=== PATIENT | female | born 1945 | race Caucasian/White ===

== ENCOUNTER 2017-11-13 16:55 | Emergency (ER) | payer SELFPAY ==
[2017-11-13 19:53] VITALS: BP 168/81; PULSE 92; RESP 18; TEMP 37.2; O2SAT 95; BMI 27.4
--- NOTE | 2017-11-13 20:07 | CT_ITS ---
CT abdomen pelvis wo con CLINICAL INDICATION: ITS.REASON: ABDOMINAL PAIN ORDERING PHYSICIAN: Hadley Brar MD PATIENT AGE: 72 years COMPARISON: None TECHNIQUE: Axial images obtained with sagittal and coronal reformats. PROCEDURE: Oral Contrast: None IV Contrast: None . FINDINGS: Lower thorax: Multiple small groupings of micronodules are present in the lung bases with tree-in-bud configuration within the lower lobes. Atelectasis scarring or infiltrate noted in the right middle lobe in the medial aspect of the lingula. No effusions. Bronchial thickening is noted. Abdomen pelvis: No focal liver lesion. The spleen, adrenal glands, gallbladder, pancreas, and kidneys have an unremarkable unenhanced CT appearance. The appendix is somewhat prominent measuring up to 8 mm in diameter however there is gas present in the appendix as expected and there is no periappendiceal fluid apparent. Probably a variation of normal. No evidence of diverticulitis. Senescent appearing uterus with calcification No intestinal obstruction or free air is evident. There is a moderate amount retained colonic feces. Fluid-filled bowel loop is present in the right lower quadrant and may represent redundant cecum. Repeat exam with IV and oral contrast may confirm. There is mild thickening of the urinary bladder wall. No acute bony anomalies. IMPRESSION: 1. Bilateral lung micronodules with tree-in-bud configuration which may represent infectious bronchiolitis versus other interstitial lung processes. 2. Mild wall thickening urinary bladder nonspecific but may be seen with cystitis. 3. Moderate amount retained colonic feces. Fluid-filled bowel is noted in the right lower quadrant and may be due to redundant cecum. Follow-up exam with IV and oral contrast may confirm this finding. 4. Other nonacute findings as described above. The appendix is slightly prominent but does not appear inflamed
[2017-11-13 20:29] LABS: Basophils % 0.3 % (0.1-2.0); Eosinophils # 0.1 K/mm3 (0.0-0.4); Hematocrit 36.9 % (37.0-47.0); Hemoglobin 12.3 g/dL (12.2-16.2); Lymphocytes # 1.7 K/mm3 (0.7-4.5); Lymphocytes % 32.4 K/mm3 (10-50); Mean Corpuscular HGB Conc 33.4 g/dL (31.8-35.4); Mean Corpuscular Hemoglobin 29.2 pg (27.0-31.2); Mean Corpuscular Volume 87.6 fl (81-99); Mean Platelet Volume 8.2 fl (7.4-10.4); Monocytes # 0.3 K/mm3 (0.1-1.0); Monocytes % 5.3 % (1.7-9.3); Neutrophils # 3.2 K/mm3 (1.8-7.8); Neutrophils % 60.9 % (37.0-80.0); Platelet Count 175 K/mm3 (142-424); Red Blood Count 4.22 M/mm3 (4.20-5.40); Red Cell Distribution Width 12.6 % (11.5-17.5); White Blood Count 5.2 K/mm3 (4.8-10.8)
[2017-11-13 20:36] LABS: Microscopic, Urine URINE MICROSCOPIC (MICROSCOPIC)
[2017-11-13 20:36] LABS: Alanine Aminotransferase 34 U/L (12-78); Albumin Level 3.6 gm/dL (3.4-5.0); Albumin/Globulin Ratio 0.9 (1.1-1.8); Alkaline Phosphatase 38 U/L (46-116); Amylase 52 U/L (25-125); Anion Gap 14.9 mEq/L (5-15); Aspartate Amino Transferase 34 U/L (15-37); Bilirubin,Total 0.4 mg/dL (0.2-1.0); Blood Urea Nitrogen 12 mg/dL (7-18); Calcium 8.5 mg/dL (8.5-10.1); Carbon Dioxide 27 mmol/L (21.0-32.0); Chloride 89 mmol/L (98-107); Creatinine Clearance Estimated 58 mL/min (0-300); Creatinine,Serum 0.88 mg/dL (0.55-1.02); Estimated Glomerular Filt Rate 63 ml/min (>60); GFR (African American) 76 ML/MIN (>60); Glucose 136 mg/dL (74-106); Lipase 243 u/L (73-393); Potassium 3.9 mmoL/L (3.5-5.1); Sodium 127 mmol/L (136-145); Total Protein,Serum 7.6 gm/dL (6.4-8.2)
[2017-11-13 20:37] LABS: Appearance,Urine SL CLOUDY (Clear); Bilirubin,Urine Negative (Negative); Blood, Urine TRACE-I (Negative); Color,Urine YELLOW (Yellow); Glucose,Urine (UA) Negative (Negative); Ketones,Urine TRACE (Negative); Leukocyte Esterase,Urine 3+ (Negative); Nitrate,Urine Negative (Negative); Protein,Urine Negative (Negative); Urobilinogen,Urine 0.2 EU/dl (0.2)
[2017-11-13 21:05] LABS: WBC,Urine 20-50 #/hpf (0-3)
[2017-11-13 21:06] LABS: Bacteria,Urine 1+ /lpf
--- NOTE | 2017-11-13 22:57 | [facility]H.EDNVD ---
ED Disposition Clinical Impression: UTI (urinary tract infection) Qualifiers: Urinary tract infection type: acute cystitis Hematuria presence: without hematuria Qualified Code(s): N30.00 - Acute cystitis without hematuria Disposition: Home, Self-Care Condition on Discharge: Good Instructions: DI for Urinary Tract Infection (UTI) Additional Instructions: fluids and call pcp for culture results and will write keflex 500 mg bid x 7 days - Critical Care Critical Care Time: No Attestation: On 11/13/17, the high probability of a clinically significant, sudden or life threatening deterioration of the following system(s) required my full and direct attention, intervention and personal management. The time I documented below is in addition to time spent performing reported procedures but includes the following listed in this critical care notation. Medical Decision Making - Medical Records Medical records reviewed: Yes: I reviewed the patient's medical records. Vital Signs: 11/13/17 19:53 Temperature 98.9 F Temperature Source Oral Pulse Rate [Right Radial] 92 H Respiratory Rate 18 Blood Pressure [Right Arm] 168/81 Blood Pressure Mean [Right Arm] 110 Blood Pressure Source [Right Arm] Automatic Cuff Blood Pressure Position [Right Arm] Sitting 02 Sat by Pulse Oximetry 95 Oxygen Delivery Method Room Air - Lab Data Lab results reviewed: Yes: I reviewed the patient's lab results. Lab Results 11/13/17 20:20: WBC 5.2, RBC 4.22, Hgb 12.3, Hct 36.9 L, MCV 87.6, MCH 29.2, MCHC 33.4, RDW 12.6, Plt Count 175, MPV 8.2, Neut % (Auto) 60.9, Lymph % (Auto) 32.4, [place] % (Auto) 5.3, Eos % (Auto) 1.0, Baso % (Auto) 0.3, Neut # (Auto) 3.2, Lymph # (Auto) 1.7, [place] # (Auto) 0.3, Eos # (Auto) 0.1, Baso # (Auto) 0.0 11/13/17 20:20: Sodium 127 L, Potassium 3.9, Chloride 89 L, Carbon Dioxide 27, Anion Gap 14.9, BUN 12, Creatinine 0.88, Estimated Creat Clear 58, Estimated GFR 63, Est GFR ( Amer) 76, Glucose 136 H, Calcium 8.5, Total Bilirubin 0.4, AST 34, ALT 34, Alkaline Phosphatase 38 L, Total Protein 7.6, Albumin 3.6, Globulin 4.0 H, Albumin/Globulin Ratio 0.9 L, Amylase 52, Lipase 243 11/13/17 20:30: Urine Color Yellow, Urine Appearance Sl cloudy, Urine pH 6.0, Ur Specific [place] 1.010, Urine Protein Negative, Urine Glucose (UA) Negative, Urine Ketones Trace, Urine Blood Trace-i, Urine Nitrate Negative, Urine Bilirubin Negative, Urine Urobilinogen 0.2, Ur Leukocyte Esterase 3+ A, Urine RBC None, Urine WBC 20-50, Ur Squamous Epith Cells 10-20, Ur Transition Epith Cell 5-10, Urine Bacteria 1+ Result diagrams: 11/13/17 20:20 11/13/17 20:20 Orders (Tests/Meds): ED MEDICATIONS Discontinued Medications Generic Name Dose Route Start Last Admin Trade Name Freq PRN Reason Stop Dose Admin Sodium Chloride 1,000 mls @ 999 mls/hr 11/13/17 20:45 11/13/17 20:43 Sod Chloride 0.9% 1000ml Bag IV 11/13/17 21:45 999 mls/hr .Q1H1M LENNIE Administration ORDERS Category Date Time Status CT abdomen pelvis wo con Stat Cat Scan 11/13/17 20:07 Taken Urine Culture Stat Micro 11/13/17 20:30 Received - CT Data CT Scan: Abdomen, Pelvis Time Received: 23:[address] Reviewed: Yes: I have viewed the radiologist's interpretation Preliminary Findings: Abnormal (see report) - Per Inquiry Pt receiving controlled substance: No Nausea/Vomiting/Diarrhea HPI - General Chief complaint: Abdominal Pain Stated complaint: abd pain,lower back Time Seen by Provider: 11/13/17 22:57 Mode of Arrival: Ambulatory Source of Information: Patient, Spouse, Medical Record Limitations: No Limitations Description of Symptoms (Recalled from ER Triage Doc. by RN): PT REPORTS GENERALIZED ABD PAIN THAT RADIATES TO HER BACK X 1WK. PT REPORTS INTERMITTENT NAUSEA AND VOMITING. - History of Present Illness HPI Narrative: 2 day hx of lower back pain and lower abd pain with no fever or vomiting MD complaint: abdominal pain Onset (ago): day(
--- NOTE | 2017-11-13 23:01 | ED_ITS ---
ED Disposition Clinical Impression: UTI (urinary tract infection) Qualifiers: Urinary tract infection type: acute cystitis Hematuria presence: without hematuria Qualified Code(s): N30.00 - Acute cystitis without hematuria Disposition: Home, Self-Care Condition on Discharge: Good Instructions: DI for Urinary Tract Infection (UTI) Additional Instructions: fluids and call pcp for culture results and will write keflex 500 mg bid x 7 days - Critical Care Critical Care Time: No Attestation: On 11/13/17, the high probability of a clinically significant, sudden or life threatening deterioration of the following system(s) required my full and direct attention, intervention and personal management. The time I documented below is in addition to time spent performing reported procedures but includes the following listed in this critical care notation. Medical Decision Making - Medical Records Medical records reviewed: Yes: I reviewed the patient's medical records. Vital Signs: 11/13/17 19:53 Temperature 98.9 F Temperature Source Oral Pulse Rate [Right Radial] 92 H Respiratory Rate 18 Blood Pressure [Right Arm] 168/81 Blood Pressure Mean [Right Arm] 110 Blood Pressure Source [Right Arm] Automatic Cuff Blood Pressure Position [Right Arm] Sitting 02 Sat by Pulse Oximetry 95 Oxygen Delivery Method Room Air - Lab Data Lab results reviewed: Yes: I reviewed the patient's lab results. Lab Results 11/13/17 20:20: WBC 5.2, RBC 4.22, Hgb 12.3, Hct 36.9 L, MCV 87.6, MCH 29.2, MCHC 33.4, RDW 12.6, Plt Count 175, MPV 8.2, Neut % (Auto) 60.9, Lymph % (Auto) 32.4, [place] % (Auto) 5.3, Eos % (Auto) 1.0, Baso % (Auto) 0.3, Neut # (Auto) 3.2 , Lymph # (Auto) 1.7, [place] # (Auto) 0.3, Eos # (Auto) 0.1, Baso # (Auto) 0.0 11/13/17 20:20: Sodium 127 L, Potassium 3.9, Chloride 89 L, Carbon Dioxide 27, Anion Gap 14.9, BUN 12, Creatinine 0.88, Estimated Creat Clear 58, Estimated GFR 63, Est GFR ( Amer) 76, Glucose 136 H, Calcium 8.5, Total Bilirubin 0.4, AST 34, ALT 34, Alkaline Phosphatase 38 L, Total Protein 7.6, Albumin 3.6, Globulin 4.0 H, Albumin/Globulin Ratio 0.9 L, Amylase 52, Lipase 243 11/13/17 20:30: Urine Color Yellow, Urine Appearance Sl cloudy, Urine pH 6.0, Ur Specific [place] 1.010, Urine Protein Negative, Urine Glucose (UA) Negative, Urine Ketones Trace, Urine Blood Trace-i, Urine Nitrate Negative, Urine Bilirubin Negative, Urine Urobilinogen 0.2, Ur Leukocyte Esterase 3+ A, Urine RBC None, Urine WBC 20-50, Ur Squamous Epith Cells 10-20, Ur Transition Epith Cell 5-10, Urine Bacteria 1+ Result diagrams: 11/13/17 20:20 11/13/17 20:20 Orders (Tests/Meds): ED MEDICATIONS Discontinued Medications Generic Name Dose Route Start Last Admin Trade Name Freq PRN Reason Stop Dose Admin Sodium Chloride 1,000 mls @ 999 mls/hr 11/13/17 20:45 11/13/17 20:43 Sod Chloride 0.9% 1000ml Bag IV 11/13/17 21:45 999 mls/hr .Q1H1M LENNIE Administration ORDERS Category Date Time Status CT abdomen pelvis wo con Stat Cat Scan 11/13/17 20:07 Taken Urine Culture Stat Micro 11/13/17 20:30 Received - CT Data CT Scan: Abdomen, Pelvis Time Received: 23:[address] Reviewed: Yes: I have viewed the radiologist's interpretation Preliminary Findings: Abnormal (see report) - Per Inquiry Pt receiving controlled substance: No Nausea/Vomiti
== END 2017-11-13 23:26 | disposition home or self-care (01) ==
PROVIDERS: Emergency Medicine; Emergency Provider Emergency Medicine
DX: N30.00 Acute cystitis without hematuria (principal); E11.9 Type 2 diabetes mellitus without complications; Z79.4 Long term (current) use of insulin
CPT/HCPCS: 74176; 80053; 81001; 82150; 83690; 85025; 87086; 87088; 87186; 96365; 96367; 96375; 99283

== ENCOUNTER 2018-03-13 11:12 | Observation (INO) ==
--- NOTE | 2018-03-13 11:32 | Emergency Department Note ---
ED Disposition Clinical Impression: New onset atrial flutter, Chest pain, Right ventricular dysfunction, Diabetes, Hypertension Disposition: Still a Patient Condition on Discharge: Fair - Critical Care Critical Care Time: No Attestation: On , the high probability of a clinically significant, sudden or life threatening deterioration of the following system(s) required my full and direct attention, intervention and personal management. The time I documented below is in addition to time spent performing reported procedures but includes the following listed in this critical care notation. Medical Decision Making - Per Inquiry Pt receiving controlled substance: No Per was queried for this patient: No Vital Signs: 03/13/18 11:12 03/13/18 12:12 03/13/18 13:30 Temperature 97.5 F L 98.2 F 97.6 F Temperature Source Oral Oral Oral Pulse Rate [Left Radial] 127 H 85 84 Respiratory Rate 20 18 16 Blood Pressure [Right Arm] 137/98 131/69 143/77 Blood Pressure Mean [Right Arm] 111 89 99 Blood Pressure Source [Right Arm] Automatic Cuff Automatic Cuff Blood Pressure Position [Right Arm] Supine Sitting Supine 02 Sat by Pulse Oximetry 97 99 100 Oxygen Delivery Method Room Air Room Air 03/13/18 14:59 Temperature 98.2 F Temperature Source Oral Pulse Rate [Left Radial] 86 Respiratory Rate 18 Blood Pressure [Right Arm] 139/99 Blood Pressure Mean [Right Arm] 112 Blood Pressure Source [Right Arm] Automatic Cuff Blood Pressure Position [Right Arm] Supine 02 Sat by Pulse Oximetry 99 Oxygen Delivery Method Room Air - Lab Data Lab Results 03/13/18 11:15: WBC 7.0, RBC 3.74 L, Hgb 13.2, Hct 33.9 L, MCV 90.7, MCH 35.4 H , MCHC 39.0 H, RDW 13.4, Plt Count 149, MPV 7.9, Neut % (Auto) 65.6, Lymph % ( Auto) 28.9, [place] % (Auto) 3.9, Eos % (Auto) 1.2, Baso % (Auto) 0.3, Neut # (Auto ) 4.6, Lymph # (Auto) 2.0, [place] # (Auto) 0.3, Eos # (Auto) 0.1, Baso # (Auto) 0.0 03/13/18 11:15: D-Dimer 846 H* 03/13/18 11:15: Sodium 134 L, Potassium 4.3, Chloride 99, Carbon Dioxide 31, Anion Gap 8.3, BUN 16, Creatinine 0.95, Estimated Creat Clear 59, Estimated GFR 58 L, Est GFR ( Amer) 70, Glucose 278 H, Total Creatine Kinase 430 H, CK- MB (CK-2) 13.0 H*, CK-MB (CK-2) Rel Index 3.0, Troponin I < 0.02, TSH 1.85, Free T4 0.65 L 03/13/18 11:15: B-Natriuretic Peptide 336 H 03/13/18 11:15: Total Bilirubin 0.3, Direct Bilirubin 0.1, Indirect Bilirubin 0.2, AST 28, ALT 39, Alkaline Phosphatase 43 L, Total Protein 7.1, Albumin 3.5 03/13/18 14:14: Troponin I 0.04 Result diagrams: 03/13/18 11:15 03/13/18 11:15 Orders (Tests/Meds): ED MEDICATIONS Discontinued Medications Generic Name Dose Route Start Last Admin Trade Name Tim[place]o PRN Reason Stop Dose Admin Enoxaparin Sodium 60 mg 03/13/18 14:13 03/13/18 14:22 Lovenox 60mg/0.6ml Syringe SQ 03/13/18 14:14 60 mg ONCE ONE Administration Famotidine 20 mg 03/13/18 14:13 03/13/18 14:22 Pepcid 20mg/2ml Vial IV 03/13/18 14:14 20 mg ONCE ONE Administration Iopamidol 70 ml 03/13/18 15:09 03/13/18 15:10 [id number]; 100ml Vial IV 03/13/18 15:10 70 ml ONCE ONE Administration Metoprolol Tartrate 2.5 mg 03/13/18 11:28 03/13/18 12:20 Metoprolol Tartrate 5mg/5ml Vial IV 03/13/18 11:29 2.5 mg ONCE ONE Administration Sodium Chloride 50 ml 03/13/18 15:09 03/13/18 15:09 Rad-Ns 50ml Vial IV 03/13/18 15:10 50 ml ONCE ONE Administration Sodium Chloride 10 ml 03/13/18 15:09 03/13/18 15:09 Rad-Saline Flush 10ml Syringe IV 03/13/18 15:10 10 ml ONCE ONE Administration ORDERS Category Date Time Status ECG Request by /Nse Stat Y 03/13/18 11:15 Stop Req - ECG Data Tracing #1 Sinus tachycardia 127 old Q-wave in anterior leads I millimeter ST depression in the lateral leads. ECG initial impression date: 03/13/18 ECG initial impression time: 11:34 Tracing #2 Second EKG after Lopressor IV normal sinus rhythm 85/min bigeminy with ST segment changes on the lateral leads suggestive of ischemia. ECG initial impression date: 03/13/18 ECG initial impression time: 14:08 Medical Decision Narrative: IMPRESSION: 1. No evidence of pulmonary embolus. 2. Mild prominence of the main pulmonary arteries which may be seen with pulmonary arterial hypertension. 3. Reflux of contrast into the inferior vena cava and hepatic veins which may be seen with right ventricular dysfunction. 4. Centrilobular nodular densities in the right upper lobe with bronchial thickening consistent with an area of bronchopneumonia. Left hepatic changes are present bilaterally I discussed the above report with Dr. Kramer the interventional cardiology for possible right and left sided cardiac catheterization. I spoke with Dr. Meyers the patient for rule out NM and further medical management regarding her cardiac dysrhythmia. The patient was admitted in a stable hemodynamically and neurologically stable condition. Chest Pain HPI - General Chief Complaint: PAIN Stated Complaint: Palpatations Time Seen by Provider: 03/13/18 11:15 Mode of Arrival: Ambulatory Limitations: No Limitations Description of Symptoms (Recalled from ER Triage Doc. by RN): Pt stated that she started have heart racing last night with some back pain and right hip pain - History of Present Illness HPI narrative: 72 years old white female with history of ASD repair hypertension and diabetes. At 2 AM this morning she developed palpitations that continued until she arrived to the ED, experiencing mild chest pressure rated 2/10 with shortness of breath. She denies having nausea vomiting diarrhea hematemesis coffee- ground emesis bleeding per rectum or melanotic stool she denies having hemoptysis. She denies having fever or chills. Has chronic low back pain on bilateral hip pain. MD complaint: chest pain Onset (ago): hour(s) (9 hours.) Duration: constant Activity at onset: during rest Pain location: substernal Severity: mild Severity scale (1-10): 2 Quality: tightness Pain radiation: none Relieving factors: nothing Exacerbating factors: nothing Associated symptoms: dyspnea, palpitations Risk Factors for CAD: Hypertension, Diabetes - Related Data On Oral Contraceptives: No Home Medications Medication Instructions Recorded Confirmed Insulin Aspart [Novolog Flexpen] 22 unit SQ BID 11/13/17 03/13/18 Carvedilol [Coreg 12.5mg 0 mg PO BID 03/13/18 03/13/18 Tablet] Lisinopril [Lisinopril 10mg Tab] 0 mg PO DAILY 03/13/18 03/13/18 Allergies Allergy/AdvReac Type Severity Reaction Status Date / Time No Known Allergies Allergy Verified 11/13/17 20:03 [facility] History I have reviewed the patient's past medical history: Yes Medical History: Reports:: Diabetes Mellitus Type 2 Denies:: Diabetes Mellitus Type 1 - Social History Smoking Status: Never smoker Alcohol Intake: never - Psychiatric History Expresses thoughts of harming self/others: None Suicide Plan Description: No Plan ROS Obtained: Yes All systems reviewed & no additional complaints Physical Exam - General General appearance: alert, in no apparent distress - Head Head exam: atraumatic, normocephalic, normal inspection - Eye Eye exam: Present: normal appearance, PERRL, EOMI - ENT ENT exam: Present: normal exam, normal oropharynx, mucous membranes moist, TM's normal bilaterally, normal external ear exam - Neck Neck exam: Present: normal inspection, full ROM, trachea midline. Absent: meningismus, lymphadenopathy - Chest Chest inspection: Present: normal inspection, symmetric chest wall rise, other ( well healed scar of prior Thoracotomy). Absent: tenderness - Respiratory Respiratory exam: Present: normal lung sounds bilaterally. Absent: respiratory distress - Cardiovascular Cardiovascular exam: Present: regular rate, normal rhythm, tachycardia. Absent : JVD - Abdominal Exam Abdominal exam: Present: soft, normal bowel sounds. Absent: distention, tenderness, guarding, rebound, rigidity - External exam: Present: normal external exam - Extremities Exam Extremities exam: Present: normal inspection, full ROM, normal capillary refill. Absent: calf tenderness - Back Exam Back exam: Present: normal inspection. Absent: tenderness - Neurological Exam Neurological exam: Present: alert, oriented X3, CN II-XII intact, motor sensory deficit, reflexes normal - Psychiatric Psychiatric exam: Present: normal affect, normal mood - Skin Skin exam: Present: warm, dry, intact, normal color - Lymphatic Lymphatic Findings: no adenopathy
[2018-03-13 11:44] LABS: Basophils % 0.3 % (0.1-2.0); Eosinophils # 0.1 K/mm3 (0.0-0.4); Eosinophils % 1.2 % (0.1-12.0); Hematocrit 33.9 % (37.0-47.0); Hemoglobin 13.2 g/dL (12.2-16.2); Lymphocytes % 28.9 K/mm3 (10-50); Mean Corpuscular Hemoglobin 35.4 pg (27.0-31.2); Mean Corpuscular Volume 90.7 fl (81-99); Mean Platelet Volume 7.9 fl (7.4-10.4); Monocytes # 0.3 K/mm3 (0.1-1.0); Monocytes % 3.9 % (1.7-9.3); Neutrophils # 4.6 K/mm3 (1.8-7.8); Neutrophils % 65.6 % (37.0-80.0); Platelet Count 149 K/mm3 (142-424); Red Blood Count 3.74 M/mm3 (4.20-5.40); Red Cell Distribution Width 13.4 % (11.5-17.5)
[2018-03-13 11:52] LABS: Albumin Level 3.5 gm/dL (3.4-5.0); Bilirubin,Direct 0.1 mg/dL (0.0-0.2); Bilirubin,Indirect 0.2 mg/dL (0.0-0.9); Bilirubin,Total 0.3 mg/dL (0.2-1.0); Total Protein,Serum 7.1 gm/dL (6.4-8.2)
[2018-03-13 11:56] LABS: Anion Gap 8.3 mEq/L (5-15); Blood Urea Nitrogen 16 mg/dL (7-18); Carbon Dioxide 31 mmol/L (21.0-32.0); Chloride 99 mmol/L (98-107); Creatine Kinase 430 U/L (26-192); Free T4 (Free Thyroxine) 0.65 ng/dl (0.76-1.46); Glucose 278 mg/dL (74-106); Potassium 4.3 mmoL/L (3.5-5.1); Sodium 134 mmol/L (136-145); Thyroid Stimulating Hormone 1.85 uIU/ml (0.358-3.740)
--- NOTE | 2018-03-13 16:01 | Consult Report ---
History of Present Illness Consult date: 03/13/18 Consult reason: chest pain Chief complaint: palpitations, chest pain Additional Medical History:: 1. Diabetes mellitus, treated for greater than 20 years 2. History of ?Atrial or ventricular septal defect repair in the remote past ( 1989) 3. Hypertension History of present illness: 72-year-old white female with history of diabetes and ventricular septal defect repair came to the emergency department today for evaluation of palpitations and chest pain. Patient has had palpitations intermittently over the last several days but was awakened early this a.m. due to recurrence with associated chest pain. Symptoms continued until she got to the emergency department at which time the patient was given IV beta-cyril with improvement in symptoms. EKG revealed what appeared to be an atrial tachycardia and a rate of 120s that slowed to show atrial fibrillation/flutter in the 80s bpm after IV beta-cyirl therapy. Initial troponin was noted to be normal and EKG showed a. flutter with variable block, Poor R wave progression anteriorly with IVCD without evidence of ST elevation. Cardiology consulted for evaluation recommendations. Patient did have CT of the chest performed due to elevated d-dimer which did not show any evidence of pulmonary embolism. Was evidence of right ventricular dysfunction. [facility] History Medical History: Reports:: Atrial Fibrillation, Diabetes Mellitus Type 2 Denies:: Diabetes Mellitus Type 1 - *Social History Smoking Status: Never smoker Alcohol Intake: never - Psychiatric History Expresses thoughts of harming self/others: None Suicide Plan Description: No Plan Meds Home Medications Medication Instructions Recorded Confirmed Type Insulin Aspart [Novolog Flexpen] 22 unit SQ BID 11/13/17 03/13/18 History Carvedilol [Coreg 12.5mg 0 mg PO BID 03/13/18 03/13/18 History Tablet] Lisinopril [Lisinopril 10mg Tab] 0 mg PO DAILY 03/13/18 03/13/18 History Allergies Allergy/AdvReac Type Severity Reaction Status Date / Time No Known Allergies Allergy Verified 11/13/17 20:03 Review of Systems - *Cardiovascular Reports chest pain, Reports shortness of breath with activity, Reports rapid, pounding, or irregular heartbeat - *Respiratory Reports shortness of breath with activity - *Gastrointestinal Denies abdominal pain - *Musculoskeletal Reports joint pain Exam Vital signs and Labs for Last 24 Hours: Temp Pulse Resp BP Pulse Ox 98.2 F 86 18 139/99 99 03/13/18 14:59 03/13/18 14:59 03/13/18 14:59 03/13/18 14:59 03/13/18 14:59 Laboratory Results - last 24 hr 03/13/18 11:15: WBC 7.0, RBC 3.74 L, Hgb 13.2, Hct 33.9 L, MCV 90.7, MCH 35.4 H , MCHC 39.0 H, RDW 13.4, Plt Count 149, MPV 7.9, Neut % (Auto) 65.6, Lymph % ( Auto) 28.9, [place] % (Auto) 3.9, Eos % (Auto) 1.2, Baso % (Auto) 0.3, Neut # (Auto ) 4.6, Lymph # (Auto) 2.0, [place] # (Auto) 0.3, Eos # (Auto) 0.1, Baso # (Auto) 0.0 03/13/18 11:15: D-Dimer 846 H* 03/13/18 11:15: Sodium 134 L, Potassium 4.3, Chloride 99, Carbon Dioxide 31, Anion Gap 8.3, BUN 16, Creatinine 0.95, Estimated Creat Clear 59, Estimated GFR 58 L, Est GFR ( Amer) 70, Glucose 278 H, Total Creatine Kinase 430 H, CK- MB (CK-2) 13.0 H*, CK-MB (CK-2) Rel Index 3.0, Troponin I < 0.02, TSH 1.85, Free T4 0.65 L 03/13/18 11:15: B-Natriuretic Peptide 336 H 03/13/18 11:15: Total Bilirubin 0.3, Direct Bilirubin 0.1, Indirect Bilirubin 0.2, AST 28, ALT 39, Alkaline Phosphatase 43 L, Total Protein 7.1, Albumin 3.5 03/13/18 14:14: Troponin I 0.04 I & O for Last 24 hours: Intake & Output 03/11/18 03/12/18 03/13/18 03/14/18 11:59 11:59 11:59 11:59 Weight 167 lb - *Routine Neck Exam Absent: JVD, carotid bruit - *Routine Respiratory Exam Present: CTA bilaterally - *Routine Cardiovascular Exam Present: irregularly irregular - *Routine Abdominal Exam Present: soft. Absent: tenderness - *Routine Extremities Exam Absent: edema - *Routine Neurological Exam Present: alert, oriented X3, moving all extremities Assessment and Plan (1) Chest pain Current visit: Yes Status: Acute Category: Medical Code(s): R07.9 - Chest pain, unspecified (2) Diabetes Current visit: Yes Status: Acute Category: Medical Code(s): E11.9 - Type 2 diabetes mellitus without complications (3) Hypertension Current visit: Yes Status: Acute Category: Medical Code(s): I10 - Essential (primary) hypertension (4) New onset atrial flutter Current visit: Yes Status: Acute Category: Medical Code(s): I48.92 - Unspecified atrial flutter (5) Right ventricular dysfunction Current visit: Yes Status: Acute Category: Medical Code(s): I51.9 - Heart disease, unspecified - Assessment and plan all Dx Assessment and Plan for all problems:: 1. In this long-term diabetic patient with chest pain that resolved with IV beta-cyril therapy and new onset a. flutter, recommend proceeding with left heart catheterization to evaluate coronary artery disease. 2. With new onset atrial flutter/fibrillation, consideration will need to be given for long-term anticoagulation after cardiac catheterization. CHADS-VASc score is at least 3.
--- NOTE | 2018-03-13 16:34 | History & Physical Report ---
*Admission Date: 03/13/18 <Bety Salinas 03/13/18 16:38> *Chief complaint: chest pressure, rapid HR <Bety Salinas 03/13/18 16:38> *History of present illness: Ms. Saleh is a 72-year-old white female with a history of diabetes and ventricular septal defect repair in 1989. She came to the emergency department today for evaluation of palpitations and chest pressure. The patient has had palpitations intermittently over the last several days but was awakened early this a.m. due to recurrence with associated chest pressure. Symptoms continued until she got to the emergency department at which time the patient was given an IV beta-cyril with improvement in symptoms. EKG revealed what appeared to be an atrial tachycardia and a rate of 120s that slowed to show atrial fibrillation/flutter in the 80s bpm after IV beta-cyril therapy. Initial troponin was noted to be normal and EKG showed a. flutter with variable block, Poor R wave progression anteriorly with IVCD without evidence of ST elevation. Cardiology was consulted for evaluation recommendations. The patient did have a CT of the chest performed due to elevated d-dimer which did not show any evidence of pulmonary embolism. <Bety Salinas 03/13/18 16:38> [facility] History Medical History: Reports:: Atrial Fibrillation, Diabetes Mellitus Type 2 Denies:: Diabetes Mellitus Type 1 <Bety Salinas 03/13/18 16:38> Comment: ASD <Bety Salinas 03/13/18 16:38> Comment: ASD repair <Bety Salinas 03/13/18 16:38> - *Social History Smoking Status: Never smoker <Bety Salinas 03/13/18 16:38> Alcohol Intake: never <Bety Salinas 03/13/18 16:38> - Psychiatric History Expresses thoughts of harming self/others: None <Bety Salinas 03/13/18 16: 38> Suicide Plan Description: No Plan <Bety Salinas 03/13/18 16:38> *Family Hx:: Diabetes, Heart Attack, Hypertension, Stroke <Bety Salinas 16:38> Review of Systems - Constitutional Denies fatigue, Denies fever(s) <Bety Salinas 03/13/18 16:38> - Eyes Denies blurry vision, Denies double vision <Bety Salinas 03/13/18 16:38> - ENT Denies nasal congestion, Denies sore throat [facility] 03/13/[facility] 16:38> - *Cardiovascular Reports chest pain (resolved), Reports rapid, pounding, or irregular heartbeat <Bety Salinas 03/13/18 16:38> - *Respiratory Reports shortness of breath, Denies cough <Bety Salinas 03/13/18 16:38> - *Gastrointestinal Denies abdominal pain, Denies loose stools, Denies nausea, Denies vomiting < Bety Salinas 03/13/18 16:38> - *Genitourinary Denies difficulty urinating, Denies painful urination [facility] 16:38> - *Musculoskeletal Reports joint pain (low back and right hip) <Bety Salinas 03/13/18 16:38> - *Neurologic Reports headache(s), Denies dizziness <[facility] 03/13/18 16:38> Meds Home Medications Medication Instructions Recorded Confirmed Type Insulin Aspart [Novolog Flexpen] 22 unit SQ BID 11/13/17 03/13/18 History Carvedilol [Coreg 12.5mg 12.5 mg PO BID 03/13/18 03/13/18 History Tablet] Lisinopril [Lisinopril 10mg Tab] 10 mg PO DAILY 03/13/18 03/13/18 History <Tl Meyers - 03/13/18 17:00> Allergies Allergy/AdvReac Type Severity Reaction Status Date / Time No Known Allergies Allergy Verified 03/13/18 16:49 <Tl Meyers - 03/13/18 17:00> Exam Vital signs and Labs for Last 24 Hours: Temp Pulse Resp BP Pulse Ox 98.2 F 86 18 139/99 99 03/13/18 16:06 03/13/18 16:06 03/13/18 16:06 03/13/18 16:06 03/13/18 14:59 Laboratory Results - last 24 hr 03/13/18 11:15: WBC 7.0, RBC 3.74 L, Hgb 13.2, Hct 33.9 L, MCV 90.7, MCH 35.4 H , MCHC 39.0 H, RDW 13.4, Plt Count 149, MPV 7.9, Neut % (Auto) 65.6, Lymph % ( Auto) 28.9, [place] % (Auto) 3.9, Eos % (Auto) 1.2, Baso % (Auto) 0.3, Neut # (Auto ) 4.6, Lymph # (Auto) 2.0, [place] # (Auto) 0.3, Eos # (Auto) 0.1, Baso # (Auto) 0.0 03/13/18 11:15: D-Dimer 846 H* 03/13/18 11:15: Sodium 134 L, Potassium 4.3, Chloride 99, Carbon Dioxide 31, Anion Gap 8.3, BUN 16, Creatinine 0.95, Estimated Creat Clear 59, Estimated GFR 58 L, Est GFR ( Amer) 70, Glucose 278 H, Total Creatine Kinase 430 H, CK- MB (CK-2) 13.0 H*, CK-MB (CK-2) Rel Index 3.0, Troponin I < 0.02, TSH 1.85, Free T4 0.65 L 03/13/18 11:15: B-Natriuretic Peptide 336 H 03/13/18 11:15: Total Bilirubin 0.3, Direct Bilirubin 0.1, Indirect Bilirubin 0.2, AST 28, ALT 39, Alkaline Phosphatase 43 L, Total Protein 7.1, Albumin 3.5 03/13/18 14:14: Troponin I 0.04 03/13/18 16:10: Troponin I 0.04 <Tl Meyers - 03/13/18 17:00> Temp Pulse Resp BP Pulse Ox 98.2 F 86 18 139/99 99 03/13/18 16:06 03/13/18 16:06 03/13/18 16:06 03/13/18 16:06 03/13/18 14:59 Laboratory Results - last 24 hr 03/13/18 11:15: WBC 7.0, RBC 3.74 L, Hgb 13.2, Hct 33.9 L, MCV 90.7, MCH 35.4 H , MCHC 39.0 H, RDW 13.4, Plt Count 149, MPV 7.9, Neut % (Auto) 65.6, Lymph % ( Auto) 28.9, [place] % (Auto) 3.9, Eos % (Auto) 1.2, Baso % (Auto) 0.3, Neut # (Auto ) 4.6, Lymph # (Auto) 2.0, [place] # (Auto) 0.3, Eos # (Auto) 0.1, Baso # (Auto) 0.0 03/13/18 11:15: D-Dimer 846 H* 03/13/18 11:15: Sodium 134 L, Potassium 4.3, Chloride 99, Carbon Dioxide 31, Anion Gap 8.3, BUN 16, Creatinine 0.95, Estimated Creat Clear 59, Estimated GFR 58 L, Est GFR ( Amer) 70, Glucose 278 H, Total Creatine Kinase 430 H, CK- MB (CK-2) 13.0 H*, CK-MB (CK-2) Rel Index 3.0, Troponin I < 0.02, TSH 1.85, Free T4 0.65 L 03/13/18 11:15: B-Natriuretic Peptide 336 H 03/13/18 11:15: Total Bilirubin 0.3, Direct Bilirubin 0.1, Indirect Bilirubin 0.2, AST 28, ALT 39, Alkaline Phosphatase 43 L, Total Protein 7.1, Albumin 3.5 03/13/18 14:14: Troponin I 0.04 <Bety Salinas - 03/13/18 16:38> I & O for Last 24 hours: Intake & Output 03/11/18 03/12/18 03/13/18 03/14/18 11:59 11:59 11:59 11:59 Weight 167 lb <Tl Meyers - 03/13/18 17:00> Intake & Output 03/11/18 03/12/18 03/13/18 03/14/18 11:59 11:59 11:59 11:59 Weight 167 lb <Bety Salinas 03/13/18 16:38> - Constitutional no acute distress <Bety Salinas - 03/13/18 16:38> - *Routine HEENT Exam Head: Present: normocephalic, atraumatic <Bety Salinas 03/13/18 16:38> Eye: Present: EOMI, PERRL <[facility] 03/13/18 16:38> ENT: Present: mucous membranes moist <[facility] 03/13/18 16:38> - *Routine Neck Exam Present: supple, full ROM. Absent: carotid bruit <[facility] 03/13/18 16 :38> - *Routine Respiratory Exam Present: CTA bilaterally <[facility] 03/13/18 16:38> - *Routine Cardiovascular Exam Present: irregularly irregular <[facility] 03/13/18 16:38> - *Routine Abdominal Exam Present: soft, normoactive bowel sounds. Absent: tenderness <[facility] 03/13/18 16:38> - *Routine Extremities Exam Absent: edema <[facility] 03/13/18 16:38> Comments: varicose veins <[facility] 03/13/18 16:38> - *Routine Skin Exam Present: intact <[facility] 03/13/18 16:38> - *Routine Neurological Exam Present: alert, oriented X3 <[facility] 03/13/18 16:38> H&P: Result - Labs Labs: Short CBC 03/13/18 Range/Units 11:15 WBC 7.0 (4.8-10.8) K/mm3 Hgb 13.2 (12.2-16.2) g/dL Hct 33.9 L (37.0-47.0) % Plt Count 149 (142-424) K/mm3 BMP 03/13/18 11:15 Sodium 134 L Potassium 4.3 Chloride 99 Carbon Dioxide 31 BUN 16 Creatinine 0.95 Glucose 278 H Cardiac Enzymes 03/13/18 03/13/18 03/13/18 Range/Units 11:15 14:14 16:10 Total Creatine Kinase 430 H (26-192) U/L CK-MB (CK-2) 13.0 H* (0.0-3.6) ng/ml Troponin I < 0.02 0.04 0.04 (0.00-0.06) ng/ml Liver Function 03/13/18 Range/Units 11:15 Total Bilirubin 0.3 (0.2-1.0) mg/dL Direct Bilirubin 0.1 (0.0-0.2) mg/dL AST 28 (15-37) U/L ALT 39 (12-78) U/L Alkaline Phosphatase 43 L (46-116) U/L Albumin 3.5 (3.4-5.0) gm/dL <Tl Meyers - 03/13/18 17:00> <RitaBety 03/13/18 16:38> - Impressions CXR - chronic bronchitis CTA - no PE <Jose RamonyonathanBety 03/13/18 16:38> Assessment and Plan (1) Chest pain Current visit: Yes Status: Acute Category: Medical Code(s): R07.9 - Chest pain, unspecified (2) Diabetes Current visit: Yes Status: Acute Category: Medical Code(s): E11.9 - Type 2 diabetes mellitus without complications (3) Hypertension Current visit: Yes Status: Acute Category: Medical Code(s): I10 - Essential (primary) hypertension (4) New onset atrial flutter Current visit: Yes Status: Acute Category: Medical Code(s): I48.92 - Unspecified atrial flutter (5) Right ventricular dysfunction Current visit: Yes Status: Acute Category: Medical Code(s): I51.9 - Heart disease, unspecified <Tl Meyers 03/13/18 17:00> (1) Chest pain Current visit: Yes Status: Acute Category: Medical Code(s): R07.9 - Chest pain, unspecified (2) Diabetes Current visit: Yes Status: Acute Category: Medical Code(s): E11.9 - Type 2 diabetes mellitus without complications (3) Hypertension Current visit: Yes Status: Acute Category: Medical Code(s): I10 - Essential (primary) hypertension (4) New onset atrial flutter Current visit: Yes Status: Acute Category: Medical Code(s): I48.92 - Unspecified atrial flutter (5) Right ventricular dysfunction Current visit: Yes Status: Acute Category: Medical Code(s): I51.9 - Heart disease, unspecified <Bety Salinas 03/13/18 16:31> - Assessment and plan all Dx Assessment and Plan for all problems:: Saw patient, agree with above note. <[place],Tl 03/13/18 17:00> Cardiology will monitor overnight and will do a heart cath in the am. <Bety Salinas - 03/13/18 16:38>
--- NOTE | 2018-03-13 22:34 | Pharmacy Consult Notes ---
[facility] Pharmacy VTE Monitoring - Patient Demographics Admission date: 03/13/18 Report Date: 03/13/18 Time: 22:34 Allergies/Adverse Reactions: Patient Allergies No Known Allergies Allergy (Verified 03/13/18 16:49) Height: 1.73 m Weight: 75.75 kg Patient Problems: Current Active Problems New onset atrial flutter (Acute) Chest pain (Acute) Right ventricular dysfunction (Acute) Diabetes (Acute) Hypertension (Acute) - VTE Risk Labs: VTE Related Lab Results Hgb 13.2 g/dL (12.2-16.2) 03/13/18 11:15 Hct 33.9 % (37.0-47.0) L 03/13/18 11:15 Plt Count 149 K/mm3 (142-424) 03/13/18 11:15 BUN 16 mg/dL (7-18) 03/13/18 11:15 Creatinine 0.95 mg/dL (0.55-1.02) 03/13/18 11:15 Estimated Creat Clear 59 mL/min (0-300) 03/13/18 11:15 Was VTE Risk Assessment Performed: Yes VTE Score: 1 VTE Risk Level: Very Low Risk Clinical Trial Participant: No - Prophylaxis VTE Prophylaxis Ordered?: Yes Types of VTE Prophylaxis: TEDS Knee High Location of Applied Device: Not Applicable
[2018-03-14 04:29] LABS: Basophils % 0.5 % (0.1-2.0); Eosinophils # 0.1 K/mm3 (0.0-0.4); Eosinophils % 1.9 % (0.1-12.0); Hematocrit 38.4 % (37.0-47.0); Hemoglobin 12.3 g/dL (12.2-16.2); Lymphocytes # 2.5 K/mm3 (0.7-4.5); Lymphocytes % 52.2 K/mm3 (10-50); Mean Corpuscular HGB Conc 32.2 g/dL (31.8-35.4); Mean Corpuscular Hemoglobin 29.2 pg (27.0-31.2); Mean Corpuscular Volume 90.9 fl (81-99); Mean Platelet Volume 8.1 fl (7.4-10.4); Monocytes # 0.2 K/mm3 (0.1-1.0); Monocytes % 5.2 % (1.7-9.3); Neutrophils # 1.9 K/mm3 (1.8-7.8); Neutrophils % 40.2 % (37.0-80.0); Platelet Count 151 K/mm3 (142-424); Red Blood Count 4.22 M/mm3 (4.20-5.40); Red Cell Distribution Width 13.4 % (11.5-17.5); White Blood Count 4.7 K/mm3 (4.8-10.8)
[2018-03-14 04:48] LABS: Anisocytosis 1+; Lymphocytes % 54 % (10-50); Monocytes % 2 % (2-9); Neutrophils % 44 % (42-76); Total Cells Counted 100
[2018-03-14 04:49] LABS: Hypochromasia 1+; Polychromasia 1+
[2018-03-14 04:59] LABS: Anion Gap 8.1 mEq/L (5-15); Chol/HDL Ratio 3.5 (1-3.5); Potassium 4.1 mmoL/L (3.5-5.1)
--- NOTE | 2018-03-14 08:14 | Progress Note ---
<Bety Salinas - Last Filed: 03/14/18 08:13> Internal Medicine - PN: Subj *Date: 03/14/18 *Time: 08:13 Interval history: Patient states she did well overnight but did have a few episodes where her heart rate increased to the 120s. Her chest heaviness is better but still present. She did rest off and on. Exam Vital signs and Labs for Last 24 Hours: Temp Pulse Resp BP Pulse Ox 97.4 F L 64 16 111/68 98 03/14/18 04:00 03/14/18 04:00 03/14/18 04:00 03/14/18 04:00 03/14/18 04:00 Laboratory Results - last 24 hr 03/13/18 11:15: WBC 7.0, RBC 3.74 L, Hgb 13.2, Hct 33.9 L, MCV 90.7, MCH 35.4 H , MCHC 39.0 H, RDW 13.4, Plt Count 149, MPV 7.9, Neut % (Auto) 65.6, Lymph % ( Auto) 28.9, [place] % (Auto) 3.9, Eos % (Auto) 1.2, Baso % (Auto) 0.3, Neut # (Auto ) 4.6, Lymph # (Auto) 2.0, [place] # (Auto) 0.3, Eos # (Auto) 0.1, Baso # (Auto) 0.0 03/13/18 11:15: D-Dimer 846 H* 03/13/18 11:15: Sodium 134 L, Potassium 4.3, Chloride 99, Carbon Dioxide 31, Anion Gap 8.3, BUN 16, Creatinine 0.95, Estimated Creat Clear 59, Estimated GFR 58 L, Est GFR ( Amer) 70, Glucose 278 H, Total Creatine Kinase 430 H, CK- MB (CK-2) 13.0 H*, CK-MB (CK-2) Rel Index 3.0, Troponin I < 0.02, TSH 1.85, Free T4 0.65 L 03/13/18 11:15: B-Natriuretic Peptide 336 H 03/13/18 11:15: Total Bilirubin 0.3, Direct Bilirubin 0.1, Indirect Bilirubin 0.2, AST 28, ALT 39, Alkaline Phosphatase 43 L, Total Protein 7.1, Albumin 3.5 03/13/18 14:14: Troponin I 0.04 03/13/18 16:10: Troponin I 0.04 03/13/18 20:39: POC Glucose 158 H 03/13/18 21:40: Troponin I 0.04 03/14/18 04:05: WBC 4.7 L D, RBC 4.22, Hgb 12.3, Hct 38.4, MCV 90.9, MCH 29.2, MCHC 32.2, RDW 13.4, Plt Count 151, MPV 8.1, Neut % (Auto) 40.2, Lymph % (Auto) 52.2 H, [place] % (Auto) 5.2, Eos % (Auto) 1.9, Baso % (Auto) 0.5, Neut # (Auto) 1.9, Lymph # (Auto) 2.5, [place] # (Auto) 0.2, Eos # (Auto) 0.1, Baso # (Auto) 0.0 , Total Counted 100, Neutrophils % (Manual) 44, Lymphocytes % (Manual) 54 H, Monocytes % (Manual) 2, Platelet Estimate Normal, Polychromasia 1+, Hypochromasia 1+, Poikilocytosis 1+, Anisocytosis 1+ 03/14/18 04:05: Sodium 136, Potassium 4.1, Chloride 101, Carbon Dioxide 31, Anion Gap 8.1, BUN 12, Creatinine 0.88, Estimated Creat Clear 59, Estimated GFR 63, Est GFR ( Amer) 76, Glucose 110 H D, Magnesium 1.8, Troponin I 0.04, Triglycerides 97, Cholesterol 218 H, LDL Cholesterol 137 H, VLDL Cholesterol 19 , HDL Cholesterol 62, Cholesterol/HDL Ratio 3.5 03/14/18 06:20: POC Glucose 122 H I & O for Last 24 hours: Intake & Output 03/11/18 03/12/18 03/13/18 03/14/18 11:59 11:59 11:59 11:59 Intake Total 400 / 400 Balance 400 / 400 Weight 167 lb 167 lb - Constitutional no acute distress - *Routine Respiratory Exam Present: CTA bilaterally - *Routine Cardiovascular Exam Present: irregularly irregular - *Routine Abdominal Exam Present: soft, normoactive bowel sounds. Absent: tenderness - *Routine Extremities Exam Absent: edema Assessment and Plan (1) Chest pain Current visit: Yes Status: Acute Category: Medical Code(s): R07.9 - Chest pain, unspecified (2) Diabetes Current visit: Yes Status: Acute Category: Medical Code(s): E11.9 - Type 2 diabetes mellitus without complications (3) Hypertension Current visit: Yes Status: Acute Category: Medical Code(s): I10 - Essential (primary) hypertension (4) New onset atrial flutter Current visit: Yes Status: Acute Category: Medical Code(s): I48.92 - Unspecified atrial flutter (5) Right ventricular dysfunction Current visit: Yes Status: Acute Category: Medical Code(s): I51.9 - Heart disease, unspecified - Assessment and plan all Dx Assessment and Plan for all problems:: Cardiology to see patient today. She is supposed to have a heart cath. <Tl Meyers - Last Filed: 03/14/18 08:55> Internal Medicine - PN: Subj *Date: 03/14/18 *Time: 08:55 Exam Vital signs and Labs for Last 24 Hours: Temp Pulse Resp BP Pulse Ox 97.4 F L 64 16 111/68 98 03/14/18 04:00 03/14/18 04:00 03/14/18 04:00 03/14/18 04:00 03/14/18 04:00 Laboratory Results - last 24 hr 03/13/18 11:15: WBC 7.0, RBC 3.74 L, Hgb 13.2, Hct 33.9 L, MCV 90.7, MCH 35.4 H , MCHC 39.0 H, RDW 13.4, Plt Count 149, MPV 7.9, Neut % (Auto) 65.6, Lymph % ( Auto) 28.9, [place] % (Auto) 3.9, Eos % (Auto) 1.2, Baso % (Auto) 0.3, Neut # (Auto ) 4.6, Lymph # (Auto) 2.0, [place] # (Auto) 0.3, Eos # (Auto) 0.1, Baso # (Auto) 0.0 03/13/18 11:15: D-Dimer 846 H* 03/13/18 11:15: Sodium 134 L, Potassium 4.3, Chloride 99, Carbon Dioxide 31, Anion Gap 8.3, BUN 16, Creatinine 0.95, Estimated Creat Clear 59, Estimated GFR 58 L, Est GFR ( Amer) 70, Glucose 278 H, Total Creatine Kinase 430 H, CK- MB (CK-2) 13.0 H*, CK-MB (CK-2) Rel Index 3.0, Troponin I < 0.02, TSH 1.85, Free T4 0.65 L 03/13/18 11:15: B-Natriuretic Peptide 336 H 03/13/18 11:15: Total Bilirubin 0.3, Direct Bilirubin 0.1, Indirect Bilirubin 0.2, AST 28, ALT 39, Alkaline Phosphatase 43 L, Total Protein 7.1, Albumin 3.5 03/13/18 14:14: Troponin I 0.04 03/13/18 16:10: Troponin I 0.04 03/13/18 20:39: POC Glucose 158 H 03/13/18 21:40: Troponin I 0.04 03/14/18 04:05: WBC 4.7 L D, RBC 4.22, Hgb 12.3, Hct 38.4, MCV 90.9, MCH 29.2, MCHC 32.2, RDW 13.4, Plt Count 151, MPV 8.1, Neut % (Auto) 40.2, Lymph % (Auto) 52.2 H, [place] % (Auto) 5.2, Eos % (Auto) 1.9, Baso % (Auto) 0.5, Neut # (Auto) 1.9, Lymph # (Auto) 2.5, [place] # (Auto) 0.2, Eos # (Auto) 0.1, Baso # (Auto) 0.0 , Total Counted 100, Neutrophils % (Manual) 44, Lymphocytes % (Manual) 54 H, Monocytes % (Manual) 2, Platelet Estimate Normal, Polychromasia 1+, Hypochromasia 1+, Poikilocytosis 1+, Anisocytosis 1+ 03/14/18 04:05: Sodium 136, Potassium 4.1, Chloride 101, Carbon Dioxide 31, Anion Gap 8.1, BUN 12, Creatinine 0.88, Estimated Creat Clear 59, Estimated GFR 63, Est GFR ( Amer) 76, Glucose 110 H D, Magnesium 1.8, Troponin I 0.04, Triglycerides 97, Cholesterol 218 H, LDL Cholesterol 137 H, VLDL Cholesterol 19 , HDL Cholesterol 62, Cholesterol/HDL Ratio 3.5 03/14/18 06:20: POC Glucose 122 H I & O for Last 24 hours: Intake & Output 03/11/18 03/12/18 03/13/18 03/14/18 11:59 11:59 11:59 11:59 Intake Total 400 / 400 Balance 400 / 400 Weight 167 lb 167 lb Assessment and Plan (1) Chest pain Current visit: Yes Status: Acute Category: Medical Code(s): R07.9 - Chest pain, unspecified (2) Diabetes Current visit: Yes Status: Acute Category: Medical Code(s): E11.9 - Type 2 diabetes mellitus without complications (3) Hypertension Current visit: Yes Status: Acute Category: Medical Code(s): I10 - Essential (primary) hypertension (4) New onset atrial flutter Current visit: Yes Status: Acute Category: Medical Code(s): I48.92 - Unspecified atrial flutter (5) Right ventricular dysfunction Current visit: Yes Status: Acute Category: Medical Code(s): I51.9 - Heart disease, unspecified - Assessment and plan all Dx Assessment and Plan for all problems:: Saw patient, agree with above note.
--- NOTE | 2018-03-14 13:15 | Progress Note ---
Subjective Date: 03/14/18 Time: 13:07 Principal diagnosis: Chest pain and new onset atrial fibrillation Interval history: 72 year old white female admitted to facility with chest pain and new onset atrial fibrillation. Pt denies chest pain at this time. Pt remained in atrial fibrillation with heart rates between 80-140's bpm, prior to heart catheterization. Denied shortness of breath or palpitations. Pt underwent left heart catheterization. LHC revealed: ANGIOGRAPHIC RESULTS: 1. The left main artery normal 2. The left anterior descending artery has proximal and mid vessel 20% stenoses 3. The circumflex artery is a nondominant yet still large vessel which is tortuous without atherosclerotic plaque 4. The right coronary artery is a large dominant vessel and is normal in the proximal segment and has one concentric 40% stenosis in the distal segment 5. The [place] ventriculogram reveals slightly hyperdynamic at 75% 6. The left ventricular end-diastolic pressure 20 mmHg IMPRESSION: 1. Mild to moderate coronary disease as described above 2. Hyperdynamic ejection fraction 3. Mildly elevated LVEDP 4. Successful cardioversion atrial flutter into normal sinus rhythm PLAN: 1. Medical management 2. Recommend beta blockers calcium channel cyril for A. fib rate control 3. Patient has a high ChadsVasc score and should be on chronic anticoagulation. 4. Recommend Xarelto 20 mg daily. Pt remained in atrial fibrillation with heart rate in 110-120's bpm. A cardioversion was performed. Pt converted into Sinus rhythm with heart rate of 70-80's with no ectopy. Pt will be started on Xarelto for anticoagulation. Exam Vital signs and Labs for Last 24 Hours: Temp Pulse Resp BP Pulse Ox 97.4 F L 126 H 16 164/92 96 03/14/18 12:39 03/14/18 12:39 03/14/18 12:39 03/14/18 12:39 03/14/18 12:39 Laboratory Results - last 24 hr 03/13/18 14:14: Troponin I 0.04 03/13/18 16:10: Troponin I 0.04 03/13/18 20:39: POC Glucose 158 H 03/13/18 21:40: Troponin I 0.04 03/14/18 04:05: WBC 4.7 L D, RBC 4.22, Hgb 12.3, Hct 38.4, MCV 90.9, MCH 29.2, MCHC 32.2, RDW 13.4, Plt Count 151, MPV 8.1, Neut % (Auto) 40.2, Lymph % (Auto) 52.2 H, [place] % (Auto) 5.2, Eos % (Auto) 1.9, Baso % (Auto) 0.5, Neut # (Auto) 1.9, Lymph # (Auto) 2.5, [place] # (Auto) 0.2, Eos # (Auto) 0.1, Baso # (Auto) 0.0 , Total Counted 100, Neutrophils % (Manual) 44, Lymphocytes % (Manual) 54 H, Monocytes % (Manual) 2, Platelet Estimate Normal, Polychromasia 1+, Hypochromasia 1+, Poikilocytosis 1+, Anisocytosis 1+ 03/14/18 04:05: Sodium 136, Potassium 4.1, Chloride 101, Carbon Dioxide 31, Anion Gap 8.1, BUN 12, Creatinine 0.88, Estimated Creat Clear 59, Estimated GFR 63, Est GFR ( Amer) 76, Glucose 110 H D, Magnesium 1.8, Troponin I 0.04, Triglycerides 97, Cholesterol 218 H, LDL Cholesterol 137 H, VLDL Cholesterol 19 , HDL Cholesterol 62, Cholesterol/HDL Ratio 3.5 03/14/18 06:20: POC Glucose 122 H I & O for Last 24 hours: Intake & Output 03/11/18 03/12/18 03/13/18 03/14/18 23:59 23:59 23:59 23:59 Intake Total 400 / 400 Balance 400 / 400 Weight 167 lb - Constitutional no acute distress, average body habitus, cooperative - *Routine HEENT Exam Head: Present: normocephalic - *Routine Neck Exam Present: supple, full ROM, normal carotid upstroke. Absent: JVD, carotid bruit , lymphadenopathy - Routine Chest/Breast/Axilla Exam Chest wall: Absent: tenderness, mass Breast: Absent: swelling - *Routine Respiratory Exam Present: CTA bilaterally. Absent: respiratory distress - *Routine Cardiovascular Exam Present: RRR, Normal S1, Normal S2. Absent: murmur, gallop, rubs, JVD - *Routine Abdominal Exam Present: soft. Absent: guarding, firm - *Routine Extremities Exam Present: full ROM, pulses intact, normal capillary refill. Absent: cyanosis, clubbing, edema, calf tenderness - *Routine Skin Exam Present: intact, dry, normal turgor. Absent: erythema - *Routine Neurological Exam Present: alert, oriented X3, CN II-XII intact, normal reflexes, normal tone - Routine Psychiatric Exam Present: normal affect, normal thought process Progress Note: A&P (1) Chest pain Start date: 03/13/18 Status: Acute Current Visit: Yes (2) Diabetes Status: Acute Current Visit: Yes (3) Hypertension Status: Acute Current Visit: Yes (4) New onset atrial flutter Status: Acute Current Visit: Yes (5) Right ventricular dysfunction Status: Acute Current Visit: Yes Assessment and Plan for All Diagnoses:: Plan: 1. Start Xarelto 20mg one daily for anti-coagulation. 2. Add Atorvastatin 20mg for hyperlipidemia. 3. Increase Coreg to 25mg BID. 4. Cardiac clinic follow up in 1 week.
--- NOTE | 2018-03-14 18:19 | Progress Note ---
Internal Medicine - PN: Subj *Date: 03/14/18 *Time: 18:16 Interval history: Patient had left heart cath today and is ready to go home now. Cardiology recommends Xarelto, which she states she can not afford, a higher dose of Coreg and atorvastatin, which she states she can not take due to previous statin in tolerance. Exam Vital signs and Labs for Last 24 Hours: Temp Pulse Resp BP Pulse Ox 98.6 F 82 18 152/77 97 03/14/18 13:15 03/14/18 13:15 03/14/18 13:15 03/14/18 13:15 03/14/18 13:15 Laboratory Results - last 24 hr 03/13/18 20:39: POC Glucose 158 H 03/13/18 21:40: Troponin I 0.04 03/14/18 04:05: WBC 4.7 L D, RBC 4.22, Hgb 12.3, Hct 38.4, MCV 90.9, MCH 29.2, MCHC 32.2, RDW 13.4, Plt Count 151, MPV 8.1, Neut % (Auto) 40.2, Lymph % (Auto) 52.2 H, [place] % (Auto) 5.2, Eos % (Auto) 1.9, Baso % (Auto) 0.5, Neut # (Auto) 1.9, Lymph # (Auto) 2.5, [place] # (Auto) 0.2, Eos # (Auto) 0.1, Baso # (Auto) 0.0 , Total Counted 100, Neutrophils % (Manual) 44, Lymphocytes % (Manual) 54 H, Monocytes % (Manual) 2, Platelet Estimate Normal, Polychromasia 1+, Hypochromasia 1+, Poikilocytosis 1+, Anisocytosis 1+ 03/14/18 04:05: Sodium 136, Potassium 4.1, Chloride 101, Carbon Dioxide 31, Anion Gap 8.1, BUN 12, Creatinine 0.88, Estimated Creat Clear 59, Estimated GFR 63, Est GFR ( Amer) 76, Glucose 110 H D, Magnesium 1.8, Troponin I 0.04, Triglycerides 97, Cholesterol 218 H, LDL Cholesterol 137 H, VLDL Cholesterol 19 , HDL Cholesterol 62, Cholesterol/HDL Ratio 3.5 03/14/18 06:20: POC Glucose 122 H 03/14/18 13:27: POC Glucose 181 H 03/14/18 16:59: POC Glucose 186 H I & O for Last 24 hours: Intake & Output 03/12/18 03/13/18 03/14/18 03/15/18 11:59 11:59 11:59 11:59 Intake Total 400 / 400 Balance 400 / 400 Weight 167 lb 167 lb 167 lb 0.002 oz Assessment and Plan (1) Chest pain Start date: 03/13/18 Current visit: Yes Status: Acute Category: Medical Code(s): R07.9 - Chest pain, unspecified (2) Diabetes Current visit: Yes Status: Acute Category: Medical Code(s): E11.9 - Type 2 diabetes mellitus without complications (3) Hypertension Current visit: Yes Status: Acute Category: Medical Code(s): I10 - Essential (primary) hypertension (4) New onset atrial flutter Current visit: Yes Status: Acute Category: Medical Code(s): I48.92 - Unspecified atrial flutter (5) Right ventricular dysfunction Current visit: Yes Status: Acute Category: Medical Code(s): I51.9 - Heart disease, unspecified - Assessment and plan all Dx Assessment and Plan for all problems:: OK for discharge, will provide a discount coupon for a free month of Xarelto. Patient to f/u with cardiology next week to discuss snf anticoagulation plan and lipid lowering plan.
--- NOTE | 2018-03-16 22:28 | Discharge Summary ---
General - General Admission date:: 03/13/18 Discharge date: 03/14/18 HPI HPI: Ms. Saleh is a 72-year-old white female with a history of diabetes and ventricular septal defect repair in 1989. She came to the emergency department today for evaluation of palpitations and chest pressure. The patient has had palpitations intermittently over the last several days but was awakened early this a.m. due to recurrence with associated chest pressure. Symptoms continued until she got to the emergency department at which time the patient was given an IV beta-cyril with improvement in symptoms. EKG revealed what appeared to be an atrial tachycardia and a rate of 120s that slowed to show atrial fibrillation/flutter in the 80s bpm after IV beta-cyril therapy. Initial troponin was noted to be normal and EKG showed a. flutter with variable block, Poor R wave progression anteriorly with IVCD without evidence of ST elevation. Cardiology was consulted for evaluation recommendations. The patient did have a CT of the chest performed due to elevated d-dimer which did not show any evidence of pulmonary embolism. Hospital Course Hospital Course: The patient was seen by cardiology and they recommended a heart cath. She was kept overnight for observation. She had a heart cath and had mild to moderate coronary disease, a hyperdynamic ejection fraction, and a mildly elevated LVEDP. She had successful cardioversion of atrial flutter into normal sinus rhythm. They recommended medical management, beta blockers and calcium channel cyril for A. fib rate control, and chronic anticoagulation. They recommended Xarelto 20 mg daily, atorvastatin 20mg for hyperlipidemia, and to increase Coreg to 25mg BID. They patient stated she could not take a statin d/t statin intolerance. She was given a coupon for xarelto as she could not afford it. 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 Objective Vital signs: Temp Pulse Resp BP Pulse Ox 98.4 F 80 18 160/78 98 03/14/18 19:15 03/14/18 19:15 03/14/18 19:15 03/14/18 19:15 03/14/18 19:15 Narrative: - Constitutional no acute distress - *Routine HEENT Exam Head: Present: normocephalic, atraumatic Eye: Present: EOMI, PERRL ENT: Present: mucous membranes moist - *Routine Neck Exam Present: supple, full ROM. Absent: carotid bruit - *Routine Respiratory Exam Present: CTA bilaterally - *Routine Cardiovascular Exam Present: irregularly irregular - *Routine Abdominal Exam Present: soft, normoactive bowel sounds. Absent: tenderness - *Routine Extremities Exam Absent: edema Comments: varicose veins - *Routine Skin Exam Present: intact - *Routine Neurological Exam Present: alert, oriented X3 DS: Diagnosis - Discharge Diagnosis (1) Chest pain Status: Acute (2) Diabetes Status: Acute (3) Hypertension Status: Acute (4) New onset atrial flutter Status: Acute (5) Right ventricular dysfunction Status: Acute Discharge Plan - Patient Discharge Instructions ACTIVITY: Continue current activity DIET: continue same diet Patient Instructions: DI for Atrial Flutter, DI for Cardiac Catheterization, DI for Coronary Artery Disease - Follow up Plan Follow up with: Saúl Kramer MD [Staff Physician] - 1 week Enrike Cerna MD [Primary Care Provider] - 2 weeks Disposition: Home, Self-Alf Medications: Home Medications Medication Instructions Recorded Confirmed Type Insulin Aspart [Novolog Flexpen] 22 unit SQ BID 11/13/17 03/13/18 History Lisinopril [Lisinopril 10mg Tab] 10 mg PO DAILY 03/13/18 03/13/18 History Prescriptions/Medication Reconciliation: New Rivaroxaban [Xarelto] 20 mg PO DAILY #30 tab Carvedilol [Coreg 25mg Tablet] 25 mg PO BID #60 tab Continue Insulin Aspart [Novolog Flexpen] 22 unit SQ BID Lisinopril [Lisinopril 10mg Tab] 10 mg PO DAILY Discontinued Carvedilol [Coreg 12.5mg Tablet] 12.5 mg PO BID
== END 2018-03-14 18:55 | disposition home or self-care (01) ==
LOC: ER 11:12 → 2ND 11:12
PROVIDERS: ADMIT Family Medicine; ATTEND Family Medicine

== ENCOUNTER → 2018-04-09 08:05 | Outpatient (CLI) | payer SELFPAY | PROVIDERS: PCP Emergency Medicine; Visit Provider Emergency Medicine | DX: E11.40 Type 2 diabetes mellitus with diabetic neuropathy, unspecified (principal); I10 Essential (primary) hypertension; E03.9 Hypothyroidism, unspecified ==

== ENCOUNTER → 2018-06-30 13:31 | Outpatient (CLI) | payer SELFPAY ==
--- NOTE | 2018-06-30 | US_ITS ---
US Arterial Ankle Brachial Ind History: Left-sided rest pain, left-sided claudication ORDERING PHYSICIAN: Daryn Muñiz MD PATIENT AGE: 73 years TECHNIQUE: Segmental pressures obtained of both right and left leg. These are compared to brachial blood pressure to yield index at each level sampled including summary MAIN. The data sheets from the procedure are available in PACS FINDINGS Rest study only performed today No prior studies available for comparison. Blood pressures reported are in millimeters mercury. RIGHT LEG MAIN = 1.2. RIGHT LEG TBI=0.8 Brachial BP: 185 Thigh BP: 159 Calf BP: 202 Ankle PT: 214 Ankle DP : 210 Digit =140 LEFT LEG MAIN = 1.1 LEFT LEG TBI= 0.7 Brachial BPD: 173 Thigh BP: 178 Calf BP: 190 Ankle PT:202 Ankle DP: 192 Digit = 132 Pulses and waveforms: Normal Left brachial pressure is 12 mmHg less than the right side which could indicate a left-sided stenosis IMPRESSION: The ABIs as reported above are within normal limits. Waveforms and pulses are also unremarkable. Asymmetric upper extremity pressures which could indicate a left-sided upper extremity/subclavian stenosis
== END ==
PROVIDERS: PCP Family Medicine; Visit Provider Family Medicine
DX: I73.9 Peripheral vascular disease, unspecified (principal)
CPT/HCPCS: 93922

== ENCOUNTER → 2018-07-02 08:52 | Outpatient (CLI) | payer SELFPAY ==
--- NOTE | 2018-07-02 08:53 | CA_ITS ---
PROCEDURE: 2-D M-mode and color Doppler study study INDICATIONS FOR THE TEST: Chest pain+ COPD Heart Murmur Tobacco Smoking Palpitations Fatigue Syncope Edema Hypertension+Diabetes Mellitus+ Rheumatic Fever SOB+SHIELDS Obesity Hyperlipidemia Family History HD Additional History a-fib, ? vsd repair in the PATIENT INFORMATION HEIGHT: 67 WEIGHT:173 GENDER: Female B/P:139/72 2-D/M-MODE INTERPRETATION: 2-D MEASUREMENTS OBSERVED VALUES IN CMS Right Ventricular Dimension (RVDd) 2.4 Interventricular Septum (Thickness)(IVsd) 1.0 Left Ventricular Internal Dimensions(LVIDd) 4.1 Left Ventricular Posterior Wall (Thickness)(LVPWd) 1.3 Aortic Root 1.8 Aortic Cusp Separation 1.1 Left Atrial Dimensions (LAD) 3.9 2D 1. Left atrium is qualitatively moderately enlarged, left ventricle is normal size, mild concentric left ventricular hypertrophy, there is abnormal septal motion, visually estimated ejection fraction of 55% with no regional wall motion abnormality. 2. The right atrium and right ventricle are moderately enlarged with normal contractility. 3. The aortic valve is minimally thickened and calcified leaflet continue to display mobility. 4. The mitral valve has mitral annular calcification, leaflets are minimally thickened. 5. The tricuspid valve leaflets are minimally thickened. 6. The pulmonic valve is poorly visualized. 7. No significant pericardial effusion noted. DOPPLER INTERROGATION: Doppler interrogation of the aortic, mitral and tricuspid valvular presence of mild mitral and moderate tricuspid regurgitation, calculated right ventricular systolic pressure 41 mmHg represents moderate pulmonary hypertension, grade 1 diastolic dysfunction seen with tissue Doppler evidence of raised left atrial pressure. Inferior vena cava is mildly dilated without inspiratory collapse. CONCLUSION: 1. Moderate biatrial enlargement, normal left ventricular size, mild concentric left ventricular hypertrophy, there is abnormal septal motion, visually estimated ejection fraction of 55% with no obvious regional wall motion abnormality, grade 1 diastolic dysfunction seen with tissue Doppler evidence of raised left atrial pressure. 2. Mild mitral and moderate tricuspid regurgitation, calculated right ventricular systolic pressure 41 mmHg consistent with moderate pulmonary hypertension, inferior vena cava is dilated without significant inspiratory collapse. 3. No significant pericardial effusion noted.
== END ==
PROVIDERS: PCP Family Medicine; Visit Provider Internal Medicine
DX: I25.10 Atherosclerotic heart disease of native coronary artery without angina pectoris (principal); I48.0 Paroxysmal atrial fibrillation; R06.00 Dyspnea, unspecified; R60.9 Edema, unspecified; E11.9 Type 2 diabetes mellitus without complications; E78.2 Mixed hyperlipidemia; E78.5 Hyperlipidemia, unspecified; I11.9 Hypertensive heart disease without heart failure; L81.9 Disorder of pigmentation, unspecified; M79.604 Pain in right leg
CPT/HCPCS: 93306

== ENCOUNTER → 2018-07-08 14:25 | Outpatient (CLI) | payer SELFPAY ==
[2018-07-11 15:28] LABS: Albumin, U 72.6 % (.); Alpha-1-Globulin, U 2.3 % (.); Alpha-2-Globulin, U 4.4 % (.); Beta Globulin, U 11.4 % (.); Gamma Globulin, U 9.3 % (.); M-Spike, % Not Observed % (Not Observed); Prot,24hr calculated 565 mg/24 hr (30-150); Protein,Total,Urine 22.6 mg/dL (Not Estab.)
== END ==
PROVIDERS: PCP Family Medicine; Visit Provider Physician Assistant
DX: E11.9 Type 2 diabetes mellitus without complications (principal); E78.2 Mixed hyperlipidemia; I10 Essential (primary) hypertension; I11.9 Hypertensive heart disease without heart failure; I25.10 Atherosclerotic heart disease of native coronary artery without angina pectoris; I48.0 Paroxysmal atrial fibrillation; I48.92 Unspecified atrial flutter; I51.9 Heart disease, unspecified; I73.9 Peripheral vascular disease, unspecified; L81.9 Disorder of pigmentation, unspecified; M79.604 Pain in right leg; R06.09 Other forms of dyspnea; R60.9 Edema, unspecified
CPT/HCPCS: 84156; 84166

== ENCOUNTER → 2019-03-04 14:35 | Outpatient (CLI) | payer SELFPAY ==
--- NOTE | 2019-03-04 14:48 | XR_ITS ---
XR acute abdomen series HISTORY: ITS.REASON: abdominal pain/gaining wt ORDERING PHYSICIAN: Dee Cunningham APRN PATIENT AGE: 73 years COMPARISON: 03/13/2018 TECHNIQUE: Upright view of the chest is performed along with upright and supine views of the abdomen and pelvis. FINDINGS: There has been a prior median sternotomy. There is mild cardiomegaly without failure. There is increased density in the right lung base consistent with atelectasis or infiltrate with effusion. There is also consolidation within the lingula.. Bowel gas pattern is nonspecific. No obstruction or free air. No acute bony findings. IMPRESSION: Right lower lobe atelectasis or infiltrate with effusion along with consolidation/pneumonia of the lingula. Recommend follow-up until clear
[2019-03-04 15:08] LABS: Basophils % 0.3 % (0.1-2.0); Eosinophils # 0.1 K/mm3 (0.0-0.4); Eosinophils % 2.3 % (0.1-12.0); Hematocrit 35.2 % (37.0-47.0); Hemoglobin 11.4 g/dL (12.2-16.2); Lymphocytes # 1.6 K/mm3 (0.7-4.5); Lymphocytes % 29.9 % (10-50); Mean Corpuscular HGB Conc 32.5 g/dL (31.8-35.4); Mean Corpuscular Hemoglobin 30.2 pg (27.0-31.2); Mean Platelet Volume 8.1 fl (7.4-10.4); Monocytes # 0.2 K/mm3 (0.1-1.0); Monocytes % 4.2 % (1.7-9.3); Neutrophils # 3.3 K/mm3 (1.8-7.8); Neutrophils % 63.4 % (37.0-80.0); Platelet Count 164 K/mm3 (142-424); Red Blood Count 3.79 M/mm3 (4.20-5.40); White Blood Count 5.2 K/mm3 (4.8-10.8)
[2019-03-04 17:21] LABS: Anion Gap 13.1 mEq/L (5-15); Blood Urea Nitrogen 23 mg/dL (7-18); Calcium 8.7 mg/dL (8.5-10.1); Carbon Dioxide 28 mmol/L (21.0-32.0); Chloride 100 mmol/L (98-107); Creatinine,Serum 1.31 mg/dL (0.55-1.02); Estimated Glomerular Filt Rate 40 ml/min (>60); Free T4 (Free Thyroxine) 0.73 ng/dl (0.76-1.46); GFR (African American) 48 ML/MIN (>60); Glucose 260 mg/dL (74-106); Potassium 5.1 mmoL/L (3.5-5.1); Sodium 136 mmol/L (136-145); Thyroid Stimulating Hormone 3.04 uIU/ml (0.358-3.740)
== END ==
PROVIDERS: Visit Provider Urology
DX: I11.9 Hypertensive heart disease without heart failure (principal); I25.10 Atherosclerotic heart disease of native coronary artery without angina pectoris; I27.20 Pulmonary hypertension, unspecified; R06.00 Dyspnea, unspecified; R00.0 Tachycardia, unspecified; R10.9 Unspecified abdominal pain; R63.5 Abnormal weight gain
CPT/HCPCS: 36415; 74021; 80048; 84439; 84443; 85025

== ENCOUNTER → 2019-07-06 12:06 | Outpatient (CLI) | payer SELFPAY ==
--- NOTE | 2019-07-06 12:20 | MR_ITS ---
PROCEDURE: MR LUMBAR SPINE WO CON CLINICAL INDICATION: LOW BACK PAIN Low back pain with right hip leg and foot pain, severe pain COMPARISON: No exams were available for comparison TECHNIQUE: Standard multiplanar multiecho sequences are performed without contrast. 3-D MIP and myelographic images are also rendered and reviewed FINDINGS: There is normal alignment. The spinal cord ends at the L1-L2 level. T11-T12 and T12-L1 show mild degenerative disc disease. L1-L2: There is a T1 and T2 hyperintensity in the inferior aspect of the L1 vertebral body consistent with lipoma/lipid rich hemangioma measuring 12 mm. L2-L3: There is mild facet and ligamentum hypertrophy with mild bilateral lateral recess narrowing. L3-L4: Mild concentric bulging disc along with facet and ligamentum hypertrophy with moderate bilateral lateral recess and foraminal narrowing. L4-5: Mild concentric bulging disc along with facet ligamentum hypertrophy with moderate bilateral foraminal narrowing slightly greater on the left. Rounded area of slight increased T1 and T2 signal in the L4 vertebral body at 17 mm consistent with lipoma or lipid rich hemangioma L5-S1: Degenerate disc disease with bulging disc. There is a minimal broad-based central disc protrusion without impingement. Moderate facet and ligamentum hypertrophy is noted with moderate to severe right-sided foraminal narrowing and moderate left foraminal narrowing. No extruded herniated disc or canal stenosis. IMPRESSION: Multilevel lumbar spondylosis with degenerative disc disease, facet ligamentum hypertrophy with varying degrees of lateral recess and foraminal narrowing without canal stenosis or extruded herniated disc. PLEASE SEE ABOVE FOR DETAILED DESCRIPTION AT EACH LEVEL Dictated by: Rudy Gamez MD 07/08/2019 04:57 Electronically signed by Rudy Gamez MD in [place] 07/08/2019 04:57
== END ==
PROVIDERS: PCP Nurse Practitioner; Visit Provider Nurse Practitioner
DX: M54.5 Low back pain (principal)
CPT/HCPCS: 72148; 76376

== ENCOUNTER → 2019-12-29 10:47 | Day surgery (SDC) | payer SELFPAY ==
[2019-12-29 10:40] LABS: Anion Gap 17.7 mEq/L (5-15); Blood Urea Nitrogen 29 mg/dl (7-17); Calcium 9.1 mg/dl (8.4-10.2); Carbon Dioxide 28 mmol/L (22.0-30.0); Chloride 89 mmol/L (98-107); Estimated Glomerular Filt Rate 44 ml/min (>60); GFR (African American) 53 ML/MIN (>60); Glucose 220 mg/dl (74-100); Potassium 4.7 mmoL/L (3.5-5.1); Sodium 130 mmol/L (136-145)
[2019-12-29 10:53] LABS: NT Pro Brain Natriuretic Pep. 2020 pg/mL (0-450)
[2019-12-29 10:54] LABS: Troponin I < 0.01 ng/ml (0.00-0.034)
--- NOTE | 2019-12-29 12:00 | ECG_ITS ---
APPROVED REPORT Exam: Resting ECG HR:67 bpm ECG Measurements Heart Rate 67 AXES ME 186 P 66 QRSd 118 QRS 70 QT 486 T 102 QTc 513 <Conclusion> Sinus rhythm with premature atrial complexes late r wave progression Prolonged QT Abnormal ECG Electronically signed by : Alexys King, 12/31/2019 07:40:08
--- NOTE | 2019-12-29 12:28 | P.PCN_ITS ---
[facility] Cardioversion Date: 12/29/19 Provider:: MAYELIN Frankel Procedure Performed:: Synchronized cardioversion Diagnosis:: Symptomatic atrial flutter with 4-1 block Procedure Summary:: Patient was brought to the cardiac Traffic Supervisor. After informed consent obtained, patient received IV sedation and monitoring by anesthesia personnel. Once the patient was sedated, a single synchronized 150 J shock was delivered with subsequent cardioversion from atrial flutter to normal sinus rhythm. Patient tolerated procedure without complications. Complications:: None Conculsion:: Successful electrical cardioversion from atrial flutter to normal sinus rhythm. Patient will continue both metoprolol and Xarelto.
== END ==
LOC: LAB 10:30 → RT 10:39 → CATHLAB 10:47
PROVIDERS: PCP Nurse Practitioner Family; Visit Provider Physician Assistant
DX: I48.92 Unspecified atrial flutter (principal); I48.91 Unspecified atrial fibrillation; R06.00 Dyspnea, unspecified; R07.9 Chest pain, unspecified; I11.9 Hypertensive heart disease without heart failure; E11.9 Type 2 diabetes mellitus without complications; Z79.899 Other long term (current) drug therapy
CPT/HCPCS: 80048; 83880; 84484; 92960; 93005

== ENCOUNTER 2020-02-13 10:23 | Emergency (ER) | payer SELFPAY ==
[2020-02-13] VITALS (7 sets, daily range): BP systolic 109–151; BP diastolic 52–74; PULSE 71–136; RESP 16–20; TEMP 36.6–37.3; O2SAT 97–99; BMI 28.1
--- NOTE | 2020-02-13 10:21 | ECG_ITS ---
APPROVED REPORT Exam: Resting ECG HR:79 bpm ECG Measurements Heart Rate 79 AXES QRSd 118 QRS 70 QT 442 T 119 QTc 506 <Conclusion> Atrial fibrillation with premature ventricular or aberrantly conducted complexes LBBB Abnormal ECG Electronically signed by : Dawson Ramirez, 02/16/2020 14:43:08
--- NOTE | 2020-02-13 10:32 | XR_ITS ---
PROCEDURE: XR CHEST PORTABLE CLINICAL HISTORY: sob Shortness of breath COMPARISON: CXR2V XR chest 2V from 03/13/[address] angio chest from 03/13/2018 XR CHEST 2V from 12/24/2019 FINDINGS: Mild cardiomegaly. Prior CABG. No lobar consolidation or collapse. There are some chronic changes in the right lung base medially. No acute bony abnormalities. IMPRESSION: No change with no acute finding Dictated by: Rudy Gamez MD 02/13/2020 11:28 Electronically signed by Rudy Gamez MD in [place] 02/13/2020 11:28
--- NOTE | 2020-02-13 10:33 | HMH.EDGENADL ---
ED Disposition Clinical Impression: Rapid atrial fibrillation Disposition: Home, Self-Care Condition on Discharge: Good Instructions: DI for Atrial Fibrillation Additional Instructions: Start taking Cardizem daily. Continue your other medications as well. See your craps dealer at Dr. Kramer's office on 02/15/2020. Prescriptions: dilTIAZem HCL [Cardizem Cd 180mg] 180 mg PO DAILY #30 cap Transmission Status: Received by [facility] Referrals: Provider,Referral, MD [Primary Care Provider] - - Critical Care Critical Care Time: Yes Attestation: On 02/13/20, the high probability of a clinically significant, sudden or life threatening deterioration of the following system(s) required my full and direct attention, intervention and personal management. The time I documented below is in addition to time spent performing reported procedures but includes the following listed in this critical care notation. Total Critical Care Time: 30 Vital system(s) involved:: Circulatory Failure My critical care processes included: Assessment & monitoring of V/S, Initial and Re-exams, Data Review/Interpretation, Coordinating Care, Medication Orders and management, Documentation Medical Decision Making - Medical Records Medical records reviewed: Yes: I reviewed the patient's medical records. - Per Inquiry Pt receiving controlled substance: No Vital Signs: 02/13/20 10:24 02/13/20 10:35 02/13/20 10:56 Temperature 99.2 F Temperature Source Oral Pulse Rate [Left Radial] 120 H 127 H 136 H Respiratory Rate 20 Blood Pressure [Right Arm] 151/52 H 144/60 H 128/74 Blood Pressure Mean [Right Arm] 85 88 92 Blood Pressure Source [Right Arm] Automatic Cuff Automatic Cuff Blood Pressure Position [Right Arm] Sitting Sitting Sitting 02 Sat by Pulse Oximetry 97 99 98 Oxygen Delivery Method Room Air Room Air Room Air 02/13/20 11:15 02/13/20 11:20 02/13/20 11:30 Temperature Temperature Source Pulse Rate [Left Radial] 122 H 71 71 Respiratory Rate Blood Pressure [Right Arm] 148/69 H 109/52 L 118/63 Blood Pressure Mean [Right Arm] 95 71 81 Blood Pressure Source [Right Arm] Automatic Cuff Blood Pressure Position [Right Arm] Sitting Sitting Sitting 02 Sat by Pulse Oximetry 98 Oxygen Delivery Method Room Air - Lab Data Lab results reviewed: Yes: I reviewed the patient's lab results. Lab Results 02/13/20 10:26: WBC 7.5, RBC 4.33, Hgb 11.9 L, Hct 37.2, MCV 85.8, MCH 27.4, MCHC 31.9, RDW 13.7, Plt Count 217, MPV 8.8, Neut % (Auto) 58.6, Lymph % (Auto) 33.5, [place] % (Auto) 4.9, Eos % (Auto) 2.8, Baso % (Auto) 0.2, Neut # (Auto) 4.4, Lymph # (Auto) 2.5, [place] # (Auto) 0.4, Eos # (Auto) 0.2, Baso # (Auto) 0.0 02/13/20 10:26: Sodium 130 L, Potassium 4.6, Chloride 91 L, Carbon Dioxide 29, Anion Gap 14.6, BUN 28 H, Creatinine 1.10 H, Estimated Creat Clear 56, Estimated GFR 48 L, Est GFR ( Amer) 58 L, Glucose 236 H, Calcium 9.5, Total Bilirubin 0.4, Direct Bilirubin 0.0, Conjugated Bilirubin 0.0, Indirect Bilirubin 0.4, Unconjugated Bilirubin 0.4, AST 38 H, ALT 25, Alkaline Phosphatase 40, Troponin I 0.04 H, Total Protein 7.0, Albumin 4.0 Result diagrams: 02/13/20 10:26 02/13/20 10:26 Orders (Tests/Meds): ED MEDICATIONS Generic Name Dose Route Start Last Admin Trade Name Freq PRN Reason Stop Dose Admin Diltiazem HCl 100 mg/ Sodium 100 mls @ 5 mls/hr 02/13/20 11:21 02/13/20 11:19 Chloride IV 03/14/20 11:20 5 mls/hr .Q20H LENINE Administration Discontinued Medications Generic Name Dose Route Start Last Admin Trade Name Freq PRN Reason Stop Dose Admin Diltiazem HCl 10 mg 02/13/20 11:06 02/13/20 11:15 Cardizem 25mg/5ml Vial IV 02/13/20 11:07 10 mg ONCE ONE Administration Diltiazem HCl 180 mg 02/13/20 11:50 02/13/20 11:57 Cardizem 180mg Er Capsule PO 02/13/20 11:51 180 mg ONCE ONE Administration ORDERS Category Date Time Status Troponin I Q3H Lab 02/13/20 13
--- NOTE | 2020-02-13 10:40 | PC.NURSE ---
Rad at bedside
[2020-02-13 10:42] LABS: Basophils % 0.2 % (0.1-2.0); Eosinophils # 0.2 K/mm3 (0.0-0.4); Eosinophils % 2.8 % (0.1-12.0); Hematocrit 37.2 % (37.0-47.0); Hemoglobin 11.9 g/dL (12.2-16.2); Lymphocytes # 2.5 K/mm3 (0.7-4.5); Lymphocytes % 33.5 % (10-50); Mean Corpuscular HGB Conc 31.9 g/dL (31.8-35.4); Mean Corpuscular Hemoglobin 27.4 pg (27.0-31.2); Mean Corpuscular Volume 85.8 fl (81-99); Mean Platelet Volume 8.8 fl (7.4-10.4); Monocytes # 0.4 K/mm3 (0.1-1.0); Monocytes % 4.9 % (1.7-9.3); Neutrophils # 4.4 K/mm3 (1.8-7.8); Neutrophils % 58.6 % (37.0-80.0); Platelet Count 217 K/mm3 (142-424); Red Blood Count 4.33 M/mm3 (4.20-5.40); Red Cell Distribution Width 13.7 % (11.5-17.5); White Blood Count 7.5 K/mm3 (4.8-10.8)
[2020-02-13 10:43] LABS: Chloride 91 mmol/L (98-107); Potassium 4.6 mmoL/L (3.5-5.1); Sodium 130 mmol/L (136-145)
[2020-02-13 10:45] LABS: Bilirubin,Unconjugated 0.4 mg/dL (0.0-1.1); Blood Urea Nitrogen 28 mg/dl (7-17); Creatinine Clearance Estimated 56 mL/min (50-200); Estimated Glomerular Filt Rate 48 ml/min (>60); GFR (African American) 58 ML/MIN (>60)
[2020-02-13 10:46] LABS: Alanine Aminotransferase 25 U/L (12-78); Alkaline Phosphatase 40 U/L (38-126); Anion Gap 14.6 mEq/L (5-15); Aspartate Amino Transferase 38 U/L (14-36); Bilirubin,Indirect 0.4 mg/dL (0.0-0.9); Bilirubin,Total 0.4 mg/dl (0.2-1.3); Calcium 9.5 mg/dl (8.4-10.2); Carbon Dioxide 29 mmol/L (22.0-30.0); Glucose 236 mg/dl (74-100)
[2020-02-13 10:58] LABS: Troponin I 0.04 ng/ml (0.00-0.034)
--- NOTE | 2020-02-13 11:02 | PC.NURSE ---
Dr Kramer paged.
--- NOTE | 2020-02-13 11:03 | PC.NURSE ---
Dr Kramer returned call.
--- NOTE | 2020-02-13 11:07 | PC.NURSE ---
dr kole rand
--- NOTE | 2020-02-13 11:21 | PC.NURSE ---
Dr. Christine rand
--- NOTE | 2020-02-13 11:22 | PC.NURSE ---
speaking with Dr. Breaux
--- NOTE | 2020-02-13 11:23 | ECG_ITS ---
APPROVED REPORT Exam: Resting ECG HR:71 bpm ECG Measurements Heart Rate 71 AXES UT 196 P QRSd 116 QRS 22 QT 448 T 112 QTc 486 <Conclusion> Normal sinus rhythm LBBB Abnormal ECG Electronically signed by : Dawson Ramirez, 02/14/2020 17:17:54
--- NOTE | 2020-02-13 11:26 | PC.NURSE ---
pt converted to NSR, cardizem drip stopped
--- NOTE | 2020-02-13 11:49 | PC.NURSE ---
Dr Brar speaking with Dr. Kramer at this time.
== END 2020-02-13 12:15 | disposition home or self-care (01) ==
PROVIDERS: Emergency Provider Emergency Medicine
DX: I48.0 Paroxysmal atrial fibrillation (principal); E10.9 Type 1 diabetes mellitus without complications; I10 Essential (primary) hypertension; E78.5 Hyperlipidemia, unspecified; Z79.899 Other long term (current) drug therapy
CPT/HCPCS: 71045; 80048; 80076; 84484; 85025; 93005; 96365; 96366; 96375; 99284

== ENCOUNTER 2020-04-25 10:08 | Emergency (ER) | payer SELFPAY ==
[2020-04-25] VITALS (7 sets, daily range): BP systolic 87–162; BP diastolic 37–95; PULSE 53–110; RESP 16–18; TEMP 36.8; O2SAT 97–100; BMI 27.0; BMI 27.3
--- NOTE | 2020-04-25 10:07 | ECG_ITS ---
APPROVED REPORT Exam: Resting ECG HR:55 bpm ECG Measurements Heart Rate 55 AXES UT P 260 QRSd 114 QRS 98 QT 514 T 112 QTc 491 <Conclusion> Atrial flutter with 4:1 AV conduction Rightward axis LBBB Abnormal ECG Electronically signed by : Dawson Ramirez, 04/25/2020 17:53:06
[2020-04-25 10:37] LABS: ABG Base Excess -6.8 mmol/L (-2.4-2.3); ABG HCO3 17.7 mmhg (22.0-26.0); ABG Oxygen Saturation 96 % (90-100); ABG PCO2 28.2 mmhg (35.0-45.0); ABG PH 7.42 mmol/L (7.35-7.45); ABG PO2 91.2 mmhg (80-100); ABG TCO2 18.6 mmhg (23-27)
--- NOTE | 2020-04-25 10:47 | CT_ITS ---
PROCEDURE: CT CHEST WO CON CLINICAL INDICATION: chf Pain COMPARISON: AGCHEST CT angio chest from 03/13/2018 CT ABDOMEN PELVIS WO CON from 04/25/2020 TECHNIQUE: Axial images obtained with sagittal and coronal reformats. All CT scans at the facility use one or more dose reduction, viz: automated exposure control, ma/kV adjustment per patient size (including targeted exams where dose is matched to indication, i.e. head), or iterative reconstruction technique. FINDINGS: HEART AND MEDIASTINAL STRUCTURES: Scattered small lymph nodes of the mediastinum. Coronary artery calcifications. Mild thickening of the distal esophagus nonspecific. Mitral valve annular calcifications LUNGS AND PLEURAL SPACES: Atelectatic or fibrotic changes in the right middle lobe and lingula. There are 2 noncalcified right upper lobe nodules measuring 4 mm. Atelectatic or fibrotic changes in the right lower lobe. Trace right-sided effusion. There are faint small nodular opacities an Oswaldo subsegmental distribution in the right upper lobe posteriorly, right lung base posteriorly, and left lower lobe posterior medially probably unchanged from the previous exam. BONY STRUCTURES: Degenerative changes UPPER ABDOMEN: See abdomen report ADDITIONAL FINDINGS: No other significant abnormalities. IMPRESSION: Chronic changes, mild atelectasis right middle lobe and lingula with trace right effusion Dictated by: Rudy Gamez MD 04/25/2020 11:37 Electronically signed by Rudy Gamez MD in [place] 04/25/2020 11:37
--- NOTE | 2020-04-25 10:47 | CT_ITS ---
PROCEDURE: CT ABDOMEN PELVIS WO CON CLINICAL INDICATION: chf Nausea and abdominal pain [facility] wo con from 11/13/2017 TECHNIQUE: Axial images obtained with sagittal and coronal reformats. All CT scans at the facility use one or more dose reduction, viz: automated exposure control, ma/kV adjustment per patient size (including targeted exams where dose is matched to indication, i.e. head), or iterative reconstruction technique. FINDINGS: The liver has an unremarkable appearance. There is a small amount fluid in the perisplenic region. There is normal spleen size. Small amount fluid is also present in the anterior pararenal fascia superiorly. Pancreas has an unremarkable appearance. Gallbladder wall appears thickened the with possible stone in the gallbladder. No renal calculi. There is thickening of the stomach and the duodenum which could be due to nondistention versus gastritis/duodenitis. No evidence of appendicitis or diverticulitis. There is mild diffuse thickening of the colon versus nondistention. Multiple unopacified bowel loops in the abdomen or pelvis which could obscure or mimic pathology. If symptoms persist, consider repeat exam with IV and oral contrast.. There is diastasis of the anterior abdominal wall. Senescent calcifications involve the uterus and could be due to fibroid involvement. Small amount fluid is present in the pelvis. There is fusion of the right SI joint posteriorly. IMPRESSION: 1. Multiple unopacified bowel loops in the abdomen or pelvis which could obscure or mimic pathology. If symptoms persist, consider repeat exam with IV and oral contrast. 2. Thickening of the stomach and duodenum as well as the colon. While these findings could be due to nondistention and lack of IV and oral contrast, gastritis/duodenitis and colitis is also included in the differential diagnosis. 3. Mild amount of ascites 4. Thickened gallbladder wall with questionable gallstone which may be better evaluated with ultrasound Dictated by: Rudy Gamez MD 04/25/2020 11:53 Electronically signed by Rudy Gamez MD in [place] 04/25/2020 11:53
[2020-04-25 11:11] LABS: Basophils % 0.2 % (0.1-2.0); Eosinophils # 0.1 K/mm3 (0.0-0.4); Eosinophils % 1.4 % (0.1-12.0); Hematocrit 30.4 % (37.0-47.0); Hemoglobin 10.2 g/dL (12.2-16.2); Lymphocytes % 24.2 % (10-50); Mean Corpuscular HGB Conc 33.5 g/dL (31.8-35.4); Mean Corpuscular Hemoglobin 29.1 pg (27.0-31.2); Mean Corpuscular Volume 86.8 fl (81-99); Mean Platelet Volume 8.8 fl (7.4-10.4); Monocytes # 0.4 K/mm3 (0.1-1.0); Monocytes % 4.5 % (1.7-9.3); Neutrophils # 5.7 K/mm3 (1.8-7.8); Neutrophils % 69.7 % (37.0-80.0); Platelet Count 245 K/mm3 (142-424); Red Blood Count 3.51 M/mm3 (4.20-5.40); Red Cell Distribution Width 16.7 % (11.5-17.5); White Blood Count 8.1 K/mm3 (4.8-10.8)
[2020-04-25 11:16] LABS: Alanine Aminotransferase 30 U/L (12-78); Albumin Level 4.1 g/dl (3.5-5.0); Albumin/Globulin Ratio 1.4 (1.1-1.8); Alkaline Phosphatase 60 U/L (38-126); Anion Gap 15.8 mEq/L (5-15); Aspartate Amino Transferase 61 U/L (14-36); Bilirubin,Total 0.5 mg/dl (0.2-1.3); Blood Urea Nitrogen 35 mg/dl (7-17); Calcium 9.2 mg/dl (8.4-10.2); Carbon Dioxide 26 mmol/L (22.0-30.0); Chloride 90 mmol/L (98-107); Creatinine Clearance Estimated 29 mL/min (50-200); Estimated Glomerular Filt Rate 23 ml/min (>60); GFR (African American) 28 ML/MIN (>60); Globulin 2.9 g/dL (1.3-3.2); Glucose 186 mg/dl (74-100); Potassium 5.8 mmoL/L (3.5-5.1); Sodium 126 mmol/L (136-145)
[2020-04-25 11:25] LABS: NT Pro Brain Natriuretic Pep. 4050 pg/mL (0-450)
[2020-04-25 11:33] LABS: Troponin I 0.02 ng/ml (0.00-0.034)
[2020-04-25 12:15] LABS: Lactic Acid 1.5 mmol/L (0.7-2.1)
--- NOTE | 2020-04-25 12:27 | PC.NURSE ---
speaking to Marvin Watts
--- NOTE | 2020-04-25 12:48 | PC.NURSE ---
pt finished her oral contrast at 1240 , radiology notified
--- NOTE | 2020-04-25 13:54 | HMH.EDGENADL ---
ED Disposition Clinical Impression: Gastroenteritis Disposition: Home, Self-Care Condition on Discharge: Good Instructions: Viral Gastroenteritis Prescriptions: Meclizine HCl [Meclizine 25mg Tab] 25 mg PO TID 8 Days #20 tab Transmission Status: Pending to [facility] Tizanidine HCl [Zanaflex 4mg tablet] 4 mg PO TID 10 Days #30 tab Transmission Status: Pending to [facility] Referrals: Provider,Nohelia Test [Primary Care Provider] - - Critical Care Critical Care Time: No Attestation: On 04/25/20, the high probability of a clinically significant, sudden or life threatening deterioration of the following system(s) required my full and direct attention, intervention and personal management. The time I documented below is in addition to time spent performing reported procedures but includes the following listed in this critical care notation. Medical Decision Making - Medical Records Medical records reviewed: Yes: I reviewed the patient's medical records. - Per Inquiry Pt receiving controlled substance: No Vital Signs: 04/25/20 10:08 04/25/20 11:44 04/25/20 12:00 Temperature 98.2 F Temperature Source Oral Pulse Rate [Right] 53 L 56 L 56 L Respiratory Rate 17 16 18 Blood Pressure [Right Arm] 97/48 L 87/37 L 117/52 L Blood Pressure Mean [Right Arm] 64 53 73 Blood Pressure Source [Right Arm] Automatic Cuff Blood Pressure Position [Right Arm] Sitting Sitting 02 Sat by Pulse Oximetry 100 97 98 Oxygen Delivery Method Room Air 04/25/20 13:34 04/25/20 14:30 Temperature Temperature Source Pulse Rate [Right] 54 L 56 L Respiratory Rate 18 18 Blood Pressure [Right Arm] 162/63 H 124/56 L Blood Pressure Mean [Right Arm] 96 78 Blood Pressure Source [Right Arm] Automatic Cuff Blood Pressure Position [Right Arm] Sitting 02 Sat by Pulse Oximetry 99 100 Oxygen Delivery Method Room Air - Lab Data Lab results reviewed: Yes: I reviewed the patient's lab results. Lab Results 04/25/20 10:18: Troponin I 0.02 04/25/20 10:18: WBC 8.1, RBC 3.51 L, Hgb 10.2 L, Hct 30.4 L, MCV 86.8, MCH 29.1, MCHC 33.5, RDW 16.7, Plt Count 245, MPV 8.8, Neut % (Auto) 69.7, Lymph % (Auto) 24.2, [place] % (Auto) 4.5, Eos % (Auto) 1.4, Baso % (Auto) 0.2, Neut # (Auto) 5.7, Lymph # (Auto) 2.0, [place] # (Auto) 0.4, Eos # (Auto) 0.1, Baso # (Auto) 0.0 04/25/20 10:18: Sodium 126 L, Potassium 5.8 H, Chloride 90 L, Carbon Dioxide 26, Anion Gap 15.8 H, BUN 35 H, Creatinine 2.10 H, Estimated Creat Clear 29, Estimated GFR 23 L, Est GFR ( Amer) 28 L, Glucose 186 H, Calcium 9.2, Total Bilirubin 0.5, AST 61 H, ALT 30, Alkaline Phosphatase 60, NT-Pro-B Natriuret Pep 4050 H, Total Protein 7.0, Albumin 4.1, Globulin 2.9, Albumin/Globulin Ratio 1.4 04/25/20 10:30: ABG pH 7.42, ABG pCO2 28.2 L, ABG pO2 91.2, ABG HCO3 17.7 L, ABG Total CO2 18.6 L, ABG O2 Saturation 96, ABG Base Excess -6.8 L 04/25/20 11:55: Lactate 1.5 Result diagrams: 04/25/20 10:18 04/25/20 10:18 Orders (Tests/Meds): ED MEDICATIONS Discontinued Medications Generic Name Dose Route Start Last Admin Trade Name Freq PRN Reason Stop Dose Admin Diatrizoate Meglum/Diatrizoate Sod 30 ml 04/25/20 12:29 04/25/20 12:39 Gastrografin 66%-10% 30ml PO 04/25/20 12:30 30 ml ONCE ONE Administration Ondansetron HCl 4 mg 04/25/20 10:57 04/25/20 11:01 Zofran 4mg/2ml Vial IV 04/25/20 10:58 4 mg ONCE ONE Administration ORDERS Category Date Time Status Troponin I Q3H Lab 04/25/20 14:00 Ordered Troponin I Q3H Lab 04/25/20 17:00 Ordered Blood Culture Stat Micro 04/25/20 11:55 Received - CT Data CT Scan: Abdomen, Pelvis, Chest Time Received: 14:[address] Reviewed: Yes: I have viewed the radiologist's interpretation Preliminary Findings: Abnormal (CT of chest is within normal limits. CT the abdomen pelvis did not show anything acute but did show thickening of the stomach antrum and also with a few opacities throughout
--- NOTE | 2020-04-25 14:40 | PC.NURSE ---
ER MD gave verbal order for 500 mL fluid bolus per IV
== END 2020-04-25 16:42 | disposition home or self-care (01) ==
PROVIDERS: Emergency Provider Family Medicine
DX: K52.9 Noninfective gastroenteritis and colitis, unspecified (principal); R06.02 Shortness of breath; I48.91 Unspecified atrial fibrillation; E10.9 Type 1 diabetes mellitus without complications; I10 Essential (primary) hypertension; E78.5 Hyperlipidemia, unspecified; I25.10 Atherosclerotic heart disease of native coronary artery without angina pectoris; Z87.891 Personal history of nicotine dependence; Z79.899 Other long term (current) drug therapy
CPT/HCPCS: 36415; 71250; 74176; 80053; 82803; 83605; 83880; 84484; 85025; 87040; 93005; 96365; 96375; 99284; J2405

== ENCOUNTER 2020-04-26 20:41 | Inpatient (IN) | payer SELFPAY ==
[2020-04-26] VITALS (10 sets, daily range): BP systolic 95–131; BP diastolic 35–75; PULSE 51–109; RESP 16–22; TEMP 36.8–37.2; O2SAT 97–100; BMI 34.2
--- NOTE | 2020-04-26 20:51 | CT_ITS ---
PROCEDURE: CT CHEST WO CON CLINICAL INDICATION: abd pain Shortness of breath, elevated blood pressure, elevated rate, chest pain COMPARISON: CT CHEST WO CON from 04/25/2020 CT ABDOMEN PELVIS WO CON from 04/26/2020 TECHNIQUE: Axial images obtained with sagittal and coronal reformats. All CT scans at the facility use one or more dose reduction, viz: automated exposure control, ma/kV adjustment per patient size (including targeted exams where dose is matched to indication, i.e. head), or iterative reconstruction technique. FINDINGS: Prior CABG. Mitral valve annular and coronary artery calcifications are noted. Changes of COPD with scattered areas of scarring. No change in the chronic tree in bud pattern in the right upper lobe with bronchial thickening. There has been slight increase in size of the right pleural effusion with slight increase in atelectatic or infiltrate in the right lung base. Atelectasis noted in the right middle lobe unchanged. There is trace left-sided effusion which has developed since the previous exam with atelectatic changes in the lingula. Degenerative changes thoracic spine IMPRESSION: There has been slight increase in size of right pleural effusion and interval development of trace left effusion with increasing atelectasis or infiltrate in the right lung base. Chronic changes right upper lobe once again noted. Dictated by: Rudy Gamez MD 04/27/2020 08:15 Electronically signed by Rudy Gamez MD in [place] 04/27/2020 08:15
--- NOTE | 2020-04-26 20:51 | CT_ITS ---
PROCEDURE: CT ABDOMEN PELVIS WO CON CLINICAL INDICATION: abd pain Abdominal pain and tenderness COMPARISON: CT ABDOMEN PELVIS WO CON from 04/25/2020 TECHNIQUE: Axial images obtained with sagittal and coronal reformats. All CT scans at the facility use one or more dose reduction, viz: automated exposure control, ma/kV adjustment per patient size (including targeted exams where dose is matched to indication, i.e. head), or iterative reconstruction technique. FINDINGS: There is a small amount of perihepatic and perisplenic fluid. Gallbladder appears thickened as before with possible cholelithiasis and questionable pericholecystic fluid. Recommend right upper quadrant ultrasound for further evaluation. The spleen has an unremarkable appearance. No renal or ureteral calculi. No adrenal mass. There is mild stranding of the perinephric fat. No intestinal obstruction or free air. No evidence of appendicitis or diverticulitis. There is mild thickening of the transverse portion of the duodenum. Bobby catheter is present. There are senescent calcifications of the uterus with a mild amount of fluid in the pelvis which is increased compared to the previous exam. No obvious abscess. There are some mildly thickened loops of colon which could be due to nondistention or colitis. There are degenerative changes of the lumbar spine and hips. IMPRESSION: 1. Free intraperitoneal fluid which is slightly increased. No free air. 2. Contracted and possibly thickened gallbladder with questionable pericholecystic fluid and possible cholelithiasis. Consider ultrasound for further evaluation. 3. Thickened descending and transverse portion of the duodenum which could be due to nondistention or duodenitis. 4. Scattered areas of thickened appearance of the colon which could be due to nondistention or colitis. Dictated by: Rudy Gamez MD 04/27/2020 08:08 Electronically signed by Rudy Gamez MD in [place] 04/27/2020 08:08
--- NOTE | 2020-04-26 20:51 | ECG_ITS ---
APPROVED REPORT Exam: Resting ECG HR:50 bpm ECG Measurements Heart Rate 50 AXES NM 146 P 106 QRSd 106 QRS 113 QT 510 T 123 QTc 464 <Conclusion> Afib/flutter Septal infarct, age undetermined Lateral infarct, age undetermined Abnormal ECG Electronically signed by : Alexys King, 04/28/2020 15:35:32
--- NOTE | 2020-04-26 20:53 | XR_ITS ---
PROCEDURE: XR CHEST PORTABLE CLINICAL HISTORY: SOA COMPARISON: CXR2V XR chest 2V from 03/13/2018 XR CHEST 2V from 12/24/2019 XR CHEST PORTABLE from 02/13/2020 CT CHEST WO CON from 04/26/2020 FINDINGS: Prior median sternotomy. Normal heart size. Mild right basilar atelectasis. Parenchymal opacity noted in the lingular region which could be due to an area of atelectasis or infiltrate. Upper lobes are clear. No acute bony abnormalities. IMPRESSION: Right basilar atelectasis with lingular atelectasis or infiltrate Dictated by: Rudy Gamez MD 04/27/2020 07:37 Electronically signed by Rudy Gamez MD in [place] 04/27/2020 07:37
[2020-04-26 20:55] LABS: ABG Base Excess -9.1 mmol/L (-2.4-2.3); ABG HCO3 15.6 mmhg (22.0-26.0); ABG Oxygen Saturation 99 % (90-100); ABG PCO2 25.3 mmhg (35.0-45.0); ABG PH 7.41 mmol/L (7.35-7.45); ABG PO2 149.8 mmhg (80-100); ABG TCO2 16.4 mmhg (23-27); Allen's Test Y; Oxygen 3 %; Source R/R
[2020-04-26 21:02] LABS: Basophils % 0.3 % (0.1-2.0); Eosinophils # 0.1 K/mm3 (0.0-0.4); Eosinophils % 1.2 % (0.1-12.0); Hematocrit 30.2 % (37.0-47.0); Hemoglobin 9.8 g/dL (12.2-16.2); Lymphocytes # 1.9 K/mm3 (0.7-4.5); Lymphocytes % 23.3 % (10-50); Mean Corpuscular HGB Conc 32.6 g/dL (31.8-35.4); Mean Corpuscular Hemoglobin 29.1 pg (27.0-31.2); Mean Corpuscular Volume 89.4 fl (81-99); Mean Platelet Volume 8.6 fl (7.4-10.4); Monocytes # 0.4 K/mm3 (0.1-1.0); Monocytes % 5.2 % (1.7-9.3); Neutrophils # 5.8 K/mm3 (1.8-7.8); Neutrophils % 70.1 % (37.0-80.0); Platelet Count 275 K/mm3 (142-424); Red Blood Count 3.38 M/mm3 (4.20-5.40); Red Cell Distribution Width 16.8 % (11.5-17.5); White Blood Count 8.3 K/mm3 (4.8-10.8)
[2020-04-26 21:04] LABS: Chloride 92 mmol/L (98-107); Sodium 125 mmol/L (136-145)
[2020-04-26 21:05] LABS: Potassium 5.5 mmoL/L (3.5-5.1)
[2020-04-26 21:07] LABS: Alanine Aminotransferase 72 U/L (12-78); Albumin Level 3.5 g/dl (3.5-5.0); Albumin/Globulin Ratio 1.4 (1.1-1.8); Alkaline Phosphatase 56 U/L (38-126); Anion Gap 16.5 mEq/L (5-15); Aspartate Amino Transferase 53 U/L (14-36); Bilirubin,Total 0.4 mg/dl (0.2-1.3); Blood Urea Nitrogen 44 mg/dl (7-17); Calcium 8.5 mg/dl (8.4-10.2); Carbon Dioxide 22 mmol/L (22.0-30.0); Creatine Kinase 207 U/L (30-135); Creatinine Clearance Estimated 31 mL/min (50-200); Estimated Glomerular Filt Rate 19 ml/min (>60); GFR (African American) 23 ML/MIN (>60); Globulin 2.5 g/dL (1.3-3.2); Glucose 335 mg/dl (74-100)
--- NOTE | 2020-04-26 21:11 | HMH.EDABDPAI ---
ED Disposition Clinical Impression: Pneumonia Qualifiers: Pneumonia type: due to unspecified organism Laterality: right Lung location: lower lobe of lung Qualified Code(s): J18.9 - Pneumonia, unspecified organism Renal failure (ARF), acute on chronic Qualifiers: Acute renal failure type: unspecified Chronic kidney disease stage: stage 3 (moderate) Qualified Code(s): N17.9 - Acute kidney failure, unspecified; N18.3 - Chronic kidney disease, stage 3 (moderate) Disposition: Admitted As Inpatient Condition on Discharge: Fair Time of Disposition: 23:55 - Critical Care Critical Care Time: Yes Attestation: On 04/26/20, the high probability of a clinically significant, sudden or life threatening deterioration of the following system(s) required my full and direct attention, intervention and personal management. The time I documented below is in addition to time spent performing reported procedures but includes the following listed in this critical care notation. Total Critical Care Time: 15 Vital system(s) involved:: Metabolic Failure, Renal Failure My critical care processes included: Assessment & monitoring of V/S, Initial and Re-exams, Data Review/Interpretation, Coordinating Care, Medication Orders and management, Documentation Medical Decision Making - Medical Records Medical records reviewed: Yes: I reviewed the patient's medical records. MR Comment: Patient had come in with tearing abdominal pain and soa, weakness, decreased bp and hr. Reviewed and CBC is essentially normal, showed the following sodium 125 potassium 5.4 chloride 9222 4 creatinine 2.5 increased compared to previous values increased lactate at 3.2, essentially normal vital signs. The chest CT shows interstitial prominence and mild groundglass opacity in the posterior right lower lobe which could be pneumonia or increasing atelectasis. Spoke to Dr. Shrestha and advised admission for pneumonia as well as renal failure - Per Inquiry Pt receiving controlled substance: No Vital Signs: 04/26/20 20:47 04/26/20 20:51 04/26/20 21:19 Temperature 98.9 F Temperature Source Oral Pulse Rate [Right Brachial] 51 L 98 H 89 Respiratory Rate 22 19 16 Blood Pressure [Right Arm] 95/54 L 110/35 L 100/59 L Blood Pressure Mean [Right Arm] 67 60 72 Blood Pressure Source [Right Arm] Automatic Cuff Automatic Cuff Blood Pressure Position [Right Arm] Sitting Supine Supine 02 Sat by Pulse Oximetry 100 99 98 Oxygen Delivery Method Room Air Nasal Cannula Nasal Cannula Oxygen Flow Rate (LPM) 2 2 04/26/20 21:48 04/26/20 22:14 04/26/20 22:18 Temperature 98.2 F Temperature Source Oral Pulse Rate [Right Brachial] 81 109 H 89 Respiratory Rate 16 16 18 Blood Pressure [Right Arm] 109/65 L 118/57 L 109/64 L Blood Pressure Mean [Right Arm] 79 77 79 Blood Pressure Source [Right Arm] Automatic Cuff Automatic Cuff Automatic Cuff Blood Pressure Position [Right Arm] Sitting Sitting Sitting 02 Sat by Pulse Oximetry 98 99 98 Oxygen Delivery Method Nasal Cannula Room Air Room Air Oxygen Flow Rate (LPM) 2 - Lab Data Lab Results 04/26/20 20:45: WBC 8.3, RBC 3.38 L, Hgb 9.8 L, Hct 30.2 L, MCV 89.4, MCH 29.1, MCHC 32.6, RDW 16.8, Plt Count 275, MPV 8.6, Neut % (Auto) 70.1, Lymph % (Auto) 23.3, Andrew % (Auto) 5.2, Eos % (Auto) 1.2, Baso % (Auto) 0.3, Neut # (Auto) 5.8, Lymph # (Auto) 1.9, Andrew # (Auto) 0.4, Eos # (Auto) 0.1, Baso # (Auto) 0.0 04/26/20 20:45: D-Dimer 2370 H* 04/26/20 20:45: Sodium 125 L, Potassium 5.5 H, Chloride 92 L, Carbon Dioxide 22, Anion Gap 16.5 H, BUN 44 H D, Creatinine 2.50 H, Estimated Creat Clear 31, Estimated GFR 19 L*, Est GFR ( Amer) 23 L, Glucose 335 H, Calcium 8.5, Total Bilirubin 0.4, AST 53 H, ALT 72 D, Alkaline Phosphatase 56, Total Creatine Kinase 207 H, CK-MB (CK-2) 3.9 H, Troponin I 0.02, Total Protein 6.0 L, Albumin 3.5 D, Globulin 2.5, Albumin/Globulin Ratio 1.4 04/26/20 20:45: Lactate 3.2 H 04/26/20 20:53: Specimen Source R/r, O2 % 3, ABG
[2020-04-26 21:17] LABS: Creatine Kinase MB 3.9 ng/ml (0.0-2.03)
[2020-04-26 21:20] LABS: Troponin I 0.02 ng/ml (0.00-0.034)
[2020-04-26 21:28] LABS: Lactic Acid 3.2 mmol/L (0.7-2.1)
[2020-04-26 21:53] LABS: D-Dimer 2370 ng/mL (0-400)
--- NOTE | 2020-04-26 22:41 | PC.NURSE ---
STATES HE WILL BE ADMITTING PATIENT AND THAT SHE CAN GO AHEAD AND BE SWABBED FOR COVID TESTING. LAB NOTIFIED.
[2020-04-26 22:55] LABS: Adenovirus,PCR Not Detected (NotDetected); Bordetella Pertussis Not Detected (NotDetected); Chlamydophila Pneumoniae, PCR Not Detected (NotDetected); Coronavirus 19, PCR Not Detected (NotDetected); Coronavirus 229E Not Detected (NotDetected); Coronavirus NL63 Not Detected (NotDetected); Coronavirus OC43 Not Detected (NotDetected); Coronovirus HKU1,PCR Not Detected (NotDetected); Human Metapneumovirus Not Detected (NotDetected); Influenza A, PCR Not Detected (NotDetected); Influenza AH1, 2009 Not Detected (NotDetected); Influenza AH1, PCR Not Detected (NotDetected); Influenza AH3,PCR Not Detected (NotDetected); Influenza B, PCR Not Detected (NotDetected); Mycoplasma Pneumoniae, PCR Not Detected (NotDected); Parainfluenza 1, PCR Not Detected (NotDetected); Parainfluenza 2, PCR Not Detected (NotDetected); Parainfluenza 3, PCR Not Detected (NotDetected); Parainfluenza 4, PCR Not Detected (NotDetected); Respiratory Syncytial Virus Not Detected (NotDetected); Rhinovirus/Enterovirus Not Detected (NotDetected)
--- NOTE | 2020-04-26 23:01 | PC.NURSE ---
PAGED DR MACHADO -ON-CALL FOR SERVICE
[2020-04-27] VITALS (63 sets, daily range): BP systolic 76–157; BP diastolic 31–72; PULSE 36–109; RESP 12–18; TEMP 35.7–36.9; O2SAT 88–100; BMI 29.1; BMI 29.9
[2020-04-27 00:10] LABS: Reflex Lactic Add Lactic Reflex
[2020-04-27 00:36] LABS: Lactic Acid Follow Up (RFLX 1) 1.5 mmol/L (0.7-2.1)
--- NOTE | 2020-04-27 00:42 | PC.NURSE ---
patient up to floor via stretcher.
[2020-04-27 01:04] LABS: Troponin I 0.04 ng/ml (0.00-0.034)
[2020-04-27 01:11] LABS: Microscopic, Urine URINE MICROSCOPIC (MICROSCOPIC)
[2020-04-27 01:12] LABS: Appearance,Urine CLEAR (Clear); Bilirubin,Urine Negative (Negative); Blood, Urine Negative (Negative); Color,Urine YELLOW (Yellow); Glucose,Urine (UA) TRACE (Negative); Ketones,Urine Negative (Negative); Leukocyte Esterase,Urine TRACE (Negative); Nitrate,Urine Negative (Negative); PH,Urine 5.5 (5.0-8.5); Protein,Urine 2+ (Negative); Specific Gravity, Urine >= 1.030 (1.005-1.030); Urobilinogen,Urine 0.2 EU/dl (0.2)
[2020-04-27 01:22] LABS: Amorphous Sediment,Urine 1+ /lpf; Bacteria,Urine 1+ /lpf; Mucus,Urine 1+ /lpf
--- NOTE | 2020-04-27 01:57 | ECG_ITS ---
APPROVED REPORT Exam: Resting ECG HR:53 bpm ECG Measurements Heart Rate 53 AXES OK P -84 QRSd 124 QRS 98 QT 538 T 110 QTc 504 <Conclusion> Atrial flutter with 4:1 AV conduction Rightward axis Nonspecific intraventricular conduction delay Nonspecific ST abnormality Abnormal ECG Electronically signed by : Alexys King, 04/28/2020 15:34:38
--- NOTE | 2020-04-27 02:15 | PC.NURSE ---
PAGED HARDBOARD SUPERVISOR MD, AWAITING CALL BACK.
--- NOTE | 2020-04-27 02:30 | PC.NURSE ---
MD PERISHABLE FRUIT INSPECTOR PAGED, AWAITING PERISHABLE FRUIT INSPECTOR BACK.
[2020-04-27 03:22] LABS: Troponin I 0.05 ng/ml (0.00-0.034)
--- NOTE | 2020-04-27 03:31 | PC.NURSE ---
PROFESSIONAL FIGHTER PAGED, AWAITING CALL BACK.
--- NOTE | 2020-04-27 03:47 | PC.NURSE ---
PAGED, AWAITING CALL BACK.
--- NOTE | 2020-04-27 05:02 | PC.NURSE ---
Rodrick NÚÑEZ, PHARMACIST CONTACTED IN REGARDS TO VANC DOSING. INSTRUCTED TO GIVE 1500MG OF VANC IV Q24H BASED ON PT'S WEIGHT, AGE, AND KIDNEY FUNCTION.
[2020-04-27 05:56] LABS: Basophils % 0.2 % (0.1-2.0); Eosinophils % 0.4 % (0.1-12.0); Hematocrit 32.6 % (37.0-47.0); Hemoglobin 10.5 g/dL (12.2-16.2); Lymphocytes # 2.2 K/mm3 (0.7-4.5); Lymphocytes % 22.2 % (10-50); Mean Corpuscular HGB Conc 32.4 g/dL (31.8-35.4); Mean Corpuscular Hemoglobin 28.9 pg (27.0-31.2); Mean Corpuscular Volume 89.3 fl (81-99); Mean Platelet Volume 8.9 fl (7.4-10.4); Monocytes # 0.4 K/mm3 (0.1-1.0); Monocytes % 3.8 % (1.7-9.3); Neutrophils # 7.2 K/mm3 (1.8-7.8); Neutrophils % 73.6 % (37.0-80.0); Platelet Count 270 K/mm3 (142-424); Red Blood Count 3.65 M/mm3 (4.20-5.40); Red Cell Distribution Width 16.5 % (11.5-17.5); White Blood Count 9.8 K/mm3 (4.8-10.8)
[2020-04-27 06:10] LABS: Chloride 98 mmol/L (98-107); Sodium 126 mmol/L (136-145)
[2020-04-27 06:13] LABS: Alanine Aminotransferase 90 U/L (12-78); Albumin Level 3.6 g/dl (3.5-5.0); Albumin/Globulin Ratio 1.4 (1.1-1.8); Alkaline Phosphatase 57 U/L (38-126); Anion Gap 18.1 mEq/L (5-15); Aspartate Amino Transferase 75 U/L (14-36); Bilirubin,Total 0.5 mg/dl (0.2-1.3); Blood Urea Nitrogen 46 mg/dl (7-17); Carbon Dioxide 16 mmol/L (22.0-30.0); Creatinine Clearance Estimated 26 mL/min (50-200); Estimated Glomerular Filt Rate 18 ml/min (>60); GFR (African American) 22 ML/MIN (>60); Globulin 2.6 g/dL (1.3-3.2); Total Protein,Serum 6.2 g/dl (6.3-8.2)
[2020-04-27 06:14] LABS: Calcium 8.4 mg/dl (8.4-10.2); Glucose 320 mg/dl (74-100)
[2020-04-27 06:33] LABS: Potassium 6.1 mmoL/L (3.5-5.1)
[2020-04-27 06:44] LABS: POC Glucose,Bedside 272 (70-110)
--- NOTE | 2020-04-27 07:23 | P.CONPHA_ITS ---
[facility] VTE Monitoring - Patient Demographics Admission date: 04/27/20 Report Date: 04/27/20 Time: 07:23 Allergies/Adverse Reactions: Patient Allergies No Known Allergies Allergy (Verified 01/05/20 09:56) Height: 1.73 m Weight: 89.6 kg Patient Problems: Current Active Problems (Last Updated 07/06/19 @ 11:53 by Nayeli Alves RN) Pneumonia (Acute) Renal failure (ARF), acute on chronic (Acute) - VTE Risk Labs: VTE Related Lab Results Hgb 10.5 g/dL (12.2-16.2) L 04/27/20 05:40 Hct 32.6 % (37.0-47.0) L 04/27/20 05:40 Plt Count 270 K/mm3 (142-424) 04/27/20 05:40 BUN 46 mg/dl (7-17) H 04/27/20 05:40 Creatinine 2.60 mg/dl (0.52-1.04) H 04/27/20 05:40 Estimated Creat Clear 26 mL/min (50-200) 04/27/20 05:40 VTE Score: 7 Clinical Trial Participant: No - Prophylaxis VTE Prophylaxis Ordered?: Yes Types of VTE Prophylaxis: TEDS Knee High
--- NOTE | 2020-04-27 08:19 | HMH.PHACONS ---
- Pharmacy Consult Date: 04/27/20 Time: 08:19 Referring provider: DR. MACHADO Reason for Consult:: VANCOMYCIN DOSING Allergies and ADEs:: Allergies Allergy/AdvReac Type Severity Reaction Status Date / Time No Known Allergies Allergy Verified 01/05/20 09:56 Home Medications:: Home Medications Medication Instructions Recorded Confirmed Type aspirin 81 mg tablet,delayed 81 mg PO DAILY tab 07/01/18 04/27/20 History release furosemide 20 mg tablet 10 mg PO DAILY tab 12/29/19 04/27/20 History insulin glargine 100 unit/mL (3 40 unit SQ HS ml 12/29/19 04/27/20 History mL) subcutaneous pen lisinopril 10 mg tablet 10 mg PO DAILY tab 12/29/19 04/27/20 History Rivaroxaban [Xarelto] 20 mg PO DAILY 02/13/20 04/27/20 History Spironolactone [Spironolactone 25 mg PO BID 02/13/20 04/27/20 History 25mg Tablet] Meclizine HCl [Meclizine 25mg Tab] 25 mg PO TID 04/26/20 04/27/20 History Tizanidine HCl [Zanaflex 4mg 4 mg PO TID 04/26/20 04/27/20 History tablet] dilTIAZem HCL [Cardizem Cd 180mg] 180 mg PO DAILY 04/26/20 04/27/20 History Metoprolol Succinate [Metoprolol 50 mg PO DAILY 04/27/20 04/27/20 History Succinate 50mg Tablet*] Height: 1.73 m Weight: 89.6 kg Laboratory Results:: Laboratory Results - last 24 hr 04/26/20 20:45: WBC 8.3, RBC 3.38 L, Hgb 9.8 L, Hct 30.2 L, MCV 89.4, MCH 29.1, MCHC 32.6, RDW 16.8, Plt Count 275, MPV 8.6, Neut % (Auto) 70.1, Lymph % (Auto) 23.3, [place] % (Auto) 5.2, Eos % (Auto) 1.2, Baso % (Auto) 0.3, Neut # (Auto) 5.8, Lymph # (Auto) 1.9, [place] # (Auto) 0.4, Eos # (Auto) 0.1, Baso # (Auto) 0.0 04/26/20 20:45: D-Dimer 2370 H* 04/26/20 20:45: Sodium 125 L, Potassium 5.5 H, Chloride 92 L, Carbon Dioxide 22, Anion Gap 16.5 H, BUN 44 H D, Creatinine 2.50 H, Estimated Creat Clear 31, Estimated GFR 19 L*, Est GFR ( Amer) 23 L, Glucose 335 H, Calcium 8.5, Total Bilirubin 0.4, AST 53 H, ALT 72 D, Alkaline Phosphatase 56, Total Creatine Kinase 207 H, CK-MB (CK-2) 3.9 H, Troponin I 0.02, Total Protein 6.0 L, Albumin 3.5 D, Globulin 2.5, Albumin/Globulin Ratio 1.4 04/26/20 20:45: Lactate 3.2 H 04/26/20 20:53: Specimen Source R/r, O2 % 3, ABG pH 7.41, ABG pCO2 25.3 L, ABG pO2 149.8 H, ABG HCO3 15.6 L, ABG Total CO2 16.4 L, ABG O2 Saturation 99, ABG Base Excess -9.1 L, Rudy Test Y 04/26/20 22:45: Chlamy pneumoniae PCR Not detected, Adenovirus (PCR) Not detected, B. pertussis DNA (PCR) Not detected, Coronavirus OC43 (PCR) Not detected, Coronavirus HKU1 (PCR) Not detected, Coronavirus 229E (PCR) Not detected, COVID-19 PCR Not detected, Coronavirus NL63 (PCR) Not detected, Human Metapneumovir PCR Not detected, Influenza A (H1) PCR Not detected, Influ A (H1N1/09) PCR Not detected, Influenza A (H3) PCR Not detected, Influenza Type A (PCR) Not detected, Influenza Type B (PCR) Not detected, M. pneumoniae (PCR) Not detected, Parainfluenza 1 (PCR) Not detected, Parainfluenza 2 (PCR) Not detected, Parainfluenza 3 (PCR) Not detected, Parainfluenza 4 (PCR) Not detected, RSV (PCR) Not detected, Entero/Rhino (PCR) Not detected 04/27/20 00:20: Troponin I 0.04 H 04/27/20 00:20: Lactate 1.5 04/27/20 01:03: Urine Color Yellow, Urine Appearance Clear, Urine pH 5.5, Ur Specific Cylinder >= 1.030, Urine Protein 2+, Urine Glucose (UA) Trace, Urine Ketones Negative, Urine Blood Negative, Urine Nitrate Negative, Urine Bilirubin Negative, Urine Urobilinogen 0.2, Ur Leukocyte Esterase Trace, Urine RBC 3-5, Urine WBC 3-5, Ur Squamous Epith Cells 10-20, Amorphous Sediment 1+, Urine Bacteria 1+, Hyaline Casts 3-5, Urine Mucus 1+ 04/27/20 02:55: Troponin I 0.05 H 04/27/20 05:40: WBC 9.8, RBC 3.65 L, Hgb 10.5 L, Hct 32.6 L, MCV 89.3, MCH 28.9, MCHC 32.4, RDW 16.5, Plt Count 270, MPV 8.9, Neut % (Auto) 73.6, Lymph % (Auto) 22.2, [place] % (Auto) 3.8, Eos % (Auto) 0.4, Baso % (Auto) 0.2, Neut # (Auto) 7.2, Lymph # (Auto) 2.2, [place] # (Auto) 0.4, Eos # (Auto) 0.0, Baso # (Auto) 0.0 04/27/20 05:40: Sodium 126 L, Potassium 6.1 H*, Chloride 98, Carbon D
--- NOTE | 2020-04-27 08:23 | CA_ITS ---
APPROVED REPORT EXAM: Comprehensive 2D, Doppler, and color-flow Echocardiogram Assembler Tractor: Jacqueline Goel RT(R) Ht: 5 ft 9 in Wt: 197lbs BSA: 2.05 BP: 100/59 mmHg Indications: ex smoker, HTN, DM, SOB, hyperlipidemia, pneumonia, renal failure, hx ASD repair in the , hx of Aflutter 2D Dimensions LVOT 1.72 cm (M/F) 1.5-2.5 M-Mode Dimensions RVDd 2.44 cm (0.9-2.6) LVDd 3.98 cm (3.5-5.7) LVDs 2.87 cm (3.5-5.7) IVSd 1.18 cm (0.6-1.1) PWd 0.79 cm (0.6-1.1) EF (Teich) 54.60% FS 27.90% EDV (Teich) 69.20 mL ESV (Teich) 31.40 mL LV Diastology E/A Ratio 1.95 Mitral Valve MV A Velocity 88.00 (40-130 cm/s) Left Ventricle Left atrium is mildly enlarged, left ventricle is normal size, mild concentric left ventricular hypertrophy, visually estimated ejection fraction 55%, there is abnormal septal motion, diastolic parameters are inconclusive. Right Ventricle Right atrium and right ventricle moderately enlarged, contractility of the right ventricle appears to be normal. Atria Intra-atrial septum is not well visualized, there is no flow across the interatrial septum, agitated saline contrast study was not performed. Aortic Valve Aortic valve is thickened and calcified leaflet chordae display good mobility, there is no aortic stenosis aortic insufficiency. Mitral Valve Mitral valve has mitral annular calcification, which extends in both anterior and posterior mitral leaflet, mitral inflow velocities not suggestive of significant mitral stenosis, there is mild mitral regurgitation. Tricuspid Valve There is moderate tricuspid regurgitation, tricuspid regurgitation jet velocity is inadequate for calculation of the right ventricular systolic pressure. Pulmonic Valve Pulmonic valve is poorly visualized. Great Vessels Aortic root is normal size. Pericardium No significant pericardial effusion noted Conclusion 1. Biatrial enlargement, normal left ventricular size, mild concentric left ventricular hypertrophy, visually estimated ejection fraction 55% there is abnormal septal motion. Diastolic parameters are inconclusive 2. Moderately enlarged right ventricle with normal contractility. 3. Intra-atrial septum is not well visualized, there is no obvious flow across the interatrial septum, agitated saline contrast study was not performed. 4. Mild mitral and moderate tricuspid regurgitation. 5. No significant pericardial effusion noted. Electronically signed by : Kaiden Smith, 04/28/2020 09:34:17
--- NOTE | 2020-04-27 08:23 | US_ITS ---
PROCEDURE: US KIDNEY CLINICAL INDICATION: LOI COMPARISON: No exams were available for comparison FINDINGS: The right kidney is [id number]. No hydronephrosis, cortical thinning, or renal mass or perinephric fluid collection is evident. The left kidney is [id number]. No hydronephrosis, cortical thinning, or renal mass or perinephric fluid collection is evident. Incidental note made thickening of the gallbladder wall and mild ascites. IMPRESSION: Unremarkable bilateral renal ultrasound Mild diffuse ascites. Mild thickening of the gallbladder wall Dictated by: Rudy Gamez MD 04/27/2020 15:03 Electronically signed by Rudy Gamez MD in [place] 04/27/2020 15:03
--- NOTE | 2020-04-27 08:25 | NM_ITS ---
PROCEDURE: NM PUL VENT AND PERFUSE CLINICAL INDICATION: elevated d-dimer/hypoxia COMPARISON: XR CHEST PORTABLE from 04/27/2020 TECHNIQUE: Dose: 35.4 mCi technetium DTPA 8.87 mCi technetium MAA FINDINGS: There are scattered subsegmental defects which appear to match. No segmental mismatching defects are evident. There is some clumping of the radiopharmaceutical centrally on the ventilation images. IMPRESSION: Low probability for pulmonary embolus Dictated by: Rudy Gamez MD 04/28/2020 06:26 Electronically signed by Rudy Gamez MD in [place] 04/28/2020 06:26
--- NOTE | 2020-04-27 08:26 | HMH.SEPSISRE ---
[facility] Tissue Perfusion Eval Sepsis Re-Evaluation Performed: Yes Date Performed: 04/27/20 Time Performed: 07:00
--- NOTE | 2020-04-27 08:36 | HMH.HP ---
*Admission Date: 04/27/20 *Chief complaint: Fatigue/somnolence/abdominal pain *History of present illness: 74-year-old white female with long history of multiple medical problems including diabetes, type II but insulin requiring with poor control with most recent A1c of 14%. She also has chronic kidney disease which is recently worsened, baseline creatinine was 1.6 until April 25, 2 days ago when she was evaluated for preoperative labs for a planned lumbar spinal fusion procedure that was to take place in [place], [place]. Her notes that because of her kidney dysfunction which is apparently new, her procedure was canceled. She also has a history of recurrent A. fib/flutter, has undergone electrical cardioversion x2 per cardiology services here at [facility], in addition to heart catheterization in 2018 that revealed hyperdynamic left ventricle but no lesions amenable to stenting. He is also had a mitral valve annuloplasty in the past. She also suffers from chronic pain in intermittent waves, and her -who is easily confused about her history and unable to describe symptoms in detail, reports that she will get back and belly pains every so often and go see her nurse practitioner provider and get checked out. He is unable to tell me what the source of the pains are. She was scheduled for follow-up with cardiology here at [facility] but a friend of theirs who happens to be a snuff packing machine operator came to their house yesterday and noticed that she did not look good and advised them to bring her to the emergency department. In the emergency department she was bradycardic, hypotensive, and a flutter with a rate in the 40s, kidney function had worsened, and she had elevated d-dimer and troponin levels. She was admitted to hospital for sepsis work-up after CT scan showed evidence of worsening lobar infiltrate and groundglass opacities in her lung garcia. CT scan of chest with contrast was unable to be done because of her kidney dysfunction. She is on chronic Xarelto therapy for a flutter and so anticoagulation otherwise was not started. Throughout the night the patient is reported worsening abdominal pain, has had diminished urine output and lower blood pressures. She has elevated lactic acid, and as a result severe sepsis was diagnosed and high-dose fluid boluses and broad-spectrum antibiotic therapy have been started. CT scan of chest has been reviewed, CT scan of abdomen shows nonspecific findings, possible gallstones, possible colitis but no evidence of obstruction or free air issues. [facility] History Medical History: Reports:: Arrhythmia, Atherosclerotic Heart Disease, Atrial Fibrillation, Congestive Heart Failure, Congenital Heart Disease (ASD repair), Deep Vein Thrombosis, Diabetes Mellitus Type 2, Hyperlipidemia, Hypertension Denies:: Cancer, Diabetes Mellitus Type 1, Internal Pacemaker, MRSA, Seizures *Have you ever received a pneumonia vaccine?: No *Have you received a flu vaccine this season?: No Other Medical History: Reports: Anemia Other Surgeries: Yes: CABG, Cardiac Catheterization, Open Heart Surgery. No: Pacemaker Amputation: No Fractures: Yes ((R) ankle, (R) wrist) - *Social History Last grade of school completed: 9th or 10th Smoking Status: Current some day smoker Alcohol Intake: never Substance Use Type: denies use *Occupational Status:: employed Housing: house Household Members: spouse *Travel in the last 8 weeks: None Family Hx:: Diabetes, Heart Attack, Stroke Review of Systems - Review of Systems Review of systems:: unable to obtain Most review of systems per which is very scattered. Apparently she has on and off chronic chest pain, on and off chronic abdominal pain and is increasingly afflicted with a loss of vigor and functional status. Meds Home Medications Medication Instructions Recorded Confirmed Type aspirin 81 mg tablet,delayed 81 mg PO DAILY tab 07/01/18 04/27/20 History release
[2020-04-27 08:41] LABS: POC Glucose,Bedside 287 (70-110)
--- NOTE | 2020-04-27 09:34 | PC.NURSE ---
Addendum entered by Rocio John RN 04/27/20 09:54: *LATE ENTRY ADDRESSING EVENTS OF ADDICTIONS COUNSELOR. Original Note: ON ARRIVAL TO FLOOR PT WAS NOTED PALE IN COLOR BUT HAD TOLERABLE PAIN REPORTED IN ABDOMEN. PULSES +2. LUNGS NOTED CLEAR T/O AUSCULTATION. ABDOMEN NOTED DISTENDED, FIRM AND WITH ACTIVE BOWEL SOUNDS. DURING ADMISSION AT 0155 PT BECAME RESTLESS, MOANING AND C/O CP, ABDOMINAL PAIN AND NAUSEA. PT WOULD RETCH WITH NO EMESIS NOTED. CP PROTOCOL IMPLEMENTED. WIRE STRAIGHTENER ALREADY ON PT, EKG AND VITALS OBTAINED. EKG WAS TAKEN TO ER PHYSICIAN AND REVIEWED AT 0200. EKG NOTED WITH CHANGES FROM INITIAL. PT NOTED WITH AFLUTTER ON SECOND EKG, PT DOES HAVE A HISTORY OF AFIB/AFLUTTER. AFLUTTER/BRADYCARDIA NOTED PER TELEMETRY. TROPONIN LEVELS ELEVATED. MD DRYCLEANER NOTIFIED. MORPHINE AND ZOFRAN ORDERED PER DR. MACHADO, ADMINISTERED MORPHINE AND ZOFRAN PER DEC, ON REASSESSMENT PT'S PAIN AND NAUSEA UNRELIEVED. MD DRYCLEANER NOTIFIED OF UNRELIEVED PAIN AND NAUSEA. ADDITIONAL ORDERS GIVEN FOR MORPHINE AND ATIVAN, ADMINISTERED PER DEC. FOLLOWING ADMINISTRATION OF ATIVAN PT NOTED RESTING IN BED WITH EYES CLOSED. IVF BOLUS ADMINISTERED PER SEPSIS CALCULATION. HYPOTENSION NOTED BUT FOLLOWING IVF BOLUS, BP INCREASED WNL. VITALS OBTAINED Q15MIN ACCORDING TO SEPSIS BOLUS GUIDELINES. RECTAL TEMP NOTED 96.4, APPLIED WARM BLANKETS AT THIS TIME, REASSESSMENT OF RECTAL TEMP OBTAINED AND NOTED 96.3, ADDITIONAL WARM BLANKETS APPLIED ALONG WITH ROOM TEMPERATURE INCREASED FROM 68 DEGREES TO 72 DEGREES. REPORT GIVEN TO DAY SHIFT, VSS, PT FREE OF COMPLAINTS AND RESTING CALMLY IN BED AT SHIFT CHANGE.
--- NOTE | 2020-04-27 10:59 | PC.NURSE ---
sepsis bolus is complete
--- NOTE | 2020-04-27 11:15 | HMH.PHAINT ---
MEDICATION RECONCILIATION COMPLETED BY USING EXTERNAL FILL HISTORY, PHARMACY, AND PATIENT RX BOTTLES.
[2020-04-27 12:02] LABS: POC Glucose,Bedside 270 (70-110)
--- NOTE | 2020-04-27 13:21 | PC.NURSE ---
pt to radiology via stretcher with Daryn Carreno
--- NOTE | 2020-04-27 14:06 | XR_ITS ---
PROCEDURE: XR CHEST 2V CLINICAL HISTORY: SOB COMPARISON: XR CHEST 2V from 12/24/2019 XR CHEST PORTABLE from 02/13/2020 XR CHEST PORTABLE from 04/26/2020 CT CHEST WO CON from 04/26/2020 CT ABDOMEN PELVIS WO CON from 04/26/2020 NM PUL VENT AND PERFUSE from 04/27/2020 FINDINGS: Prior CABG. Borderline cardiomegaly without failure. There are small bilateral pleural effusions. Patchy density is present in both lung bases and may be related to atelectasis and/or infiltrate. No acute bony abnormalities. IMPRESSION: Small bilateral effusions with atelectasis or infiltrate in the lung bases. Dictated by: Rudy Gamez MD 04/27/2020 15:24 Electronically signed by Rudy Gamez MD in [place] 04/27/2020 15:24
--- NOTE | 2020-04-27 16:02 | HMH.CNCARD ---
History of Present Illness Consult date: 04/27/20 Requesting physician: Alexys King Consult reason: chest pain Chief complaint: chest pain History of present illness: This is a 74-year-old white female who was admitted to the hospital for chest pain and abdominal pain. The patient states that she has not felt well for the last several weeks. She states that she has been having lower extremity edema and progressively worsening shortness of breath. She states that she has been having intermittent chest pain as well. She states last night she was having a lot of patient in her chest. It radiated to her neck and her bilateral arms. She states that this was associated with shortness of breath and abdominal pain. She states that her belly is still hurting today. She has nausea. No vomiting. The patient states that she just does not feel well. She is very pale. She is also been having excessively worsening fatigue. The patient is diabetic which is poorly controlled with a hemoglobin A1c of 14%. Upon admission to the hospital her creatinine was found to be 2.6. The patient does have a history of atrial fibrillation/flutter. She is undergone cardioversion x2. She does have mild to moderate nonocclusive coronary artery disease in 2018. Her initial troponin was negative. Her second troponin was 0.05. She has not had a third troponin as of yet. Also upon arrival to the emergency department she was found to be bradycardic and hypotensive. She still remains bradycardic this at her noon. The patient is currently getting IV fluids for her renal function. The patient reports that with her abdominal pain she also had diminished urine output. She does have an elevated lactic acid and she is being treated for sepsis. She denies any fever, chills, vomiting, diarrhea, PND or orthopnea. [facility] History I have reviewed the patient's past medical history: Yes Medical History: Reports:: Arrhythmia, Atherosclerotic Heart Disease, Atrial Fibrillation, Congestive Heart Failure, Congenital Heart Disease (ASD repair), Deep Vein Thrombosis, Diabetes Mellitus Type 2, Hyperlipidemia, Hypertension Denies:: Cancer, Diabetes Mellitus Type 1, Internal Pacemaker, MRSA, Seizures *Have you ever received a pneumonia vaccine?: No *Have you received a flu vaccine this season?: No Other Medical History: Reports: Anemia Other Surgeries: Yes: CABG, Cardiac Catheterization, Open Heart Surgery. No: Pacemaker Amputation: No Fractures: Yes ((R) ankle, (R) wrist) - *Social History Last grade of school completed: 9th or 10th Smoking Status: Current some day smoker Alcohol Intake: never Substance Use Type: denies use *Occupational Status:: employed Housing: house Household Members: spouse *Travel in the last 8 weeks: None Family Hx:: Diabetes, Heart Attack, Stroke Meds Home Medications Medication Instructions Recorded Confirmed Type aspirin 81 mg tablet,delayed 81 mg PO DAILY tab 07/01/18 04/27/20 History release furosemide 20 mg tablet 20 mg PO DAILY tab 12/29/19 04/27/20 History insulin glargine 100 unit/mL (3 40 unit SQ HS ml 12/29/19 04/27/20 History mL) subcutaneous pen lisinopril 10 mg tablet 10 mg PO DAILY tab 12/29/19 04/27/20 History Rivaroxaban [Xarelto] 20 mg PO DAILY 02/13/20 04/27/20 History Spironolactone [Spironolactone 25 mg PO BID 02/13/20 04/27/20 History 25mg Tablet] Meclizine HCl [Meclizine 25mg Tab] 25 mg PO TID 04/26/20 04/27/20 History Tizanidine HCl [Zanaflex 4mg 4 mg PO TID 04/26/20 04/27/20 History tablet] dilTIAZem HCL [Cardizem Cd 180mg] 180 mg PO DAILY 04/26/20 04/27/20 History Insulin Regular, Human [Novolin R] 0 unit SQ DIRECTED 04/27/20 04/27/20 History Metoprolol Succinate [Metoprolol 50 mg PO DAILY 04/27/20 04/27/20 History Succinate 50mg Tablet*] ondansetron HCL [Zofran 4mg Tab*] 4 mg PO TID PRN 04/27/20 04/27/20 History Allergies Allergy/AdvReac Type Severity Reaction Status Date / Time No Known Allergies
[2020-04-27 16:28] LABS: POC Glucose,Bedside 194 (70-110)
[2020-04-27 16:37] LABS: Magnesium 1.7 mg/dl (1.6-2.3)
[2020-04-27 16:50] LABS: Troponin I 0.07 ng/ml (0.00-0.034)
[2020-04-27 17:09] LABS: Thyroid Stimulating Hormone 5.13 uIU/mL (0.465-4.68)
[2020-04-27 17:11] LABS: Free T4 (Free Thyroxine) 1.09 ng/dl (0.78-2.19)
--- NOTE | 2020-04-27 17:54 | ECG_ITS ---
APPROVED REPORT Exam: Resting ECG HR:40 bpm ECG Measurements Heart Rate 40 AXES UT 150 P QRSd 42 QRS -44 QT 504 T -83 QTc 410 <Conclusion> Marked sinus bradycardia with premature atrial complexes in a pattern of bigeminy Left axis deviation Low voltage QRS Anterior infarct, possibly acute Lateral injury pattern ACUTE LA Abnormal ECG Electronically signed by : Alexys King, 04/28/2020 15:34:29
--- NOTE | 2020-04-27 18:14 | ECG_ITS ---
APPROVED REPORT Exam: Resting ECG HR:50 bpm ECG Measurements Heart Rate 50 AXES IL 208 P QRSd 118 QRS 98 QT 530 T 103 QTc 483 <Conclusion> Sinus bradycardia Septal infarct, age undetermined Possible Lateral infarct, age undetermined Abnormal ECG Electronically signed by : Alexys King, 04/28/2020 15:34:17
--- NOTE | 2020-04-27 18:14 | XR_ITS ---
PROCEDURE: XR CHEST PORTABLE CLINICAL HISTORY: rapid red Shortness of air,, severe shortness of breath COMPARISON: XR CHEST PORTABLE from 02/13/2020 XR CHEST PORTABLE from 04/26/2020 CT CHEST WO CON from 04/26/2020 XR CHEST 2V from 04/27/2020 FINDINGS: Prior CABG. Normal heart size. Increasing consolidation in the right lower lobe with small bilateral effusions and possible infiltrate in the left lung base. No acute bony abnormalities. IMPRESSION: Increasing right lower lobe consolidation/pneumonia or atelectasis with bilateral effusions and possible left basilar infiltrate Dictated by: Rudy Gamez MD 04/27/2020 19:41 Electronically signed by Rudy Gamez MD in [place] 04/27/2020 19:41
[2020-04-27 18:27] LABS: Basophils % 0.2 % (0.1-2.0); Eosinophils % 0.3 % (0.1-12.0); Hematocrit 29.6 % (37.0-47.0); Hemoglobin 9.7 g/dL (12.2-16.2); Lymphocytes # 3.2 K/mm3 (0.7-4.5); Lymphocytes % 29.4 % (10-50); Mean Corpuscular HGB Conc 32.7 g/dL (31.8-35.4); Mean Corpuscular Hemoglobin 28.8 pg (27.0-31.2); Mean Corpuscular Volume 87.9 fl (81-99); Mean Platelet Volume 8.3 fl (7.4-10.4); Monocytes # 0.5 K/mm3 (0.1-1.0); Monocytes % 4.7 % (1.7-9.3); Neutrophils % 65.4 % (37.0-80.0); Platelet Count 289 K/mm3 (142-424); Red Blood Count 3.37 M/mm3 (4.20-5.40); Red Cell Distribution Width 16.8 % (11.5-17.5); White Blood Count 10.7 K/mm3 (4.8-10.8)
[2020-04-27 18:32] LABS: Chloride 102 mmol/L (98-107); Potassium 5.9 mmoL/L (3.5-5.1); Sodium 128 mmol/L (136-145)
[2020-04-27 18:35] LABS: Anion Gap 14.9 mEq/L (5-15); Blood Urea Nitrogen 47 mg/dl (7-17); Calcium 7.9 mg/dl (8.4-10.2); Carbon Dioxide 17 mmol/L (22.0-30.0); Creatinine Clearance Estimated 25 mL/min (50-200); Estimated Glomerular Filt Rate 17 ml/min (>60); GFR (African American) 21 ML/MIN (>60); Glucose 195 mg/dl (74-100); Lipase 374 U/L (23-300)
[2020-04-27 18:47] LABS: Troponin I 0.07 ng/ml (0.00-0.034)
--- NOTE | 2020-04-27 19:00 | PC.NURSE ---
DR. MEDEROS CALLED TO INQUIRE ABOUT PATIENT. STATUS UPDATE AND VITALS GIVEN. MD STATED TO DECREASE IVF BOLUS AND TO TITRATE DOPAMINE GTT PER ORDER TO MAINTAIN SYSTOLIC >110. MD STATED HE REVIEWED CHEST XRAY AND STATED INFILTRATE TO RIGHT LOWER LOBE LOOKS LIKE IT COULD A LITTLE WORSE. INQUIRED ABOUT ANTIBIOTIC COVERAGE - INFORMED HIM SHE WAS ON CEFRTIAXONE, AZITHROMYCIN AND VANCOMYCIN. MD STATED HE WOULD GET IN TOUCH WITH A SURGEON CLOTH DOUBLING MACHINE OPERATOR TO CONSULT ON PATIENT. INFORMED Yelena GALINDO RN OF 'S CALL, ORDERS AND PLAN.
--- NOTE | 2020-04-27 19:46 | PC.NURSE ---
Addendum entered by Aleyda Pratt RN 04/27/20 20:06: at 1820 patient was also given 2mg of morphine per md order Original Note: 1720 patient started complaining of nausea. zofran was given. she did request to attempt and eat a Popsicle. at this time stated the pain was only starting but it was more nausea. about 1750 noted patient heart rate to be dropping in low 30s. upon assessment of patient was complaining of being short of breath, chest pain, neck and shoulder pain and was diaphoretic. ekg obtained, bp 84/[address] cuadra at bedside at 1800. dr alexander was also notified at 180. 1800-rapid called md at bedside, 2mg of morphine being given. report given to md along with results and ekg. md stated to start running a bolus of what was hanging. bp 76/40 heart rate of 36 1806 catherine notified 1809 atropin 1mg given 87/39 blood pressure 37 heart rate 1811- lipase, cbc, troponin and bmp ordered and obtained 1815 glucagon 1mg iv push started and dopamine started at 4mcg/kg/min and portable chest obtained 1819 glucagon push finished, increased dopamine to 8mcg/kg/min patient stable md left bedside, will follow up after results of test 1824 bp 89/50 increased dopamine to 10mcg/kg/min 1830- bp 114/61 heart rate 69. and patient transferred to stepdown room once settled in new room patient heart rate started to increase. started turning down dopamine drip with each set of vitals. report give to minh cervantes at 1915 and dopamine drip was at 2mcg/kg/min. bp 112/50 with a heart rate of 59
[2020-04-27 20:39] LABS: POC Glucose,Bedside 204 (70-110)
--- NOTE | 2020-04-27 21:36 | PC.NURSE ---
2030 patient complaining of right upper abdominal pain rated at a 5 on numeric pain scale, morphine 2 mg given ivp. 2100 patient rates pain at 3 on pain scale, resting on and off.
--- NOTE | 2020-04-27 21:39 | PC.NURSE ---
2114 patient restless and anxious in bed, o2 sats dropped to 87% on 2 l nc, blood pressure dropped to 87/40. dopamine drip increased to 4 mcq/kg/min and o2 increased to 7 l nc during breathing treatment. 2119 1mg ativan given ivp. will continue to monitor.
--- NOTE | 2020-04-27 21:43 | PC.NURSE ---
patient currently resting with eyes closed, o2 sats 100% on 3 l nc, blood pressure up to 97/49. will continue to monitor.
--- NOTE | 2020-04-27 21:44 | PC.NURSE ---
1999 dopamine increased to 3 mcq/kg/min to achieve sbp greater than 90 and map greater than 65. will continue to monitor.
--- NOTE | 2020-04-27 21:51 | PC.NURSE ---
Rt gave pt neb tx with sodium chloride to induce SPT. No SPT collected at this time. BS are clear.
--- NOTE | 2020-04-27 22:46 | HMH.RR ---
Acute Rapid Response Note - Subjective Date Responded: 04/27/20 Time Responded: 18:00 Provider Note: called to floor with pt with sev upper abd pain with acute vagal response with dec hr and abn ekg- and low bp - Objective Findings: Vital Signs - Last 4 Hours Temperature 98.5 F 04/27/20 20:00 Temperature Source Oral 04/27/20 20:00 Pulse Rate 51 L 04/27/20 22:30 Respiratory Rate 14 04/27/20 22:30 Blood Pressure 123/60 04/27/20 22:30 Blood Pressure Mean 81 04/27/20 22:30 Blood Pressure Source Automatic Cuff 04/27/20 22:30 Blood Pressure Position Supine 04/27/20 22:30 02 Sat by Pulse Oximetry 98 04/27/20 22:30 Oxygen Delivery Method 04/27/20 22:30 Oxygen Flow Rate (LPM) 3 04/27/20 22:30 Lab Results for Past 12 Hours 04/27/20 20:30: POC Glucose 204 H 04/27/20 18:10: Sodium 128 L, Potassium 5.9 H, Chloride 102, Carbon Dioxide 17 L, Anion Gap 14.9, BUN 47 H, Creatinine 2.70 H, Estimated Creat Clear 25, Estimated GFR 17 L*, Est GFR ( Amer) 21 L, Glucose 195 H D, Calcium 7.9 L, Lipase 374 H 04/27/20 18:10: WBC 10.7, RBC 3.37 L, Hgb 9.7 L, Hct 29.6 L, MCV 87.9, MCH 28.8, MCHC 32.7, RDW 16.8, Plt Count 289, MPV 8.3, Neut % (Auto) 65.4, Lymph % (Auto) 29.4, [place] % (Auto) 4.7, Eos % (Auto) 0.3, Baso % (Auto) 0.2, Neut # (Auto) 7.0, Lymph # (Auto) 3.2, [place] # (Auto) 0.5, Eos # (Auto) 0.0, Baso # (Auto) 0.0 04/27/20 18:10: Troponin I 0.07 H 04/27/20 16:13: Troponin I 0.07 H 04/27/20 16:13: Free T4 1.09 04/27/20 16:13: Magnesium 1.7, TSH 5.13 H 04/27/20 16:11: POC Glucose 194 H 04/27/20 11:52: POC Glucose 270 H My Orders Category Date Time Status Chest XR -- portable [XR chest portable] Stat Exams 04/27/20 18:14 Completed Basic Metabolic Panel Stat Lab 04/27/20 18:10 Completed Complete Blood Count Auto Diff Stat Lab 04/27/20 18:10 Completed Lipase Stat Lab 04/27/20 18:10 Completed Trop I [Troponin I] Stat Lab 04/27/20 18:10 Completed 0.9 % Sodium Chloride [Sod Chlor 0.9% 1000mL Bag] 1,000 Med 04/27/20 18:45 Discontinued ml IV 999 mls/hr Atropine Sulfate [Atropine 1mg/10mL Syringe] Med 04/27/20 18:45 Discontinued 1 mg IV ONCE ONE Dopamine HCl/D5w [Dopamine 400mg/250ml D5W] 250 ml Med 04/27/20 18:45 Active IV 2.5 mcg/kg/min Glucagon,Human Recombinant [Glucagen 1mg/mL vial] Med 04/27/20 18:45 Discontinued 1 mg IV ONCE ONE Morphine Sulfate [Morphine 2mg/mL syringe] Med 04/27/20 18:45 Discontinued 2 mg IV ONCE ONE Rapid Response Exam - General General appearance: alert, in distress (improved subsequently) - Head Head exam: normocephalic - Eye Eye exam: Present: PERRL, EOMI - ENT ENT exam: Present: mucous membranes dry - Neck Neck exam: Present: trachea midline - Respiratory Respiratory exam: Present: normal lung sounds bilaterally. Absent: respiratory distress - Cardiovascular Cardiovascular exam: Present: bradycardia, systolic murmur - Abdominal Exam Abdominal exam: Present: tenderness Abdominal tenderness: Present: epigastrium, severe - Extremities Exam Extremities exam: Absent: calf tenderness - Neurological Exam Neurological exam: Present: alert, oriented X3, CN II-XII intact - Skin Skin exam: Absent: rash RR Procedures/Assess/Plan - Physician Consults Physician Consulted: catherine - Assessment and plan all Dx Assessment and Plan for all problems:: acute prob gb pain with extreme vagal response -
[2020-04-28] VITALS (51 sets, daily range): BP systolic 93–159; BP diastolic 44–91; PULSE 48–81; RESP 12–16; TEMP 36.2–36.8; O2SAT 91–100; BMI 31.6
--- NOTE | 2020-04-28 03:38 | PC.NURSE ---
0100 dopamine drip decreased to 3 mcq/kg/min and o2 decreased to 2 l nc. patient resting with eyes closed. will continue to monitor.
--- NOTE | 2020-04-28 03:59 | PC.NURSE ---
dopamine drip decreaed to 2 mcq/kg/min. will continue to monitor.
--- NOTE | 2020-04-28 04:12 | PC.NURSE ---
monitoring and evaluation advisor patient converted to st at 120. patient resting with eyes closed. will continue to monitor.
--- NOTE | 2020-04-28 04:41 | PC.NURSE ---
dopamine drip increased back to 3 mcq/kg/min. will continue to monitor.
--- NOTE | 2020-04-28 05:02 | PC.NURSE ---
PT ARRIVED TO THE FLOOR VIA W/V FROM ED AT 0502.
--- NOTE | 2020-04-28 05:02 | PC.NURSE ---
dopamine drip decreased to 2.5 mcq/kg/min. will continue to monitor.
[2020-04-28 05:51] LABS: POC Glucose,Bedside 181 (70-110)
[2020-04-28 06:28] LABS: Chloride 105 mmol/L (98-107); Potassium 5.9 mmoL/L (3.5-5.1); Sodium 131 mmol/L (136-145)
[2020-04-28 06:31] LABS: Alanine Aminotransferase 206 U/L (12-78); Albumin Level 3.2 g/dl (3.5-5.0); Albumin/Globulin Ratio 1.2 (1.1-1.8); Alkaline Phosphatase 50 U/L (38-126); Anion Gap 15.9 mEq/L (5-15); Aspartate Amino Transferase 161 U/L (14-36); Bilirubin,Total 0.5 mg/dl (0.2-1.3); Blood Urea Nitrogen 50 mg/dl (7-17); Carbon Dioxide 16 mmol/L (22.0-30.0); Creatinine Clearance Estimated 27 mL/min (50-200); Estimated Glomerular Filt Rate 19 ml/min (>60); GFR (African American) 23 ML/MIN (>60); Globulin 2.7 g/dL (1.3-3.2); Total Protein,Serum 5.9 g/dl (6.3-8.2)
[2020-04-28 06:32] LABS: Calcium 8.1 mg/dl (8.4-10.2); Glucose 188 mg/dl (74-100)
[2020-04-28 06:52] LABS: Basophils % 0.2 % (0.1-2.0); Eosinophils % 0.2 % (0.1-12.0); Hematocrit 30.9 % (37.0-47.0); Hemoglobin 10.2 g/dL (12.2-16.2); Lymphocytes # 1.8 K/mm3 (0.7-4.5); Lymphocytes % 17.3 % (10-50); Mean Corpuscular HGB Conc 32.9 g/dL (31.8-35.4); Mean Corpuscular Hemoglobin 28.9 pg (27.0-31.2); Mean Corpuscular Volume 87.9 fl (81-99); Mean Platelet Volume 8.7 fl (7.4-10.4); Monocytes # 0.5 K/mm3 (0.1-1.0); Monocytes % 5.1 % (1.7-9.3); Neutrophils # 8.2 K/mm3 (1.8-7.8); Neutrophils % 77.2 % (37.0-80.0); Platelet Count 278 K/mm3 (142-424); Red Blood Count 3.52 M/mm3 (4.20-5.40); Red Cell Distribution Width 16.6 % (11.5-17.5); White Blood Count 10.6 K/mm3 (4.8-10.8)
--- NOTE | 2020-04-28 07:55 | HMH.ACPN2 ---
Internal Medicine - PN: Subj *Date: 04/28/20 *Time: 07:55 Exam Vital signs and Labs for Last 24 Hours: Temp Pulse Resp BP Pulse Ox 98.0 F 51 L 12 118/53 L 98 04/28/20 04:00 04/28/20 06:30 04/28/20 06:30 04/28/20 06:30 04/28/20 06:30 Laboratory Results - last 24 hr 04/27/20 08:33: POC Glucose 287 H 04/27/20 11:52: POC Glucose 270 H 04/27/20 16:11: POC Glucose 194 H 04/27/20 16:13: Magnesium 1.7, TSH 5.13 H 04/27/20 16:13: Free T4 1.09 04/27/20 16:13: Troponin I 0.07 H 04/27/20 18:10: Troponin I 0.07 H 04/27/20 18:10: WBC 10.7, RBC 3.37 L, Hgb 9.7 L, Hct 29.6 L, MCV 87.9, MCH 28.8, MCHC 32.7, RDW 16.8, Plt Count 289, MPV 8.3, Neut % (Auto) 65.4, Lymph % (Auto) 29.4, [place] % (Auto) 4.7, Eos % (Auto) 0.3, Baso % (Auto) 0.2, Neut # (Auto) 7.0, Lymph # (Auto) 3.2, [place] # (Auto) 0.5, Eos # (Auto) 0.0, Baso # (Auto) 0.0 04/27/20 18:10: Sodium 128 L, Potassium 5.9 H, Chloride 102, Carbon Dioxide 17 L, Anion Gap 14.9, BUN 47 H, Creatinine 2.70 H, Estimated Creat Clear 25, Estimated GFR 17 L*, Est GFR ( Amer) 21 L, Glucose 195 H D, Calcium 7.9 L, Lipase 374 H 04/27/20 20:30: POC Glucose 204 H 04/28/20 05:30: WBC 10.6, RBC 3.52 L, Hgb 10.2 L, Hct 30.9 L, MCV 87.9, MCH 28.9, MCHC 32.9, RDW 16.6, Plt Count 278, MPV 8.7, Neut % (Auto) 77.2, Lymph % (Auto) 17.3, [place] % (Auto) 5.1, Eos % (Auto) 0.2, Baso % (Auto) 0.2, Neut # (Auto) 8.2 H, Lymph # (Auto) 1.8, [place] # (Auto) 0.5, Eos # (Auto) 0.0, Baso # (Auto) 0.0 04/28/20 05:30: Sodium 131 L, Potassium 5.9 H, Chloride 105, Carbon Dioxide 16 L, Anion Gap 15.9 H, BUN 50 H, Creatinine 2.50 H, Estimated Creat Clear 27, Estimated GFR 19 L*, Est GFR ( Amer) 23 L, Glucose 188 H, Calcium 8.1 L, Total Bilirubin 0.5, AST 161 H D, ALT 206 H D, Alkaline Phosphatase 50, Total Protein 5.9 L, Albumin 3.2 L D, Globulin 2.7, Albumin/Globulin Ratio 1.2 04/28/20 05:32: POC Glucose 181 H I & O for Last 24 hours: Intake & Output 04/25/20 04/26/20 04/27/20 04/28/20 23:59 23:59 23:59 23:59 Intake Total 1999 2470 / 2470 1953 / 1953 Output Total 300 / 300 300 / 300 Balance 1999 2170 / 2170 1654 / 1654 Weight 102.058 kg 90 kg 94.8 kg Assessment and Plan (1) Acute on chronic kidney failure Current visit: Yes Status: Acute Category: Medical Code(s): N17.9 - Acute kidney failure, unspecified; N18.9 - Chronic kidney disease, unspecified (2) Transaminitis Current visit: Yes Status: Acute Category: Medical Code(s): R74.0 - Nonspecific elevation of levels of transaminase and lactic acid dehydrogenase [LDH] (3) Hyponatremia Current visit: Yes Status: Acute Category: Medical Code(s): E87.1 - Hypo-osmolality and hyponatremia (4) Hyperkalemia Current visit: Yes Status: Acute Category: Medical Code(s): E87.5 - Hyperkalemia (5) Atrial flutter Current visit: No Status: Acute Qualifiers: Atrial flutter type: atypical Qualified Code(s): I48.4 - Atypical atrial flutter Category: Medical Code(s): I48.92 - Unspecified atrial flutter (6) Hyperglycemia due to type 2 diabetes mellitus Current visit: No Status: Acute Qualifiers: Diabetes mellitus mcc insulin use: unspecified mcc insulin use status Qualified Code(s): E11.65 - Type 2 diabetes mellitus with hyperglycemia Category: Medical Code(s): E11.65 - Type 2 diabetes mellitus with hyperglycemia (7) Lumbar radiculopathy, right Current visit: No Status: Acute Category: Medical Code(s): M54.16 - Radiculopathy, lumbar region (8) HHD (hypertensive heart disease) Current visit: No Status: Chronic Qualifiers: Heart failure presence: unspecified whether heart failure present Qualified Code(s): I11.9 - Hypertensive heart disease without heart failure Category: Medical Code(s): I11.9 - Hypertensive heart disease without heart failure (9) HLD (hyperlipidemia) Current visit: No Status: Chronic Qualifiers: Hyperlipidemia typ
--- NOTE | 2020-04-28 08:00 | US_ITS ---
PROCEDURE: US GALLBLADDER CLINICAL INDICATION: abd pain-abn ct Abdominal pain COMPARISON: CT ABDOMEN PELVIS WO CON from 04/26/2020 FINDINGS: Pancreas: Pancreas is poorly demonstrated by ultrasound. Liver: Unremarkable. There is appropriate direction of blood flow within a non dilated portal vein. Right kidney: Unremarkable appearing. No hydronephrosis. Gallbladder: There is mild gallbladder wall thickening measuring up to 5 mm. No pericholecystic fluid or biliary dilatation. Common bile duct is 3 mm. No evidence of cholelithiasis. IMPRESSION: Mild gallbladder wall thickening. No gallstones apparent. Dictated by: Rudy Gamez MD 04/28/2020 10:33 Electronically signed by Rudy Gamez MD in [place] 04/28/2020 10:33
--- NOTE | 2020-04-28 09:11 | HMH.ACPN2 ---
Internal Medicine - PN: Subj *Date: 04/28/20 *Time: 08:45 Interval history: Episode overnight with acute abdominal pain. Rapid response was called. ER responded and was concern for gallbladder disease. Labs this morning show a bump in her transaminase. Family at bedside able to get better history. For weeks she has been having worsening pain in her right upper quadrant after eating. Is present intermittently at baseline but flares after eating. Patient's blood pressure stable on dopamine. Afebrile. Bradycardic overnight. Denies any nausea, diarrhea, loss of consciousness. Shortness of breath stable. Exam Vital signs and Labs for Last 24 Hours: Temp Pulse Resp BP Pulse Ox 98.3 F 51 L 12 118/53 L 98 04/28/20 08:00 04/28/20 06:30 04/28/20 06:30 04/28/20 06:30 04/28/20 06:30 Laboratory Results - last 24 hr 04/27/20 11:52: POC Glucose 270 H 04/27/20 16:11: POC Glucose 194 H 04/27/20 16:13: Magnesium 1.7, TSH 5.13 H 04/27/20 16:13: Free T4 1.09 04/27/20 16:13: Troponin I 0.07 H 04/27/20 18:10: Troponin I 0.07 H 04/27/20 18:10: WBC 10.7, RBC 3.37 L, Hgb 9.7 L, Hct 29.6 L, MCV 87.9, MCH 28.8, MCHC 32.7, RDW 16.8, Plt Count 289, MPV 8.3, Neut % (Auto) 65.4, Lymph % (Auto) 29.4, [place] % (Auto) 4.7, Eos % (Auto) 0.3, Baso % (Auto) 0.2, Neut # (Auto) 7.0, Lymph # (Auto) 3.2, [place] # (Auto) 0.5, Eos # (Auto) 0.0, Baso # (Auto) 0.0 04/27/20 18:10: Sodium 128 L, Potassium 5.9 H, Chloride 102, Carbon Dioxide 17 L, Anion Gap 14.9, BUN 47 H, Creatinine 2.70 H, Estimated Creat Clear 25, Estimated GFR 17 L*, Est GFR ( Amer) 21 L, Glucose 195 H D, Calcium 7.9 L, Lipase 374 H 04/27/20 20:30: POC Glucose 204 H 04/28/20 05:30: WBC 10.6, RBC 3.52 L, Hgb 10.2 L, Hct 30.9 L, MCV 87.9, MCH 28.9, MCHC 32.9, RDW 16.6, Plt Count 278, MPV 8.7, Neut % (Auto) 77.2, Lymph % (Auto) 17.3, [place] % (Auto) 5.1, Eos % (Auto) 0.2, Baso % (Auto) 0.2, Neut # (Auto) 8.2 H, Lymph # (Auto) 1.8, [place] # (Auto) 0.5, Eos # (Auto) 0.0, Baso # (Auto) 0.0 04/28/20 05:30: Sodium 131 L, Potassium 5.9 H, Chloride 105, Carbon Dioxide 16 L, Anion Gap 15.9 H, BUN 50 H, Creatinine 2.50 H, Estimated Creat Clear 27, Estimated GFR 19 L*, Est GFR ( Amer) 23 L, Glucose 188 H, Calcium 8.1 L, Total Bilirubin 0.5, AST 161 H D, ALT 206 H D, Alkaline Phosphatase 50, Total Protein 5.9 L, Albumin 3.2 L D, Globulin 2.7, Albumin/Globulin Ratio 1.2 04/28/20 05:32: POC Glucose 181 H I & O for Last 24 hours: Intake & Output 04/25/20 04/26/20 04/27/20 04/28/20 23:59 23:59 23:59 23:59 Intake Total 1999 2470 / 2470 1953 / 1953 Output Total 300 / 300 300 / 300 Balance 1999 2170 / 2170 1654 / 1654 Weight 102.058 kg 90 kg 94.8 kg - Constitutional mild distress, obese - *Routine HEENT Exam Head: Present: normocephalic Eye: Present: EOMI, PERRL ENT: Present: mucous membranes moist - *Routine Neck Exam Present: supple. Absent: lymphadenopathy - *Routine Respiratory Exam Present: CTA bilaterally. Absent: wheezes, crackles - *Routine Cardiovascular Exam Present: bradycardia. Absent: murmur - *Routine Abdominal Exam Present: soft, tenderness Comments: Hypoactive bowel sounds, diffuse tenderness, most prominent left upper quadrant and right upper quadrant - *Routine Extremities Exam Present: edema (1+ to knees). Absent: cyanosis, clubbing - *Routine Skin Exam Present: warm. Absent: rash - *Routine Neurological Exam Present: alert, oriented X3 Assessment and Plan (1) Acute on chronic kidney failure Current visit: Yes Status: Acute Category: Medical Code(s): N17.9 - Acute kidney failure, unspecified; N18.9 - Chronic kidney disease, unspecified (2) Transaminitis Current visit: Yes Status: Acute Category: Medical Code(s): R74.0 - Nonspecific elevation of levels of transaminase and lactic acid dehydrogenase [LDH] (3) Hyponatremia Current visit: Yes Status: Acute Category: Medical Code(s): E87.1 - Hypo-osmolali
--- NOTE | 2020-04-28 10:29 | HMH.PNCARD ---
Subjective Date: 04/28/20 Time: 10:29 Principal diagnosis: Abdominal pain, A. flutter Interval history: 74-year-old white female in bed in no acute distress but appears pale and weak. She continues to have some abdominal pain and bloating sensation. Patient's family reports a gallbladder ultrasound was recently performed. Patient remains on dopamine for pressure support. Telemetry shows heart rate in the 50s with slow atrial flutter. Exam Vital signs and Labs for Last 24 Hours: Temp Pulse Resp BP Pulse Ox 98.3 F 51 L 14 126/64 99 04/28/20 08:00 04/28/20 09:30 04/28/20 09:30 04/28/20 09:30 04/28/20 09:30 Laboratory Results - last 24 hr 04/27/20 11:52: POC Glucose 270 H 04/27/20 16:11: POC Glucose 194 H 04/27/20 16:13: Magnesium 1.7, TSH 5.13 H 04/27/20 16:13: Free T4 1.09 04/27/20 16:13: Troponin I 0.07 H 04/27/20 18:10: Troponin I 0.07 H 04/27/20 18:10: WBC 10.7, RBC 3.37 L, Hgb 9.7 L, Hct 29.6 L, MCV 87.9, MCH 28.8, MCHC 32.7, RDW 16.8, Plt Count 289, MPV 8.3, Neut % (Auto) 65.4, Lymph % (Auto) 29.4, [place] % (Auto) 4.7, Eos % (Auto) 0.3, Baso % (Auto) 0.2, Neut # (Auto) 7.0, Lymph # (Auto) 3.2, [place] # (Auto) 0.5, Eos # (Auto) 0.0, Baso # (Auto) 0.0 04/27/20 18:10: Sodium 128 L, Potassium 5.9 H, Chloride 102, Carbon Dioxide 17 L, Anion Gap 14.9, BUN 47 H, Creatinine 2.70 H, Estimated Creat Clear 25, Estimated GFR 17 L*, Est GFR ( Amer) 21 L, Glucose 195 H D, Calcium 7.9 L, Lipase 374 H 04/27/20 20:30: POC Glucose 204 H 04/28/20 05:30: WBC 10.6, RBC 3.52 L, Hgb 10.2 L, Hct 30.9 L, MCV 87.9, MCH 28.9, MCHC 32.9, RDW 16.6, Plt Count 278, MPV 8.7, Neut % (Auto) 77.2, Lymph % (Auto) 17.3, [place] % (Auto) 5.1, Eos % (Auto) 0.2, Baso % (Auto) 0.2, Neut # (Auto) 8.2 H, Lymph # (Auto) 1.8, [place] # (Auto) 0.5, Eos # (Auto) 0.0, Baso # (Auto) 0.0 04/28/20 05:30: Sodium 131 L, Potassium 5.9 H, Chloride 105, Carbon Dioxide 16 L, Anion Gap 15.9 H, BUN 50 H, Creatinine 2.50 H, Estimated Creat Clear 27, Estimated GFR 19 L*, Est GFR ( Amer) 23 L, Glucose 188 H, Calcium 8.1 L, Total Bilirubin 0.5, AST 161 H D, ALT 206 H D, Alkaline Phosphatase 50, Total Protein 5.9 L, Albumin 3.2 L D, Globulin 2.7, Albumin/Globulin Ratio 1.2 04/28/20 05:32: POC Glucose 181 H I & O for Last 24 hours: Intake & Output 04/25/20 04/26/20 04/27/20 04/28/20 11:59 11:59 11:59 11:59 Intake Total 2578 / 2578 3846 / 3846 Output Total 600 / 600 Balance 2578 / 2578 3246 / 3246 Weight 198 lb 6.656 oz 208 lb 15.971 oz - *Routine HEENT Exam Head: Present: normocephalic Eye: Present: EOMI, PERRL ENT: Present: mucous membranes moist - *Routine Respiratory Exam Present: CTA bilaterally. Absent: accessory muscle use, rales, rhonchi, wheezes - *Routine Cardiovascular Exam Present: RRR. Absent: murmur, gallop, rubs - *Routine Abdominal Exam Present: tenderness, distended. Absent: normoactive bowel sounds, guarding - *Routine Extremities Exam Absent: edema, calf tenderness - *Routine Neurological Exam Present: alert, oriented X3, moving all extremities Progress Note: A&P (1) Acute on chronic kidney failure Status: Acute Current Visit: Yes (2) Transaminitis Status: Acute Current Visit: Yes (3) Hyponatremia Status: Acute Current Visit: Yes (4) Hyperkalemia Status: Acute Current Visit: Yes (5) Atrial flutter Status: Acute Current Visit: No (6) Hyperglycemia due to type 2 diabetes mellitus Status: Acute Current Visit: No (7) Lumbar radiculopathy, right Status: Acute Current Visit: No (8) HHD (hypertensive heart disease) Status: Chronic Current Visit: No (9) HLD (hyperlipidemia) Status: Chronic Current Visit: No (10) [facility] current use of anticoagulant Status: Chronic Current Visit: No Assessment and Plan for All Diagnoses:: 1. Atrial flutter with slow ventricular response. Metoprolol and diltiazem currently being held due to need for dopamine for pressure
--- NOTE | 2020-04-28 11:00 | HMH.GSCON ---
*Admission Date: 04/27/20 *Reason for consult:: Possible gallbladder disease *History of present illness: This is a 74-year-old female seen in consultation from Dr. Barroso for evaluation regarding possible gallbladder disease. Over the past few days she is been complaining of intermittent abdominal pain and increased bloating. A CT scan done earlier during this admission did reveal possible gallbladder wall thickening. Secondary to acute attacks of abdominal pain and possible gallbladder disease the surgical service was consulted. Earlier today she underwent an ultrasound for further evaluation. She is currently on multiple antibiotics for pneumonia. She is on dopamine for pressure support. She is also being treated for acute kidney injury. Her most recent creatinine was 2.5. A truncated portion of the impression/plan from her most recent cardiology consultation note is forwarded below: 1. Atrial flutter with slow ventricular response. Metoprolol and diltiazem currently being held due to need for dopamine for pressure support. We will hold Xarelto therapy in case patient needs cholecystectomy. 2. History of mild to moderate coronary artery disease by cardiac catheterization 2017, clinically stable. Mild elevated troponin this admission felt secondary to renal insufficiency. okay from a cardiology standpoint for surgery if needed. 3. Pneumonia and sepsis, currently on 3 antibiotics 4. Abdominal pain with concern for gallbladder disease, gallbladder ultrasound pending. 5. Insulin-dependent diabetes mellitus 6. Acute on chronic renal insufficiency, mildly improved with IV fluids overnight. 7. Elevated d-dimer but with low probability for PE by VQ scan. Review of Systems - Review of Systems Review of systems:: unable to obtain - *Neurologic Reports weakness [facility] History Medical History: Reports:: Arrhythmia, Atherosclerotic Heart Disease, Atrial Fibrillation, Congestive Heart Failure, Congenital Heart Disease (ASD repair), Deep Vein Thrombosis, Diabetes Mellitus Type 2, Hyperlipidemia, Hypertension Denies:: Cancer, Diabetes Mellitus Type 1, Internal Pacemaker, MRSA, Seizures *Have you ever received a pneumonia vaccine?: No *Have you received a flu vaccine this season?: No Other Medical History: Reports: Anemia Other Surgeries: Yes: CABG, Cardiac Catheterization, Open Heart Surgery. No: Pacemaker Amputation: No Fractures: Yes ((R) ankle, (R) wrist) - *Social History Last grade of school completed: 9th or 10th Smoking Status: Current some day smoker Alcohol Intake: never Substance Use Type: denies use *Occupational Status:: employed Housing: house Household Members: spouse *Travel in the last 8 weeks: None Family Hx:: Diabetes, Heart Attack, Stroke Meds Home Medications Medication Instructions Recorded Confirmed Type aspirin 81 mg tablet,delayed 81 mg PO DAILY tab 07/01/18 04/27/20 History release furosemide 20 mg tablet 20 mg PO DAILY tab 12/29/19 04/27/20 History insulin glargine 100 unit/mL (3 40 unit SQ HS ml 12/29/19 04/27/20 History mL) subcutaneous pen lisinopril 10 mg tablet 10 mg PO DAILY tab 12/29/19 04/27/20 History Rivaroxaban [Xarelto] 20 mg PO DAILY 02/13/20 04/27/20 History Spironolactone [Spironolactone 25 mg PO BID 02/13/20 04/27/20 History 25mg Tablet] Meclizine HCl [Meclizine 25mg Tab] 25 mg PO TID 04/26/20 04/27/20 History Tizanidine HCl [Zanaflex 4mg 4 mg PO TID 04/26/20 04/27/20 History tablet] dilTIAZem HCL [Cardizem Cd 180mg] 180 mg PO DAILY 04/26/20 04/27/20 History Insulin Regular, Human [Novolin R] 0 unit SQ DIRECTED 04/27/20 04/27/20 History Metoprolol Succinate [Metoprolol 50 mg PO DAILY 04/27/20 04/27/20 History Succinate 50mg Tablet*] ondansetron HCL [Zofran 4mg Tab*] 4 mg PO TID PRN 04/27/20 04/27/20 History Allergies Allergy/AdvReac Type Severity Reaction Status Date / Time No Known Allergies Allergy Verified 01/05/20 09:56 Exam Vital
[2020-04-28 11:21] LABS: POC Glucose,Bedside 201 (70-110)
--- NOTE | 2020-04-28 14:27 | PC.NURSE ---
BP 149/74, dopamine gtt titrated down to 2mcg at this time
--- NOTE | 2020-04-28 15:05 | PC.NURSE ---
BP 136/85 HR 59, decreased dopamine to 1.5mcg at this time
--- NOTE | 2020-04-28 15:47 | PC.NURSE ---
1545- BP 146/58, HR 62, dopamine titrated down to 1mcg at this time
--- NOTE | 2020-04-28 16:20 | PC.NURSE ---
1615- BP 129/66, HR 64, dopamine titrated down to 0.5mcg at this time
--- NOTE | 2020-04-28 16:23 | PC.NURSE ---
Pt has rested intermittently this shift, family has remained at bedside, have weaned dopamine this shift, currently infusing at 0.5mcg, remains alert and oriented x4, on 2LNC, lungs diminished bl bases, abd firm and tender in RUQ, some abdominal swelling noted, 1+ edema note peripherally, active bowel sounds in all quads, has tolerated clear liquids this afternoon, no BM this shift, perrla, vss at this time, will continue to monitor for changes.
[2020-04-28 16:53] LABS: Hemoglobin A1C 9.9 % (4.0-6.0)
[2020-04-28 17:40] LABS: Chloride 105 mmol/L (98-107)
[2020-04-28 17:41] LABS: Potassium 5.9 mmoL/L (3.5-5.1); Sodium 131 mmol/L (136-145)
[2020-04-28 17:43] LABS: Alanine Aminotransferase 385 U/L (12-78); Alkaline Phosphatase 49 U/L (38-126); Anion Gap 15.9 mEq/L (5-15); Aspartate Amino Transferase 369 U/L (14-36); Bilirubin,Total 0.6 mg/dl (0.2-1.3); Blood Urea Nitrogen 52 mg/dl (7-17); Carbon Dioxide 16 mmol/L (22.0-30.0); Creatinine Clearance Estimated 30 mL/min (50-200); Estimated Glomerular Filt Rate 20 ml/min (>60); GFR (African American) 24 ML/MIN (>60); Lipase 108 U/L (23-300)
[2020-04-28 17:44] LABS: Albumin Level 3.2 g/dl (3.5-5.0); Albumin/Globulin Ratio 1.3 (1.1-1.8); Chol/HDL Ratio 6.4 (1-3.5); Cholesterol 166 mg/dl (140-200); Globulin 2.4 g/dL (1.3-3.2); HDL Cholesterol 26 mg/dl (40-60); Total Protein,Serum 5.6 g/dl (6.3-8.2); Triglycerides 104 mg/dl (30-150); VLDL Cholesterol 21 mg/dL (0-40)
[2020-04-28 17:55] LABS: Direct LDL Cholesterol 101.98 mg/dL (100-129)
[2020-04-28 18:06] LABS: Glucose 147 mg/dl (74-100)
--- NOTE | 2020-04-28 18:35 | PC.NURSE ---
1800- bp 127/54 dopamine titrated to off at this time
[2020-04-28 18:51] LABS: NT Pro Brain Natriuretic Pep. 2430 pg/mL (0-450)
[2020-04-28 22:46] LABS: POC Glucose,Bedside 193 (70-110)
--- NOTE | 2020-04-28 23:00 | PC.NURSE ---
Late entry: @ 2154- pt was c/o tight stomach , ABD cramping, and SOA with increased work of breathing. Audible and auscultated wheezes noted, sat 98-100% on 2LMP O2, and RR 14-16. Pt assessed and ABD had increased distention and umbilicus area is convex which is an increase change from initial assessment. Hypoactive BS noted to Upper and Lower lefts side and active BS noted to Upper & Lower Right side. Pt had recently got up to BSC with x2 staff assist and tolerated fair. Pt passed ~ 20ml of liquid stool and copious amount of gas. Of note, pt had only drank about 0.5 bottle of her Mag Citrate. Pt denies any Nausea. @ 2205 this RN s/w Marvin Lamar, on-call for Dr. King, and new order to D/C NS @ 150ml/hr, add Duo-Neb q4-prn for wheezes, and d/c the remaining mag citrate.
[2020-04-29] VITALS (15 sets, daily range): BP systolic 121–186; BP diastolic 36–92; PULSE 60–103; RESP 14–16; TEMP 36.6–36.8; O2SAT 93–100; BMI 32.9
--- NOTE | 2020-04-29 00:16 | XR_ITS ---
PROCEDURE: XR CHEST PORTABLE CLINICAL HISTORY: ams Hypotension COMPARISON: XR CHEST PORTABLE from 04/26/2020 CT CHEST WO CON from 04/26/2020 XR CHEST 2V from 04/27/2020 XR CHEST PORTABLE from 04/27/2020 FINDINGS: Normal heart size. Prior median sternotomy. There is bilateral lower lobe consolidation with bilateral effusions. These findings are slightly worse. There is a nasogastric tube present. Linear lucency involves the left 10th rib laterally and could be due to nondisplaced fracture. IMPRESSION: Worsening bilateral lower lobe airspace disease with small bilateral effusions. Dictated by: Rudy Gamez MD 04/29/2020 07:43 Electronically signed by Rudy Gamez MD in [place] 04/29/2020 07:43
--- NOTE | 2020-04-29 01:04 | XR_ITS ---
PROCEDURE: XR CHEST AP CLINICAL HISTORY: NG placement COMPARISON: No exams were available for comparison FINDINGS: NG tube tip is in the region of the body of the stomach. There is bibasilar consolidation with bilateral effusions. IMPRESSION: NG tube tip in the region of the body of the stomach Dictated by: Rudy Gamez MD 04/29/2020 07:40 Electronically signed by Rudy Gamez MD in [place] 04/29/2020 07:40
[2020-04-29 01:19] LABS: Ammonia 20 umol/L (9-30)
[2020-04-29 01:23] LABS: Lactic Acid 3.3 mmol/L (0.7-2.1)
[2020-04-29 01:24] LABS: Albumin Level 3.3 g/dl (3.5-5.0); Albumin/Globulin Ratio 1.2 (1.1-1.8); Alkaline Phosphatase 58 U/L (38-126); Anion Gap 20.3 mEq/L (5-15); Aspartate Amino Transferase 404 U/L (14-36); Bilirubin,Total 0.4 mg/dl (0.2-1.3); Blood Urea Nitrogen 52 mg/dl (7-17); Calcium 8.1 mg/dl (8.4-10.2); Carbon Dioxide 13 mmol/L (22.0-30.0); Chloride 101 mmol/L (98-107); Creatinine Clearance Estimated 30 mL/min (50-200); Estimated Glomerular Filt Rate 20 ml/min (>60); GFR (African American) 24 ML/MIN (>60); Globulin 2.8 g/dL (1.3-3.2); Glucose 161 mg/dl (74-100); Potassium 5.3 mmoL/L (3.5-5.1); Sodium 129 mmol/L (136-145); Total Protein,Serum 6.1 g/dl (6.3-8.2)
[2020-04-29 01:25] LABS: Lipase 75 U/L (23-300)
[2020-04-29 01:40] LABS: Troponin I 0.04 ng/ml (0.00-0.034)
[2020-04-29 01:49] LABS: Alanine Aminotransferase 403 U/L (12-78)
[2020-04-29 02:04] LABS: POC Glucose,Bedside 148 (70-110)
--- NOTE | 2020-04-29 03:04 | PC.NURSE ---
Late Entry: @ 2345 this RN entered the pt's room and found the pt to be very pale and pt's to be shaking her shoulders calling out mom! . Pt was quickly assessed and carotid pulse was intact and pt was breathing although shallow and no audible wheezing noted. Pt would not follow command or respond to sternal rub, and was diaphoretic. Rapid response was called. Stat EKG was obtained, current VS- BP 115/46, HR 51, O2 91% on 2LMP, RR 16. Pt currently has hubbard cath in place, on tele and Agnes noted on monitor car operator. Pododermatologist Gisel Mcguire RN, SECURITY COORDINATOR Dex Hawkins, and Dr. Breaux presented to pt's bedside quickly. Dr. Breaux updated on pt recent condition, Labs, and changes from assessment. Pt's spouse mentioned pt was trying to get out of bed shortly before this RN walked into pt's room. Stat order for ABG, RT notified and presented to bedside, Dr. Breaux collected ABG. Pt's VS remained WNL. Pt coloring increasing and diaphoretic episode abating. Negative Dolls eye noted, pupils 3mm and reactive. Peripheral pulses +2. Pt slowly made a few facial movements with brow and moving mouth. When shaking pt's shoulders, pt said huh . New orders received to restart IVF- NS @ 100ml/hr, 0.5 AMP of Bicarb, NG placement to Intermittent LWS, labs: CMP, Lactic, 2nd ABG, Amonia, Troponin, Lipase, CXR. Dr. Barroso electronically added in order for GI consult, per protocol with NG & GI consult, diet changed to NPO at this time.
[2020-04-29 04:52] LABS: Reflex Lactic Add Lactic Reflex
[2020-04-29 05:45] LABS: POC Glucose,Bedside 85 (70-110)
[2020-04-29 05:48] LABS: Chloride 104 mmol/L (98-107); Sodium 130 mmol/L (136-145)
[2020-04-29 05:49] LABS: Basophils % 0.1 % (0.1-2.0); Eosinophils % 0.3 % (0.1-12.0); Hematocrit 29.9 % (37.0-47.0); Hemoglobin 9.6 g/dL (12.2-16.2); Lymphocytes # 1.3 K/mm3 (0.7-4.5); Lymphocytes % 15.2 % (10-50); Mean Corpuscular HGB Conc 32.2 g/dL (31.8-35.4); Mean Corpuscular Hemoglobin 28.7 pg (27.0-31.2); Mean Corpuscular Volume 89.3 fl (81-99); Mean Platelet Volume 8.6 fl (7.4-10.4); Monocytes # 0.5 K/mm3 (0.1-1.0); Monocytes % 5.1 % (1.7-9.3); Neutrophils # 7.1 K/mm3 (1.8-7.8); Neutrophils % 79.4 % (37.0-80.0); Platelet Count 233 K/mm3 (142-424); Potassium 5.8 mmoL/L (3.5-5.1); Red Blood Count 3.35 M/mm3 (4.20-5.40); Red Cell Distribution Width 16.8 % (11.5-17.5); White Blood Count 8.9 K/mm3 (4.8-10.8)
--- NOTE | 2020-04-29 05:50 | ECG_ITS ---
APPROVED REPORT Exam: Resting ECG HR:91 bpm ECG Measurements Heart Rate 91 AXES QRSd 118 QRS 97 QT 400 T -86 QTc 492 <Conclusion> Atrial fibrillation Anterolateral infarct, age undetermined T wave abnormality, consider inferior ischemia Abnormal ECG Electronically signed by : Alexys King, 05/01/2020 04:52:25
[2020-04-29 05:51] LABS: Alanine Aminotransferase 409 U/L (12-78); Alkaline Phosphatase 47 U/L (38-126); Anion Gap 14.8 mEq/L (5-15); Aspartate Amino Transferase 335 U/L (14-36); Bilirubin,Total 0.4 mg/dl (0.2-1.3); Blood Urea Nitrogen 52 mg/dl (7-17); Carbon Dioxide 17 mmol/L (22.0-30.0); Creatinine Clearance Estimated 29 mL/min (50-200); Estimated Glomerular Filt Rate 19 ml/min (>60); GFR (African American) 23 ML/MIN (>60)
[2020-04-29 05:52] LABS: Albumin/Globulin Ratio 1.3 (1.1-1.8); Globulin 2.4 g/dL (1.3-3.2); Glucose 146 mg/dl (74-100); Lactic Acid Follow Up (RFLX 1) 2.1 mmol/L (0.7-2.1); Total Protein,Serum 5.4 g/dl (6.3-8.2)
--- NOTE | 2020-04-29 06:00 | PC.NURSE ---
Pt is currently A&Ox4 and has been more alert than at the beginning of the shift. Pt has not c/o any further abd pain, but has continued to have concerns about the ABD distention. The firmness has dissipated slightly since previous assessment. Pt has had to verfy soft/slightly loose, green BM's via bedpan, after rapid response was initiated. NG in place to right nare at secured at 65cm. Pt's has been at bedside t/o shift and active in pt's care. VSS and BP has been steadily increasing to hypertension. Stable a flutter and SR noted on tele. Lactic redraw this am decreased to 2.1, lab will redraw per protocol.
[2020-04-29 06:17] LABS: ABG PH 7.17 mmol/L (7.35-7.45)
[2020-04-29 06:18] LABS: ABG Base Excess -18.5 mmol/L (-2.4-2.3); ABG Oxygen Saturation 93 % (90-100); ABG PO2 84.4 mmhg (80-100); ABG TCO2 10.8 mmhg (23-27)
[2020-04-29 06:19] LABS: Source R RADIAL
[2020-04-29 06:20] LABS: ABG PCO2 36.8 mmhg (35.0-45.0); ABG PH 6.99 mmol/L (7.35-7.45); ABG PO2 80.8 mmhg (80-100)
[2020-04-29 06:21] LABS: ABG Base Excess -22.4 mmol/L (-2.4-2.3); ABG HCO3 8.9 mmhg (22.0-26.0); ABG Oxygen Saturation 88 % (90-100); Allen's Test ACCEPTABLE; Oxygen 3.5LPM %; Source L RADIAL
--- NOTE | 2020-04-29 07:14 | HMH.RR ---
Acute Rapid Response Note - Subjective Date Responded: 04/28/20 Time Responded: 23:40 Provider Note: called to room because dec loc with intact vital signs and distended abd and slow heart rate - pt with increased resp rate and ekg w/o acute mi - pt arousable to tactile touch and improved with time - Objective Findings: Vital Signs - Last 4 Hours Temperature 97.9 F 04/29/20 04:00 Temperature Source Oral 04/29/20 04:00 Pulse Rate 61 04/29/20 04:00 Respiratory Rate 14 04/29/20 04:00 Blood Pressure 186/83 H 04/29/20 04:00 Blood Pressure Mean 117 04/29/20 04:00 Blood Pressure Source Automatic Cuff 04/29/20 04:00 Blood Pressure Position Supine 04/29/20 04:00 02 Sat by Pulse Oximetry 100 04/29/20 04:00 Oxygen Delivery Method 04/29/20 04:00 Oxygen Flow Rate (LPM) 2 04/29/20 04:00 Lab Results for Past 12 Hours 04/29/20 05:34: POC Glucose 85 04/29/20 05:30: Lactate 2.1 04/29/20 05:30: Sodium 130 L, Potassium 5.8 H, Chloride 104, Carbon Dioxide 17 L D, Anion Gap 14.8, BUN 52 H, Creatinine 2.50 H, Estimated Creat Clear 29, Estimated GFR 19 L*, Est GFR ( Amer) 23 L, Glucose 146 H, Calcium 8.0 L, Magnesium 2.0 D, Total Bilirubin 0.4, AST 335 H*, ALT 409 H*, Alkaline Phosphatase 47, Total Protein 5.4 L, Albumin 3.0 L, Globulin 2.4, Albumin/Globulin Ratio 1.3 04/29/20 05:30: WBC 8.9, RBC 3.35 L, Hgb 9.6 L, Hct 29.9 L, MCV 89.3, MCH 28.7, MCHC 32.2, RDW 16.8, Plt Count 233, MPV 8.6, Neut % (Auto) 79.4, Lymph % (Auto) 15.2, [place] % (Auto) 5.1, Eos % (Auto) 0.3, Baso % (Auto) 0.1, Neut # (Auto) 7.1, Lymph # (Auto) 1.3, [place] # (Auto) 0.5, Eos # (Auto) 0.0, Baso # (Auto) 0.0 04/29/20 00:46: Lipase 75 04/29/20 00:46: Lactate 3.3 H 04/29/20 00:46: Ammonia 20 04/29/20 00:46: Sodium 129 L, Potassium 5.3 H, Chloride 101, Carbon Dioxide 13 L, Anion Gap 20.3 H, BUN 52 H, Creatinine 2.40 H, Estimated Creat Clear 30, Estimated GFR 20 L, Est GFR ( Amer) 24 L, Glucose 161 H, Calcium 8.1 L, Total Bilirubin 0.4, AST 404 H*, ALT 403 H*, Alkaline Phosphatase 58, Troponin I 0.04 H, Total Protein 6.1 L, Albumin 3.3 L, Globulin 2.8, Albumin/Globulin Ratio 1.2 04/29/20 00:17: Specimen Source R radial, O2 % 3.5 lpm, ABG pH 7.17 L*, ABG pCO2 28.0 L, ABG pO2 84.4, ABG HCO3 10.0 L, ABG Total CO2 10.8 L, ABG O2 Saturation 93, ABG Base Excess -18.5 L, Rudy Test Acceptbale 04/28/20 23:54: Specimen Source L radial, O2 % 3.5lpm, ABG pH 6.99 L*, ABG pCO2 36.8, ABG pO2 80.8, ABG HCO3 8.9 L, ABG Total CO2 10.0 L, ABG O2 Saturation 88 L, ABG Base Excess -22.4 L, Rudy Test Acceptable 04/28/20 23:50: POC Glucose 148 H 04/28/20 20:25: POC Glucose 193 H My Orders Category Date Time Status NG/OG tube insert/manage ONCE Care 04/29/20 00:26 Active NG/orogastric tube to intermit CONT Care 04/29/20 01:44 Active Chest XR -- portable [XR chest portable] Stat Exams 04/29/20 00:16 Taken XR chest AP Stat Exams 04/29/20 01:04 Taken Ammonia Stat Lab 04/29/20 00:46 Completed Comprehensive Metabolic Panel Stat Lab 04/29/20 00:46 Completed Lactic Acid Follow Up (RFLX 1) Stat Lab 04/29/20 05:30 Completed Lactic Acid Stat Lab 04/29/20 00:46 Completed Lipase Stat Lab 04/29/20 00:46 Completed Troponin I Stat Lab 04/29/20 00:46 Completed 0.9 % Sodium Chloride [Sod Chlor 0.9% 1000mL Bag] 1,000 Med 04/29/20 05:15 Active ml IV 100 mls/hr Sodium Bicarbonate [Sodium Bicarbonate 8.4% 50mL Med 04/29/20 05:15 Discontinued Syringe] 25 meq IV ONCE ONE - ECG Data Tracing #1 Ischemic changes: non-specific ST-T wave changes Conduction abnormalities present: other (atrial abn) Rapid Response Exam - General General appearance: lethargic - Head Head exam: normocephalic - Eye Eye exam: Present: PERRL, EOMI - ENT ENT exam: Present: mucous membranes dry - Neck Neck exam: Present: trachea midline - Respiratory Respiratory exam: Present: other (dec bs bilat ) - Cardiovascular Cardiovascular exam: Present: br
[2020-04-29 07:40] LABS: Reflex Lactic (2 hrs) Add Lactic Reflex
--- NOTE | 2020-04-29 07:44 | SW/DCPLANNER ---
PATIENT ADMITTED TO [facility] WITH A PRIMARY DIAGNOSIS OF COMMUNITY ACQUIRED PNEUMONIA ALONG WITH OTHER COMORIBITIES.... IT WAS MENTIONED THAT SHE COULD BENEFIT TO TRANSFER TO A HIGHER LEVEL OF CARE BUT FAMILY DECLINED... FAMILY AT BEDSIDE.... WILL BE AVAILABLE IF ANY NEEDS ARISE.
--- NOTE | 2020-04-29 08:00 | PC.NURSE ---
Dr. Barroso rounding at this time and order given to d/c IVF. Pt was saline locked at this time.
[2020-04-29 08:19] LABS: Lactic Acid Follow up (RFLX 2) 1.7 mmol/L (0.7-2.1)
--- NOTE | 2020-04-29 08:58 | HMH.ACPN2 ---
Internal Medicine - PN: Subj *Date: 04/29/20 *Time: 08:45 Interval history: 74-year-old [facility] female with multiple organ dysfunction. Overnight had another rapid response due to belly pain. Found to have metabolic acidosis. Received half an amp of bicarb. Acidosis improved mildly. Had extensive discussion with family at bedside this morning about her competing multiorgan dysfunction. GI consult was placed, awaiting their assessment recommendations today. Patient appears comfortable on exam but still complaining of belly pain. Denies significant shortness of breath. No chest pain or nausea. Appears more fatigued with some decrease in mentation but responds appropriately to questions and on exam. Exam Vital signs and Labs for Last 24 Hours: Temp Pulse Resp BP Pulse Ox 98.1 F 103 H 16 124/36 L 95 04/29/20 07:42 04/29/20 07:42 04/29/20 07:42 04/29/20 07:42 04/29/20 07:42 Laboratory Results - last 24 hr 04/28/20 11:09: POC Glucose 201 H 04/28/20 16:15: Sodium 131 L, Potassium 5.9 H, Chloride 105, Carbon Dioxide 16 L, Anion Gap 15.9 H, BUN 52 H, Creatinine 2.40 H, Estimated Creat Clear 30, Estimated GFR 20 L, Est GFR ( Amer) 24 L, Glucose 147 H D, Calcium 8.0 L, Total Bilirubin 0.6, AST 369 H* D, ALT 385 H*, Alkaline Phosphatase 49, Total Protein 5.6 L, Albumin 3.2 L, Globulin 2.4, Albumin/Globulin Ratio 1.3, Triglycerides 104, Cholesterol 166, LDL Cholesterol Direct 101.98, VLDL Cholesterol 21, HDL Cholesterol 26 L, Cholesterol/HDL Ratio 6.4 H, Lipase 108 04/28/20 16:15: Hemoglobin A1c 9.9 H 04/28/20 16:25: NT-Pro-B Natriuret Pep 2430 H 04/28/20 20:25: POC Glucose 193 H 04/28/20 23:50: POC Glucose 148 H 04/28/20 23:54: Specimen Source L radial, O2 % 3.5lpm, ABG pH 6.99 L*, ABG pCO2 36.8, ABG pO2 80.8, ABG HCO3 8.9 L, ABG Total CO2 10.0 L, ABG O2 Saturation 88 L, ABG Base Excess -22.4 L, Rudy Test Acceptable 04/29/20 00:17: Specimen Source R radial, O2 % 3.5 lpm, ABG pH 7.17 L*, ABG pCO2 28.0 L, ABG pO2 84.4, ABG HCO3 10.0 L, ABG Total CO2 10.8 L, ABG O2 Saturation 93, ABG Base Excess -18.5 L, Rudy Test Acceptbale 04/29/20 00:46: Sodium 129 L, Potassium 5.3 H, Chloride 101, Carbon Dioxide 13 L, Anion Gap 20.3 H, BUN 52 H, Creatinine 2.40 H, Estimated Creat Clear 30, Estimated GFR 20 L, Est GFR ( Amer) 24 L, Glucose 161 H, Calcium 8.1 L, Total Bilirubin 0.4, AST 404 H*, ALT 403 H*, Alkaline Phosphatase 58, Troponin I 0.04 H, Total Protein 6.1 L, Albumin 3.3 L, Globulin 2.8, Albumin/Globulin Ratio 1.2 04/29/20 00:46: Ammonia 20 04/29/20 00:46: Lactate 3.3 H 04/29/20 00:46: Lipase 75 04/29/20 05:30: WBC 8.9, RBC 3.35 L, Hgb 9.6 L, Hct 29.9 L, MCV 89.3, MCH 28.7, MCHC 32.2, RDW 16.8, Plt Count 233, MPV 8.6, Neut % (Auto) 79.4, Lymph % (Auto) 15.2, [place] % (Auto) 5.1, Eos % (Auto) 0.3, Baso % (Auto) 0.1, Neut # (Auto) 7.1, Lymph # (Auto) 1.3, [place] # (Auto) 0.5, Eos # (Auto) 0.0, Baso # (Auto) 0.0 04/29/20 05:30: Sodium 130 L, Potassium 5.8 H, Chloride 104, Carbon Dioxide 17 L D, Anion Gap 14.8, BUN 52 H, Creatinine 2.50 H, Estimated Creat Clear 29, Estimated GFR 19 L*, Est GFR ( Amer) 23 L, Glucose 146 H, Calcium 8.0 L, Magnesium 2.0 D, Total Bilirubin 0.4, AST 335 H*, ALT 409 H*, Alkaline Phosphatase 47, Total Protein 5.4 L, Albumin 3.0 L, Globulin 2.4, Albumin/Globulin Ratio 1.3 04/29/20 05:30: Lactate 2.1 04/29/20 05:34: POC Glucose 85 04/29/20 07:50: Lactate 1.7 I & O for Last 24 hours: Intake & Output 04/26/20 04/27/20 04/28/20 04/29/20 23:59 23:59 23:59 23:59 Intake Total 1999 2470 / 2470 4545 / 4545 637 / 637 Output Total 300 / 300 1120 / 1120 475 / 475 Balance 1999 2170 / 2170 3425 / 3425 162 / 162 Weight 102.058 kg 90 kg 94.8 kg 98.486 kg Microbiology Reports for the Last 24 Hours: Microbiology 04/26/20 20:45 Blood Blood Culture - Preliminary NO GROWTH AFTER 48 HOURS 04/26/20 20:45 Blood Blood Culture - Preliminary
--- NOTE | 2020-04-29 10:32 | HMH.PNCARD ---
Subjective Date: 04/29/20 Time: 10:32 Principal diagnosis: Abdominal pain, A. flutter Interval history: 74 yo WF in bed in no acute distress. Patient still appears pale and is less active/alert today but still answers questions appropriately. Since the NG tube has been placed the patient relates her abdominal swelling and discomfort have improved slightly. She denies any chest pain, pressure or tightness. The events of last night were reviewed with Dr. Barroso and Dr. Wong. Telemetry continues to show atrial flutter/fibrillation with controlled ventricular response. Blood pressure is improving, patient is off dopamine drip. Exam Vital signs and Labs for Last 24 Hours: Temp Pulse Resp BP Pulse Ox 98.1 F 89 16 161/92 H 100 04/29/20 07:42 04/29/20 10:00 04/29/20 10:00 04/29/20 10:00 04/29/20 10:00 Laboratory Results - last 24 hr 04/28/20 11:09: POC Glucose 201 H 04/28/20 16:15: Sodium 131 L, Potassium 5.9 H, Chloride 105, Carbon Dioxide 16 L, Anion Gap 15.9 H, BUN 52 H, Creatinine 2.40 H, Estimated Creat Clear 30, Estimated GFR 20 L, Est GFR ( Amer) 24 L, Glucose 147 H D, Calcium 8.0 L, Total Bilirubin 0.6, AST 369 H* D, ALT 385 H*, Alkaline Phosphatase 49, Total Protein 5.6 L, Albumin 3.2 L, Globulin 2.4, Albumin/Globulin Ratio 1.3, Triglycerides 104, Cholesterol 166, LDL Cholesterol Direct 101.98, VLDL Cholesterol 21, HDL Cholesterol 26 L, Cholesterol/HDL Ratio 6.4 H, Lipase 108 04/28/20 16:15: Hemoglobin A1c 9.9 H 04/28/20 16:25: NT-Pro-B Natriuret Pep 2430 H 04/28/20 20:25: POC Glucose 193 H 04/28/20 23:50: POC Glucose 148 H 04/28/20 23:54: Specimen Source L radial, O2 % 3.5lpm, ABG pH 6.99 L*, ABG pCO2 36.8, ABG pO2 80.8, ABG HCO3 8.9 L, ABG Total CO2 10.0 L, ABG O2 Saturation 88 L, ABG Base Excess -22.4 L, Rudy Test Acceptable 04/29/20 00:17: Specimen Source R radial, O2 % 3.5 lpm, ABG pH 7.17 L*, ABG pCO2 28.0 L, ABG pO2 84.4, ABG HCO3 10.0 L, ABG Total CO2 10.8 L, ABG O2 Saturation 93, ABG Base Excess -18.5 L, Rudy Test Acceptbale 04/29/20 00:46: Sodium 129 L, Potassium 5.3 H, Chloride 101, Carbon Dioxide 13 L, Anion Gap 20.3 H, BUN 52 H, Creatinine 2.40 H, Estimated Creat Clear 30, Estimated GFR 20 L, Est GFR ( Amer) 24 L, Glucose 161 H, Calcium 8.1 L, Total Bilirubin 0.4, AST 404 H*, ALT 403 H*, Alkaline Phosphatase 58, Troponin I 0.04 H, Total Protein 6.1 L, Albumin 3.3 L, Globulin 2.8, Albumin/Globulin Ratio 1.2 04/29/20 00:46: Ammonia 20 04/29/20 00:46: Lactate 3.3 H 04/29/20 00:46: Lipase 75 04/29/20 05:30: WBC 8.9, RBC 3.35 L, Hgb 9.6 L, Hct 29.9 L, MCV 89.3, MCH 28.7, MCHC 32.2, RDW 16.8, Plt Count 233, MPV 8.6, Neut % (Auto) 79.4, Lymph % (Auto) 15.2, [place] % (Auto) 5.1, Eos % (Auto) 0.3, Baso % (Auto) 0.1, Neut # (Auto) 7.1, Lymph # (Auto) 1.3, [place] # (Auto) 0.5, Eos # (Auto) 0.0, Baso # (Auto) 0.0 04/29/20 05:30: Sodium 130 L, Potassium 5.8 H, Chloride 104, Carbon Dioxide 17 L D, Anion Gap 14.8, BUN 52 H, Creatinine 2.50 H, Estimated Creat Clear 29, Estimated GFR 19 L*, Est GFR ( Amer) 23 L, Glucose 146 H, Calcium 8.0 L, Magnesium 2.0 D, Total Bilirubin 0.4, AST 335 H*, ALT 409 H*, Alkaline Phosphatase 47, Total Protein 5.4 L, Albumin 3.0 L, Globulin 2.4, Albumin/Globulin Ratio 1.3 04/29/20 05:30: Lactate 2.1 04/29/20 05:34: POC Glucose 85 04/29/20 07:50: Lactate 1.7 I & O for Last 24 hours: Intake & Output 04/26/20 04/27/20 04/28/20 04/29/20 11:59 11:59 11:59 11:59 Intake Total 2578 / 2578 3846 / 3846 3228 / 3228 Output Total 600 / 600 1295 / 1295 Balance 2578 / 2578 3246 / 3246 1933 / 1933 Weight 198 lb 6.656 oz 208 lb 15.971 oz 217 lb 2 oz Microbiology Reports for the Last 24 Hours: Microbiology 04/26/20 20:45 Blood Blood Culture - Preliminary NO GROWTH AFTER 48 HOURS 04/26/20 20:45 Blood Blood Culture - Preliminary NO GROWTH AFTER 48 HOURS - *Routine Respiratory Exam Present: CTA bilaterally. Absent:
[2020-04-29 12:33] LABS: POC Glucose,Bedside 135 (70-110)
--- NOTE | 2020-04-29 15:17 | HMH.PROC ---
[facility] Procedure Note Procedure Note:: Gastroenterology Consultation Date of Service-April 29, 2020 History of Present Illness: Mrs. Saleh is a 74-year-old female with significant comorbidities who presented with pneumonia, sepsis and worsening renal failure. She also presented with abdominal pain. She was having problems with constipation. The patient did have a CAT scan of the abdomen and pelvis that did show a thickened and contracted gallbladder with possible gallstones and possible cholecystitis. The patient had a subsequent ultrasound that showed some mild gallbladder wall thickening. There was no clear pericholecystic fluid or distended gallbladder. The patient has had no abdominal pain presently. There was also no evidence of biliary ductal dilation or choledocholithiasis. The patient did have an initial ALT 72 and alkaline phosphatase 53. Today, the patient's transaminases increased with AST 335 and ALT 409. The patient's alkaline phosphatase 47 and total bilirubin 0.4 were normal. Her pain is resolved. She did have a bowel movement yesterday and this morning. She has been seen by general surgery (Dr. Huan Cruz) who does not feel that cholecystectomy is warranted presently. The patient does have a cardiomyopathy with some congestive heart failure and some acute on chronic renal failure. Her CAT scan also showed some duodenal thickening. Past Medical History: 1. Cardiomyopathy/congestive heart failure 2. Chronic renal insufficiency 3. Type 2 diabetes mellitus (insulin requiring) 4. Hypertension Past Surgical History: 1. Valvular annuloplasty Medications: 1. Xarelto 2. Lasix 3. Insulin 4. Aspirin 5. Lisinopril 6. Spironolactone 7. Cardizem 8. Metoprolol 9. Zanaflex ALLERGIES: No known drug allergies Social History: The patient reports no alcohol. She does occasionally smoke tobacco. She does live with her in [facility]. Family History: Noncontributory Review of Systems: See chart Physical Examination: Gen.: The patient is a well-developed well-nourished individual who is on oxygen but communicates well and is alert and oriented HEENT: Normocephalic/atraumatic extraocular movements are intact anicteric Neck: Supple no lymphadenopathy Chest: Rales present Cardiovascular: Regular rate with murmur no tachycardia Abdomen: Normoactive bowel sounds, soft, mild distention, mild tenderness Extremities: 1+ edema edema Labs: Hemoglobin 9.8 hematocrit 30.2, AST 335, ALT 409, alkaline phosphatase 47, total bilirubin 0.4 Radiology: See above Impression/Plan: 1. Possible cholecystitis. Certainly the patient is markedly improved. She does not require any transfer and I would continue antibiotic therapy (Rocephin). I do feel that her spike in transaminases is hepatocellular injury and is a reactive injury possibly from medication (antibiotics) or even her sepsis. I do not feel that we should pursue aggressive measures but I would follow transaminases through the course of her hospital stay. It appears to be unlikely that this represents biliary disease resulting in spike in transaminases especially with her normal alkaline phosphatase/bilirubin and resolution of her abdominal pain. I would follow the course of her hepatic function daily. Presently, I would continue medical management. If she does have clinical improvement, consideration of gallbladder definitive therapy/cholecystectomy can be considered as outpatient if she does not pose high risk based upon comorbidities. She would be very high risk presently. I did speak with Dr. Huan Cruz.
--- NOTE | 2020-04-29 17:41 | PC.NURSE ---
Pt insulin gtt currently at 4u, last glucose was upper 400's. There are multiple pressure ulcers to his body documented in biophysical. Pics will be on the chart. Bobby has drained clear yellow urine, 1400 ml's out thus far. He has laid in bed since arriving to the floor, no complaints or requests verbalized.
--- NOTE | 2020-04-29 17:46 | PC.NURSE ---
Addendum entered by Negrita Dolan RN 04/29/20 20:44: Pt weaned off O2, RA sat is 99%; Pt tolerated well; Audible wheezes have resolved, lungs clear at this time. Original Note: Pt has rested in bed this shift; 3600mls of urine out thus far. NG removed, no output from NG before removal. She has been on the bed boyce twice this shift with no success, has passed some gas. Family has been at bedside and is supportive.
[2020-04-29 18:34] LABS: POC Glucose,Bedside 133 (70-110)
[2020-04-29 21:50] LABS: POC Glucose,Bedside 253 (70-110)
[2020-04-30] VITALS (11 sets, daily range): BP systolic 134–160; BP diastolic 56–86; PULSE 62–71; RESP 16–20; TEMP 36.4–36.8; O2SAT 97–100; BMI 32.5
--- NOTE | 2020-04-30 02:35 | PC.NURSE ---
She is A&Ox4. Family is at the bedside. She is resting at this time. She denied pain. At approx. midnight she began to report SOA. VSS. Placed on oxygen for comfort and given PRN medication for anxiety per her request. She has since rested and vital signs have remained stable. Aflutter on telemetry.
[2020-04-30 06:11] LABS: POC Glucose,Bedside 177 (70-110)
[2020-04-30 06:14] LABS: Chloride 103 mmol/L (98-107)
[2020-04-30 06:15] LABS: Basophils % 0.2 % (0.1-2.0); Eosinophils # 0.2 K/mm3 (0.0-0.4); Eosinophils % 2.8 % (0.1-12.0); Hematocrit 29.8 % (37.0-47.0); Hemoglobin 9.4 g/dL (12.2-16.2); Lymphocytes # 1.3 K/mm3 (0.7-4.5); Lymphocytes % 20.1 % (10-50); Mean Corpuscular HGB Conc 31.6 g/dL (31.8-35.4); Mean Corpuscular Hemoglobin 28.5 pg (27.0-31.2); Mean Corpuscular Volume 90.1 fl (81-99); Mean Platelet Volume 8.3 fl (7.4-10.4); Monocytes # 0.4 K/mm3 (0.1-1.0); Monocytes % 6.3 % (1.7-9.3); Neutrophils # 4.4 K/mm3 (1.8-7.8); Neutrophils % 70.5 % (37.0-80.0); Platelet Count 249 K/mm3 (142-424); Potassium 4.4 mmoL/L (3.5-5.1); Red Blood Count 3.31 M/mm3 (4.20-5.40); Red Cell Distribution Width 17.1 % (11.5-17.5); Sodium 130 mmol/L (136-145); White Blood Count 6.3 K/mm3 (4.8-10.8)
[2020-04-30 06:17] LABS: Alanine Aminotransferase 315 U/L (12-78); Alkaline Phosphatase 46 U/L (38-126); Anion Gap 10.4 mEq/L (5-15); Aspartate Amino Transferase 128 U/L (14-36); Bilirubin,Total 0.4 mg/dl (0.2-1.3); Blood Urea Nitrogen 46 mg/dl (7-17); Carbon Dioxide 21 mmol/L (22.0-30.0); Creatinine Clearance Estimated 41 mL/min (50-200); Estimated Glomerular Filt Rate 27 ml/min (>60); GFR (African American) 33 ML/MIN (>60)
[2020-04-30 06:18] LABS: Albumin/Globulin Ratio 1.2 (1.1-1.8); Calcium 8.1 mg/dl (8.4-10.2); Globulin 2.5 g/dL (1.3-3.2); Glucose 172 mg/dl (74-100); Total Protein,Serum 5.5 g/dl (6.3-8.2)
--- NOTE | 2020-04-30 12:06 | HMH.ACPN2 ---
Internal Medicine - PN: Subj *Date: 04/30/20 *Time: 12:06 Interval history: Patient tolerated diuresis well, had brisk urine output. -2-1/2 L in the past 24 hours. Breathing somewhat better this morning. Distention a little bit better though still prominent. Lower extremity edema improved. Blood pressure and kidney function both tolerated diuresis quite well. Family at bedside this morning. Patient denies chest pain, nausea, vomiting. Had bowel movement overnight. Had single episode of abdominal cramping/pain. Also had an episode of what appears to be anxiety for which she received Ativan and calmed well with this. Tolerating full liquid diet this morning. Exam Vital signs and Labs for Last 24 Hours: Temp Pulse Resp BP Pulse Ox 97.9 F 66 18 160/86 H 100 04/30/20 10:00 04/30/20 10:00 04/30/20 10:00 04/30/20 10:00 04/30/20 10:00 Laboratory Results - last 24 hr 04/29/20 12:21: POC Glucose 135 H 04/29/20 16:23: POC Glucose 133 H 04/29/20 21:19: POC Glucose 253 H 04/30/20 05:01: POC Glucose 177 H 04/30/20 05:10: WBC 6.3 D, RBC 3.31 L, Hgb 9.4 L, Hct 29.8 L, MCV 90.1, MCH 28.5, MCHC 31.6 L, RDW 17.1, Plt Count 249, MPV 8.3, Neut % (Auto) 70.5, Lymph % (Auto) 20.1, [place] % (Auto) 6.3, Eos % (Auto) 2.8, Baso % (Auto) 0.2, Neut # (Auto) 4.4, Lymph # (Auto) 1.3, [place] # (Auto) 0.4, Eos # (Auto) 0.2, Baso # (Auto) 0.0 04/30/20 05:10: Sodium 130 L, Potassium 4.4 D, Chloride 103, Carbon Dioxide 21 L D, Anion Gap 10.4, BUN 46 H, Creatinine 1.80 H D, Estimated Creat Clear 41, Estimated GFR 27 L, Est GFR ( Amer) 33 L D, Glucose 172 H, Calcium 8.1 L, Magnesium 2.0, Total Bilirubin 0.4, AST 128 H D, ALT 315 H*, Alkaline Phosphatase 46, Total Protein 5.5 L, Albumin 3.0 L, Globulin 2.5, Albumin/Globulin Ratio 1.2 I & O for Last 24 hours: Intake & Output 04/27/20 04/28/20 04/29/20 04/30/20 23:59 23:59 23:59 23:59 Intake Total 2470 / 2470 4545 / 4545 637 / 697 300 / 300 Output Total 300 / 300 1120 / 1120 2275 / 2275 1550 / 1550 Balance 2170 / 2170 3425 / 3425 -1638 / -1578 -1250 / -1250 Weight 90 kg 94.8 kg 98.486 kg 97.607 kg Narrative: - Constitutional No acute distress, obese, tired on exam but arouses to verbal and physical stimuli and follows commands - *Routine HEENT Exam Head: Present: normocephalic Eye: Present: EOMI, PERRL ENT: Present: mucous membranes moist - *Routine Neck Exam Present: supple. Absent: lymphadenopathy - *Routine Respiratory Exam Present: CTA bilaterally in anterior and upper lung garcia, diminished bilateral lower lung garcia; no significant wheeze or rhonchi - *Routine Cardiovascular Exam Irregularly irregular rhythm - *Routine Abdominal Exam soft, Hypoactive bowel sounds, diffuse but intervally improved tenderness. - *Routine Extremities Exam Present: edema (1+ to knees). Absent: cyanosis, clubbing - *Routine Skin Exam Present: warm. Absent: rash - *Routine Neurological Exam Present: alert, oriented X3 Assessment and Plan (1) Acute on chronic kidney failure Current visit: Yes Status: Acute Category: Medical Code(s): N17.9 - Acute kidney failure, unspecified; N18.9 - Chronic kidney disease, unspecified (2) Transaminitis Current visit: Yes Status: Acute Category: Medical Code(s): R74.0 - Nonspecific elevation of levels of transaminase and lactic acid dehydrogenase [LDH] (3) Hyponatremia Current visit: Yes Status: Acute Category: Medical Code(s): E87.1 - Hypo-osmolality and hyponatremia (4) Hyperkalemia Current visit: Yes Status: Acute Category: Medical Code(s): E87.5 - Hyperkalemia (5) Atrial flutter Current visit: No Status: Acute Qualifiers: Atrial flutter type: atypical Qualified Code(s): I48.4 - Atypical atrial flutter Category: Medical Code(s): I48.92 - Unspecified atrial flutter (6) Hyperglycemia due to type 2 diabetes mellitus Current visit: No Status: Acute Qualifiers: Diabetes
[2020-04-30 12:48] LABS: Glucose,Random 317 mg/dL (74-100)
--- NOTE | 2020-04-30 15:02 | PC.NURSE ---
PT IS SITTING UP IN THE CHAIR WITH FAMILY IN THE ROOM. BATH AND BED CHANGE THIS SHIFT. PT STATES SHE FEELS BETTER. NO COMPLAINTS OF SOA. PT WAS A 1 MAX ASSIST TO GET OOB TO CHAIR. 2+ PITTING EDEMA NOTED TO BLE. ALERT AND ORIENTED X4. PT GOT UP TO THE BSC TO HAVE A BOWEL MOVEMENT THIS MORNING. 1900 ML'S YELLOW/CLEAR URINE EMPTIED FROM [place] THIS AFTERNOON. LUNG SOUNDS DIMINISHED. BOWEL SOUNDS NORMAL. VSS. O2 SATURATION 95-98% ON ROOM AIR. A FLUTTER ON THE MONITOR. HR HAS NOT DROPPED BELOW 60 THIS SHIFT. WILL CONTINUE TO MONITOR.
[2020-04-30 19:52] LABS: POC Glucose,Bedside 330 (70-110)
[2020-04-30 21:09] LABS: POC Glucose,Bedside 384 (70-110)
[2020-05-01] VITALS: PULSE 60
[2020-05-01 04:00] VITALS: BP 118/55; PULSE 70; PULSE 73; RESP 17; TEMP 36.6; O2SAT 99
--- NOTE | 2020-05-01 04:53 | PC.NURSE ---
Pt has rested well t/o this shift. At 2239, pt was c/o restlessness. Ativan administered per DEC. Pt called out with another episode of restlessness, warm were applied and pt has rested well since. Daughter and son-in-law have remained at bedside. Call light is within reach along with all other safety precautions. No complaints at this time, will continue to monitor.
[2020-05-01 05:00] VITALS: BMI 32.1
[2020-05-01 06:14] LABS: Basophils % 0.2 % (0.1-2.0); Eosinophils # 0.3 K/mm3 (0.0-0.4); Eosinophils % 4.2 % (0.1-12.0); Hemoglobin 9.5 g/dL (12.2-16.2); Lymphocytes # 1.4 K/mm3 (0.7-4.5); Lymphocytes % 21.9 % (10-50); Mean Corpuscular HGB Conc 32.9 g/dL (31.8-35.4); Mean Corpuscular Hemoglobin 28.3 pg (27.0-31.2); Mean Platelet Volume 8.4 fl (7.4-10.4); Monocytes # 0.4 K/mm3 (0.1-1.0); Monocytes % 5.8 % (1.7-9.3); Neutrophils # 4.2 K/mm3 (1.8-7.8); Neutrophils % 67.8 % (37.0-80.0); Platelet Count 245 K/mm3 (142-424); Red Blood Count 3.35 M/mm3 (4.20-5.40); Red Cell Distribution Width 16.9 % (11.5-17.5); White Blood Count 6.2 K/mm3 (4.8-10.8)
[2020-05-01 06:18] LABS: Hematocrit 28.8 % (37.0-47.0)
[2020-05-01 06:24] LABS: Alanine Aminotransferase 210 U/L (12-78); Albumin Level 2.9 g/dl (3.5-5.0); Albumin/Globulin Ratio 1.1 (1.1-1.8); Alkaline Phosphatase 52 U/L (38-126); Anion Gap 11.1 mEq/L (5-15); Aspartate Amino Transferase 79 U/L (14-36); Bilirubin,Total 0.3 mg/dl (0.2-1.3); Blood Urea Nitrogen 35 mg/dl (7-17); Calcium 8.3 mg/dl (8.4-10.2); Carbon Dioxide 28 mmol/L (22.0-30.0); Chloride 98 mmol/L (98-107); Creatinine Clearance Estimated 48 mL/min (50-200); Estimated Glomerular Filt Rate 34 ml/min (>60); GFR (African American) 41 ML/MIN (>60); Globulin 2.7 g/dL (1.3-3.2); Glucose 121 mg/dl (74-100); Magnesium 1.9 mg/dl (1.6-2.3); Potassium 4.1 mmoL/L (3.5-5.1); Sodium 133 mmol/L (136-145); Total Protein,Serum 5.6 g/dl (6.3-8.2)
[2020-05-01 06:30] LABS: POC Glucose,Bedside 121 (70-110)
[2020-05-01 08:00] VITALS: BP 127/64; PULSE 70; PULSE 75; RESP 16; O2SAT 96
--- NOTE | 2020-05-01 08:27 | HMH.DCSUM ---
General - General Admission date:: 04/27/20 Discharge date: 05/01/20 HPI HPI: 74-year-old white female with long history of multiple medical problems including diabetes, type II but insulin requiring with poor control with most recent A1c of 14%. She also has chronic kidney disease which is recently worsened, baseline creatinine was 1.6 until April 25, 2 days ago when she was evaluated for preoperative labs for a planned lumbar spinal fusion procedure that was to take place in [place], [place]. Her notes that because of her kidney dysfunction which is apparently new, her procedure was canceled. She also has a history of recurrent A. fib/flutter, has undergone electrical cardioversion x2 per cardiology services here at [facility], in addition to heart catheterization in 2018 that revealed hyperdynamic left ventricle but no lesions amenable to stenting. He is also had a mitral valve annuloplasty in the past. She also suffers from chronic pain in intermittent waves, and her -who is easily confused about her history and unable to describe symptoms in detail, reports that she will get back and belly pains every so often and go see her nurse practitioner provider and get checked out. He is unable to tell me what the source of the pains are. She was scheduled for follow-up with cardiology here at [facility] but a friend of theirs who happens to be a health club attendant came to their house yesterday and noticed that she did not look good and advised them to bring her to the emergency department. In the emergency department she was bradycardic, hypotensive, and a flutter with a rate in the 40s, kidney function had worsened, and she had elevated d-dimer and troponin levels. She was admitted to hospital for sepsis work-up after CT scan showed evidence of worsening lobar infiltrate and groundglass opacities in her lung garcia. CT scan of chest with contrast was unable to be done because of her kidney dysfunction. She is on chronic Xarelto therapy for a flutter and so anticoagulation otherwise was not started. Throughout the night the patient is reported worsening abdominal pain, has had diminished urine output and lower blood pressures. She has elevated lactic acid, and as a result severe sepsis was diagnosed and high-dose fluid boluses and broad-spectrum antibiotic therapy have been started. CT scan of chest has been reviewed, CT scan of abdomen shows nonspecific findings, possible gallstones, possible colitis but no evidence of obstruction or free air issues. Hospital Course Hospital Course: 74-year-old [facility] female admitted for abdominal pain, fatigue, concern for sepsis. Multiple organ dysfunction identified. Problems addressed as follows: Urinary - Noted to have leukoesterase on UA, perinephric stranding on CT abdomen. Treated with antibiotics for total of 7 days. Patient never had fever, elevated white count. Completed course of treatment for suspected UTI Renal - Had acute kidney injury on admission. Proceeded to worsen slightly with fluid resuscitation. Improved drastically after initiating diuresis. Suspect patient was volume overloaded and in cardiorenal status. Continue diuresis as below. Creatinine on discharge 1.5 (baseline approximately 1.1). Consider repeating labs in 2 to 4 weeks. Cardiac - History of atrial fibrillation on metoprolol and diltiazem. Blood pressure control lisinopril. During admission, cardiology was consulted because of volume status and arrhythmia. Patient was bradycardic originally during admission necessitated continuous telemetry. Rate control medications were held with gradual improvement as her kidney function improved. Resumed metoprolol at 25 mg once a day in the morning. Maintained good rate control through hospitalization. Continued oral anticoagulation per home regimen. Resumed lisinopril once a day as blood pressure crept up after diuresis. Patient tolerated diures
[2020-05-06 09:01] LABS: POC Glucose,Bedside > 600 (70-110)
[2020-05-20 09:50] LABS: POC Glucose,Bedside 348 (70-110)
== END 2020-05-01 10:59 | disposition home or self-care (01) | DRG 292 ==
LOC: ER 22:18 → 2ND 23:38
PROVIDERS: Emergency Medicine; Internal Medicine Adolescent Medicine; Nurse Practitioner Family; Admitting Provider Internal Medicine Adolescent Medicine; Emergency Provider Emergency Medicine; PCP Nurse Practitioner Family; Visit Provider Internal Medicine Adolescent Medicine
DX: I13.0 Hypertensive heart and chronic kidney disease with heart failure and stage 1 through stage 4 chronic kidney disease, or unspecified chronic kidney disease (principal); N17.9 Acute kidney failure, unspecified; E87.1 Hypo-osmolality and hyponatremia; I48.4 Atypical atrial flutter; E11.65 Type 2 diabetes mellitus with hyperglycemia; Z79.4 Long term (current) use of insulin; Z72.0 Tobacco use; E78.5 Hyperlipidemia, unspecified; Z79.01 Long term (current) use of anticoagulants; I48.91 Unspecified atrial fibrillation; E11.22 Type 2 diabetes mellitus with diabetic chronic kidney disease; N18.9 Chronic kidney disease, unspecified; I50.9 Heart failure, unspecified; I27.20 Pulmonary hypertension, unspecified; M54.16 Radiculopathy, lumbar region
CPT/HCPCS: 36415; 71045; 71046; 71250; 74176; 76705; 76770; 78582; 80048; 80053; 80061; 81001; 82140; 82550; 82553; 82803; 82947; 82962; 83036; 83605; 83690; 83735; 83880; 84439; 84443; 84484; 85025; 85378; 87040; 87581; 87633; 87798; 93005; 93306; 94640; 94760; 94761; 96365; 96366; 96367; 99285; A9540; A9567; J0456; J0692; J1610; J2405; J3370

== ENCOUNTER 2020-05-16 11:14 | Emergency (ER) | payer SELFPAY ==
[2020-05-16 11:17] VITALS: BP 136/64; PULSE 67; RESP 16; TEMP 36.6; O2SAT 98; BMI 28.1
--- NOTE | 2020-05-16 11:20 | HMH.EDGENADL ---
ED Disposition Clinical Impression: Atrial fibrillation Qualifiers: Atrial fibrillation type: paroxysmal Qualified Code(s): I48.0 - Paroxysmal atrial fibrillation Disposition: Home, Self-Care Condition on Discharge: Good Instructions: DI for Atrial Fibrillation Additional Instructions: You can take your diltiazem as prescribed if your blood pressure just prior to taking medication is less than 130 systolic (this is the top number). Check this each time before taking the medication. 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 Referrals: Saúl Kramer MD [Staff Physician] - - Critical Care Critical Care Time: No Attestation: On , the high probability of a clinically significant, sudden or life threatening deterioration of the following system(s) required my full and direct attention, intervention and personal management. The time I documented below is in addition to time spent performing reported procedures but includes the following listed in this critical care notation. Medical Decision Making - Medical Records Medical records reviewed: Yes: I reviewed the patient's medical records. - Per Inquiry Pt receiving controlled substance: No Vital Signs: 05/16/20 11:17 Temperature 98 F Temperature Source Oral Pulse Rate [Left Radial] 67 Respiratory Rate 16 Blood Pressure [Right Arm] 136/64 Blood Pressure Mean [Right Arm] 88 Blood Pressure Position [Right Arm] Sitting 02 Sat by Pulse Oximetry 98 Oxygen Delivery Method Room Air - ECG Data Tracing #1 EKG at 1142 shows normal sinus rhythm with a rate of 69. No acute ST segment elevation or depression. No hyperacute T waves. Normal DE, QRS. Slightly prolonged QTC. EKG interpreted by me. Medical Decision Narrative: Patient well-appearing and in no distress. EKG shows normal sinus rhythm. She is already anticoagulated and has brief episodes of A. fib at home off of her medications. I have advised that she can start back her diltiazem (which she has at home) if her systolic blood pressure prior to taking the medication is greater than 130. This will help bridge her to her appointment where she can firm up a more definitive plan with her parking lot chauffeur. Apparently they are discussing plans for possible ablation. She declines labs here, and given that she has otherwise been well, no vomiting or diarrhea I have very low suspicion at this time for significant electrolyte abnormality. Her episodes of A. fib are more likely explained by the fact that she was taken off of her atrial fibrillation medication. Patient expresses understanding of the plan and is discharged home. General Adult HPI - General Stated complaint: heart rate goes in an out of rythm Time Seen by Provider: 05/16/20 11:20 Mode of Arrival: Ambulatory Source of Information: Patient, Medical Record Limitations: No Limitations - History of Present Illness HPI narrative: This is a 74-year-old female with a past medical history significant for atrial fibrillation on Xarelto who presents to the emergency department for several brief episodes of atrial fibrillation, approximately 1 to 2 hours each since being taken off of her metoprolol and diltiazem a few weeks ago while being hospitalized for gallbladder problems. Since then she has had several episodes that make her feel tired, but otherwise asymptomatic. She has been taking her Xarelto as prescribed. She denies any chest pain or shortness of breath. Her last episode of atrial fibrillation was 2 days ago. She has an appointment with cardiology coming up May 23, but was advised to come here for evaluation first by the office staff. She is completely asymptomatic currently. She was taken off of her blood pressure/A. fib medication secondary to low blood pressure per patient report. She denies any recent vomiting, diarrhea and has been eati
--- NOTE | 2020-05-16 11:42 | ECG_ITS ---
APPROVED REPORT Exam: Resting ECG HR:69 bpm ECG Measurements Heart Rate 69 AXES [place] 168 P 23 QRSd 116 QRS 92 QT 480 T 109 QTc 514 <Conclusion> Normal sinus rhythm Rightward axis Septal infarct, Old Prolonged QT Abnormal ECG Electronically signed by : Dawson Ramirez, 05/17/2020 13:52:43
[2020-05-16 11:58] VITALS: BP 135/74; PULSE 68; RESP 16; TEMP 36.6; O2SAT 97
== END 2020-05-16 11:59 | disposition home or self-care (01) ==
PROVIDERS: Emergency Provider Emergency Medicine; PCP Internal Medicine Adolescent Medicine
DX: I48.0 Paroxysmal atrial fibrillation (principal); I25.10 Atherosclerotic heart disease of native coronary artery without angina pectoris; E78.5 Hyperlipidemia, unspecified; I10 Essential (primary) hypertension; E11.9 Type 2 diabetes mellitus without complications; D64.9 Anemia, unspecified; F17.210 Nicotine dependence, cigarettes, uncomplicated; Z86.718 Personal history of other venous thrombosis and embolism; Z79.01 Long term (current) use of anticoagulants; Z79.899 Other long term (current) drug therapy
CPT/HCPCS: 93005; 99282

== ENCOUNTER → 2020-06-02 09:26 | Outpatient (CLI) | payer OTHER, SELFPAY ==
[2020-06-02 10:40] LABS: Coronavirus 19 IgG Antibody Negative (Negative); Coronavirus 19 IgM Antibody Negative (Negative)
== END ==
PROVIDERS: Visit Provider Surgery
DX: Z01.818 Encounter for other preprocedural examination (principal)
CPT/HCPCS: 36415; 86328

== ENCOUNTER 2020-06-03 05:57 | Day surgery (SDC) | payer SELFPAY ==
[2020-06-03] VITALS (17 sets, daily range): BP systolic 109–175; BP diastolic 59–80; PULSE 53–157; RESP 13–18; TEMP 36.3–43; O2SAT 95–100; BMI 27.2
[2020-06-03 06:52] LABS: POC Glucose,Bedside 67 (70-110)
--- NOTE | 2020-06-03 07:43 | P.PN_ITS ---
[facility] Anesthesia Checklist - Patient Identification Patient Identification: Arm Band - Structural Data Admitted From: Home Planned Operative Procedure/s: laparoscopic cholecystectomy Consent for Planned Operative Procedure(s) Verified: Yes Verified Documents: Surgical Consent, History and Physical - NPO Status Verified Time NPO: 00:00 - Additional verifications Anesthesia Reactions: No Hx Blood Transfusions: Yes Blood Transfusion Reaction: No - Airway Assessment C-Spine Mobility Assessed: Yes (mp2) TMJ Mobility Assessed: Yes Dentition: Good Dentition - Neurological Assessment Level of Consciousness: Awake, Alert - Anesthesia Plan Anesthesia Risk discussed: Yes Anesthesia Plan: Verified ASA Class: III Anesthesia Type: General [facility] History Medical History: Reports:: Arrhythmia, Atherosclerotic Heart Disease, Atrial Fibrillation, Congestive Heart Failure, Congenital Heart Disease (ASD repair), Deep Vein Thrombosis, Diabetes Mellitus Type 2, Hyperlipidemia, Hypertension Denies:: Cancer, Diabetes Mellitus Type 1, Internal Pacemaker, MRSA, Seizures *Have you ever received a pneumonia vaccine?: No *Have you received a flu vaccine this season?: No Other Medical History: Reports: Anemia, Other. Denies: Blood Transfusion Reaction Anesthesia experience/problems:: nac Other Surgeries: Yes: CABG, Cardiac Catheterization, Open Heart Surgery. No: Pacemaker Amputation: No Fractures: Yes ((R) ankle, (R) wrist) - *Social History Last grade of school completed: 9th or 10th Smoking Status: Current some day smoker Alcohol Intake: never Substance Use Type: denies use *Occupational Status:: employed Housing: house Household Members: other *Travel in the last 8 weeks: None Family Hx:: Diabetes, Heart Attack, Stroke
--- NOTE | 2020-06-03 08:53 | HMH.OPNOTE ---
Date of procedure: 06/03/20 Pre-op Diagnosis:: Chronic calculus cholecystitis Post-op Diagnosis:: Same Procedure performed:: Laparoscopic cholecystectomy Surgeon:: Huan Cruz MD TANK FURNACE OPERATOR:: Delmer Franks Anesthesia: MIKE Estimated blood loss (mL): 15 Operative findings:: Severe focal inflammatory changes in and around infundibulum Dense adhesions between gallbladder, stomach, small bowel, and hepatic flexure of colon Dissection around infundibulum revealed severe thickening of tissue and dilatation Infundibulum of gallbladder/cystic duct/common bile duct differentiation exceptionally difficult secondary to thickening of tissue, dilatation, and pericholecystic inflammatory changes Endoloops placed at the infundibular margin Javon-Geiger drains (x2) placed in gallbladder fossa secondary to above findings (no obvious sign of leak noted intraoperatively) No obvious injury to common bile duct, small bowel, stomach, or colon noted intraoperatively Operative note:: After informed consent was obtained, the patient was taken to the operating room and placed in the supine position. General anesthesia was induced and the abdomen was prepped and draped in a sterile fashion. After infiltration with local anesthetic an infraumbilical incision was made. A Veress needle was placed in position. The abdomen was insufflated. A 5 mm optical trocar was placed in position. Under direct visualization, a 12 mm trocar was placed in the subxiphoid position and 2 additional 5 mm trocars were placed in the right upper quadrant. The gallbladder was elevated up and over the liver margin. Significant pericholecystic fat stranding was noted. The stomach, small bowel, and hepatic flexure of the colon were densely adhered to the infundibular region. Careful dissection continued along the infundibular region approaching the cystic duct. Secondary to tissue dilatation and severe thickening, differentiation of the individual structures was exceptionally difficult. The cystic duct was dissected free and controlled with a combination of a single clip and Endoloops (x3). Tissue in this area was severely inflamed and dilated; therefore, identification of cystic duct versus infundibulum of gallbladder was very difficult. The risk of leaving part of infundibulum was deemed less than risk of further dissection. Harmonic zaheer were then utilized to dissect the gallbladder away from the liver margin. The gallbladder was placed in a retrieval bag and removed through the subxiphoid trocar site. The right upper quadrant was thoroughly irrigated. No active bleeding or bile leak was noted. Further inspection of the gallbladder fossa and infundibular region revealed the Endoloops to be in position with dilatated tissue just distal to this site consistent with possible remaining gallbladder tissue versus dilated common bile duct. Fascia at the subxiphoid trocar site was reapproximated utilizing the NeoClose device. The remaining trocars were removed. All wounds were irrigated and skin was closed with 4-0 Monocryl in a subcuticular fashion. Steri-Strips were applied. The patient's anesthetic agents were reversed and extubation was completed prior to transfer to recovery in stable condition. Condition: stable Disposition: PACU Specimens:: Gallbladder Complications:: No immediate
--- NOTE | 2020-06-03 09:02 | P.PN_ITS ---
[facility] Anesthesia Record Part I Intake, IV Amount: 1,200 Estimated blood loss (mL): 10 Urine output (mL): 0 Blood Pressure: 118/63 SaO2: 99 Pulse Rate: 83 Respiratory Rate: 16 Temperature: 97.9 F Patient is:: Drowsy, Stable Stable to PACU at:: 09:00
[2020-06-03 09:13] LABS: POC Glucose,Bedside 88 (70-110)
--- NOTE | 2020-06-03 15:20 | HMH.ANESII ---
[facility] Anesthesia Record Part II Discharge Time: 09:56 Destination: 0 PACU nurse assessment reviewed?: Yes Patient Condition:: Good Anesthesia Complications:: None Swallowing reflex intact?: Yes Cyanosis?: No Blood Pressure: 112/72 Pulse Rate: 68 Temperature: 98.9 F Mental Status: Alert & Oriented Pain level:: 0 Nausea and/or vomitting:: None Intake, IV Amount: 0
== END 2020-06-03 11:47 | disposition home or self-care (01) ==
LOC: OR 06:00
PROVIDERS: PCP Nurse Practitioner Family; Visit Provider Surgery
PROC: 0FT44ZZ Resection of Gallbladder, Percutaneous Endoscopic Approach (ICD-10-PCS; CPT 47562; principal; 2020-06-03 07:30)
DX: K80.10 Calculus of gallbladder with chronic cholecystitis without obstruction (principal); K82.8 Other specified diseases of gallbladder; E11.9 Type 2 diabetes mellitus without complications; I11.0 Hypertensive heart disease with heart failure; I50.9 Heart failure, unspecified; I48.91 Unspecified atrial fibrillation; I82.409 Acute embolism and thrombosis of unspecified deep veins of unspecified lower extremity; I49.9 Cardiac arrhythmia, unspecified; Z79.82 Long term (current) use of aspirin; Z79.4 Long term (current) use of insulin; Z79.899 Other long term (current) drug therapy; Z72.0 Tobacco use
CPT/HCPCS: 47562; 82962; 96374; J2405; J2710

== ENCOUNTER 2020-06-10 17:09 | Emergency (ER) | payer SELFPAY ==
[2020-06-10] VITALS (9 sets, daily range): BP systolic 113–199; BP diastolic 43–91; PULSE 46–66; RESP 16–20; TEMP 37; O2SAT 94–98; BMI 28.0
--- NOTE | 2020-06-10 17:40 | XR_ITS ---
PROCEDURE: XR CHEST PORTABLE CLINICAL HISTORY: pain COMPARISON: CT CT CHEST WO CON from 04/26/2020 CR XR CHEST PORTABLE from 04/27/2020 CR XR CHEST AP from 04/29/2020 CR XR CHEST PORTABLE from 04/29/[address] ABDOMEN PELVIS WO CON from 06/10/2020 FINDINGS: Prior median sternotomy. Borderline cardiomegaly without failure. Patchy density noted in both lower lobes. That on the left may be due to pericardial fat pad and on the right possibly due to an area of atelectasis. Upper lobes are clear. Blunting of the right CP angle suggesting small right effusion IMPRESSION: Borderline cardiomegaly with mild right basilar atelectasis with effusion and left-sided pericardial fat pad versus patchy infiltrate in the left lung base Dictated by: Rudy Gamez MD 06/10/2020 23:45 Rudy Gamez MD in [place] 06/10/2020 23:45
--- NOTE | 2020-06-10 18:03 | ECG_ITS ---
APPROVED REPORT Exam: Resting ECG HR:55 bpm ECG Measurements Heart Rate 55 AXES NE P 84 QRSd 102 QRS 82 QT 492 T 86 QTc 470 <Conclusion> Atrial flutter with variable AV block Low voltage QRS Septal infarct, age undetermined Possible Lateral infarct, age undetermined ST & T wave abnormality, consider inferior ischemia Abnormal ECG Electronically signed by : Alexys King, 06/11/2020 05:51:22
[2020-06-10 18:37] LABS: Basophils % 0.2 % (0.1-2.0); Eosinophils # 0.3 K/mm3 (0.0-0.4); Hematocrit 35.7 % (37.0-47.0); Hemoglobin 11.7 g/dL (12.2-16.2); Lymphocytes # 1.8 K/mm3 (0.7-4.5); Lymphocytes % 24.9 % (10-50); Mean Corpuscular HGB Conc 32.9 g/dL (31.8-35.4); Mean Corpuscular Hemoglobin 28.3 pg (27.0-31.2); Mean Platelet Volume 9.5 fl (7.4-10.4); Monocytes # 0.3 K/mm3 (0.1-1.0); Monocytes % 4.4 % (1.7-9.3); Neutrophils # 4.7 K/mm3 (1.8-7.8); Neutrophils % 66.5 % (37.0-80.0); Platelet Count 217 K/mm3 (142-424); Red Blood Count 4.15 M/mm3 (4.20-5.40); Red Cell Distribution Width 15.3 % (11.5-17.5)
[2020-06-10 18:41] LABS: Chloride 90 mmol/L (98-107); Potassium 5.1 mmoL/L (3.5-5.1); Sodium 126 mmol/L (136-145)
[2020-06-10 18:43] LABS: Amylase 60 U/L (30-110)
[2020-06-10 18:44] LABS: Alanine Aminotransferase 19 U/L (12-78); Albumin Level 3.4 g/dl (3.5-5.0); Albumin/Globulin Ratio 1.3 (1.1-1.8); Alkaline Phosphatase 49 U/L (38-126); Anion Gap 14.1 mEq/L (5-15); Aspartate Amino Transferase 24 U/L (14-36); Bilirubin,Total 0.3 mg/dl (0.2-1.3); Blood Urea Nitrogen 25 mg/dl (7-17); Calcium 9.2 mg/dl (8.4-10.2); Carbon Dioxide 27 mmol/L (22.0-30.0); Creatinine Clearance Estimated 46 mL/min (50-200); Estimated Glomerular Filt Rate 40 ml/min (>60); GFR (African American) 48 ML/MIN (>60); Globulin 2.7 g/dL (1.3-3.2); Glucose 348 mg/dl (74-100); Lipase 143 U/L (23-300); Total Protein,Serum 6.1 g/dl (6.3-8.2)
[2020-06-10 18:45] LABS: Lactic Acid 1.1 mmol/L (0.7-2.1)
--- NOTE | 2020-06-10 18:48 | CT_ITS ---
PROCEDURE: CT ABDOMEN PELVIS WO CON CLINICAL INDICATION: post op pain Postsurgical pain, recent cholecystectomy COMPARISON: CT CT ABDOMEN PELVIS WO CON from 04/26/2020 TECHNIQUE: Axial images obtained with sagittal and coronal reformats. All CT scans at the facility use one or more dose reduction, viz: automated exposure control, ma/kV adjustment per patient size (including targeted exams where dose is matched to indication, i.e. head), or iterative reconstruction technique. FINDINGS: LOWER THORAX: Atelectatic or fibrotic changes are present in the right middle lobe and right lower lobe posteriorly. There is trace right-sided effusion. Mitral valve annular calcification and coronary artery calcification noted. ABDOMEN & PELVIS: Status post cholecystectomy. Status post cholecystectomy with [address] No obvious abscess or biloma. There is diffuse subcutaneous edema. The spleen, adrenal glands, pancreas, and kidneys have an unremarkable appearance. No intestinal obstruction or free air. Senescent calcifications are present in the uterus. There is a small amount fluid in the pelvis no evidence of appendicitis or diverticulitis. There is mild thickening of the urinary bladder wall which could be due to nondistention versus cystitis. There are degenerative changes in the spine. IMPRESSION: 1. Status post cholecystectomy with drainage catheters in place. 2. No evidence of abscess or biloma. 3. Diffuse edema of the abdominal wall with small right effusion and small amount of fluid in the pelvis. Dictated by: Rudy Gamez MD 06/11/2020 08:56 Rudy Gamez MD in [place] 06/11/2020 08:56
[2020-06-10 19:32] LABS: Troponin I 0.01 ng/ml (0.00-0.034)
--- NOTE | 2020-06-10 20:30 | PC.NURSE ---
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
--- NOTE | 2020-06-10 20:31 | HMH.EDWEAK ---
ED Disposition Clinical Impression: Post-op pain Atrial flutter Qualifiers: Atrial flutter type: unspecified Qualified Code(s): I48.92 - Unspecified atrial flutter Disposition: Home, Self-Care Condition on Discharge: Good Instructions: Dizziness, Nonvertigo Additional Instructions: fluids and see dr kate on saturday and also card Prescriptions: Hydrocod/Acet 5/325 mg [[place] 5/325mg tablet] 1 tab PO Q6HP PRN #12 tab PRN Reason: Moderate To Severe Pain Prescription Printed Referrals: Wanda Jackson [Primary Care Provider] - - Critical Care Critical Care Time: No Attestation: On 06/10/20, the high probability of a clinically significant, sudden or life threatening deterioration of the following system(s) required my full and direct attention, intervention and personal management. The time I documented below is in addition to time spent performing reported procedures but includes the following listed in this critical care notation. Medical Decision Making - Medical Records Medical records reviewed: Yes: I reviewed the patient's medical records. - Per Inquiry Pt receiving controlled substance: No Vital Signs: 06/10/20 17:10 06/10/20 18:10 06/10/20 18:51 Temperature 98.6 F Temperature Source Oral Pulse Rate [Radial] 66 57 L 46 L Respiratory Rate 16 20 Blood Pressure [Right Arm] 147/69 H 199/91 H 123/53 L Blood Pressure Mean [Right Arm] 95 127 76 Blood Pressure Source [Right Arm] Automatic Cuff Blood Pressure Position [Right Arm] Sitting Sitting Sitting 02 Sat by Pulse Oximetry 98 98 98 Oxygen Delivery Method Room Air Room Air Room Air 06/10/20 19:27 06/10/20 20:06 06/10/20 20:19 Temperature Temperature Source Pulse Rate [Radial] 63 66 52 L Respiratory Rate 17 18 17 Blood Pressure [Right Arm] 123/56 L 128/57 L 128/57 L Blood Pressure Mean [Right Arm] 78 80 80 Blood Pressure Source [Right Arm] Automatic Cuff Automatic Cuff Blood Pressure Position [Right Arm] Sitting Sitting 02 Sat by Pulse Oximetry 97 97 96 Oxygen Delivery Method Room Air Room Air Room Air 06/10/20 21:23 Temperature Temperature Source Pulse Rate [Radial] 55 L Respiratory Rate 18 Blood Pressure [Right Arm] 120/43 L Blood Pressure Mean [Right Arm] 68 Blood Pressure Source [Right Arm] Blood Pressure Position [Right Arm] 02 Sat by Pulse Oximetry 94 L Oxygen Delivery Method - Lab Data Lab results reviewed: Yes: I reviewed the patient's lab results. Lab Results 06/10/20 18:30: WBC 7.0, RBC 4.15 L, Hgb 11.7 L, Hct 35.7 L, MCV 86.0, MCH 28.3, MCHC 32.9, RDW 15.3, Plt Count 217, MPV 9.5, Neut % (Auto) 66.5, Lymph % (Auto) 24.9, [place] % (Auto) 4.4, Eos % (Auto) 4.0, Baso % (Auto) 0.2, Neut # (Auto) 4.7, Lymph # (Auto) 1.8, [place] # (Auto) 0.3, Eos # (Auto) 0.3, Baso # (Auto) 0.0 06/10/20 18:30: Sodium 126 L, Potassium 5.1, Chloride 90 L, Carbon Dioxide 27, Anion Gap 14.1, BUN 25 H, Creatinine 1.30 H, Estimated Creat Clear 46, Estimated GFR 40 L, Est GFR ( Amer) 48 L, Glucose 348 H, Calcium 9.2, Total Bilirubin 0.3, AST 24, ALT 19, Alkaline Phosphatase 49, Total Protein 6.1 L, Albumin 3.4 L, Globulin 2.7, Albumin/Globulin Ratio 1.3, Amylase 60 06/10/20 18:30: Lactate 1.1 06/10/20 18:30: Lipase 143 06/10/20 18:30: Troponin I 0.01 Result diagrams: 06/10/20 18:30 06/10/20 18:30 Orders (Tests/Meds): ED MEDICATIONS Generic Name Dose Route Start Last Admin Trade Name Freq PRN Reason Stop Dose Admin Sodium Chloride 1,000 mls @ 999 mls/hr 06/10/20 19:00 06/10/20 18:55 Sod Chlor 0.9% 1000ml Bag IV 06/10/20 20:00 999 mls/hr .Q1H1M LENNIE Administration Discontinued Medications Generic Name Dose Route Start Last Admin Trade Name Freq PRN Reason Stop Dose Admin Morphine Sulfate 4 mg 06/10/20 18:55 06/10/20 18:56 Morphine 4mg/Ml Syringe IV 06/10/20 18:56 4 mg ONCE ONE Administration Ondansetron HCl 4 mg 06/10/20 18:49 06/10/20 18:55 Zofran 4mg/2ml Vial IV 06/10/20 1
== END 2020-06-10 22:00 | disposition home or self-care (01) ==
PROVIDERS: Emergency Provider Emergency Medicine; PCP Nurse Practitioner Family
DX: G89.18 Other acute postprocedural pain (principal); R42 Dizziness and giddiness; I95.9 Hypotension, unspecified; E11.65 Type 2 diabetes mellitus with hyperglycemia; Z79.4 Long term (current) use of insulin; E78.5 Hyperlipidemia, unspecified; Z79.899 Other long term (current) drug therapy; I48.92 Unspecified atrial flutter
CPT/HCPCS: 71045; 74176; 80053; 82150; 83605; 83690; 84484; 85025; 87040; 93005; 96365; 96375; 99284; J2405

== ENCOUNTER → 2020-06-20 08:57 | Outpatient (CLI) | payer SELFPAY ==
[2020-06-20 14:17] LABS: Anion Gap 14.2 mEq/L (5-15); Blood Urea Nitrogen 27 mg/dl (7-17); Calcium 8.8 mg/dl (8.4-10.2); Carbon Dioxide 33 mmol/L (22.0-30.0); Chloride 88 mmol/L (98-107); Estimated Glomerular Filt Rate 36 ml/min (>60); GFR (African American) 44 ML/MIN (>60); Glucose 133 mg/dl (74-100); Potassium 4.2 mmoL/L (3.5-5.1); Sodium 131 mmol/L (136-145)
== END ==
PROVIDERS: Visit Provider Urology
DX: E11.9 Type 2 diabetes mellitus without complications (principal); E78.2 Mixed hyperlipidemia; I11.9 Hypertensive heart disease without heart failure; I25.10 Atherosclerotic heart disease of native coronary artery without angina pectoris; I48.0 Paroxysmal atrial fibrillation; R06.02 Shortness of breath; Z79.4 Long term (current) use of insulin
CPT/HCPCS: 36415; 80048

== ENCOUNTER → 2020-07-08 13:06 | Outpatient (CLI) | payer SELFPAY ==
--- NOTE | 2020-07-08 13:14 | XR_ITS ---
PROCEDURE: XR CHEST 2V CLINICAL HISTORY: DYSPNEA COMPARISON: CT CT CHEST WO CON from 04/26/2020 CR XR CHEST AP from 04/29/2020 CR XR CHEST PORTABLE from 04/29/2020 CR XR CHEST PORTABLE from 06/10/2020 FINDINGS: Borderline emphysematous changes are seen. A subtle ill-defined opacities seen partially silhouetting the left heart border probably due to a minimal infiltrate or atelectasis in the lingula. Otherwise the left lung field is clear. The right lung field is clear except for minimal right basilar atelectasis. There are sternal wire sutures, cardiac size is borderline however the pulmonary vascularity is normal. IMPRESSION: Lingular infiltrate versus atelectasis along with borderline COPD Dictated by: Dr. Wai Joaquin MD 07/08/2020 13:42 Dr. Wai Joaquin MD in [place] 07/08/2020 13:42
== END ==
PROVIDERS: PCP Nurse Practitioner Family; Visit Provider Nurse Practitioner Family
DX: R06.00 Dyspnea, unspecified (principal)
CPT/HCPCS: 71046

== ENCOUNTER 2020-10-22 20:45 | Inpatient (IN) | payer SELFPAY ==
[2020-10-22 20:49] VITALS: BP 120/58; PULSE 103; RESP 24; TEMP 36.6; O2SAT 100; BMI 60.0
[2020-10-22 20:54] VITALS: BP 123/58; BP 126/85; BP 139/58; PULSE 100; PULSE 103; PULSE 105
--- NOTE | 2020-10-22 20:55 | XR_ITS ---
PROCEDURE: XR CHEST PORTABLE CLINICAL HISTORY: CHEST TIGHTNESS COMPARISON: CT CT CHEST WO CON from 04/26/2020 CR XR CHEST AP from 04/29/2020 CR XR CHEST PORTABLE from 06/10/2020 CR XR CHEST 2V from 07/08/2020 FINDINGS: This is a somewhat poor inspiration. There is minimal bilateral basilar atelectasis but I see no definite pneumonic infiltrate. There is slight lateral elevation right hemidiaphragm and a small right pleural effusion cannot be excluded. Cardiac size is normal, and pulmonary vascularity is normal and there are sternal wire sutures noted. IMPRESSION: Mild bilateral basilar atelectasis, question tiny right pleural effusion Dictated by: Dr. Wai Joaquin MD 10/23/2020 08:06 Dr. Wai Joaquin MD in [place] 10/23/2020 08:06
--- NOTE | 2020-10-22 20:55 | ECG_ITS ---
APPROVED REPORT Exam: Resting ECG HR:101 bpm ECG Measurements Heart Rate 101 AXES [place] 196 P 56 QRSd 110 QRS 90 QT 392 T 119 QTc 508 Conclusion Sinus tachycardia RBBB Abnormal ECG Electronically signed by : Alexys King, 10/23/2020 13:34:48
--- NOTE | 2020-10-22 21:00 | HMH.EDCP ---
ED Disposition Clinical Impression: Upper GI bleed, Anemia due to blood loss, acute, LOI (acute kidney injury) Uncontrolled diabetes mellitus Qualifiers: Diabetes mellitus type: type 2 Glycemic state: with hyperglycemia Qualified Code(s): E11.65 - Type 2 diabetes mellitus with hyperglycemia Disposition: Xfer Short-Term Hosp Condition on Discharge: Serious Referrals: Wanda Jackson [Primary Care Provider] - - Critical Care Critical Care Time: Yes Attestation: On 10/22/20, the high probability of a clinically significant, sudden or life threatening deterioration of the following system(s) required my full and direct attention, intervention and personal management. The time I documented below is in addition to time spent performing reported procedures but includes the following listed in this critical care notation. Total Critical Care Time: 30 Vital system(s) involved:: Circulatory Failure My critical care processes included: Assessment & monitoring of V/S, Initial and Re-exams, Data Review/Interpretation, Coordinating Care, Medication Orders and management Medical Decision Making - Medical Records Medical records reviewed: Yes: I reviewed the patient's medical records. - Per Inquiry Pt receiving controlled substance: No Vital Signs: 10/22/20 20:49 10/22/20 20:54 10/22/20 21:30 Temperature 97.8 F Temperature Source Oral Pulse Rate [Orthostatic Lying Left Radial] 100 H Pulse Rate [Orthostatic Sitting Left Radial] 103 H Pulse Rate [Orthostatic Standing Left Radial] 105 H Pulse Rate [Right Brachial] 103 H 101 H Respiratory Rate 24 22 Blood Pressure [Orthostatic Lying Right Arm] 123/58 L Blood Pressure [Orthostatic Sitting Right Arm] 139/58 L Blood Pressure [Orthostatic Standing Right Arm] 126/85 Blood Pressure [Right Arm] 120/58 L 125/79 Blood Pressure Mean [Right Arm] 78 94 Blood Pressure Source [Right Arm] Automatic Cuff Automatic Cuff Blood Pressure Position [Right Arm] Sitting Sitting 02 Sat by Pulse Oximetry 100 98 Oxygen Delivery Method Room Air Room Air - Lab Data Lab results reviewed: Yes: I reviewed the patient's lab results. Lab Results 10/22/20 21:00: WBC 5.1, RBC 2.18 L, Hgb 6.1 L*, Hct 19.6 L*, MCV 89.7, MCH 27.9, MCHC 31.1 L, RDW 16.6, Plt Count 227, MPV 8.8, Neut % (Auto) 63.3, Lymph % (Auto) 31.3, [place] % (Auto) 4.0, Eos % (Auto) 1.2, Baso % (Auto) 0.2, Neut # (Auto) 3.2, Lymph # (Auto) 1.6, [place] # (Auto) 0.2, Eos # (Auto) 0.1, Baso # (Auto) 0.0 10/22/20 21:00: Sodium 123 L, Potassium 4.9, Chloride 89 L, Carbon Dioxide 25, Anion Gap 13.9, BUN 35 H, Creatinine 1.30 H, Estimated Creat Clear 37, Estimated GFR 40 L, Est GFR ( Amer) 48 L, Glucose 664 H*, Calcium 9.0, Total Bilirubin 0.3, Direct Bilirubin 0.2, Conjugated Bilirubin 0.0, Indirect Bilirubin 0.1, Unconjugated Bilirubin 0.1, AST 28, ALT 25, Alkaline Phosphatase 61, Troponin I < 0.01, NT-Pro-B Natriuret Pep 1260 H, Total Protein 6.7, Albumin 3.9, Amylase 68, Lipase 366 H 10/22/20 21:00: SARS-CoV-2 IgG Ab (Rapid) Positive A, SARS-CoV-2 IgM Ab (Rapid) Negative 10/22/20 21:00: D-Dimer 0.69 10/22/20 21:40: Blood Type A Positive, Crossmatch (AHG) See Detail 10/22/20 21:40: Stool Occult Blood Positive A 10/22/20 21:41: Blood Type Confirm A Positive Result diagrams: 10/22/20 21:00 10/22/20 21:00 Orders (Tests/Meds): ED MEDICATIONS Generic Name Dose Route Start Last Admin Trade Name Freq PRN Reason Stop Dose Admin Pantoprazole Sodium 80 mg/ 100 mls @ 100 mls/hr 10/22/20 21:28 10/22/20 21:51 Sodium Chloride IV 10/22/20 22:27 100 mls/hr ONCE ONE Administration Pantoprazole Sodium 80 mg/ 100 mls @ 10 mls/hr 10/22/20 22:29 10/22/20 21:48 Sodium Chloride IV 10/25/20 22:28 10 mls/hr .Q10H LENNIE Administration Lactated Ringer's 1,000 mls @ 999 mls/hr 10/22/20 21:45 10/22/20 21:56 Lactated Ringer's 1000 Ml Bag IV 10/22/20 22:45 999 mls/hr .Q1H1M LENNIE Administration Discontinued Medic
[2020-10-22 21:22] LABS: Basophils % 0.2 % (0.1-2.0); Eosinophils # 0.1 K/mm3 (0.0-0.4); Eosinophils % 1.2 % (0.1-12.0); Lymphocytes # 1.6 K/mm3 (0.7-4.5); Lymphocytes % 31.3 % (10-50); Mean Corpuscular HGB Conc 31.1 g/dL (31.8-35.4); Mean Corpuscular Hemoglobin 27.9 pg (27.0-31.2); Mean Corpuscular Volume 89.7 fl (81-99); Mean Platelet Volume 8.8 fl (7.4-10.4); Monocytes # 0.2 K/mm3 (0.1-1.0); Neutrophils # 3.2 K/mm3 (1.8-7.8); Neutrophils % 63.3 % (37.0-80.0); Platelet Count 227 K/mm3 (142-424); Red Blood Count 2.18 M/mm3 (4.20-5.40); Red Cell Distribution Width 16.6 % (11.5-17.5); White Blood Count 5.1 K/mm3 (4.8-10.8)
[2020-10-22 21:23] LABS: Hematocrit 19.6 % (37.0-47.0); Hemoglobin 6.1 g/dL (12.2-16.2)
[2020-10-22 21:24] LABS: Alanine Aminotransferase 25 U/L (12-78); Albumin Level 3.9 g/dl (3.5-5.0); Alkaline Phosphatase 61 U/L (38-126); Amylase 68 U/L (30-110); Anion Gap 13.9 mEq/L (5-15); Aspartate Amino Transferase 28 U/L (14-36); Bilirubin,Direct 0.2 mg/dl (0.0-0.4); Bilirubin,Indirect 0.1 mg/dL (0.0-0.9); Bilirubin,Total 0.3 mg/dl (0.2-1.3); Bilirubin,Unconjugated 0.1 mg/dL (0.0-1.1); Blood Urea Nitrogen 35 mg/dl (7-17); Carbon Dioxide 25 mmol/L (22.0-30.0); Chloride 89 mmol/L (98-107); Creatinine Clearance Estimated 37 mL/min (50-200); Estimated Glomerular Filt Rate 40 ml/min (>60); GFR (African American) 48 ML/MIN (>60); Lipase 366 U/L (23-300); Potassium 4.9 mmoL/L (3.5-5.1); Sodium 123 mmol/L (136-145); Total Protein,Serum 6.7 g/dl (6.3-8.2)
[2020-10-22 21:28] LABS: D-Dimer 0.69 ug/mL (0.15-8.0)
[2020-10-22 21:30] VITALS: BP 125/79; PULSE 101; RESP 22; O2SAT 98
[2020-10-22 21:31] LABS: Glucose 664 mg/dl (74-100)
[2020-10-22 21:37] LABS: NT Pro Brain Natriuretic Pep. 1260 pg/mL (0-450)
--- NOTE | 2020-10-22 21:43 | PC.NURSE ---
CALL PLACED TO [facility]. DR NICOLAS ON FOR ED. DIVERSION STATUS. NOT ACCEPTING TRANSFERS AT THIS TIME
--- NOTE | 2020-10-22 21:46 | PC.NURSE ---
CALL PLACED TO [facility]. SPOKE WITH MIESHA LU. UNDERSTANDING THAT THEY HAVE A WAIT LIST. STATES TO CALL [facility]
--- NOTE | 2020-10-22 21:48 | PC.NURSE ---
CALL PLACED TO [facility]. SPOKE WITH CONNOR. STATES SHE WILL HAVE HOSPITALIST DR HAYNES RETURN CALL.
[2020-10-22 21:51] LABS: Occult Blood,Stool Positive (Negative)
[2020-10-22 21:51] LABS: Troponin I < 0.01 ng/ml (0.00-0.034)
[2020-10-22 21:53] LABS: Coronavirus 19 IgG Antibody Positive (Negative); Coronavirus 19 IgM Antibody Negative (Negative)
--- NOTE | 2020-10-22 21:55 | PC.NURSE ---
CALL RETURNED BY DR CANTRELL. REEVES AT THIS TIME.
--- NOTE | 2020-10-22 21:59 | PC.NURSE ---
ACCEPT BY DR HAYNES.
[2020-10-22 22:00] VITALS: BP 158/61; PULSE 105; RESP 22; O2SAT 99
[2020-10-22 22:30] VITALS: BP 151/62; PULSE 101; RESP 16; O2SAT 98
--- NOTE | 2020-10-22 22:38 | PC.NURSE ---
CALL PLACED TO [facility], SPOKE WITH CONNOR: NO BEDS AVAILABLE AT THIS TIME. SUGGESTED THAT THEY MAY HAVE SOMETHING IN THE MORNING HOURS
--- NOTE | 2020-10-22 22:42 | PC.NURSE ---
PAGED DR HILARIO
--- NOTE | 2020-10-22 22:53 | PC.NURSE ---
GROUND EQUIPMENT MECHANIC HERE AT BEDSIDE DISCUSSING VISITOR POLICY WITH . WANTS TO HAVE GROUND EQUIPMENT MECHANIC CALL MANAGEMENT FOR SPECIAL CONSIDERATION OR WANTS TO TAKE PATIENT AND GO HOME. DESMOND EXPLAINED TO PATIENT DIRE NEED FOR STAYING AT HOSPITAL SECONDARY TO STATUS.
[2020-10-22 23:00] VITALS: BP 147/64; PULSE 101; RESP 14; O2SAT 98
[2020-10-22 23:21] LABS: Basophils % 0.4 % (0.1-2.0); Eosinophils # 0.1 K/mm3 (0.0-0.4); Eosinophils % 1.4 % (0.1-12.0); Lymphocytes # 1.1 K/mm3 (0.7-4.5); Lymphocytes % 22.9 % (10-50); Mean Corpuscular HGB Conc 31.9 g/dL (31.8-35.4); Mean Corpuscular Hemoglobin 28.9 pg (27.0-31.2); Mean Corpuscular Volume 90.6 fl (81-99); Mean Platelet Volume 8.3 fl (7.4-10.4); Monocytes # 0.2 K/mm3 (0.1-1.0); Neutrophils # 3.3 K/mm3 (1.8-7.8); Neutrophils % 70.4 % (37.0-80.0); Platelet Count 220 K/mm3 (142-424); Red Blood Count 2.08 M/mm3 (4.20-5.40); Red Cell Distribution Width 16.7 % (11.5-17.5); White Blood Count 4.7 K/mm3 (4.8-10.8)
[2020-10-22 23:22] LABS: Hematocrit 18.9 % (37.0-47.0)
--- NOTE | 2020-10-22 23:26 | PC.NURSE ---
PT H/H REPEAT GIVEN TO .
[2020-10-22 23:31] LABS: Anion Gap 14.5 mEq/L (5-15); Blood Urea Nitrogen 37 mg/dl (7-17); Calcium 8.8 mg/dl (8.4-10.2); Carbon Dioxide 24 mmol/L (22.0-30.0); Chloride 89 mmol/L (98-107); Creatinine Clearance Estimated 37 mL/min (50-200); Estimated Glomerular Filt Rate 40 ml/min (>60); GFR (African American) 48 ML/MIN (>60); Potassium 4.5 mmoL/L (3.5-5.1); Sodium 123 mmol/L (136-145)
[2020-10-22 23:40] LABS: Glucose 643 mg/dl (74-100)
--- NOTE | 2020-10-22 23:42 | PC.NURSE ---
was notified per lab of bs [id number] . er notified
[2020-10-22 23:49] LABS: Troponin I < 0.01 ng/ml (0.00-0.034)
--- NOTE | 2020-10-22 23:55 | PC.NURSE ---
PATIENT IS TO RECEIVE 2 UNITS OF BLOOD AND A POST TRANSFUSION H/H AFTER ADMIT TO MED/SURG
[2020-10-23] VITALS (59 sets, daily range): BP systolic 87–170; BP diastolic 47–86; PULSE 66–107; RESP 14–20; TEMP 35.9–36.7; O2SAT 96–100; BMI 27.5; BMI 27.3
--- NOTE | 2020-10-23 00:06 | PC.NURSE ---
pt arrived from the er via stretcher
--- NOTE | 2020-10-23 01:24 | PC.NURSE ---
Spoke with MD Guillory. Pt has c/o cramping to Bilateral legs and having difficulty lying down in bed since arrival to floor. Pt has also c/o nausea after lying down in bed. New orders received. Ativan 1 mg IV one time now. Phenergan 12.5 mg IV one time now. Give 4 units of blood instead of 2 units. Give 20 mg Lasix IV between each transfusion. Lab notified of additional blood. 1st unit of blood transfusing at this time. Will continue to monitor.
[2020-10-23 04:22] LABS: Troponin I < 0.01 ng/ml (0.00-0.034)
--- NOTE | 2020-10-23 04:48 | PC.NURSE ---
Spoke with Marley at [facility]. No beds at this time. Requested to have face sheet. Faxed to [phone].
--- NOTE | 2020-10-23 05:46 | PC.NURSE ---
Spoke with Marley from [place]. No bed available at this time.
--- NOTE | 2020-10-23 06:16 | PC.NURSE ---
Unit 2 of blood is currently transfusing at this time. Pt is resting in bed and tolerating well. VSS. Will continue to monitor.
[2020-10-23 07:09] LABS: POC Glucose,Bedside 387 (70-110)
--- NOTE | 2020-10-23 08:18 | PC.NURSE ---
Unit 2 blood transfused. Lasix 20 mg IV administered per MD order. Pt states that she is feeling better.
[2020-10-23 08:49] LABS: Basophils % 0.7 % (0.1-2.0); Eosinophils # 0.1 K/mm3 (0.0-0.4); Eosinophils % 2.1 % (0.1-12.0); Hematocrit 27.6 % (37.0-47.0); Lymphocytes # 1.7 K/mm3 (0.7-4.5); Lymphocytes % 32.3 % (10-50); Mean Corpuscular HGB Conc 33.4 g/dL (31.8-35.4); Mean Corpuscular Hemoglobin 28.4 pg (27.0-31.2); Monocytes # 0.3 K/mm3 (0.1-1.0); Monocytes % 5.7 % (1.7-9.3); Neutrophils # 3.1 K/mm3 (1.8-7.8); Neutrophils % 59.2 % (37.0-80.0); Platelet Count 224 K/mm3 (142-424); Red Blood Count 3.25 M/mm3 (4.20-5.40); Red Cell Distribution Width 15.7 % (11.5-17.5); White Blood Count 5.1 K/mm3 (4.8-10.8)
[2020-10-23 08:55] LABS: Anion Gap 12.9 mEq/L (5-15); Blood Urea Nitrogen 36 mg/dl (7-17); Calcium 9.3 mg/dl (8.4-10.2); Carbon Dioxide 31 mmol/L (22.0-30.0); Chloride 91 mmol/L (98-107); Creatinine Clearance Estimated 47 mL/min (50-200); Estimated Glomerular Filt Rate 40 ml/min (>60); GFR (African American) 48 ML/MIN (>60); Glucose 286 mg/dl (74-100); Potassium 3.9 mmoL/L (3.5-5.1); Sodium 131 mmol/L (136-145)
[2020-10-23 09:11] LABS: Hemoglobin 9.2 g/dL (12.2-16.2)
--- NOTE | 2020-10-23 09:42 | HMH.PHAVTE ---
[facility] Pharmacy VTE Monitoring - Patient Demographics Admission date: 10/22/20 Report Date: 10/23/20 Time: 09:42 Allergies/Adverse Reactions: Patient Allergies Cbtvhgx-Ocr-Zfz Reductase Inhibitor Allergy (Verified 06/29/20 10:41) Height: 1.73 m Weight: 81.732 kg Patient Problems: Current Active Problems (Last Updated 07/06/19 @ 11:53 by Nayeli Alves RN) Acute kidney injury (Acute) Upper GI bleed (Acute) Anemia due to blood loss, acute (Acute) Uncontrolled diabetes mellitus (Acute) - VTE Risk Labs: VTE Related Lab Results Hgb 9.2 g/dL (12.2-16.2) L D 10/23/20 08:26 Hct 27.6 % (37.0-47.0) L 10/23/20 08:26 Plt Count 224 K/mm3 (142-424) 10/23/20 08:26 BUN 36 mg/dl (7-17) H 10/23/20 08:26 Creatinine 1.30 mg/dl (0.52-1.04) H 10/23/20 08:26 Estimated Creat Clear 47 mL/min (50-200) 10/23/20 08:26 VTE Risk Level: Moderate Risk - Prophylaxis VTE Prophylaxis Ordered?: Yes Types of VTE Prophylaxis: TEDS Knee High Location of Applied Device: Bilateral Lower Extremeties
--- NOTE | 2020-10-23 09:42 | HMH.PHAINT ---
MEDICATION RECONCILIATION COMPLETED ON PATIENT USING EXTERNAL FILL HISTORY FROM PHARMACY. -ABDON GALARZA, IRWIND
--- NOTE | 2020-10-23 09:46 | HMH.GSCON ---
*Admission Date: 10/22/20 *Reason for consult:: Gastrointestinal hemorrhage *History of present illness: This is a 75-year-old female with a complicated past medical history including congestive heart failure, atrial fibrillation (on Xarelto), and uncontrolled diabetes who presented to the emergency department overnight with chest pain, dizziness, and increasing weakness. She did note what she describes as bloody stools for a few weeks . Evaluation in the emergency department revealed significant anemia. Attempts to transfer to tertiary care center were made secondary to her history of significant CHF and also concerns for possible need for massive transfusion . She was admitted to this facility secondary to bed availability. Concerns for massive transfusion needs have been somewhat lessened as she has remained hemodynamically stable. She received 2 units of packed red blood cells and states that she feels better right now . Of note, she did undergo laparoscopic cholecystectomy for severe cholecystitis at this facility in June 2020. Forwarded from emergency department evaluation: - General Chief Complaint: Chest Pain Stated Complaint: SOB Time Seen by Provider: 10/22/20 21:00 Mode of Arrival: EMS Limitations: No Limitations Description of Symptoms (Recalled from ER Triage Doc. by RN): PT PRESENTS WITH COMPLAINTS OF SOA, CHEST TIGHTNESS AND DIZZINESS/ACCOMPANIED BY NAUSEA WITH POSITION CHANGE, POOR PALLOR. WAS EVALUATED EARLIER THIS DATE BY EMS AND REFUSED TRANSPORT, HOWEVER IMPROVEMENT HAS NOT OCCURRED THROUGHOUT EVENING. HX OF AFIB, CARDIAC DISEASE - History of Present Illness HPI narrative: This is a 75-year-old female with a history of congestive heart failure, atrial fibrillation status post ablation, atherosclerotic disease presenting with 1 week history of worsening chest pain described as a tightness radiating into her throat with associated lightheadedness provoked by standing. She also had some shortness of breath today which precipitated her arrival to the ED. states she noticed bloody stools for the last 2 weeks but was not concerned and did not speak to a doctor. Patient is anticoagulated on Xarelto for atrial fibrillation. No fever, chills, cough, vomiting, abdominal pain, urinary symptoms, diarrhea, constipation. She does have some nausea. Review of Systems - Constitutional Denies chills - Eyes Denies change in vision - ENT Denies difficulty swallowing - *Cardiovascular Reports chest pain - *Respiratory Denies cough - *Gastrointestinal Reports nausea, Reports other, Denies difficulty swallowing, Denies vomiting blood Comments: blood in stool for 2 weeks - *Genitourinary Denies blood in urine - *Musculoskeletal Denies deformity - Integumentary/Breasts Denies new lesions - *Neurologic Denies confusion - Psychiatric Denies anxiety - Endocrine Denies cold intolerance - Hematologic/Lymphatic Denies easy bruising - Allergic/Immunologic Denies wheezing HMH History Medical History: Reports:: Arrhythmia, Atherosclerotic Heart Disease, Atrial Fibrillation, Congestive Heart Failure, Congenital Heart Disease, Deep Vein Thrombosis, Diabetes Mellitus Type 2, Hyperlipidemia, Hypertension Denies:: Cancer, Diabetes Mellitus Type 1, Internal Pacemaker, MRSA, Seizures *Have you ever received a pneumonia vaccine?: No *Have you received a flu vaccine this season?: No Other Medical History: Reports: Anemia, Other. Denies: Blood Transfusion Reaction Laterality Cases: Right: Other Other Surgeries: Yes: CABG, Cardiac Catheterization, Open Heart Surgery, Other (ASD repair 1989). No: Pacemaker Amputation: No Fractures: Yes ((R) ankle, (R) wrist) - *Social History Smoking Status: Never smoker Alcohol Intake: never Substance Use Type: denies use *Occupational Status:: unemployed Housing: house Household Members: other *Travel in the last 8 weeks: None Family Hx:: Anemia, Coronary Art
[2020-10-23 12:57] LABS: POC Glucose,Bedside 159 (70-110)
--- NOTE | 2020-10-23 15:06 | PC.NURSE ---
Pt down for egd at this time, also just spoke with [facility] and there are no beds available still at this time.
--- NOTE | 2020-10-23 15:20 | P.PCN_ITS ---
- Procedure: Date: 10/23/20 Patient Date of :: 1945 Procedure Performed:: Esophagogastroduodenoscopy with biopsy Indications:: Gastrointestinal hemorrhage Performing Provider:: Huan Cruz MD Referring Provider:: Dr. Guillory Sedation:: Monitored anesthesia care Procedure:: After informed consent was obtained the patient was taken to the endoscopy suite. Sedation ensued after the patient was transferred to the left lateral decubitus position. Pulse, blood pressure, and oxygen saturation were monitored throughout the procedure. The endoscope was advanced beyond the duodenal bulb. Retroflexion within the gastric lumen was accomplished. The gastroscope was carefully removed and the patient was transferred to recovery in stable conditio n. Please see findings and specimens below for detail. Findings:: Gastroesophageal junction at 44 cm Mild inflammatory changes at gastroesophageal junction Very mild streaking gastritis No sign of ulceration no active hemorrhage No sign of recent hemorrhage Specimens:: Antral biopsy Recommendations:: Serial hemoglobin/hematocrit Likely colonoscopy in near future. I have discussed findings with the primary care provider (Dr. Guillory) who plans to ask Dr. Zimmerman to perform a colonoscopy tomorrow. Complications:: No immediate Estimated blood obtained (mL): 1
[2020-10-23 15:53] LABS: Hematocrit 29.2 % (37.0-47.0); Hemoglobin 9.8 g/dL (12.2-16.2)
--- NOTE | 2020-10-23 17:18 | HMH.HP ---
*Admission Date: 10/22/20 *History of present illness: This is a 75-year-old female with a history of congestive heart failure, atrial fibrillation status post ablation, atherosclerotic disease presenting with 1 week history of worsening chest pain described as a tightness radiating into her throat with associated lightheadedness provoked by standing. She also had some shortness of breath today which precipitated her arrival to the ED. states she noticed bloody stools for the last 2 weeks but was not concerned and did not speak to a doctor. Patient is anticoagulated on Xarelto for atrial fibrillation. No fever, chills, cough, vomiting, abdominal pain, urinary symptoms, diarrhea, constipation. She does have some nausea. Dr. Cruz performed EGD this morning. Gastroesophageal junction at 44 cm Mild inflammatory changes at gastroesophageal junction Very mild streaking gastritis No sign of ulceration no active hemorrhage No sign of recent hemorrhage Pt being transfused total of 4 units prbc Plan on GI eval w/colonoscopy tomorrow, with prep beginning tonight. No further bleeding noted since arrival. No chest pain. [facility] History Medical History: Reports:: Arrhythmia, Atherosclerotic Heart Disease, Atrial Fibrillation, Congestive Heart Failure, Congenital Heart Disease, Deep Vein Thrombosis, Diabetes Mellitus Type 2, Hyperlipidemia, Hypertension Denies:: Cancer, Diabetes Mellitus Type 1, Internal Pacemaker, MRSA, Seizures *Have you ever received a pneumonia vaccine?: No *Have you received a flu vaccine this season?: No Other Medical History: Reports: Anemia, Other. Denies: Blood Transfusion Reaction Laterality Cases: Right: Other Other Surgeries: Yes: CABG, Cardiac Catheterization, Open Heart Surgery, Other (ASD repair 1989). No: Pacemaker Amputation: No Fractures: Yes ((R) ankle, (R) wrist) - *Social History Smoking Status: Never smoker Alcohol Intake: never Substance Use Type: denies use *Occupational Status:: unemployed Housing: house Household Members: other *Travel in the last 8 weeks: None Family Hx:: Anemia, Coronary Artery Disease, Diabetes, Heart Attack, Hyperlipidemia, Hypertension, Kidney Disease Review of Systems - Constitutional Reports anorexia, Reports fatigue, Reports lack of energy - Eyes Denies change in vision - ENT Denies abnormal hearing, Denies hearing loss - *Cardiovascular Reports chest pain, Reports shortness of breath with activity - *Respiratory Denies chest congestion - *Gastrointestinal Reports bloating, Reports change in stools, Reports black, tarry stools, Reports nausea - *Genitourinary Denies painful urination - *Musculoskeletal Reports decreased muscle mass, Reports muscle weakness - Integumentary/Breasts Denies yellowing of the skin - *Neurologic Denies behavioral changes, Denies confusion - Psychiatric Denies behavioral changes - Endocrine Denies increased thirst, Denies increased hunger - Hematologic/Lymphatic Reports easy bleeding - Allergic/Immunologic Denies hives Meds Home Medications Medication Instructions Recorded Confirmed Type aspirin 81 mg tablet,delayed 81 mg PO DAILY tab 07/01/18 10/23/20 History release Rivaroxaban [Xarelto 20mg Tablet*] 20 mg PO DAILY 02/13/20 10/23/20 History Insulin Glargine,Hum.rec.anlog 50 unit SQ HS #0 ml 05/01/20 10/22/20 Rx [Lantus Solostar 100 Units/mL 3mL flexpen] Sennosides/Docusate Sodium 1 each PO DAILY PRN 30 Days #30 tab 05/01/20 10/22/20 Rx [Docusate Sodium-Sennosides Tab] furosemide 20 mg tablet 20 mg PO BID #60 tab 06/14/20 10/23/20 Rx lisinopriL [Lisinopril 20mg Tab] 20 mg PO DAILY 10/23/20 10/23/20 History Allergies Allergy/AdvReac Type Severity Reaction Status Date / Time Udhlfal-Usw-Yvh Reductase Allergy Verified 06/29/20 10:41 Inhibitor Exam Vital signs and Labs for Last 24 Hours: Temp Pulse Resp BP Pulse Ox 97.6 F 78 14 116/54 L 98 10/23/20 15:57
[2020-10-23 17:22] LABS: POC Glucose,Bedside 128 (70-110)
--- NOTE | 2020-10-23 18:58 | PC.NURSE ---
Dr. Guillory stated pt was not going to be transferred at this time to [facility] and pt and would like stay here. Pt has had 3 units of blood and is pallor. H&H has improved. Has done well since EGD, and plans for patel consult tomorrow. Spoke with Jakob in pharm and he stated bowel prep was ordered and could be started any time tonight. He stated to check the outpatient infusion for med. Will make RN taking over pt aware of the above. CB in reach and VSS.
--- NOTE | 2020-10-23 19:58 | PC.NURSE ---
Have paged home [facility] lpn pharmacist x 2 in re to no bowel prep being available, checked omni search with Trey Rojas RN.
[2020-10-23 21:18] LABS: POC Glucose,Bedside 317 (70-110)
[2020-10-23 23:52] LABS: Hematocrit 33.7 % (37.0-47.0)
[2020-10-23 23:54] LABS: Hemoglobin 11.4 g/dL (12.2-16.2)
[2020-10-24] VITALS (12 sets, daily range): BP systolic 101–173; BP diastolic 48–78; PULSE 65–114; RESP 12–20; TEMP 36.1–36.8; O2SAT 96–100; BMI 27.1; BMI 27.0
--- NOTE | 2020-10-24 00:05 | PC.NURSE ---
VERBAL ORDER RECEIVED FROM DR. HILARIO TO DC TIE TAPE MACHINE OPERATOR, UPDATED ON PT'S POST TRANSFUSION H&H. NO FURTHER ORDERS AT THIS TIME
--- NOTE | 2020-10-24 04:09 | PC.NURSE ---
PT HAS RESTED WELL THIS SHIFT, TOLERATED BLOOD TRANSFUSION. POST H&H IMPROVED, VITAL SIGNS STABLE. ABD REMAINS DISTENDED, UNCHANGED. BOWEL SOUNDS ACTIVE X 4 QUADS. BOWEL PREP IN PROCESS, PT TOLERATING WELL. LUNGS CTAB. NO EDEMA. PT A&O X 4. CALL LIGHT WITHIN REACH.
[2020-10-24 06:06] LABS: POC Glucose,Bedside 138 (70-110)
--- NOTE | 2020-10-24 07:06 | HMH.GSPN ---
Subjective Patient reports: no new complaints Progress Note: A&P (1) Anemia due to blood loss, acute Status: Acute Assessment and plan: No obvious sign of active or recent hemorrhage noted on esophagogastroduodenoscopy yesterday. No ulceration or areas of severe gastritis. Dr. Zimmerman has been consulted for colonoscopy today. 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 Exam Vital signs and Labs for Last 24 Hours: Temp Pulse Resp BP Pulse Ox 97.8 F 92 H 18 149/76 H 98 10/24/20 04:00 10/24/20 04:00 10/24/20 04:00 10/24/20 04:00 10/24/20 04:00 Laboratory Results - last 24 hr 10/22/20 21:40: Blood Type A Positive, Antibody Screen Negative, Crossmatch (AHG) See Detail 10/23/20 06:19: POC Glucose 387 H* 10/23/20 08:26: WBC 5.1, RBC 3.25 L D, Hgb 9.2 L D, Hct 27.6 L, MCV 85.0, MCH 28.4, MCHC 33.4, RDW 15.7, Plt Count 224, MPV 8.0, Neut % (Auto) 59.2, Lymph % (Auto) 32.3, [place] % (Auto) 5.7, Eos % (Auto) 2.1, Baso % (Auto) 0.7, Neut # (Auto) 3.1, Lymph # (Auto) 1.7, [place] # (Auto) 0.3, Eos # (Auto) 0.1, Baso # (Auto) 0.0 10/23/20 08:26: Sodium 131 L, Potassium 3.9, Chloride 91 L, Carbon Dioxide 31 H D, Anion Gap 12.9, BUN 36 H, Creatinine 1.30 H, Estimated Creat Clear 47, Estimated GFR 40 L, Est GFR ( Amer) 48 L, Glucose 286 H D, Calcium 9.3 10/23/20 12:28: POC Glucose 159 H 10/23/20 15:30: Hgb 9.8 L, Hct 29.2 L 10/23/20 16:46: POC Glucose 128 H 10/23/20 20:36: POC Glucose 317 H* 10/23/20 23:45: Hgb 11.4 L D, Hct 33.7 L 10/24/20 05:58: POC Glucose 138 H I & O for Last 24 hours: Intake & Output 10/21/20 10/22/20 10/23/20 10/24/20 11:59 11:59 11:59 11:59 Intake Total 1100 / 1100 600 / 600 Output Total 2250 / 2250 3900 / 3900 Balance -1150 / -1150 -3300 / -3300 Weight 180 lb 3 oz 179 lb 6 oz - Constitutional no acute distress - *Routine Respiratory Exam Absent: respiratory distress - *Routine Cardiovascular Exam Present: RRR - *Routine Neurological Exam Present: alert - Routine Psychiatric Exam Present: normal affect
[2020-10-24 07:13] LABS: Eosinophils # 0.2 K/mm3 (0.0-0.4)
--- NOTE | 2020-10-24 07:23 | PC.NURSE ---
report given to conchita clements rn
[2020-10-24 07:33] LABS: Anion Gap 11.7 mEq/L (5-15); Blood Urea Nitrogen 24 mg/dl (7-17); Calcium 9.4 mg/dl (8.4-10.2); Carbon Dioxide 34 mmol/L (22.0-30.0); Chloride 94 mmol/L (98-107); Creatinine Clearance Estimated 43 mL/min (50-200); Estimated Glomerular Filt Rate 36 ml/min (>60); GFR (African American) 44 ML/MIN (>60); Glucose 137 mg/dl (74-100); Potassium 3.7 mmoL/L (3.5-5.1); Sodium 136 mmol/L (136-145)
[2020-10-24 07:48] LABS: Basophils % 0.4 % (0.1-2.0); Eosinophils % 2.9 % (0.1-12.0); Hematocrit 38.9 % (37.0-47.0); Lymphocytes # 1.7 K/mm3 (0.7-4.5); Lymphocytes % 24.8 % (10-50); Mean Corpuscular HGB Conc 32.5 g/dL (31.8-35.4); Mean Corpuscular Hemoglobin 27.5 pg (27.0-31.2); Mean Corpuscular Volume 84.6 fl (81-99); Mean Platelet Volume 8.2 fl (7.4-10.4); Monocytes # 0.4 K/mm3 (0.1-1.0); Monocytes % 5.6 % (1.7-9.3); Neutrophils # 4.7 K/mm3 (1.8-7.8); Neutrophils % 66.4 % (37.0-80.0); Platelet Count 245 K/mm3 (142-424); Red Blood Count 4.59 M/mm3 (4.20-5.40); Red Cell Distribution Width 16.2 % (11.5-17.5)
[2020-10-24 08:28] LABS: Hemoglobin 12.6 g/dL (12.2-16.2)
--- NOTE | 2020-10-24 10:03 | CA_ITS ---
APPROVED REPORT EXAM: Comprehensive 2D, Doppler, and color-flow Echocardiogram Flight Communications Specialist: Jacqueline Goel RT(R) Ht: 5 ft 8 in Wt: 179lbs BSA: 1.95 BP: 116/54 mmHg Indications: PRE-OP GI BLEED,A-FIB,PRIOR ABLATION,ASD REPAIR,DM,HTN,HLD,CP TDS 2D Dimensions LVOT 1.61 cm (M/F) 1.5-2.5 M-Mode Dimensions LA Diam 3.50 cm (1.9-4.0) LVDd 2.95 cm (3.5-5.7) Ao Diam 2.59 cm (2.0-3.7) LVDs 2.01 cm (3.5-5.7) IVSd 1.58 cm (0.6-1.1) PWd 1.34 cm (0.6-1.1) EF (Teich) 61.60% FS 31.90% EDV (Teich) 33.60 mL ESV (Teich) 12.90 mL Aortic Valve AI PHT 295.00 ms Mitral Valve MV Mean Gr. 7.40 (<2mmHg) Pulmonary Valve PV Peak Velocity 54.40 (50-150 cm/s) Tricuspid Valve TR P. Velocity 335.80 cm/s RAP Estimate 10.00 mmHg RVSP 55.10 mmHg Left Ventricle Technically difficult study, left atrium is mildly enlarged, left ventricle is normal size, mild concentric left ventricular hypertrophy, visually estimated ejection fraction 50%, there is abnormal septal motion. Diastolic parameters are inconclusive. Right Ventricle Right atrium and right ventricle are moderately enlarged with normal contractility. Atria Intra-atrial septum appears to be intact, there is no flow across the interatrial septum. Aortic Valve Aortic valve is thickened and calcified leaflet continue to display mobility, there is no aortic stenosis or aortic insufficiency. Mitral Valve Mitral valve has dense mitral annular calcification which extends in both anterior posterior mitral leaflet with at least moderate reduction in leaflet mobility. Morphologically there is at least moderate mitral calcific stenosis, there is mild mitral regurgitation. The mean gradient and valve area is not accurately assessed in this study. Tricuspid Valve Tricuspid valve is grossly normal, there is mild tricuspid regurgitation, calculated right ventricular systolic pressure is 55 mmHg. Pulmonic Valve Pulmonic valve is poorly visualized. Great Vessels Aortic root is normal size. Pericardium No significant pericardial effusion noted. Conclusion 1. Biatrial enlargement, normal left ventricular size, mild concentric left ventricular hypertrophy, visually estimated ejection fraction 50%, there is abnormal septal motion. Diastolic parameters are inconclusive. 2. Moderately enlarged right atrium and right ventricle, contractility of the right ventricle is normal. 3. Thickened and calcified aortic valve without Doppler evidence of aortic stenosis or aortic insufficiency. 4. Thickened and calcified mitral valve as described above, morphologically there appears to be at least moderate mitral stenosis, as described above, there is mild mitral regurgitation. 5. Mild tricuspid regurgitation, calculated right ventricular systolic pressure is 55 mmHg. 6. No significant pericardial effusion noted. Electronically signed by : Kaiden Smith, 10/25/2020 06:08:55
--- NOTE | 2020-10-24 10:15 | PC.NURSE ---
Radiology at [facility].
--- NOTE | 2020-10-24 10:22 | HMH.ACPN2 ---
Internal Medicine - PN: Subj *Date: 10/24/20 *Time: 08:00 Interval history: pt states she is feeling better today Exam Vital signs and Labs for Last 24 Hours: Temp Pulse Resp BP Pulse Ox 98.2 F 93 H 20 138/71 98 10/24/20 08:00 10/24/20 08:00 10/24/20 08:00 10/24/20 08:00 10/24/20 08:00 Laboratory Results - last 24 hr 10/22/20 21:40: Blood Type A Positive, Antibody Screen Negative, Crossmatch (AHG) See Detail 10/23/20 12:28: POC Glucose 159 H 10/23/20 15:30: Hgb 9.8 L, Hct 29.2 L 10/23/20 16:46: POC Glucose 128 H 10/23/20 20:36: POC Glucose 317 H* 10/23/20 23:45: Hgb 11.4 L D, Hct 33.7 L 10/24/20 05:58: POC Glucose 138 H 10/24/20 06:20: WBC 7.0 D, RBC 4.59 D, Hgb 12.6 D, Hct 38.9, MCV 84.6, MCH 27.5, MCHC 32.5, RDW 16.2, Plt Count 245, MPV 8.2, Neut % (Auto) 66.4, Lymph % (Auto) 24.8, [place] % (Auto) 5.6, Eos % (Auto) 2.9, Baso % (Auto) 0.4, Neut # (Auto) 4.7, Lymph # (Auto) 1.7, [place] # (Auto) 0.4, Eos # (Auto) 0.2, Baso # (Auto) 0.0 10/24/20 06:20: Sodium 136, Potassium 3.7, Chloride 94 L, Carbon Dioxide 34 H, Anion Gap 11.7, BUN 24 H D, Creatinine 1.40 H, Estimated Creat Clear 43, Estimated GFR 36 L, Est GFR ( Amer) 44 L, Glucose 137 H D, Calcium 9.4 I & O for Last 24 hours: Intake & Output 10/21/20 10/22/20 10/23/20 10/24/20 11:59 11:59 11:59 11:59 Intake Total 1100 / 1100 600 / 600 Output Total 2250 / 2250 4400 / 4400 Balance -1150 / -1150 -3800 / -3800 Weight 180 lb 3 oz 179 lb 6 oz - Constitutional no acute distress - *Routine HEENT Exam Head: Present: normocephalic Eye: Present: PERRL ENT: Present: mucous membranes moist - *Routine Neck Exam Present: supple. Absent: lymphadenopathy - *Routine Respiratory Exam Present: CTA bilaterally - *Routine Cardiovascular Exam Present: RRR - *Routine Abdominal Exam Present: soft, normoactive bowel sounds, tenderness - *Routine Extremities Exam Present: normal capillary refill. Absent: cyanosis, clubbing, edema - *Routine Skin Exam Present: warm. Absent: rash - *Routine Neurological Exam Present: alert, oriented X3 - Routine Psychiatric Exam Present: normal affect Assessment and Plan (1) Anemia due to blood loss, acute Status: Acute Category: Medical Code(s): D62 - Acute posthemorrhagic anemia (2) Insulin-requiring or dependent type II diabetes mellitus Status: Chronic Category: Medical Code(s): E11.9 - Type 2 diabetes mellitus without complications; Z79.4 - assisted (current) use of insulin (3) Diabetes Status: Chronic Qualifiers: Diabetes mellitus type: type 2 Diabetes mellitus senior care insulin use: with senior care use Diabetes mellitus complication status: without complication Qualified Code(s): E11.9 - Type 2 diabetes mellitus without complications; Z79.4 - watermelon inspector (current) use of insulin Category: Medical Code(s): E11.9 - Type 2 diabetes mellitus without complications (4) Hypertension Status: Chronic Qualifiers: Hypertension type: essential hypertension Qualified Code(s): I10 - Essential (primary) hypertension Category: Medical Code(s): I10 - Essential (primary) hypertension (5) assisted current use of anticoagulant Status: Chronic Category: Medical Code(s): Z79.01 - watermelon inspector (current) use of anticoagulants - Assessment and plan all Dx Assessment and Plan for all problems:: colonoscopy today cardiology consult
--- NOTE | 2020-10-24 10:49 | HMH.CNCARD ---
History of Present Illness Consult date: 10/24/20 Requesting physician: Dusty Guillory Consult reason: atrial fibrillation Chief complaint: Weakness, Fatigue, anemia Additional Medical History:: 1. History of ASD repair, approximately 1988 A. NADEEN, 2019, 1. Moderate biatrial enlargement, normal left ventricular size, visually estimated ejection fraction 50% with no regional wall motion abnormality, there is abnormal septal motion. 2. Status post atrial septal defect repair, there is no flow across the intra-atrial septum. Agitated side contrast study fails to identify intracardiac shunt. 3. Moderate mitral and moderate to severe tricuspid regurgitation as described above 4. No significant pericardial effusion noted 5. No obvious thrombus seen in the left atrial appendage 2. Atrial fibrillation/flutter, status post ablation therapy May, at [facility] A. History of cardioversion in 2017 and 2018 3. Insulin-dependent diabetes mellitus 4. Chronic kidney disease, stage III with creatinine 1.4, creatinine clearance of 43 and GFR of 36 on 10/24/2020 5. GI bleed with severe anemia. Hemoglobin of 6 status post transfusion of 4 units to a hemoglobin of 12.6 this admission, 10/2020 A. EGD, 10/23/2020, Gastroesophageal junction at 44 cm, Mild inflammatory changes at gastroesophageal junction, Very mild streaking gastritis No sign of ulceration no active hemorrhage, No sign of recent hemorrhage 6. Coronary artery disease, mild to moderate by cardiac catheterization 2017 A. [facility], 02/2018, 1. The left main artery normal 2. The left anterior descending artery has proximal and mid vessel 20% stenoses 3. The circumflex artery is a nondominant yet still large vessel which is tortuous without atherosclerotic plaque 4. The right coronary artery is a large dominant vessel and is normal in the proximal segment and has one concentric 40% stenosis in the distal segment 5. The [place] ventriculogram reveals slightly hyperdynamic at 75% 6. The left ventricular end-diastolic pressure 20 mm Hg 7. Cholecystectomy2019 8. Valvular heart disease A. Echocardiogram, 04/2020,1. Biatrial enlargement, normal left ventricular size, mild concentric left ventricular hypertrophy, visually estimated ejection fraction 55% there is abnormal septal motion. Diastolic parameters are inconclusive 2. Moderately enlarged right ventricle with normal contractility. 3. Intra-atrial septum is not well visualized, there is no obvious flow across the interatrial septum, agitated saline contrast study was not performed. 4. Mild mitral and moderate tricuspid regurgitation. 5. No significant pericardial effusion noted. 9. Varicose veins specifically the left greater saphenous vein History of present illness: 75-year-old white female with history of atrial fibrillation/flutter on Xarelto therapy status post ablation therapy in May 2020. For the last 2 weeks the patient has noted increasing fatigue. Upon evaluation in the ER patient's hemoglobin was noted to be 6. She was subsequently transfused 4 units of blood. Patient did undergo EGD yesterday without significant source of bleeding noted. Plan is for colonoscopy today. Cardiology has been asked to see the patient due to her history of ASD repair and to comment on need for continued anticoagulation. EKG and telemetry this admission have shown sinus rhythm. Patient denies any chest pain, pressure or tightness since admission. She was having chest discomfort with dizziness that was worse with standing prior to arrival. She states she feels significantly better after the blood transfusion and is now as hungry as a horse . Troponins have returned normal this admission and EKG sinus rhythm with no acute ST segment changes. [facility] History Medical History: Reports:: Arrhythmia, Atherosclerotic Heart Disease, Atrial Fibrillation, Congestive Heart Failure, Congenital Heart Disease, Deep Vein Thrombosis,
[2020-10-24 11:13] LABS: POC Glucose,Bedside 171 (70-110)
--- NOTE | 2020-10-24 11:17 | PC.NURSE ---
Pt taken down to preop via stretcher for colonoscopy
--- NOTE | 2020-10-24 11:58 | HMH.ANESCL ---
[facility] Anesthesia Checklist - Patient Identification Patient Identification: Arm Band - Structural Data Admitted From: Inpatient Planned Operative Procedure/s: colonoscopy Consent for Planned Operative Procedure(s) Verified: Yes Verified Documents: Surgical Consent, History and Physical - NPO Status Verified Time NPO: 00:00 - Additional verifications Anesthesia Reactions: No Hx Blood Transfusions: Yes Blood Transfusion Reaction: No - Airway Assessment C-Spine Mobility Assessed: Yes (mp2) TMJ Mobility Assessed: Yes Dentition: Good Dentition - Neurological Assessment Level of Consciousness: Awake, Alert - Anesthesia Plan Anesthesia Risk discussed: Yes Anesthesia Plan: Verified ASA Class: III Anesthesia Type: MAC [facility] History I have reviewed the patient's past medical history: Yes Medical History: Reports:: Arrhythmia, Atherosclerotic Heart Disease, Atrial Fibrillation, Congestive Heart Failure, Congenital Heart Disease, Deep Vein Thrombosis, Diabetes Mellitus Type 2, Hyperlipidemia, Hypertension Denies:: Cancer, Diabetes Mellitus Type 1, Internal Pacemaker, MRSA, Seizures *Have you ever received a pneumonia vaccine?: No *Have you received a flu vaccine this season?: No Other Medical History: Reports: Anemia, Other. Denies: Blood Transfusion Reaction Anesthesia experience/problems:: nac Laterality Cases: Right: Other Other Surgeries: Yes: CABG, Cardiac Catheterization, Open Heart Surgery, Other (ASD repair 1989). No: Pacemaker Amputation: No Fractures: Yes ((R) ankle, (R) wrist) - *Social History Smoking Status: Never smoker Alcohol Intake: never Substance Use Type: denies use *Occupational Status:: unemployed Housing: house Household Members: other *Travel in the last 8 weeks: None Family Hx:: Anemia, Coronary Artery Disease, Diabetes, Heart Attack, Hyperlipidemia, Hypertension, Kidney Disease
--- NOTE | 2020-10-24 12:06 | P.PCN_ITS ---
[facility] Procedure Note Procedure Note:: Colonoscopy Procedure Report: Colonoscopy with cold biopsies Endoscopist: Ike Zimmerman II, MD Referring physician: BROOKE Echeverria/Alexys Guillory MD/Huan Cruz MD Date of Procedure: October 24, 2020 Equipment: Olympus 180 variable stiffness pediatric colonoscope Sedation: MAC sedation Indication: Mrs. Saleh is a 75-year-old female with rectal bleeding that occurred over the last couple of weeks and is rare with some bright red/dark blood. The patient had been on Xarelto (secondary to atrial fibrillation). Her initial hemoglobin and hematocrit were 6.1 and 19.6. The patient did have an EGD (Dr. Cruz) yesterday showing some mild streaky gastritis but otherwise normal. The patient did receive 4 units of PRBCs. The patient reports no abdominal pain, weight loss or family history of colon cancer. This is her first colonoscopy performed for diagnostic purposes. Procedure: Prior to the procedure, a history and physical exam was performed, and patient's medications and allergies were reviewed. The risks, benefits and alternatives of the sedation and procedure were discussed with the patient. All questions were answered and informed consent was obtained. The patient was brought to the procedure room. Patient identification and proposed procedure were verified by the physician and the nurse. The patient was placed in a left lateral decubitus position and the scope was passed under direct vision. Throughout the procedure, the patient's blood pressure, pulse, and oxygen saturations were monitored continuously. The colonoscopy was accomplished without difficulty. The patient tolerated the procedure well. Findings: On digital rectal examination there was normal rectal tone. There were no external hemorrhoids. The colonoscope was introduced through the anal canal to the rectum and advanced to the cecum. The ileocecal valve and appendiceal orifice were identified. The scope was advanced a short distance into the ileum which appeared grossly normal. The scope was then withdrawn into the colon. There were a few small nonbleeding AVMs/angiodysplasias of the cecum and ascending colon. There was very mild melanosis coli and cold biopsies were taken from the left colon. The remaining cecum, ascending, transverse, descending, sigmoid and rectum were grossly normal. There were no mucosal abnormalities identified. Upon retroflexion within the rectum there were grade 2 internal hemorrhoids.The preparation was excellent throughout with Dilworth Preparation Score of 9. The cecal time was 12 minutes. Impression: 1. Small nonbleeding AVMs/angiodysplasias right colon (cecum/ascending) 2. Grade 2 internal hemorrhoids Plan: I do feel that the patient is rare gross/visible rectal bleeding is from the internal hemorrhoids. I do feel that she has chronic blood loss that may be from angiodysplasias. These AVMs/angiodysplasias of the colon were scant. I would recommend Hemoccult testing. If the Hemoccult testing is positive then I would consider M2A video capsule enteroscopy/PillCam. I will discuss the findings with the patient and family. She will not require any further preventive colonoscopy.
--- NOTE | 2020-10-24 12:12 | PC.NURSE ---
Report received from Akbar (postop)
[2020-10-24 12:18] LABS: Adenovirus,PCR Not Detected (NotDetected); Bordetella Pertussis Not Detected (NotDetected); Chlamydophila Pneumoniae, PCR Not Detected (NotDetected); Coronavirus 19, PCR Not Detected (NotDetected); Coronavirus 229E Not Detected (NotDetected); Coronavirus NL63 Not Detected (NotDetected); Coronavirus OC43 Not Detected (NotDetected); Coronovirus HKU1,PCR Not Detected (NotDetected); Human Metapneumovirus Not Detected (NotDetected); Influenza A, PCR Not Detected (NotDetected); Influenza AH1, 2009 Not Detected (NotDetected); Influenza AH1, PCR Not Detected (NotDetected); Influenza AH3,PCR Not Detected (NotDetected); Influenza B, PCR Not Detected (NotDetected); Mycoplasma Pneumoniae, PCR Not Detected (NotDetected); Parainfluenza 1, PCR Not Detected (NotDetected); Parainfluenza 2, PCR Not Detected (NotDetected); Parainfluenza 3, PCR Not Detected (NotDetected); Parainfluenza 4, PCR Not Detected (NotDetected); Respiratory Syncytial Virus Not Detected (NotDetected); Rhinovirus/Enterovirus Not Detected (NotDetected)
--- NOTE | 2020-10-24 12:50 | PC.NURSE ---
Pt back to floor from procedure. Awake, alert and oriented x3 and requesting coffee. No complaints voiced at tis time. No complaints of pain. at bs. V/S started.
--- NOTE | 2020-10-24 15:48 | HMH.DCSUM ---
General - General Admission date:: 10/23/20 Discharge date: 10/24/20 HPI HPI: This is a 75-year-old female with a history of congestive heart failure, atrial fibrillation status post ablation, atherosclerotic disease presenting with 1 week history of worsening chest pain described as a tightness radiating into her throat with associated lightheadedness provoked by standing. She also had some shortness of breath today which precipitated her arrival to the ED. states she noticed bloody stools for the last 2 weeks but was not concerned and did not speak to a doctor. Patient is anticoagulated on Xarelto for atrial fibrillation. No fever, chills, cough, vomiting, abdominal pain, urinary symptoms, diarrhea, constipation. She does have some nausea. Dr. Cruz performed EGD this morning. Gastroesophageal junction at 44 cm Mild inflammatory changes at gastroesophageal junction Very mild streaking gastritis No sign of ulceration no active hemorrhage No sign of recent hemorrhage Pt being transfused total of 4 units prbc Plan on GI eval w/colonoscopy tomorrow, with prep beginning tonight. No further bleeding noted since arrival. No chest pain. Hospital Course Hospital Course: Laboratory Tests 10/22/20 10/22/20 10/22/20 21:00 21:00 21:00 WBC 5.1 RBC 2.18 L Hgb 6.1 L* Hct 19.6 L* MCV 89.7 MCH 27.9 MCHC 31.1 L RDW 16.6 Plt Count 227 MPV 8.8 Neut % (Auto) 63.3 Lymph % (Auto) 31.3 [place] % (Auto) 4.0 Eos % (Auto) 1.2 Baso % (Auto) 0.2 Neut # (Auto) 3.2 Lymph # (Auto) 1.6 [place] # (Auto) 0.2 Eos # (Auto) 0.1 Baso # (Auto) 0.0 D-Dimer Sodium 123 L Potassium 4.9 Chloride 89 L Carbon Dioxide 25 Anion Gap 13.9 BUN 35 H Creatinine 1.30 H Estimated Creat Clear 37 Estimated GFR 40 L Est GFR ( Amer) 48 L Glucose 664 H* POC Glucose Calcium 9.0 Total Bilirubin 0.3 Direct Bilirubin 0.2 Conjugated Bilirubin 0.0 Indirect Bilirubin 0.1 Unconjugated Bilirubin 0.1 AST 28 ALT 25 Alkaline Phosphatase 61 Troponin I < 0.01 NT-Pro-B Natriuret Pep 1260 H Total Protein 6.7 Albumin 3.9 Amylase 68 Lipase 366 H Stool Occult Blood Chlamy pneumoniae PCR Adenovirus (PCR) B. pertussis DNA (PCR) Coronavirus OC43 (PCR) Coronavirus HKU1 (PCR) Coronavirus 229E (PCR) SARS-CoV-2 (PCR) Coronavirus NL63 (PCR) Human Metapneumovir PCR Influenza A (H1) PCR Influ A (H1N1/09) PCR Influenza A (H3) PCR Influenza Type A (PCR) Influenza Type B (PCR) M. pneumoniae (PCR) Parainfluenza 1 (PCR) Parainfluenza 2 (PCR) Parainfluenza 3 (PCR) Parainfluenza 4 (PCR) RSV (PCR) Entero/Rhino (PCR) SARS-CoV-2 IgG Ab (Rapid) Positive A SARS-CoV-2 IgM Ab (Rapid) Negative Blood Type Blood Type Confirm Antibody Screen Crossmatch (AHG) 10/22/20 10/22/20 10/22/20 21:00 21:40 21:40 WBC RBC Hgb Hct MCV MCH MCHC RDW Plt Count MPV Neut % (Auto) Lymph % (Auto) [place] % (Auto) Eos % (Auto) Baso % (Auto) Neut # (Auto) Lymph # (Auto) [place] # (Auto) Eos # (Auto) Baso # (Auto) D-Dimer 0.69 Sodium Potassium Chloride Carbon Dioxide Anion Gap BUN Creatinine Estimated Creat Clear Estimated GFR Est GFR ( Amer) Glucose POC Glucose Calcium Total Bilirubin Direct Bilirubin Conjugated Bilirubin Indirect Bilirubin Unconjugated Bilirubin AST ALT Alkaline Phosphatase Troponin I NT-Pro-B Natriuret Pep Total Protein Albumin Amylase Lipase Stool Occult Blood Positive A Chlamy pneumoniae PCR Adenovirus (PCR) B. pertussis DNA (PCR) Coronavirus OC43 (PCR) Coronavirus HKU1 (PCR) Coronavirus 229E (PCR) SARS-CoV-2 (PCR) Coronavirus NL63 (PCR)
--- NOTE | 2020-10-24 16:06 | PC.NURSE ---
Both IVs discontinued at this time. Catheters x2 intact. 2x2 gauze and coban applied to site. Tolerated well.
--- NOTE | 2020-10-24 16:55 | PC.NURSE ---
Pt given discharge instructions with her and daughter present as well. Given 4 Occult Blood tests to do at home and bring back to follow up appt on 11/07/2020. Verbalizes understanding of all discharge instructions.
== END 2020-10-24 17:10 | disposition home or self-care (01) | DRG 812 ==
LOC: ER 22:14 → 2ND 23:07
PROVIDERS: Internal Medicine Gastroenterology; Nurse Practitioner Family; Surgery; Admitting Provider Family Medicine; Emergency Provider Physician Assistant; PCP Nurse Practitioner Family; Visit Provider Family Medicine
PROC: 0DJ08ZZ Inspection of Upper Intestinal Tract, Via Natural or Artificial Opening Endoscopic (ICD-10-PCS; CPT 43235; principal; 2020-10-23 15:00)
PROC: 0DJD8ZZ Inspection of Lower Intestinal Tract, Via Natural or Artificial Opening Endoscopic (ICD-10-PCS; CPT 45378; principal; 2020-10-24 14:30)
DX: D62 Acute posthemorrhagic anemia (principal); I13.0 Hypertensive heart and chronic kidney disease with heart failure and stage 1 through stage 4 chronic kidney disease, or unspecified chronic kidney disease; N18.30 Chronic kidney disease, stage 3 unspecified; I25.10 Atherosclerotic heart disease of native coronary artery without angina pectoris; E11.9 Type 2 diabetes mellitus without complications; I50.9 Heart failure, unspecified; Z95.1 Presence of aortocoronary bypass graft; Z79.01 Long term (current) use of anticoagulants; I48.91 Unspecified atrial fibrillation; Z79.4 Long term (current) use of insulin; Z79.899 Other long term (current) drug therapy; K64.1 Second degree hemorrhoids; K55.20 Angiodysplasia of colon without hemorrhage; K29.50 Unspecified chronic gastritis without bleeding
CPT/HCPCS: 43239; 45380; 36415; 71045; 80048; 80076; 82150; 82272; 82962; 83690; 83880; 84484; 85014; 85018; 85025; 85378; 86328; 86850; 87581; 87633; 87798; 93005; 93306; 96365; 96367; 96372; 96375; 99284; G0328; J2405; P9016; Q0138; U0003

== ENCOUNTER 2020-11-19 13:19 | Emergency (ER) | payer SELFPAY ==
[2020-11-19 13:20] VITALS: BP 148/58; PULSE 77; RESP 16; TEMP 36.6; O2SAT 98; BMI 26.9
--- NOTE | 2020-11-19 13:32 | HMH.EDGENADL ---
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 Qualified Code(s): E11.65 - Type 2 diabetes mellitus with hyperglycemia Atrial fibrillation Qualifiers: Atrial fibrillation type: paroxysmal Qualified Code(s): I48.0 - Paroxysmal atrial fibrillation Disposition: Home, Self-Care Condition on Discharge: Good Instructions: DI for Atrial Fibrillation, DI for Shortness of Breath Referrals: Wanda Jackson [Primary Care Provider] - 3 days Saúl Kramer MD [Staff Physician] - 3 days - Critical Care Critical Care Time: No Attestation: On 11/19/20, the high probability of a clinically significant, sudden or life threatening deterioration of the following system(s) required my full and direct attention, intervention and personal management. The time I documented below is in addition to time spent performing reported procedures but includes the following listed in this critical care notation. Medical Decision Making - Medical Records Medical records reviewed: Yes: I reviewed the patient's medical records. - Per Inquiry Pt receiving controlled substance: No Vital Signs: 11/19/20 13:20 11/19/20 13:50 11/19/20 14:44 Temperature 98 F Temperature Source Oral Pulse Rate [Right] 77 73 69 Respiratory Rate 16 18 20 Blood Pressure [Right Arm] 148/58 H 126/99 H 164/91 H Blood Pressure Mean [Right Arm] 88 108 115 Blood Pressure Source [Right Arm] Automatic Cuff Blood Pressure Position [Right Arm] Sitting 02 Sat by Pulse Oximetry 98 99 100 Oxygen Delivery Method Room Air - Lab Data Lab Results 11/19/20 13:35: WBC 6.0, RBC 4.77, Hgb 13.9, Hct 43.0, MCV 90.2, MCH 29.2, MCHC 32.4, RDW 15.9, Plt Count 207, MPV 8.5, Neut % (Auto) 60.6, Lymph % (Auto) 31.8, [place] % (Auto) 5.8, Eos % (Auto) 1.4, Baso % (Auto) 0.4, Neut # (Auto) 3.6, Lymph # (Auto) 1.9, [place] # (Auto) 0.4, Eos # (Auto) 0.1, Baso # (Auto) 0.0 11/19/20 13:35: Sodium 128 L, Potassium 4.3, Chloride 89 L, Carbon Dioxide 30, Anion Gap 13.3, BUN 28 H, Creatinine 1.50 H, Estimated Creat Clear 40, Estimated GFR 34 L, Est GFR ( Amer) 41 L, Glucose 409 H*, Calcium 9.6 11/19/20 13:35: Blood Type A Positive, Antibody Screen Negative 11/19/20 13:35: NT-Pro-B Natriuret Pep 4300 H 11/19/20 13:35: SARS-CoV-2 IgG Ab (Rapid) Positive A, SARS-CoV-2 IgM Ab (Rapid) Negative Result diagrams: 11/19/20 13:35 11/19/20 13:35 Orders (Tests/Meds): ED MEDICATIONS Discontinued Medications Generic Name Dose Route Start Last Admin Trade Name Freq PRN Reason Stop Dose Admin Insulin Human Regular 15 unit 11/19/20 14:13 11/19/20 14:35 Insulin Human Regular 100 Units/Ml 10ml Vial IVP 11/19/20 14:14 15 unit ONCE ONE Administration ORDERS Category Date Time Status Chest XR -- portable [XR chest portable] Stat Exams 11/19/20 13:39 Taken Covid-19 Nasal PCR ([facility]) Routine Lab 11/19/20 14:39 Received - Radiology Data #1 Image(s): Chest Image Reviewed: Yes I reviewed the patient's radiology image Preliminary Findings: Normal/NAD - ECG Data Tracing #1 EKG at 1335 shows atrial fibrillation with a rate of 79. No STEMI. Normal QRS, slightly prolonged QTc. EKG interpreted by me. Medical Decision Narrative: Patient is not anemic here today. Vital signs reassuring. She is 98% on room air. Chest x-ray shows no signs of pneumonia, pneumothorax, florid pulmonary edema. She is in A. fib and has an elevated BNP, but this is not affecting her oxygenation. Intermittent A. fib may be the cause of her shortness of breath with exertion and weakness. She has no chest pain, unlikely pulmonary embolus, especially in the setting of no dyspnea while at rest. She is hyperglycemic however and admits that she ate some bread at lunch. We have given regular insulin 15 units IV.
--- NOTE | 2020-11-19 13:35 | ECG_ITS ---
APPROVED REPORT Exam: Resting ECG HR:79 bpm ECG Measurements Heart Rate 79 AXES QRSd 108 QRS 92 QT 434 T 108 QTc 497 Conclusion Atrial fibrillation RBBB Abnormal ECG Electronically signed by : Alexys King, 11/19/2020 19:30:54
--- NOTE | 2020-11-19 13:39 | XR_ITS ---
PROCEDURE: XR CHEST PORTABLE Referring Doctor: Pineda Solano Patient Age:75Y CLINICAL HISTORY: SHIELDS history of atrial fibrillation Covd positive; and BNP 4300 COMPARISON: CT CT CHEST WO CON from 04/26/2020 CR XR CHEST PORTABLE from 06/10/2020 CR XR CHEST 2V from 07/08/2020 CR XR CHEST PORTABLE from 10/22/2020 FINDINGS: AP portable upright chest is compared to multiple previous studies listed above Sternotomy with borderline cardiomegaly. Pulmonary vascularity appears normal to upper normal with no overt CHF only note some mild accentuation markings towards the lung bases but the cyst) similar to previous studies with no overt CHF. No obvious pleural effusions. CP angles are fairly sharp. The chest wall in T-spine unremarkable on this single AP view. IMPRESSION: Sternotomy.. Borderline/mild cardiomegaly. No discrete new findings but slight accentuation markings lung bases particularly right lung base again noted and similar to multiple previous studies. (Note the elevated BNP but no overt CHF or acute pulmonary edema radiographically) Dictated by: Justin Garcias MD 11/20/2020 08:19 Justin Garcias MD in [place] 11/20/2020 08:19
[2020-11-19 13:50] VITALS: BP 126/99; PULSE 73; RESP 18; O2SAT 99
[2020-11-19 13:54] LABS: Basophils % 0.4 % (0.1-2.0); Eosinophils # 0.1 K/mm3 (0.0-0.4); Eosinophils % 1.4 % (0.1-12.0); Hemoglobin 13.9 g/dL (12.2-16.2); Lymphocytes # 1.9 K/mm3 (0.7-4.5); Lymphocytes % 31.8 % (10-50); Mean Corpuscular HGB Conc 32.4 g/dL (31.8-35.4); Mean Corpuscular Hemoglobin 29.2 pg (27.0-31.2); Mean Corpuscular Volume 90.2 fl (81-99); Mean Platelet Volume 8.5 fl (7.4-10.4); Monocytes # 0.4 K/mm3 (0.1-1.0); Monocytes % 5.8 % (1.7-9.3); Neutrophils # 3.6 K/mm3 (1.8-7.8); Neutrophils % 60.6 % (37.0-80.0); Platelet Count 207 K/mm3 (142-424); Red Blood Count 4.77 M/mm3 (4.20-5.40); Red Cell Distribution Width 15.9 % (11.5-17.5)
[2020-11-19 13:57] LABS: Chloride 89 mmol/L (98-107); Potassium 4.3 mmoL/L (3.5-5.1); Sodium 128 mmol/L (136-145)
[2020-11-19 14:00] LABS: Anion Gap 13.3 mEq/L (5-15); Blood Urea Nitrogen 28 mg/dl (7-17); Calcium 9.6 mg/dl (8.4-10.2); Carbon Dioxide 30 mmol/L (22.0-30.0); Creatinine Clearance Estimated 40 mL/min (50-200); Estimated Glomerular Filt Rate 34 ml/min (>60); GFR (African American) 41 ML/MIN (>60)
[2020-11-19 14:06] LABS: Glucose 409 mg/dl (74-100)
[2020-11-19 14:09] LABS: NT Pro Brain Natriuretic Pep. 4300 pg/mL (0-450)
[2020-11-19 14:27] LABS: Coronavirus 19 IgG Antibody Positive (Negative); Coronavirus 19 IgM Antibody Negative (Negative)
[2020-11-19 14:44] VITALS: BP 164/91; PULSE 69; RESP 20; O2SAT 100
[2020-11-19 14:56] VITALS: BP 161/70; PULSE 78; RESP 16; TEMP 36.6; O2SAT 98
--- NOTE | 2020-11-19 18:13 | PC.NURSE ---
Lab called results letting us know pt was covid positive
--- NOTE | 2020-11-19 19:24 | PC.NURSE ---
received covid + notification. call placed and family notified to quarantine
== END 2020-11-19 14:58 | disposition home or self-care (01) ==
PROVIDERS: Emergency Provider Emergency Medicine; PCP Nurse Practitioner Family
DX: R06.09 Other forms of dyspnea (principal); E11.65 Type 2 diabetes mellitus with hyperglycemia; I48.0 Paroxysmal atrial fibrillation; Z01.84 Encounter for antibody response examination; E78.5 Hyperlipidemia, unspecified; D64.9 Anemia, unspecified; I10 Essential (primary) hypertension; Z79.4 Long term (current) use of insulin; Z79.899 Other long term (current) drug therapy
CPT/HCPCS: 71045; 80048; 83880; 85025; 86328; 86850; 93005; 96374; 99284; U0003

== ENCOUNTER 2024-10-15 13:21 | Inpatient (IN) | payer SELFPAY ==
[2024-10-15] VITALS (18 sets, daily range): BP systolic 121–190; BP diastolic 46–143; PULSE 42–60; RESP 15–26; TEMP 36.7–36.8; O2SAT 92–100; BMI 28.6; BMI 30.9
--- NOTE | 2024-10-15 13:26 | [facility]H.EDCP ---
Discharge Plan Disposition Patient Disposition: Admitted Condition: Critical Clinical Impressions Clinical Impression: Third degree heart block, Acute exacerbation of CHF (congestive heart failure) Discharge ED Provider: Clinton Meraz HPI <MAYELIN Crandall - Last Filed: 10/15/24 15:35> General Chief Complaint: Shortness of Breath/Dyspnea Stated Complaint: soa cough congestion Time Seen by Provider: 10/15/24 13:26 History of Present Illness HPI narrative: Patient presents for evaluation of dyspnea. Patient gives a history of 1 week worth of increasing dyspnea on exertion and now with dyspnea at rest. Patient states that she feels like that she has had an illness as she has been coughing up tons of stuff but describes it as frothy. She denies any cardiac chest pain hemoptysis hematochezia melena hematemesis hematuria. Patient does have a history of being an insulin-dependent type 2 diabetic, history of atrial fibrillation status post ablation 2 years ago maintained on metoprolol, history of VSD repair remotely. Related Data Home Medications ?Medication ?Instructions ?Recorded ?Confirmed empagliflozin 25 mg tablet 25 mg PO DAILY 10/15/24 10/15/24 (Jardiance) insulin glargine 100 unit/mL (3 10 unit SQ HS 10/15/24 10/15/24 mL) subcutaneous pen (Lantus Solostar U-100 Insulin) insulin glargine 100 unit/mL (3 30 unit SQ DAILY 10/15/24 10/15/24 mL) subcutaneous pen (Lantus Solostar U-100 Insulin) insulin lispro 100 unit/mL 0 unit SQ ACHS 10/15/24 10/15/24 subcutaneous pen (Humalog KwikPen (U-100) Insulin) metoprolol tartrate 25 mg tablet 25 mg PO BID 10/15/24 10/15/24 rivaroxaban 15 mg tablet (Xarelto) 15 mg PO QPMWITHMEAL 10/15/24 10/15/24 Allergies Allergy/AdvReac Type Severity Reaction Status Date / Time [id number] Reductase Allergy Verified 06/29/20 10:41 Inhibitor (Blghccf-Oge-Jep Reductase Inhibitor) PFSH <MAYELIN Crandall - Last Filed: 10/15/24 15:35> [facility] Disclaimer: The information contained in this section may have been updated after the patient was seen, as this information can be updated by other users. 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 occupational exposures/hazards: No caffeine: Yes Have you lived/traveled outside [place] in past 30 days?: No Contact w/someone who lives/traveled outside US past 30 days?: No Exposure to someone with infectious disease in past 14 days?: No Do you have a fever (greater than 100.4 F or 38 C)?: No Have you tested positive for COVID-19: No Exposed to someone with COVID-19 in past 14 days?: No Do you have a sore throat?: No Do you have a cough?: No Do you have any weakness?: No Do you have any diarrhea?: No Are you experiencing any unusual bleeding?: No Do you have any muscle aches/pain?: No Do you have any abdominal pain?: No Are you experiencing loss of taste or smell?: No Other Medical History Have you received the Flu Vaccine for this season: No Have you received the Pneumonia Vaccine: No <MAYELIN Crandall - Last Filed: 10/15/24 15:35> ROS Obtained: Yes Systems reviewed as appropriate & no additional complaints except as documented Physical Exam <MAYELIN Crandall - Last Filed: 10/15/24 15:35> General General appearance: alert and in no apparent distress Respiratory Respiratory exam: Present normal lung sounds bilaterally; Absent respiratory distress, wheezes or accessory muscle use Cardiovascular Cardiovascular exam: Present bradycardia Neurological Exam Neurological exam: Present alert and oriented X3 HEART Score <MAYELIN Crandall - Last Filed: 10/15/24 15:35> HEART Score HEART Score assessment performed?: Yes History (anamnesis): Moderately suspicious ECG: Non-specific disturbance Age: >65 years Risk factors: 3 or more risk factors Troponin: </= normal limit HEART Score: 6 <Clinton Meraz MD - Last Filed: 10/16/24 11:41> HEART Score HEART Score: 6 Critical Care <MAYELIN Crandall - Last Filed: 10/15/24 15:35> Critical Care Time Critical Care Time: Yes Attestation: On 10/15/24, the high probability of a clinically significant, sudden or life threatening deterioration of the following system: Cardiovascular; required my full and direct attention, intervention and personal management. The time I documented below is in addition to time spent performing reported procedures but includes the following listed in this critical care notation. Total Time Total Critical Care Time: 30 <Clinton Meraz MD - Last Filed: 10/16/24 11:41> Total Time Total Critical Care Time: 35 Medical Decision Making <MAYELIN Crandall - Last Filed: 10/15/24 15:35> Medical Records Medical records reviewed: Yes I reviewed the patient's medical records. Per Inquiry Pt receiving controlled substance: No Vital Signs Vital Signs: 10/15/24 13:22 10/15/24 13:42 10/15/24 14:03 Temperature 98.0 F Temperature Source Oral Pulse Rate 43 L 45 L Pulse Rate [Apical] 42 L Respiratory Rate 18 19 Blood Pressure 135/46 L 168/68 H Blood Pressure [Left Arm] 135/46 L Blood Pressure Mean 63 78 Blood Pressure Mean [Left Arm] 75 Blood Pressure Source [Left Arm] Automatic Cuff Blood Pressure Position [Left Arm] Sitting 02 Sat by Pulse Oximetry 99 100 99 Oxygen Delivery Method Room Air 10/15/24 14:31 10/15/24 15:01 10/15/24 15:31 Temperature Temperature Source Pulse Rate 42 L 48 L 55 L Pulse Rate [Apical] Respiratory Rate 20 15 26 H Blood Pressure 144/55 H 156/68 H 179/143 H Blood Pressure [Left Arm] Blood Pressure Mean Blood Pressure Mean [Left Arm] Blood Pressure Source [Left Arm] Blood Pressure Position [Left Arm] 02 Sat by Pulse Oximetry 98 98 96 Oxygen Delivery Method Room Air 10/15/24 16:05 10/15/24 16:20 Temperature 98.2 F Temperature Source Pulse Rate 57 L Pulse Rate [Apical] 55 L Respiratory Rate 20 Blood Pressure 187/64 H Blood Pressure [Left Arm] Blood Pressure Mean Blood Pressure Mean [Left Arm] Blood Pressure Source [Left Arm] Blood Pressure Position [Left Arm] 02 Sat by Pulse Oximetry 98 Oxygen Delivery Method Room Air Room Air Lab Data Lab results reviewed: Yes I reviewed the patient's lab results. Labs: Lab Results 10/15/24 13:50: WBC 6.8, RBC 4.63, Hgb 13.6, Hct 41.2, MCV 89.0, MCH 29.4, MCHC 33.0, RDW 13.4, Plt Count 125 L, MPV 12.6 H, Neut % (Auto) 75.6, Lymph % (Auto) 16.4, [place] % (Auto) 7.0, Eos % (Auto) 0.1, Baso % (Auto) 0.3, Neut # (Auto) 5.1, Lymph # (Auto) 1.1, [place] # (Auto) 0.5, Eos # (Auto) 0.0, Baso # (Auto) 0.0, Sodium 126 L, Potassium 4.6, Chloride 91 L, Carbon Dioxide 26, Anion Gap 13.6, BUN 31 H, Creatinine 1.40 H, Estimated Creat Clear 39, Estimated GFR 36 L, Est GFR ( Amer) 44 L, Glucose 182 H, Calcium 8.7, Magnesium 1.9, Total Bilirubin 0.8, AST 74 H, ALT 56, Alkaline Phosphatase 75, Troponin I 0.02, NT-Pro-B Natriuret Pep 5400 H, Total Protein 6.8, Albumin 4.0, Globulin 2.8, Albumin/Globulin Ratio 1.4 10/16/24 05:32 10/16/24 05:32 Response Orders (Tests/Meds): ED MEDICATIONS Generic Name Dose Route Start Last Admin Trade Name Freq PRN Reason Stop Dose Admin Acetaminophen 500 mg 10/16/24 00:05 10/16/24 00:12 Acetaminophen 500mg Tab PO 11/15/24 00:04 500 mg Q4HP PRN Administration Mild pain(1-3),fever,headache Albuterol/Ipratropium 3 ml 10/16/24 00:17 10/16/24 00:26 Ipratropium/Albuterol 3 Ml Neb IH 11/15/24 00:16 3 ml Q6HP PRN Administration Shortness Of Breath Bumetanide 2 mg 10/16/24 09:00 10/16/24 09:21 Bumetanide 1mg/4ml Vial IV 11/15/24 08:59 2 mg DAILY LENNIE Administration Dobutamine HCl/Dextrose 250 mls @ 5.851 mls/hr 10/15/24 17:53 10/16/24 02:05 Dobutamine 500mg/250ml D5w IV 11/14/24 17:52 5 mcg/kg/min .Q24H LENNIE 11.7 mls/hr Titration Protocol 2.5 MCG/KG/MIN Insulin Glargine 10 unit 10/15/24 21:00 10/15/24 21:13 Insulin Glargine 100 Units/Ml 3ml Flexpen SUBCUT 11/14/24 20:59 10 units HS LENNIE Administration Insulin Glargine 15 unit 10/16/24 09:00 10/16/24 09:36 Insulin Glargine 100 Units/Ml 3ml Flexpen SUBCUT 11/15/24 08:59 15 units DAILY LENNIE Administration Insulin Human Lispro 0 unit 10/15/24 16:30 10/16/24 11:15 Humalog 100 Units/Ml 10ml Vial (Ssi) SUBCUT 11/14/24 16:29 Not Given ACHS LENNIE Protocol Melatonin 5 mg 10/16/24 07:23 Melatonin 5mg Tablet PO 11/14/24 22:28 HSP PRN Insomnia Oseltamivir Phosphate 30 mg 10/16/24 09:00 10/16/24 09:24 Oseltamivir Phosphate 6mg/Ml Oral Susp 60ml PO 10/20/24 09:01 30 mg BID LENNIE Administration Sodium Chloride 10 ml 10/16/24 07:24 Sodium Chloride 0.9% 10ml Flush Syringe IV 11/15/24 07:23 NEEDED PRN Maintain IV Site Sodium Chloride 1,000 mg 10/16/24 08:00 10/16/24 09:20 Sodium Chloride 1,000mg Tablet PO 11/15/24 07:59 1,000 mg BIDWMEAL LENNIE Administration Discontinued Medications Generic Name Dose Route Start Last Admin Trade Name Freq PRN Reason Stop Dose Admin Bumetanide 2 mg 10/15/24 16:36 10/15/24 17:19 Bumetanide 1mg/4ml Vial IV 10/15/24 16:37 2 mg ONCE ONE Administration Glucagon 1 mg 10/15/24 14:13 10/15/24 14:27 Glucagon 1 Mg/Ml Vial IV 10/15/24 14:14 1 mg ONCE ONE Administration Dopamine HCl/Dextrose 250 mls @ 14.628 mls/hr 10/15/24 14:13 10/15/24 18:23 Dopamine 400mg/250ml D5w IV 11/14/24 14:12 5 mcg/kg/min .Q17H6M LENNIE 14.63 mls/hr Titration Protocol 5 MCG/KG/MIN Melatonin 5 mg 10/15/24 22:29 10/15/24 22:36 Melatonin 5mg Tablet PO 11/15/24 20:59 5 mg HS PRN Administration Insomnia Ondansetron HCl 4 mg 10/15/24 14:47 10/15/24 14:48 Ondansetron 4mg/2ml Vial IV 10/15/24 14:48 4 mg ONCE ONE Administration Oseltamivir Phosphate 75 mg 10/15/24 21:00 10/15/24 21:14 Oseltamivir 75mg Capsule PO 10/20/24 09:01 75 mg BID LENNIE Administration Promethazine HCl 25 mg 10/15/24 17:54 10/16/24 01:24 Promethazine Hcl 25mg/Ml 1ml Vial IV 10/15/24 17:55 Not Given ONCE ONE Sodium Chloride 25 ml 10/15/24 17:54 Sodium Chloride 0.9% 25ml Bag IV 11/14/24 17:53 NEEDED PRN for Use with IV Promethazine ORDERS Category Date Time Status Cardiology Consult [Consult to Cardiology] [CONS] Cons 10/15/24 14:40 Active Routine Chest XR -- portable [XR chest portable] Stat Exams 10/15/24 14:05 Completed BNP [NT Pro Brain Natriuretic Pep.] Stat Lab 10/15/24 13:50 Completed CBC w/Auto Diff [Complete Blood Count Auto Diff] Stat Lab 10/15/24 13:50 Completed CMP [Comprehensive Metabolic Panel] Stat Lab 10/15/24 13:50 Completed Complete Blood Count Auto Diff AMLAB Lab 10/16/24 05:32 Completed Comprehensive Metabolic Panel AMLAB Lab 10/16/24 05:32 Completed Magnesium AMLAB Lab 10/16/24 05:32 Completed Magnesium Stat Lab 10/15/24 13:50 Completed Trop I [Troponin I] Stat Lab 10/15/24 13:50 Completed Troponin I Q3H Lab 10/15/24 17:54 Completed Troponin I Q3H Lab 10/15/24 20:59 Completed MDM Narrative Medical Decision Narrative: In summary patient is a 79-year-old female who presents to the emergency department for evaluation of dyspnea and fatigue. Patient is initially with a blood pressure of 135/46 however she is significantly bradycardic at 42 breathing 18 times a minute satting at 99% on room air upon arrival, afebrile. Physical exam shows normal breath sounds with no increased work of breathing but very slow auscultated heart rate and bradycardia on the bedside monitor. Differential diagnosis includes therapeutic misadventure such as beta-blockade versus heart block versus heart failure versus infection etc. Initial workup will be conducted with twelve-lead EKG hematologic labs plain film chest x-ray. Initial interventions were considered and continuous cardiac monitoring and pulse oximetry are ordered however will await HOPKINS given the multiple potential conflicting treatments for further. Initial workup reviewed by me shows that she is in third-degree AV block, chest x-ray shows pulmonary edema and pleural effusions, her NT proBNP is 5400, initial troponin is 0.02, patient has a sodium of 126 potassium of 4.6 creatinine of 1.4 BUN of 31 GFR of 36 and the remainder of her hematologic labs are nonactionable. Given this I had interactive discussion with Dr. Kramer regarding patient management and he wished to initiate a milligram of glucagon for an adult for possible beta-blockade as well as initiation of dopamine at 5 g/min. If patient is unresponsive to that he will consider transvenous pacer later tonight. Given that I had interactive discussion with hospital medicine regarding patient management and she will be admitted for further evaluation and care. <Clinton Meraz MD - Last Filed: 10/16/24 11:41> Vital Signs Vital Signs: 10/15/24 13:22 10/15/24 13:42 10/15/24 14:03 Temperature 98.0 F Temperature Source Oral Pulse Rate 43 L 45 L Pulse Rate [Apical] 42 L Respiratory Rate 18 19 Blood Pressure 135/46 L 168/68 H Blood Pressure [Left Arm] 135/46 L Blood Pressure Mean 63 78 Blood Pressure Mean [Left Arm] 75 Blood Pressure Source [Left Arm] Automatic Cuff Blood Pressure Position [Left Arm] Sitting 02 Sat by Pulse Oximetry 99 100 99 Oxygen Delivery Method Room Air 10/15/24 14:31 10/15/24 15:01 10/15/24 15:31 Temperature Temperature Source Pulse Rate 42 L 48 L 55 L Pulse Rate [Apical] Respiratory Rate 20 15 26 H Blood Pressure 144/55 H 156/68 H 179/143 H Blood Pressure [Left Arm] Blood Pressure Mean Blood Pressure Mean [Left Arm] Blood Pressure Source [Left Arm] Blood Pressure Position [Left Arm] 02 Sat by Pulse Oximetry 98 98 96 Oxygen Delivery Method Room Air 10/15/24 16:05 10/15/24 16:20 Temperature 98.2 F Temperature Source Pulse Rate 57 L Pulse Rate [Apical] 55 L Respiratory Rate 20 Blood Pressure 187/64 H Blood Pressure [Left Arm] Blood Pressure Mean Blood Pressure Mean [Left Arm] Blood Pressure Source [Left Arm] Blood Pressure Position [Left Arm] 02 Sat by Pulse Oximetry 98 Oxygen Delivery Method Room Air Room Air Lab Data Labs: Lab Results 10/15/24 13:50: WBC 6.8, RBC 4.63, Hgb 13.6, Hct 41.2, MCV 89.0, MCH 29.4, MCHC 33.0, RDW 13.4, Plt Count 125 L, MPV 12.6 H, Neut % (Auto) 75.6, Lymph % (Auto) 16.4, [place] % (Auto) 7.0, Eos % (Auto) 0.1, Baso % (Auto) 0.3, Neut # (Auto) 5.1, Lymph # (Auto) 1.1, [place] # (Auto) 0.5, Eos # (Auto) 0.0, Baso # (Auto) 0.0, Sodium 126 L, Potassium 4.6, Chloride 91 L, Carbon Dioxide 26, Anion Gap 13.6, BUN 31 H, Creatinine 1.40 H, Estimated Creat Clear 39, Estimated GFR 36 L, Est GFR ( Amer) 44 L, Glucose 182 H, Calcium 8.7, Magnesium 1.9, Total Bilirubin 0.8, AST 74 H, ALT 56, Alkaline Phosphatase 75, Troponin I 0.02, NT-Pro-B Natriuret Pep 5400 H, Total Protein 6.8, Albumin 4.0, Globulin 2.8, Albumin/Globulin Ratio 1.4 Response Orders (Tests/Meds): ED MEDICATIONS Generic Name Dose Route Start Last Admin Trade Name Timoteo PRN Reason Stop Dose Admin Acetaminophen 500 mg 10/16/24 00:05 10/16/24 00:12 Acetaminophen 500mg Tab PO 11/15/24 00:04 500 mg Q4HP PRN Administration Mild pain(1-3),fever,headache Albuterol/Ipratropium 3 ml 10/16/24 00:17 10/16/24 00:26 Ipratropium/Albuterol 3 Ml Neb IH 11/15/24 00:16 3 ml Q6HP PRN Administration Shortness Of Breath Bumetanide 2 mg 10/16/24 09:00 10/16/24 09:21 Bumetanide 1mg/4ml Vial IV 11/15/24 08:59 2 mg DAILY LENNIE Administration Dobutamine HCl/Dextrose 250 mls @ 5.851 mls/hr 10/15/24 17:53 10/16/24 02:05 Dobutamine 500mg/250ml D5w IV 11/14/24 17:52 5 mcg/kg/min .Q24H LENNIE 11.7 mls/hr Titration Protocol 2.5 MCG/KG/MIN Insulin Glargine 10 unit 10/15/24 21:00 10/15/24 21:13 Insulin Glargine 100 Units/Ml 3ml Flexpen SUBCUT 11/14/24 20:59 10 units HS LENNIE Administration Insulin Glargine 15 unit 10/16/24 09:00 10/16/24 09:36 Insulin Glargine 100 Units/Ml 3ml Flexpen SUBCUT 11/15/24 08:59 15 units DAILY LENNIE Administration Insulin Human Lispro 0 unit 10/15/24 16:30 10/16/24 11:15 Humalog 100 Units/Ml 10ml Vial (Ssi) SUBCUT 11/14/24 16:29 Not Given ACHS LENNIE Protocol Melatonin 5 mg 10/16/24 07:23 Melatonin 5mg Tablet PO 11/14/24 22:28 HSP PRN Insomnia Oseltamivir Phosphate 30 mg 10/16/24 09:00 10/16/24 09:24 Oseltamivir Phosphate 6mg/Ml Oral Susp 60ml PO 10/20/24 09:01 30 mg BID LENNIE Administration Sodium Chloride 10 ml 10/16/24 07:24 Sodium Chloride 0.9% 10ml Flush Syringe IV 11/15/24 07:23 NEEDED PRN Maintain IV Site Sodium Chloride 1,000 mg 10/16/24 08:00 10/16/24 09:20 Sodium Chloride 1,000mg Tablet PO 11/15/24 07:59 1,000 mg BIDWMEAL LENNIE Administration Discontinued Medications Generic Name Dose Route Start Last Admin Trade Name Thaddeusq PRN Reason Stop Dose Admin Bumetanide 2 mg 10/15/24 16:36 10/15/24 17:19 Bumetanide 1mg/4ml Vial IV 10/15/24 16:37 2 mg ONCE ONE Administration Glucagon 1 mg 10/15/24 14:13 10/15/24 14:27 Glucagon 1 Mg/Ml Vial IV 10/15/24 14:14 1 mg ONCE ONE Administration Dopamine HCl/Dextrose 250 mls @ 14.628 mls/hr 10/15/24 14:13 10/15/24 18:23 Dopamine 400mg/250ml D5w IV 11/14/24 14:12 5 mcg/kg/min .Q17H6M LENNIE 14.63 mls/hr Titration Protocol 5 MCG/KG/MIN Melatonin 5 mg 10/15/24 22:29 10/15/24 22:36 Melatonin 5mg Tablet PO 11/15/24 20:59 5 mg HS PRN Administration Insomnia Ondansetron HCl 4 mg 10/15/24 14:47 10/15/24 14:48 Ondansetron 4mg/2ml Vial IV 10/15/24 14:48 4 mg ONCE ONE Administration Oseltamivir Phosphate 75 mg 10/15/24 21:00 10/15/24 21:14 Oseltamivir 75mg Capsule PO 10/20/24 09:01 75 mg BID LENNIE Administration Promethazine HCl 25 mg 10/15/24 17:54 10/16/24 01:24 Promethazine Hcl 25mg/Ml 1ml Vial IV 10/15/24 17:55 Not Given ONCE ONE Sodium Chloride 25 ml 10/15/24 17:54 Sodium Chloride 0.9% 25ml Bag IV 11/14/24 17:53 NEEDED PRN for Use with IV Promethazine ORDERS Category Date Time Status Cardiology Consult [Consult to Cardiology] [CONS] Cons 10/15/24 14:40 Active Routine Chest XR -- portable [XR chest portable] Stat Exams 10/15/24 14:05 Completed BNP [NT Pro Brain Natriuretic Pep.] Stat Lab 10/15/24 13:50 Completed CBC w/Auto Diff [Complete Blood Count Auto Diff] Stat Lab 10/15/24 13:50 Completed CMP [Comprehensive Metabolic Panel] Stat Lab 10/15/24 13:50 Completed Complete Blood Count Auto Diff AMLAB Lab 10/16/24 05:32 Completed Comprehensive Metabolic Panel AMLAB Lab 10/16/24 05:32 Completed Magnesium AMLAB Lab 10/16/24 05:32 Completed Magnesium Stat Lab 10/15/24 13:50 Completed Trop I [Troponin I] Stat Lab 10/15/24 13:50 Completed Troponin I Q3H Lab 10/15/24 17:54 Completed Troponin I Q3H Lab 10/15/24 20:59 Completed MDM Narrative Medical Decision Narrative: In summary patient is a 79-year-old female who presents to the emergency department for evaluation of dyspnea and fatigue. Patient is initially with a blood pressure of 135/46 however she is significantly bradycardic at 42 breathing 18 times a minute satting at 99% on room air upon arrival, afebrile. Physical exam shows normal breath sounds with no increased work of breathing but very slow auscultated heart rate and bradycardia on the bedside monitor. Differential diagnosis includes therapeutic misadventure such as beta-blockade versus heart block versus heart failure versus infection etc. Initial workup will be conducted with twelve-lead EKG hematologic labs plain film chest x-ray. Initial interventions were considered and continuous cardiac monitoring and pulse oximetry are ordered however will await HOPKINS given the multiple potential conflicting treatments for further. Initial workup reviewed by me shows that she is in third-degree AV block, chest x-ray shows pulmonary edema and pleural effusions, her NT proBNP is 5400, initial troponin is 0.02, patient has a sodium of 126 potassium of 4.6 creatinine of 1.4 BUN of 31 GFR of 36 and the remainder of her hematologic labs are nonactionable. Given this I had interactive discussion with Dr. Kramer regarding patient management and he wished to initiate a milligram of glucagon for an adult for possible beta-blockade as well as initiation of dopamine at 5 g/min. If patient is unresponsive to that he will consider transvenous pacer later tonight. Given that I had interactive discussion with hospital medicine regarding patient management and she will be admitted for further evaluation and care. I was consulted by the ANIA, and we discussed the complexity of the problems being addressed. I approved the treatment and management plan for this patient's care in the Emergency Department, thus performing a substantive portion of the medical decision making. Clinton Meraz MD
--- NOTE | 2024-10-15 13:46 | ECG_ITS ---
APPROVED REPORT Exam: Resting ECG HR:45 bpm ECG Measurements Heart Rate 45 AXES QRSd 154 QRS 67 QT 669 T 91 QTc 624 Conclusion third degree block RBBB prolonged QT Electronically signed by : MALIKA VENTURA, 10/17/2024 15:15:33
--- NOTE | 2024-10-15 13:50 | PC.NURSE ---
DR VENTURA AT BEDSIDE
--- NOTE | 2024-10-15 14:05 | XR_ITS ---
FINAL REPORT CLINICAL HISTORY: Dyspnea, bradycardia FINDINGS: A single view of the chest was obtained. The heart is normal in size. The patient is status post median sternotomy. Chronic scarring is seen at the lung bases. There is no acute infiltrate. There is no pleural effusion. There is no pneumothorax. There is no acute osseous abnormality. IMPRESSION: No acute cardiopulmonary process. Reviewed, Interpreted and Dictated by Vince Malcolm MD Transcribed by Maranda Boothe Authenticated and [facility]
[2024-10-15 14:14] LABS: Alanine Aminotransferase 56 U/L (12-78); Albumin/Globulin Ratio 1.4 (1.1-1.8); Alkaline Phosphatase 75 U/L (38-126); Anion Gap 13.6 mEq/L (5-15); Aspartate Amino Transferase 74 U/L (14-36); Bilirubin,Total 0.8 mg/dl (0.2-1.3); Blood Urea Nitrogen 31 mg/dl (7-17); Calcium 8.7 mg/dl (8.4-10.2); Carbon Dioxide 26 mmol/L (22.0-30.0); Chloride 91 mmol/L (98-107); Creatinine Clearance Estimated 39 mL/min (50-200); Estimated Glomerular Filt Rate 36 ml/min (>60); GFR (African American) 44 ML/MIN (>60); Globulin 2.8 g/dL (1.3-3.2); Glucose 182 mg/dl (74-100); Magnesium 1.9 mg/dl (1.6-2.3); Potassium 4.6 mmoL/L (3.5-5.1); Sodium 126 mmol/L (136-145); Total Protein,Serum 6.8 g/dl (6.3-8.2)
--- NOTE | 2024-10-15 14:16 | PC.NURSE ---
pt refused rapid flu and covid swab, er provider made aware
[2024-10-15 14:19] LABS: Hematocrit 41.2 % (37.0-47.0); Hemoglobin 13.6 g/dL (12.2-16.2); Red Blood Count 4.63 M/mm3 (4.20-5.40); White Blood Count 6.8 K/mm3 (4.8-10.8)
[2024-10-15 14:20] LABS: Basophils % 0.3 % (0.1-2.0); Eosinophils % 0.1 % (0.1-12.0); Lymphocytes # 1.1 K/mm3 (0.7-4.5); Lymphocytes % 16.4 % (10-50); Mean Corpuscular Hemoglobin 29.4 pg (27.0-31.2); Mean Platelet Volume 12.6 fl (7.4-10.4); Monocytes # 0.5 K/mm3 (0.1-1.0); Neutrophils # 5.1 K/mm3 (1.8-7.8); Neutrophils % 75.6 % (37.0-80.0); Platelet Count 125 K/mm3 (142-424); Red Cell Distribution Width 13.4 % (11.5-17.5)
[2024-10-15 14:23] LABS: NT Pro Brain Natriuretic Pep. 5400 pg/mL (0-450)
[2024-10-15 14:25] LABS: Troponin I 0.02 ng/ml (0.00-0.034)
[2024-10-15] MEDS: GLUCAGON 1 MG/ML VIAL IV (14:27)
--- NOTE | 2024-10-15 14:30 | HMH.PHAINT1 ---
Pharmacy Intervention Comments: MEDICATION RECONCILIATION COMPLETED ON PATIENT USING EXTERNAL FILL HISTORY FROM PHARMACY. -ABDON GALARZA, [facility]
[2024-10-15] MEDS: DOPAMINE HCL/D5W 250 ML 14.63 MG IV (14:34)
--- NOTE | 2024-10-15 14:42 | EXP.HP ---
History of Present Illness *Admission Date: 10/15/24 *Reason for visit:: short of breath *History of present illness: Mr. Levine is an 79-year-old [employer] female who presents with 1 to 2 weeks of worsening shortness of breath, cough, fatigue, swelling in legs. On presentation she reports occasional nausea and vomiting. States she had a fever 24 to 48 hours ago. Initial workup concerning for bradycardia with high-grade block, electrolyte disturbances with sodium of 126, kidney dysfunction that appears to be chronic. White count normal. BNP elevated at 5400. Initially refused respiratory panel swab. Given bradycardia concerning for heart block, cardiology was consulted. Recommended initiating patient on dopamine and admitting for further management and consideration for pacemaker. On metoprolol at home, medication has been held. Given dose of glucagon. Medicine consulted. Heart rate improved by the time of my evaluation. Heart rate in the 50s. Extensive discussion with patient, son and [id number] at bedside. Patient interested in further workup. Has extensive history with her heart with repair of an ASD and previous ablation of A-fib 4 years ago at [facility]. Does report multiple sick contacts at home including her . Stable on room air [facility] Disclaimer: The information contained in this section may have been updated after the patient was seen, as this information can be updated by other users. 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 occupational exposures/hazards: No caffeine: Yes Have you lived/traveled outside US in past 30 days?: No Contact w/someone who lives/traveled outside US past 30 days?: No Exposure to someone with infectious disease in past 14 days?: No Do you have a fever (greater than 100.4 F or 38 C)?: No Have you tested positive for COVID-19: No Exposed to someone with COVID-19 in past 14 days?: No Do you have a sore throat?: No Do you have a cough?: No Do you have any weakness?: No Do you have any diarrhea?: No Are you experiencing any unusual bleeding?: No Do you have any muscle aches/pain?: No Do you have any abdominal pain?: No Are you experiencing loss of taste or smell?: No Other Medical History Have you received the Flu Vaccine for this season: No Have you received the Pneumonia Vaccine: No Review of Systems Review of Systems Review of systems (narrative): 14 point review of systems performed, pertinent positives and negatives as per HPI Meds Home Medications and Allergies Home Medications ?Medication ?Instructions ?Recorded ?Confirmed ?Type empagliflozin 25 mg tablet 25 mg PO DAILY 10/15/24 10/15/24 History (Jardiance) insulin glargine 100 unit/mL (3 10 unit SQ HS 10/15/24 10/15/24 History mL) subcutaneous pen (Lantus Solostar U-100 Insulin) insulin glargine 100 unit/mL (3 30 unit SQ DAILY 10/15/24 10/15/24 History mL) subcutaneous pen (Lantus Solostar U-100 Insulin) insulin lispro 100 unit/mL 0 unit SQ ACHS 10/15/24 10/15/24 History subcutaneous pen (Humalog KwikPen (U-100) Insulin) metoprolol tartrate 25 mg tablet 25 mg PO BID 10/15/24 10/15/24 History rivaroxaban 15 mg tablet (Xarelto) 15 mg PO QPMWITHMEAL 10/15/24 10/15/24 History New Prescriptions to Start Prescriptions: Allergies Allergy/AdvReac Type Severity Reaction Status Date / Time Cioqgkj-BUP-ObL Reductase Allergy Verified 06/29/20 10:41 Inhibitor (Yrtcjea-Tvo-Cko Reductase Inhibitor) Exam Data for Last 24 hours Vital signs and Labs for Last 24 Hours: Temp Pulse Resp BP Pulse Ox O2 Del Method 98.0 F 45 L 19 168/68 H 99 Room Air 10/15/24 13:22 10/15/24 14:03 10/15/24 14:03 10/15/24 14:03 10/15/24 14:03 10/15/24 13:22 Laboratory Results - last 24 hr 10/15/24 13:50: WBC 6.8, RBC 4.63, Hgb 13.6, Hct 41.2, MCV 89.0, MCH 29.4, MCHC 33.0, RDW 13.4, Plt Count 125 L, MPV 12.6 H, Neut % (Auto) 75.6, Lymph % (Auto) 16.4, [place] % (Auto) 7.0, Eos % (Auto) 0.1, Baso % (Auto) 0.3, Neut # (Auto) 5.1, Lymph # (Auto) 1.1, [place] # (Auto) 0.5, Eos # (Auto) 0.0, Baso # (Auto) 0.0, Sodium 126 L, Potassium 4.6, Chloride 91 L, Carbon Dioxide 26, Anion Gap 13.6, BUN 31 H, Creatinine 1.40 H, Estimated Creat Clear 39, Estimated GFR 36 L, Est GFR ( Amer) 44 L, Glucose 182 H, Calcium 8.7, Magnesium 1.9, Total Bilirubin 0.8, AST 74 H, ALT 56, Alkaline Phosphatase 75, Troponin I 0.02, NT-Pro-B Natriuret Pep 5400 H, Total Protein 6.8, Albumin 4.0, Globulin 2.8, Albumin/Globulin Ratio 1.4 I & O for Last 24 hours: Intake & Output 10/12/24 10/13/24 10/14/24 10/15/24 23:59 23:59 23:59 23:59 Weight 78.018 kg Constitutional Constitutional: mild distress, average body habitus and cooperative *Routine HEENT Exam Head: Present normocephalic Eye: Present EOMI and PERRL ENT: Present mucous membranes moist *Routine Neck Exam Neck: Present supple; Absent lymphadenopathy *Routine Respiratory Exam Respiratory: Present rhonchi and normal respiratory effort; Absent wheezes or crackles Comments: rhonchorous cough *Routine Cardiovascular Exam Cardiovascular: Present bradycardia Comments: regular rhythm *Routine Abdominal Exam Abdominal: Present soft and normoactive bowel sounds; Absent tenderness *Routine Rectal Exam Rectal:: deferred *Routine Genitalia Exam Genitalia:: deferred *Routine Extremities Exam Extremities: Present edema (2+ to knees); Absent cyanosis or clubbing *Routine Skin Exam Skin: Present warm; Absent rash *Routine Neurological Exam Neurological: Present alert, oriented X3 and moving all extremities; Absent altered mental status Assessment and Plan *Assessment and plan (1) Acute exacerbation of CHF (congestive heart failure): Status: Acute Category: Medical Code(s): I50.9 - Heart failure, unspecified (2) Third degree heart block: Status: Acute Category: Medical Code(s): I44.2 - Atrioventricular block, complete (3) Elevated brain natriuretic peptide (BNP) level: Status: Acute Category: Medical Code(s): R79.89 - Other specified abnormal findings of blood chemistry (4) Influenza A: Status: Acute Category: Medical Code(s): J10.1 - Influenza due to other identified influenza virus with other respiratory manifestations (5) Uncontrolled diabetes mellitus: Status: Acute Qualifiers: Diabetes mellitus type: type 2 Glycemic state: with hyperglycemia Qualified Code(s): E11.65 - Type 2 diabetes mellitus with hyperglycemia Category: Medical Code(s): E11.65 - Type 2 diabetes mellitus with hyperglycemia (6) Hypertension: Status: Chronic Qualifiers: Hypertension type: essential hypertension Qualified Code(s): I10 - Essential (primary) hypertension Category: Medical Code(s): I10 - Essential (primary) hypertension Plan 79-year-old female who presents with worsening shortness of breath. Found to be bradycardic on arrival. Kidney function at baseline with chronic kidney disease. Mild hyponatremia with elevated BNP. Discussed case with ER, request admission for treatment of symptomatic bradycardia and CHF exacerbation. I agreed to admit for further management. Swabbed for COVID and flu on admission due to respiratory symptoms, found to be positive for flu A. Initiate Tamiflu. Necessitating inpatient care. Problems addressed as follows: Heart block Bradycardia -EKG showing heart block. Discussed case with cardiology, recommends transitioning from dopamine to dobutamine for improved heart rate without significant impact on blood pressure. Status post glucagon administration. Heart rate in the 50s. -Holding anticoagulation in anticipation of possible pacemaker in the morning. -Will hold beta-cyril. -Initiate Bumex 2 mg IV once given BNP of 5300 to promote diuresis in the setting of CHF. Echocardiogram ordered. Formal read pending -EKG reviewed, no ischemic changes. Block noted. -Sodium 126, BUN 31, creatinine 1.4. Kidney function at baseline. Electrolytes normal with magnesium 1.9, potassium 4.0. Repeat CBC, CMP, magnesium ordered for the morning. Influenza A: Several family members have been sick. Initiate Tamiflu 75 mg twice daily for 5 days Diabetes: A1c pending. Continue sliding scale insulin with insulin glargine twice daily per home regimen.; TSH pending in the setting of metabolic disease along with bradycardia above Holding anticoagulation anticipation of possible pacemaker Diabetic diet, n.p.o. at midnight DNR/DNI
--- NOTE | 2024-10-15 14:43 | PC.NURSE ---
DON KYM AT BEDSIDE TO UPDATE PT AND FAMILY
[2024-10-15] MEDS: ONDANSETRON 4MG/2ML VIAL 4 MG IV (14:48)
--- NOTE | 2024-10-15 15:16 | CA_ITS ---
APPROVED REPORT EXAM: Comprehensive 2D, Doppler, and color-flow Echocardiogram Fitter Helper: Sherry Chou RVT Ht: 5 ft 5 in Wt: 172lbs BSA: 1.86 BP: 168/68 mmHg Indications: EF CHECK FOR PACER VS CPT-P,HEART BLOCK,A-FIB,PHTN,CAD,MOD MS,HTN,HLD,SOA TDS-BEST EXAM POSSIBLE PT FLAT ON BACK 2D Dimensions IVSd 2.24 cm F: 0.6-1.0 LVEF (Visual) 63.70 % PWd 1.25 cm F: 0.6 - 1.0 LVDd 2.19 cm F: 3.9 - 5.3 LVDs 1.48 cm F: 2.2 - 3.5 M-Mode Dimensions LA Diam 4.19 cm (1.9-4.0) LV Diastology E Decel Time 110 (160-240 msec) E/A Ratio 2.2 Aortic Valve JIM Index 0.64 cm2/m2 AoV Peak Cedric. 222.0 (50-130 cm/s) AO Peak GR. 19.70 mmHg AO Mean GR. 11.90 (<5 mmHg) AO VTI 53.5 (18-25 cm) JIM (VTI) 1.22 (2.5-4.5 cm2) Mitral Valve MV E Max Cedric. 97.0 (40-130 cm/s) MV A Velocity 45.0 (40-130 cm/s) E/A Ratio 2.13 MV Mean Gr. 9.40 (<2mmHg) MV PHT 32.0 ms Pulmonary Valve PV Peak Velocity 86.0 (50-150 cm/s) Tricuspid Valve TR P. Velocity 405.00 cm/s RAP Estimate 10.00 mmHg RVSP 75.50 mmHg Left Ventricle The left ventricle is normal size. The left ventricular systolic function is normal. The left ventricular ejection fraction is within the normal range. There is increased LV wall thickness. The septum is asynchronous. Diastolic function is indeterminate. LVEF is 55%. Right Ventricle Right ventricle is mildly dilated. The right ventricular systolic function is normal. Atria Left atrium is moderately dilated. Right atrium is moderately dilated. There is no Doppler evidence of interatrial shunt. Aortic Valve The aortic valve is mildly thickened. There is no aortic valvular stenosis. Mild aortic regurgitation. Mitral Valve Moderate to severe mitral annular calcification. The mitral valve leaflets are moderately thickened. Moderate mitral stenosis is present. Mean MV gradient 9 mmHg ( HR55 bpm). MVA by PHT method is 2.6 cm2. Mild mitral regurgitation. Tricuspid Valve Tricuspid valve is grossly normal in structure and function. Moderate to severe tricuspid regurgitation. Elevated RVSP > 60 mmHg. Pulmonic Valve The pulmonary valve is normal in structure. Mild pulmonic regurgitation. Great Vessels The aortic root is normal in size. IVC is normal in size, but collapses < 50% with respirophasic variation. RA pressure is estimated at 8 mmHg. Pericardium There is no pericardial effusion. Other Information Study Quality: Fair Conclusion Normal biventricular systolic function. Mild RV dilation. Biatrial dilation. Moderate to severe MAC with presence of moderate MS (mean MV gradient 9 mmHg at HR 55 bpm). Moderate to severe TR. Mild MR, mild AI, mild PI. Markedly elevated RVSP > 60 mmHg. Electronically signed by : Nicolette Smalls MD 10/16/2024 11:55:21
--- NOTE | 2024-10-15 15:33 | PC.NURSE ---
called report to tom cervantes on 2nd floor icu
--- NOTE | 2024-10-15 15:39 | PC.NURSE ---
ECHO AT BEDSIDE
[2024-10-15 16:40] LABS: Coronavirus 19, PCR Not Detected (NotDetected); Human Rhinovirus Not Detected (NotDetected); Influenza B, PCR Not Detected (NotDetected); Respiratory Syncytial Virus Not Detected (NotDetected)
[2024-10-15 16:59] LABS: POC Glucose,Bedside 161 (70-110)
[2024-10-15] MEDS: humaLOG 100 UNITS/ML 10ML VIAL (SSI) SUBCUT ×2 (17:17→21:13)
[2024-10-15] MEDS: BUMETANIDE 1MG/4ML VIAL 2 MG IV (17:19)
[2024-10-15] MEDS: DOBUTAMINE HCL/D5W 250 ML 5.85 MG IV (18:16)
--- NOTE | 2024-10-15 18:41 | PC.NURSE ---
1820 dobutamine drip started at 2.5 1830 new iv started at this time for admin of meds. pt offered phenergan that has been ordered. pt and family indicate that they would like to try to control nausea with just belly rest at this time. informed pt and family that nausea meds were available if she decided that she wanted to try meds.
[2024-10-15 18:46] LABS: Troponin I 0.02 ng/ml (0.00-0.034)
[2024-10-15 18:57] LABS: Influenza A, PCR Detected (NotDetected)
[2024-10-15 20:48] LABS: POC Glucose,Bedside 172 (70-110)
[2024-10-15] MEDS: INSULIN GLARGINE 100 UNITS/ML 3ML FLEXPEN 10 UNIT SUBCUT (21:13)
[2024-10-15] MEDS: OSELTAMIVIR 75MG CAPSULE 75 MG PO (21:14)
[2024-10-15 21:44] LABS: Troponin I 0.04 ng/ml (0.00-0.034)
[2024-10-15] MEDS: MELATONIN 5MG TABLET 5 MG PO (22:36)
[2024-10-16] VITALS (22 sets, daily range): BP systolic 136–191; BP diastolic 43–93; PULSE 49–88; RESP 14–21; TEMP 36.7–36.9; O2SAT 94–99; BMI 31.8
[2024-10-16] MEDS: ACETAMINOPHEN 500MG TAB 500 MG PO (00:12)
[2024-10-16] MEDS: IPRATROPIUM/ALBUTEROL 3 ML NEB IH (00:26)
--- NOTE | 2024-10-16 00:53 | ECG_ITS ---
APPROVED REPORT Exam: Resting ECG HR:58 bpm ECG Measurements Heart Rate 58 AXES QRSd 153 QRS 119 QT 586 T 78 QTc 584 Conclusion Bradycardia with probable 3degree AV block although artifact is limiting LEFT POSTERIOR FASCICULAR BLOCK [QRS AXIS > 109, INFERIOR Q] SEPTAL MYOCARDIAL INFARCTION , OF INDETERMINATE AGE [40+ ms Q WAVE IN V1/V2] PROLONGED QT INTERVAL CRITICAL TEST RESULT UNCONFIRMED REPORT Electronically signed by : Alexys King MD 10/16/2024 09:07:45
--- NOTE | 2024-10-16 01:05 | EXP.EVENT.NO ---
Patient with possible heart block noted on EKG tonight. Recommend cardiology reevaluate patient in AM.
[2024-10-16 06:10] LABS: POC Glucose,Bedside 155 (70-110)
[2024-10-16 07:13] LABS: Basophils % 0.2 % (0.1-2.0); Hematocrit 33.9 % (37.0-47.0); Lymphocytes # 0.8 K/mm3 (0.7-4.5); Lymphocytes % 19.3 % (10-50); Mean Corpuscular HGB Conc 33.3 g/dL (31.8-35.4); Mean Corpuscular Hemoglobin 29.3 pg (27.0-31.2); Mean Corpuscular Volume 87.8 fl (81-99); Mean Platelet Volume 12.5 fl (7.4-10.4); Monocytes # 0.4 K/mm3 (0.1-1.0); Monocytes % 8.1 % (1.7-9.3); Neutrophils # 3.1 K/mm3 (1.8-7.8); Neutrophils % 72.2 % (37.0-80.0); Platelet Count 88 K/mm3 (142-424); Red Blood Count 3.86 M/mm3 (4.20-5.40); White Blood Count 4.3 K/mm3 (4.8-10.8)
[2024-10-16 07:27] LABS: Chloride 91 mmol/L (98-107); Sodium 123 mmol/L (136-145)
[2024-10-16 07:30] LABS: Alanine Aminotransferase 42 U/L (12-78); Albumin/Globulin Ratio 1.2 (1.1-1.8); Alkaline Phosphatase 58 U/L (38-126); Aspartate Amino Transferase 57 U/L (14-36); Bilirubin,Total 0.4 mg/dl (0.2-1.3); Blood Urea Nitrogen 31 mg/dl (7-17); Calcium 7.7 mg/dl (8.4-10.2); Carbon Dioxide 22 mmol/L (22.0-30.0); Creatinine Clearance Estimated 40 mL/min (50-200); Estimated Glomerular Filt Rate 33 ml/min (>60); GFR (African American) 40 ML/MIN (>60); Globulin 2.5 g/dL (1.3-3.2); Glucose 160 mg/dl (74-100); Magnesium 1.8 mg/dl (1.6-2.3); Total Protein,Serum 5.5 g/dl (6.3-8.2)
[2024-10-16 07:33] LABS: Hemoglobin 11.5 g/dL (12.2-16.2); Red Cell Distribution Width 13.2 % (11.5-17.5)
[2024-10-16 07:49] LABS: Thyroid Stimulating Hormone 2.54 uIU/mL (0.465-4.68)
[2024-10-16 08:43] LABS: Hemoglobin A1C 8.5 % (4.0-6.0)
[2024-10-16] MEDS: SODIUM CHLORIDE 1,000MG TABLET 1000 MG PO (09:20)
[2024-10-16] MEDS: BUMETANIDE 1MG/4ML VIAL 2 MG IV (09:21)
[2024-10-16] MEDS: OSELTAMIVIR PHOSPHATE 6MG/ML ORAL SUSP 60ML 30 MG PO (09:24)
[2024-10-16] MEDS: INSULIN GLARGINE 100 UNITS/ML 3ML FLEXPEN 15 UNIT SUBCUT (09:36)
[2024-10-16 09:51] LABS: POC Glucose,Bedside 154 (70-110)
--- NOTE | 2024-10-16 10:30 | EXP.CARD.CON ---
History of Present Illness History of Present Illness Consult date: 10/16/24 Requesting physician: Jeffrey Chandler Chief complaint: weakness soa History of present illness: 79-year-old [place] female with a history of atrial fibrillation status post ablation and ASD repair. Has not been seen in the clinic here since 2019 and states she has not followed with cardiology since that time. PCP has been refilling meds. Also has CKD 3 and diabetes. Patient presented to the emergency room yesterday with shortness of breath edema cough and fatigue and was found to have transient third-degree heart block in the 40s and positive for flu A. She was started on dobutamine overnight and admitted for further management. She is n.p.o. for possible pacemaker. On my examination patient is stable in sinus rhythm in the 80s on dobutamine 5 mg IV. Her family is bedside. Patient reports she has been dizzy and getting short of breath for the past 6 months, symptoms worse with activity. Symptoms more pronounced over the past 2 weeks but she denies syncopal episodes. Her flu symptoms started only 2 days prior to presentation. Of note troponin 0.02, 0.02, 0.04. proBNP 5400, EKG and possible third-degree heart block, chest x-ray normal. TSH normal. She has a 2D echo pending. [facility] Disclaimer: The information contained in this section may have been updated after the patient was seen, as this information can be updated by other users. 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 occupational exposures/hazards: No caffeine: Yes Have you lived/traveled outside US in past 30 days?: No Contact w/someone who lives/traveled outside US past 30 days?: No Exposure to someone with infectious disease in past 14 days?: No Do you have a fever (greater than 100.4 F or 38 C)?: No Have you tested positive for COVID-19: No Exposed to someone with COVID-19 in past 14 days?: No Do you have a sore throat?: No Do you have a cough?: No Do you have any weakness?: No Do you have any diarrhea?: No Are you experiencing any unusual bleeding?: No Do you have any muscle aches/pain?: No Do you have any abdominal pain?: No Are you experiencing loss of taste or smell?: No Review of Systems Constitutional Constitutional: Reports fatigue and Reports weakness Eyes Eyes: Denies loss of vision ENT Ears, Nose, Mouth, and Throat: Reports dizziness, Denies hearing loss, Reports nasal congestion and Reports nasal discharge *Cardiovascular Cardiovascular: Denies chest pain, Denies dyspnea and Denies syncope *Respiratory Respiratory: Reports cough and Denies dyspnea *Gastrointestinal Gastrointestinal: Denies change in stool character, Denies nausea and Denies vomiting *Musculoskeletal Musculoskeletal: Denies muscle weakness Integumentary/Breasts Skin/Breast: Denies changing lesions *Neurologic Neurologic: Reports dizziness, Denies loss of vision, Denies syncope and Reports weakness Endocrine Endocrine: Reports fatigue Exam Data for Last 24 hours Vital signs and Labs for Last 24 Hours: Temp Pulse Resp BP Pulse Ox O2 Del Method 98.5 F 56 L 18 155/57 H 96 Room Air 10/16/24 03:55 10/16/24 08:00 10/16/24 08:00 10/16/24 08:00 10/16/24 08:00 10/16/24 09:00 Laboratory Results - last 24 hr 10/15/24 13:50: WBC 6.8, RBC 4.63, Hgb 13.6, Hct 41.2, MCV 89.0, MCH 29.4, MCHC 33.0, RDW 13.4, Plt Count 125 L, MPV 12.6 H, Neut % (Auto) 75.6, Lymph % (Auto) 16.4, [place] % (Auto) 7.0, Eos % (Auto) 0.1, Baso % (Auto) 0.3, Neut # (Auto) 5.1, Lymph # (Auto) 1.1, [place] # (Auto) 0.5, Eos # (Auto) 0.0, Baso # (Auto) 0.0, Sodium 126 L, Potassium 4.6, Chloride 91 L, Carbon Dioxide 26, Anion Gap 13.6, BUN 31 H, Creatinine 1.40 H, Estimated Creat Clear 39, Estimated GFR 36 L, Est GFR ( Amer) 44 L, Glucose 182 H, Calcium 8.7, Magnesium 1.9, Total Bilirubin 0.8, AST 74 H, ALT 56, Alkaline Phosphatase 75, Troponin I 0.02, NT-Pro-B Natriuret Pep 5400 H, Total Protein 6.8, Albumin 4.0, Globulin 2.8, Albumin/Globulin Ratio 1.4 10/15/24 16:35: SARS-CoV-2 (PCR) Not detected, Influenza Type A (PCR) Detected A, Influenza Type B (PCR) Not detected, RSV (PCR) Not detected, Rhinovirus (PCR) Not detected 10/15/24 16:52: POC Glucose 161 H 10/15/24 17:54: Troponin I 0.02 10/15/24 20:35: POC Glucose 172 H 10/15/24 20:59: Troponin I 0.04 H 10/16/24 05:32: WBC 4.3 L D, RBC 3.86 L, Hgb 11.5 L D, Hct 33.9 L, MCV 87.8, MCH 29.3, MCHC 33.3, RDW 13.2, Plt Count 88 L D, MPV 12.5 H, Neut % (Auto) 72.2, Lymph % (Auto) 19.3, [place] % (Auto) 8.1, Eos % (Auto) 0.0 L, Baso % (Auto) 0.2, Neut # (Auto) 3.1, Lymph # (Auto) 0.8, [place] # (Auto) 0.4, Eos # (Auto) 0.0, Baso # (Auto) 0.0, Sodium 123 L, Potassium 4.0, Chloride 91 L, Carbon Dioxide 22, Anion Gap 14.0, BUN 31 H, Creatinine 1.50 H, Estimated Creat Clear 40, Estimated GFR 33 L, Est GFR ( Amer) 40 L, Glucose 160 H, Hemoglobin A1c 8.5 H, Calcium 7.7 L, Magnesium 1.8, Total Bilirubin 0.4, AST 57 H, ALT 42, Alkaline Phosphatase 58, Total Protein 5.5 L, Albumin 3.0 L D, Globulin 2.5, Albumin/Globulin Ratio 1.2, TSH 2.54 10/16/24 06:03: POC Glucose 155 H 10/16/24 09:33: POC Glucose 154 H I & O for Last 24 hours: Intake & Output 10/13/24 10/14/24 10/15/24 10/16/24 23:59 23:59 23:59 23:59 Intake Total 305.838 / 545.838 285.728 / 285.728 Output Total 1100 / 1100 800 / 800 Balance -794.162 / -554.162 -514.272 / -514.272 Weight 185 lb 4.8 oz 191 lb Constitutional Constitutional: no acute distress and cooperative *Routine HEENT Exam Eye: Present PERRL *Routine Respiratory Exam Respiratory: Present CTA bilaterally; Absent accessory muscle use, wheezes or crackles *Routine Cardiovascular Exam Cardiovascular: Present RRR, Normal S1 and Normal S2; Absent murmur, gallop or rubs *Routine Abdominal Exam Abdominal: Present soft; Absent tenderness *Routine Extremities Exam Extremities: Present pulses intact; Absent cyanosis or edema *Routine Skin Exam Skin: Present intact; Absent erythema or wounds *Routine Neurological Exam Neurological: Present alert and oriented X3 Routine Psychiatric Exam Psychiatric: Present cooperative Meds Home Medications and Allergies Home Medications ?Medication ?Instructions ?Recorded ?Confirmed ?Type empagliflozin 25 mg tablet 25 mg PO DAILY 10/15/24 10/15/24 History (Jardiance) insulin glargine 100 unit/mL (3 10 unit SQ HS 10/15/24 10/15/24 History mL) subcutaneous pen (Lantus Solostar U-100 Insulin) insulin glargine 100 unit/mL (3 30 unit SQ DAILY 10/15/24 10/15/24 History mL) subcutaneous pen (Lantus Solostar U-100 Insulin) insulin lispro 100 unit/mL 0 unit SQ ACHS 10/15/24 10/15/24 History subcutaneous pen (Humalog KwikPen (U-100) Insulin) metoprolol tartrate 25 mg tablet 25 mg PO BID 10/15/24 10/15/24 History rivaroxaban 15 mg tablet (Xarelto) 15 mg PO QPMWITHMEAL 10/15/24 10/15/24 History New Prescriptions to Start Prescriptions: Allergies Allergy/AdvReac Type Severity Reaction Status Date / Time Mxuhplp-FME-[id number] Reductase Allergy Verified 06/29/20 10:41 Inhibitor (Dpmetix-Vnc-Pmk Reductase Inhibitor) Assessment and Plan *Assessment and plan (1) Third degree heart block: Status: Acute Category: Medical Code(s): I44.2 - Atrioventricular block, complete (2) Influenza A: Status: Acute Category: Medical Code(s): J10.1 - Influenza due to other identified influenza virus with other respiratory manifestations (3) Atrial fibrillation: Status: Chronic Qualifiers: Atrial fibrillation type: paroxysmal Qualified Code(s): I48.0 - Paroxysmal atrial fibrillation Category: Medical Code(s): I48.91 - Unspecified atrial fibrillation (4) Acute on chronic heart failure with preserved ejection fraction (HFpEF): Status: Acute Category: Medical Code(s): I50.33 - Acute on chronic diastolic (congestive) heart failure Plan Third Degree HB - new dx here in setting of Flu A but pt symptomatic for 6 months - she is on Metoprolol 25mg BID for A-fib - TSH normal - continue Dobutamine 5mg IV - will check 2D ECHO and plan for likely PPM this admission. Discussed at length with pt/family and they are agreeable. PAF s/p ablation approx 2019 - SR alternating with 3rd degree HB here - Metoprolol on hold due to symptomatic bradycardia - OAC (xarelto) on hold due to possible PPM Acute on Chronic HFpEF - SHIELDS, ProBNP 5k, 3rd degree HB - ECHO 2020 -biatrial enlargement, mild LVH, EF 50%, moderate LA enlarged right atrium and right ventricle, thickened and calcified aortic valve without stenosis, thickened and calcified mitral valve with at least moderate mitral stenosis, mild MR, mild TR - CXR clear, pt on room air, no peripheral edema - no evidence of vol overload at this time - repeat ECHO here, further plans/meds pending results Flu A - positive on PCR here - Nml WBC, Afebrile, on room air. s/p ASD repair - details unknown at this time - ECHO pending CKD-III - dose adjust meds, trend daily DM-II - cont Jardiance - A1C 8.5 - glucose management per Primary service CV plan: stable currently, further plans pending ECHO results, expect PPM implant today
[2024-10-16 11:21] LABS: POC Glucose,Bedside 147 (70-110)
--- NOTE | 2024-10-16 11:41 | IR_ITS ---
APPROVED REPORT Patient Location: Inpatient Human Resource Manager: LUÍS Marie RT (R) PROCEDURES 1. Pocket formation for Permanent Pacemaker Placement. 2. Placement of an atrial sensing and pacing coil into the right atrial appendage. 3. Placement of a ventricular sensing and pacing coil in the right ventricular apex. 4. Permanent Pacemaker Placement. INDICATION Third degree heart block. Informed consent was obtained prior to the procedure. COMPLICATIONS NONE Estimated Blood Loss: LESS THAN 10 ML TECHNIQUE 1% Lidocaine with epinephrine used to anesthetized the left anterior aspect of the chest. Scalpel was used to make the initial cutaneous incision while electrocautery was used to dissect down tinto the fascia. The fascia was lifted off the pectoralis muscle and digitally manipulated creating a pocket for the pacemaker. The patient was then placed in Trendelenburg position and the subclavian vein was accessed twice via the Selinger technique, there are two wires in the vein. A 6 Mongolian sheath was placed under fluoroscopic guidance into the subclavian vein over one of the wires while keeping the other wire in place within the subclavian vein. The dilator was removed from the sheath. Using fluoroscopic guidance, the ventricular lead was placed into the right ventricular apex, screwed and secured into place. Electronic interrogation proved acceptable thresholds and voltage within the lead. Using 3-0 silk, the ventricular lead was then secured into place. Lead was secured to the facia using the 3-0 silk. Following this, the sheath was pealed away. An additional 6 Mongolian fresh sheath and dilator was placed over the existing wire. Using fluoroscopic guidance, the atrial lead was the placed into the right atrial appendage and screwed and secured in place. Electrical interrogation demonstrated acceptable thresholds and voltage number. The atrial lead was then secured into place using 3-0 silk. 1 gram of Ancef was used to flush the pocket. Following the pacemaker generator being secured to the fascia and in place, Monocryl was used to close the subcutaneous layers while kelby were used to close the cutaneous layer. A pressure dressing was placed and the patient was transferred to the postop holding area in stable condition for postoperative care. INTERROGATION Generator Model number: Arrively [id number] Generator Serial number: [id number] Atrial lead model number: Tendril STS [id number] Atrial lead serial number: [id number] P-wave: 2.0 mV Impedance: 490 Ohms Threshold: 0.75V @ 0.4ms Right Ventricular lead model number: Gigi STS 8TC Right Ventricular lead serial number: [id number] R-wave: 14 mV Impedance: 470 Ohms Threshold: 0.8V @ 0.4ms Pacing Parameters: Mode: DDDR Base/Max Track:70 ppm / 120 ppm No diaphragmatic stimulation at 10 volts. IMPRESSION 1. Successful pocket formation for Permanent Pacemaker Placement. 2. Successful placement of an atrial sensing and pacing coil into the right atrial appendage. 3. Successful placement of a ventricular sensing and pacing coil in the right ventricular apex. 4. Successful permanent Pacemaker Placement. PLAN 1. Postop wound care. Electronically signed by : Saúl Kramer MD 10/19/2024 12:18:23
[2024-10-16] MEDS: diphenhydrAMINE 50MG/ML VIAL 50 MG IV (13:02)
[2024-10-16] MEDS: CEFAZOLIN SODIUM 1 GM in 0.9 % SODIUM CHLORIDE 50 ML IV (13:02)
[2024-10-16] MEDS: 0.9 % SODIUM CHLORIDE 1000ML 1,000 ML 25 ML IV (13:02)
[2024-10-16] MEDS: CEFAZOLIN 1GM VIAL 1 GM TP (13:02)
--- NOTE | 2024-10-16 13:03 | SUR.OPER ---
IV to right forearm 22g noted to be red and inflamed and sluggish to saline push, inflammation noted all up forearm and upper arm. IV removed w/o difficulty, catheter intact, pt tolerated well.
[2024-10-16] MEDS: LIDOCAINE 1% W/EPI 1:100,000 20ML VIAL 20 ML SQ (13:30)
--- NOTE | 2024-10-16 14:01 | XR_ITS ---
FINAL REPORT CLINICAL HISTORY: Confirm pacemaker/AID placement COMPARISON: 10/15/2024 FINDINGS: The heart size is mildly enlarged. Sternotomy wires are present. There is a new left-sided pacer. Bibasilar atelectasis is noted. There are chronic changes of the lung bases. There are no pleural effusions. There is no pneumothorax. There is no osseous abnormality. IMPRESSION: New left-sided pacer with no pneumothorax. Bibasilar atelectasis. Reviewed, Interpreted and Dictated by Vince Malcolm MD Transcribed by Latoya Little Authenticated and [facility]
[2024-10-16] MEDS: PHENTOLAMINE 5MG/ML VIAL 5 MG SUBCUT (14:17)
--- NOTE | 2024-10-16 14:22 | P.PNANES_ITS ---
[facility] Disclaimer: The information contained in this section may have been updated after the patient was seen, as this information can be updated by other users. 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 occupational exposures/hazards: No caffeine: Yes [facility] Anesthesia Checklist Patient Identification Patient Identification: Arm Band Structural Data Admitted From: Inpatient Planned Operative Procedure/s: Dual Chamber Pacemaker Consent for Planned Operative Procedure(s) Verified: Yes Verified Documents: Surgical Consent and History and Physical NPO Status Verified Time NPO: 00:00 Additional verifications Anesthesia Reactions: No Hx Blood Transfusions: Yes Blood Transfusion Reaction: No Airway Assessment Mallampati Score:: Class II C-Spine Mobility Assessed: Yes TMJ Mobility Assessed: Yes Dentition: Good Dentition Neurological Assessment Level of Consciousness: Awake, Alert and Appropriate Anesthesia Plan Anesthesia Risk discussed: Yes Anesthesia Plan: Verified ASA Class: IV Anesthesia Type: MAC
--- NOTE | 2024-10-16 14:38 | PC.NURSE ---
Pt back from cardiovascular lab director. Erythema noted to RUE. Regitine administered to RUE around reddened areas. Pt is currently sleeping at this time. VS currently stable. Family at bedside.
--- NOTE | 2024-10-16 15:47 | EXP.DC.SUM ---
General Admission date:: 10/15/24 Discharge date: 10/16/24 HPI HPI HPI: Mr. Saleh is an 79-year-old [facility] female who presents with 1 to 2 weeks of worsening shortness of breath, cough, fatigue, swelling in legs. On presentation she reports occasional nausea and vomiting. States she had a fever 24 to 48 hours ago. Initial workup concerning for bradycardia with high-grade block, electrolyte disturbances with sodium of 126, kidney dysfunction that appears to be chronic. White count normal. BNP elevated at 5400. Initially refused respiratory panel swab. Given bradycardia concerning for heart block, cardiology was consulted. Recommended initiating patient on dopamine and admitting for further management and consideration for pacemaker. On metoprolol at home, medication has been held. Given dose of glucagon. Medicine consulted. Heart rate improved by the time of my evaluation. Heart rate in the 50s. Extensive discussion with patient, son and [id number] at bedside. Patient interested in further workup. Has extensive history with her heart with repair of an ASD and previous ablation of A-fib 4 years ago at [facility]. Does report multiple sick contacts at home including her . Stable on room air Hospital Course Hospital Course Hospital Course: 79-year-old female who presents with worsening shortness of breath. Found to be bradycardic on arrival. Kidney function at baseline with chronic kidney disease. Mild hyponatremia with elevated BNP. Discussed case with ER, request admission for treatment of symptomatic bradycardia and CHF exacerbation. I agreed to admit for further management. Swabbed for COVID and flu on admission due to respiratory symptoms, found to be positive for flu A. Initiated on Tamiflu. Cardiology consulted. Given her heart block, taken for pacemaker placement. Tolerated procedure well. Good results with improved heart rate. Diuresing due to elevated BNP. Stable to discharge home with family to continue treatment for her heart failure. Will need follow-up with cardiology in the coming weeks. Continue diuresis as well. Problems addressed as follows: Heart block Bradycardia CHF exacerbation -EKG showing heart block on admission. Case was discussed with cardiology. Recommended initiating patient on dopamine however her blood pressure was elevating so we transitioned to dobutamine for improved heart rate effect with less blood pressure impact. Received 1 dose of glucagon on admission due to her beta-cyril use at home. Did well overnight. Was taken for pacemaker placement the following morning. Formation of pocket with permanent pacemaker placed was successful. Also had atrial sensing and pacing coil placed in the right atrial appendage and successful placement of ventricular sensing and pacing coil in the right ventricular appendage. No significant hematoma formation. Patient reports minimal pain. Recommend continuing ibuprofen or Tylenol for pain control. Heart rate much better controlled. Recommend stopping beta-cyril at this time. Of note, her BNP was 5300 on admission. She was initiated on Bumex IV, had good response with negative fluid status. Continue Bumex 1 mg daily to promote fluid management. Echocardiogram obtained on admission, found to have normal BiV systolic function. Mild RV dilation and biatrial dilation. Moderate to severe MAC with presence of moderate MS. Moderate to severe TR. Markedly elevated RVSP greater than 60. Influenza A: Several family members have been sick. Patient positive on presentation. Initiated on Tamiflu 75 mg once on admission. Will continue 30 mg twice daily to renally dosed to complete 5 days total Diabetes: A1c 8.5, given comorbidities and age, would recommend A1c goal less than 8. Treated with sliding scale insulin and basal insulin during admission. Rec and resuming regimen of insulin glargine 30 units every morning and 10 units every night at discharge with mealtime 3 times a day. Continue Jardiance 25 mg daily. Repeat A1c in 3 months. TSH well-controlled at 2.5 Total time spent on discharge 38 minutes in counseling, documentation, chart review, and direct care with patient. Exam Data for Last 24 hours Vital signs and Labs for Last 24 Hours: Temp Pulse Resp BP Pulse Ox O2 Del Method 98.1 F 73 19 173/73 H 98 Room Air 10/16/24 12:00 10/16/24 15:30 10/16/24 15:30 10/16/24 15:30 10/16/24 15:30 10/16/24 15:30 Laboratory Results - last 24 hr 10/15/24 16:35: SARS-CoV-2 (PCR) Not detected, Influenza Type A (PCR) Detected A, Influenza Type B (PCR) Not detected, RSV (PCR) Not detected, Rhinovirus (PCR) Not detected 10/15/24 16:52: POC Glucose 161 H 10/15/24 17:54: Troponin I 0.02 10/15/24 20:35: POC Glucose 172 H 10/15/24 20:59: Troponin I 0.04 H 10/16/24 05:32: WBC 4.3 L D, RBC 3.86 L, Hgb 11.5 L D, Hct 33.9 L, MCV 87.8, MCH 29.3, MCHC 33.3, RDW 13.2, Plt Count 88 L D, MPV 12.5 H, Neut % (Auto) 72.2, Lymph % (Auto) 19.3, Hutchinson % (Auto) 8.1, Eos % (Auto) 0.0 L, Baso % (Auto) 0.2, Neut # (Auto) 3.1, Lymph # (Auto) 0.8, Hutchinson # (Auto) 0.4, Eos # (Auto) 0.0, Baso # (Auto) 0.0, Sodium 123 L, Potassium 4.0, Chloride 91 L, Carbon Dioxide 22, Anion Gap 14.0, BUN 31 H, Creatinine 1.50 H, Estimated Creat Clear 40, Estimated GFR 33 L, Est GFR ( Amer) 40 L, Glucose 160 H, Hemoglobin A1c 8.5 H, Calcium 7.7 L, Magnesium 1.8, Total Bilirubin 0.4, AST 57 H, ALT 42, Alkaline Phosphatase 58, Total Protein 5.5 L, Albumin 3.0 L D, Globulin 2.5, Albumin/Globulin Ratio 1.2, TSH 2.54 10/16/24 06:03: POC Glucose 155 H 10/16/24 09:33: POC Glucose 154 H 10/16/24 11:12: POC Glucose 147 H I & O for Last 24 hours: Intake & Output 10/13/24 10/14/24 10/15/24 10/16/24 23:59 23:59 23:59 23:59 Intake Total 305.838 / 545.838 285.728 / 285.728 Output Total 1100 / 1100 2400 / 2400 Balance -794.162 / -554.162 -2114.272 / -2114.272 Weight 84.051 kg 86.636 kg Constitutional Constitutional: no acute distress, obese and cooperative *Routine HEENT Exam Head: Present normocephalic and atraumatic Eye: Present EOMI and PERRL ENT: Present mucous membranes moist *Routine Neck Exam Neck: Present supple Routine Chest/Breast/Axilla Exam Chest wall: Present tenderness (Around pacer pocket) *Routine Respiratory Exam Respiratory: Present CTA bilaterally; Absent accessory muscle use, rhonchi, wheezes or crackles *Routine Cardiovascular Exam Cardiovascular: Present RRR, Normal S1 and Normal S2; Absent murmur, gallop or rubs *Routine Abdominal Exam Abdominal: Present soft; Absent tenderness *Routine Rectal Exam Patient deferred: visual exam *Routine Exam Patient deferred: external exam *Routine Extremities Exam Extremities: Present edema (Trace in ankles) and pulses intact; Absent cyanosis *Routine Skin Exam Skin: Present intact; Absent erythema or wounds *Routine Neurological Exam Neurological: Present alert, oriented X3 and moving all extremities; Absent altered mental status Routine Psychiatric Exam Psychiatric: Present cooperative Results Data Completed and Pending Labs on day of discharge: Labs from last 24 hours 10/16/24 10/16/24 10/16/24 11:12 09:33 06:03 WBC RBC Hgb Hct MCV MCH MCHC RDW Plt Count MPV Neut % (Auto) Lymph % (Auto) Hutchinson % (Auto) Eos % (Auto) Baso % (Auto) Neut # (Auto) Lymph # (Auto) Hutchinson # (Auto) Eos # (Auto) Baso # (Auto) Sodium Potassium Chloride Carbon Dioxide Anion Gap BUN Creatinine Estimated Creat Clear Estimated GFR Est GFR ( Amer) Glucose POC Glucose 147 H 154 H 155 H Hemoglobin A1c Calcium Magnesium Total Bilirubin AST ALT Alkaline Phosphatase Troponin I Total Protein Albumin Globulin Albumin/Globulin Ratio TSH SARS-CoV-2 (PCR) Influenza Type A (PCR) Influenza Type B (PCR) RSV (PCR) Rhinovirus (PCR) 10/16/24 10/15/24 10/15/24 05:32 20:59 20:35 WBC 4.3 L D RBC 3.86 L Hgb 11.5 L D Hct 33.9 L MCV 87.8 MCH 29.3 MCHC 33.3 RDW 13.2 Plt Count 88 L D MPV 12.5 H Neut % (Auto) 72.2 Lymph % (Auto) 19.3 Hutchinson % (Auto) 8.1 Eos % (Auto) 0.0 L Baso % (Auto) 0.2 Neut # (Auto) 3.1 Lymph # (Auto) 0.8 Hutchinson # (Auto) 0.4 Eos # (Auto) 0.0 Baso # (Auto) 0.0 Sodium 123 L Potassium 4.0 Chloride 91 L Carbon Dioxide 22 Anion Gap 14.0 BUN 31 H Creatinine 1.50 H Estimated Creat Clear 40 Estimated GFR 33 L Est GFR ( Amer) 40 L Glucose 160 H POC Glucose 172 H Hemoglobin A1c 8.5 H Calcium 7.7 L Magnesium 1.8 Total Bilirubin 0.4 AST 57 H ALT 42 Alkaline Phosphatase 58 Troponin I 0.04 H Total Protein 5.5 L Albumin 3.0 L D Globulin 2.5 Albumin/Globulin Ratio 1.2 TSH 2.54 SARS-CoV-2 (PCR) Influenza Type A (PCR) Influenza Type B (PCR) RSV (PCR) Rhinovirus (PCR) 10/15/24 10/15/24 10/15/24 17:54 16:52 16:35 WBC RBC Hgb Hct MCV MCH MCHC RDW Plt Count MPV Neut % (Auto) Lymph % (Auto) Hutchinson % (Auto) Eos % (Auto) Baso % (Auto) Neut # (Auto) Lymph # (Auto) Hutchinson # (Auto) Eos # (Auto) Baso # (Auto) Sodium Potassium Chloride Carbon Dioxide Anion Gap BUN Creatinine Estimated Creat Clear Estimated GFR Est GFR ( Amer) Glucose POC Glucose 161 H Hemoglobin A1c Calcium Magnesium Total Bilirubin AST ALT Alkaline Phosphatase Troponin I 0.02 Total Protein Albumin Globulin Albumin/Globulin Ratio TSH SARS-CoV-2 (PCR) Not detected Influenza Type A (PCR) Detected A Influenza Type B (PCR) Not detected RSV (PCR) Not detected Rhinovirus (PCR) Not detected DS: Diagnosis Discharge Diagnosis (1) Third degree heart block: Status: Acute Code(s): I44.2 - Atrioventricular block, complete (2) Influenza A: Status: Acute Code(s): J10.1 - Influenza due to other identified influenza virus with other respiratory manifestations (3) Atrial fibrillation: Status: Chronic Code(s): I48.91 - Unspecified atrial fibrillation Qualifiers: Atrial fibrillation type: paroxysmal Qualified Code(s): I48.0 - Paroxysmal atrial fibrillation (4) Acute on chronic heart failure with preserved ejection fraction (HFpEF): Status: Acute Code(s): I50.33 - Acute on chronic diastolic (congestive) heart failure Meds Home Medications and Allergies Home Medications ?Medication ?Instructions ?Recorded ?Confirmed ?Type empagliflozin 25 mg tablet 25 mg PO DAILY 10/15/24 10/15/24 History (Jardiance) insulin glargine 100 unit/mL (3 10 unit SQ HS 10/15/24 10/15/24 History mL) subcutaneous pen (Lantus Solostar U-100 Insulin) insulin glargine 100 unit/mL (3 30 unit SQ DAILY 10/15/24 10/15/24 History mL) subcutaneous pen (Lantus Solostar U-100 Insulin) insulin lispro 100 unit/mL 0 unit SQ ACHS 10/15/24 10/15/24 History subcutaneous pen (Humalog KwikPen (U-100) Insulin) rivaroxaban 15 mg tablet (Xarelto) 15 mg PO QPMWITHMEAL 10/15/24 10/15/24 History bumetanide 1 mg tablet 1 mg PO DAILY #30 tabs 10/16/24 Rx oseltamivir 30 mg capsule (Tamiflu) 30 mg PO BID 4 days #8 caps 10/16/24 Rx New Prescriptions to Start Prescriptions: bumetaniJose Awan oseltamivir [Tamiflu] Jose Barroso Allergies Allergy/AdvReac Type Severity Reaction Status Date / Time Dcsyoun-XVR-AgD Reductase Allergy Verified 06/29/20 10:41 Inhibitor (Riddezt-Xvf-Smd Reductase Inhibitor) Discharge Plan Disposition Patient Disposition: Home, Self-Care Condition: Fair Discharge Order Discharge Orders: Discharge Order (Routine); Ordered 10/16/24 Ordered By: Jose Barroso Follow up Plan Follow up with: Wanda Jackson [Primary Care Provider] - 10/28/24 1:30 pm Saúl Kramer MD [Staff Physician] - 10/22/24 1:30 pm Prescriptions/Medication Reconciliation: New bumetanide 1 mg tablet 1 mg PO DAILY Qty: 30 0RF oseltamivir [Tamiflu] 30 mg capsule 30 mg PO BID 4 Days Qty: 8 0RF Continued insulin lispro [Humalog KwikPen Insulin] 100 unit/mL insulin pen 0 unit SQ ACHS Patient Comments: Inject 1 sliding scale dose 3 times a day by subcutaneous route as needed, for SLIDING SCALE WITH MEALS - max 20 units daily Rx Instructions: PER SLIDING SCALE insulin glargine [Lantus Solostar U-100 Insulin] 100 unit/mL (3 mL) insulin pen 30 unit SQ DAILY Patient Comments: INJECT 30 UNITS SUBCUTANEOUSLY every morning and 10 units in the evening insulin glargine [Lantus Solostar U-100 Insulin] 100 unit/mL (3 mL) insulin pen 10 unit SQ HS Patient Comments: INJECT 30 UNITS SUBCUTANEOUSLY every morning and 10 units in the evening Jardiance 25 mg tablet 25 mg PO DAILY Patient Comments: TAKE ONE TABLET BY MOUTH EVERY MORNING FOR DIABETES Held Xarelto 15 mg tablet 15 mg PO QPMWITHMEAL Hold Instructions: resume Saturday10/19/24 Patient Comments: TAKE ONE TABLET BY MOUTH EVERY EVENING WITH A MEAL Discontinued metoprolol tartrate 25 mg tablet 25 mg PO BID Patient Comments: TAKE ONE TABLET BY MOUTH TWICE DAILY Problem Reconciliation Problems Reviewed?: Yes Patient Discharge Instructions ACTIVITY: Continue current activity DIET: continue same diet Patient Instructions: Heart Failure, Pacemaker Insertion, Heart-Healthy Diet, DI for Heart Failure, DI for Influenza -- Adult, Surgical Site Infection Print Language: Vietnamese Providers Primary Care Provider: Wanda Jackson Admit Provider: Jose Barroso Attending Provider: Jose Barroso
--- NOTE | 2024-10-19 11:26 | SW/DCPLANNER ---
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 Wasnt speaking to dumpcart driver or leaving a message. Bernadette CARBONE Staff Reporter
== END 2024-10-16 18:09 | disposition home or self-care (01) | DRG 242 ==
LOC: ER 13:31 → 2ND 14:54
PROVIDERS: Internal Medicine; Physician Assistant; Admitting Provider Internal Medicine Adolescent Medicine; Emergency Provider Emergency Medicine; PCP Nurse Practitioner Family; Visit Provider Internal Medicine Adolescent Medicine
PROC: 0JH606Z Insertion of Pacemaker, Dual Chamber into Chest Subcutaneous Tissue and Fascia, Open Approach (ICD-10-PCS; principal; 2024-10-16 12:45)
DX: I44.2 Atrioventricular block, complete (principal); I50.33 Acute on chronic diastolic (congestive) heart failure; E11.9 Type 2 diabetes mellitus without complications; J10.1 Influenza due to other identified influenza virus with other respiratory manifestations; I11.0 Hypertensive heart disease with heart failure; I48.0 Paroxysmal atrial fibrillation; Z79.4 Long term (current) use of insulin; I27.20 Pulmonary hypertension, unspecified
CPT/HCPCS: 33208; 36415; 71045; 80053; 82962; 83036; 83735; 83880; 84443; 84484; 85025; 87631; 93005; 93306; 94640; 99291; C1785; C1898; J1200; J1250; J1265; J1611; J1939; J2405; J2760; J7030; J7620

== ENCOUNTER 2024-10-22 14:39 | Observation (INO) | payer SELFPAY ==
[2024-10-22] VITALS (12 sets, daily range): BP systolic 137–231; BP diastolic 78–131; PULSE 69–87; RESP 13–20; TEMP 36.7–36.9; O2SAT 86–97; BMI 28.0
--- NOTE | 2024-10-22 14:54 | XR_ITS ---
FINAL REPORT CLINICAL HISTORY: dyspnea COMPARISON: 10/16/2024 FINDINGS: A portable view of the chest was obtained. There is no prior exam for comparison. The patient is status post median sternotomy. A left-sided pacemaker is present. The heart size is normal.. There is right basilar opacity and a small right pleural effusion. Findings are favored to represent pneumonia. There is no pneumothorax.. IMPRESSION: Right basilar pneumonia and a small right pleural effusion. Reviewed, Interpreted and Dictated by Sheila Mcknight MD Transcribed by Maranda Boothe Authenticated and [facility]
--- NOTE | 2024-10-22 15:17 | ED_ITS ---
Discharge Plan Disposition Patient Disposition: Admitted Chief Complaint: Shortness of Breath/Dyspnea Prescriptions Prescriptions: No Action insulin lispro [Humalog KwikPen Insulin] 100 unit/mL insulin pen 0 unit SQ ACHS Patient Comments: Inject 1 sliding scale dose 3 times a day by subcutaneous route as needed, for SLIDING SCALE WITH MEALS - max 20 units daily Rx Instructions: PER SLIDING SCALE insulin glargine [Lantus Solostar U-100 Insulin] 100 unit/mL (3 mL) insulin pen 30 unit SQ DAILY Patient Comments: INJECT 30 UNITS SUBCUTANEOUSLY every morning and 10 units in the evening insulin glargine [Lantus Solostar U-100 Insulin] 100 unit/mL (3 mL) insulin pen 10 unit SQ HS Patient Comments: INJECT 30 UNITS SUBCUTANEOUSLY every morning and 10 units in the evening Xarelto 15 mg tablet 15 mg PO QPMWITHMEAL Patient Comments: TAKE ONE TABLET BY MOUTH EVERY EVENING WITH A MEAL Jardiance 25 mg tablet 25 mg PO DAILY Patient Comments: TAKE ONE TABLET BY MOUTH EVERY MORNING FOR DIABETES bumetanide 1 mg tablet 1 mg PO DAILY Qty: 30 0RF oseltamivir [Tamiflu] 30 mg capsule 30 mg PO BID 4 Days Qty: 8 0RF Referrals Follow up/Referrals: Wanda Jackson [Primary Care Provider] - See instructions Clinical Impressions Clinical Impression: Acute dyspnea, Pleural effusion on right, CHF exacerbation, Right lower lobe pneumonia Print Language Print Language: Yoruba Discharge ED Provider: Clinton Meraz General Adult HPI <Romy Ramires MD - Last Filed: 10/22/24 15:23> General Chief complaint: Shortness of Breath/Dyspnea Stated complaint: SHORTNESS OF BREATH Time Seen by Provider: 10/22/24 14:41 Mode of Arrival: Wheelchair Source of Information: Patient Limitations: No Limitations Description of Symptoms (Recalled from ER Triage Doc. by RN): short of breath History of Present Illness HPI narrative: Patient is an 79-year-old female presents today with dyspnea sent from cardiology clinic. She was recently in the hospital with complete heart block and treated for influenza and given a new pacemaker just a few days ago. She states since that time she has had increasing shortness of breath and cough. She has been treated with 1 mg of p.o. Bumex daily. She completed her Tamiflu. No ongoing fevers or chills. She denies any lower extremity swelling she denies any significant orthopnea. States she went to cardiology clinic today because she wanted some medicine to make her lungs feel better and did not want to come to the emergency department but is willing to be evaluated at the moment. Related Data Home Medications ?Medication ?Instructions ?Recorded ?Confirmed empagliflozin 25 mg tablet 25 mg PO DAILY 10/15/24 10/22/24 (Jardiance) insulin glargine 100 unit/mL (3 10 unit SQ HS 10/15/24 10/22/24 mL) subcutaneous pen (Lantus Solostar U-100 Insulin) insulin glargine 100 unit/mL (3 30 unit SQ DAILY 10/15/24 10/22/24 mL) subcutaneous pen (Lantus Solostar U-100 Insulin) insulin lispro 100 unit/mL 0 unit SQ ACHS 10/15/24 10/22/24 subcutaneous pen (Humalog KwikPen (U-100) Insulin) rivaroxaban 15 mg tablet (Xarelto) 15 mg PO QPMWITHMEAL 10/15/24 10/22/24 Previous Rx's ?Medication ?Instructions ?Recorded bumetanide 1 mg tablet 1 mg PO DAILY #30 tabs 10/16/24 oseltamivir 30 mg capsule (Tamiflu) 30 mg PO BID 4 days #8 caps 10/16/24 Allergies Allergy/AdvReac Type Severity Reaction Status Date / Time Qyiuxsm-RVI-CrQ Reductase Allergy Verified 10/22/24 13:47 Inhibitor (Rvpliyu-Cba-Eyk Reductase Inhibitor) [facility] <J Dung Ramires MD - Last Filed: 10/22/24 15:23> [facility] Disclaimer: The information contained in this section may have been updated after the patient was seen, as this information can be updated by other users. 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 current occupational exposures/hazards: No caffeine: Yes Other Medical History Have you received the Flu Vaccine for this season: No Have you received the Pneumonia Vaccine: No <Romy Ramires MD - Last Filed: 10/22/24 15:23> ROS Obtained: Yes All systems reviewed & no additional complaints except as documented Physical Exam <Romy Ramires MD - Last Filed: 10/22/24 15:23> General General appearance: alert and in no apparent distress Respiratory Respiratory exam: Present other (Diminished lung sounds on the right based with diffuse coarse breath sounds throughout ox saturations normal) Cardiovascular Cardiovascular exam: Present regular rate and normal rhythm Neurological Exam Neurological exam: Present alert and oriented X3 Medical Decision Making <Romy Ramires MD - Last Filed: 10/22/24 15:23> Medical Records Screening: Per USPSTF and CDC recommendations, given the prevalence of disease in our region, it is our hospital?s policy to screen for HIV and viral Hepatitis for all patients aged 18 and over and those with ongoing risk factors. Per Inquiry Pt receiving controlled substance: No Vital Signs: 10/22/24 14:39 10/22/24 15:17 10/22/24 15:31 Temperature 98.3 F Temperature Source Oral Pulse Rate 70 70 Pulse Rate [Right] 75 Respiratory Rate 20 13 Blood Pressure 201/131 H 219/84 H Blood Pressure [Right Arm] 195/80 H Blood Pressure Mean [Right Arm] 118 02 Sat by Pulse Oximetry 96 96 95 Oxygen Delivery Method Room Air 10/22/24 17:16 Temperature Temperature Source Pulse Rate 70 Pulse Rate [Right] Respiratory Rate Blood Pressure 231/92 H Blood Pressure [Right Arm] Blood Pressure Mean [Right Arm] 02 Sat by Pulse Oximetry 95 Oxygen Delivery Method Lab Data Lab Results 10/22/24 16:08: Sodium 136, Potassium 3.8, Chloride 95 L, Carbon Dioxide 33 H, Anion Gap 11.8, BUN 21 H, Creatinine 1.10 H, Estimated Creat Clear 50, Estimated GFR 48 L, Est GFR ( Amer) 58 L, Glucose 229 H, Calcium 9.4, Total Bilirubin 0.6, AST 55 H, ALT 36, Alkaline Phosphatase 51, Troponin I 0.02, N T-Pro-B Natriuret Pep 5950 H, Total Protein 7.6 D, Albumin 4.4, Globulin 3.2, Albumin/Globulin Ratio 1.4 10/22/24 16:45: WBC 7.6, RBC 4.57, Hgb 13.4, Hct 40.7, MCV 89.1, MCH 29.3, MCHC 32.9, RDW 13.2, Plt Count 157, MPV 10.8 H, Neut % (Auto) 76.6, Lymph % (Auto) 18.0, Colbert % (Auto) 4.0, Eos % (Auto) 0.9, Baso % (Auto) 0.1, Neut # (Auto) 5.8, Lymph # (Auto) 1.4, Colbert # (Auto) 0.3, Eos # (Auto) 0.1, Baso # (Auto) 0.0 10/22/24 16:45 10/22/24 16:08 Orders (Tests/Meds): ED MEDICATIONS Discontinued Medications Generic Name Dose Route Start Last Admin Trade Name Freq PRN Reason Stop Dose Admin Bumetanide 1 mg 10/22/24 15:16 10/22/24 15:32 Bumetanide 1mg/4ml Vial IV 10/22/24 15:17 1 mg ONCE ONE Administration Ceftriaxone Sodium 2 gm/ 100 mls @ 200 mls/hr 10/22/24 16:45 10/22/24 17:00 Sodium Chloride IV 10/22/24 17:14 200 mls/hr ONCE ONE Administration ORDERS Category Date Time Status CXR --portable [XR chest portable] Stat Exams 10/22/24 14:54 Completed POCUS Point of Care (ER Only) Stat Exams 10/22/24 15:00 Completed BNP [NT Pro Brain Natriuretic Pep.] Stat Lab 10/22/24 16:08 Completed CBC w/Auto Diff [Complete Blood Count Auto Diff] Stat Lab 10/22/24 16:45 Completed CMP [Comprehensive Metabolic Panel] Stat Lab 10/22/24 16:08 Completed HIV Combo Stat Lab 10/22/24 16:08 Received Hep C Ab with Reflex to RNA Stat Lab 10/22/24 16:08 Received Trop I [Troponin I] Stat Lab 10/22/24 16:08 Completed Troponin I Q3H Lab 10/22/24 18:00 Ordered Troponin I Q3H Lab 10/22/24 21:00 Ordered Medical Decision Narrative: 79-year-old with above history and physical was critically ill just a few days ago with influenza and third-degree heart block. Patient appears stable but her lungs sound very coarse and wet throughout. Bedside ultrasound did not demonstrate significant pulmonary edema but clinically I am concerned about this. There was question of consolidation versus effusion in the right lower lung base chest x-ray was performed I personally interpreted which is consistent with this which appears to be a pleural effusion. She is on Bumex she is actually 8 kg below where she was in the hospital recently but clinically appears to have symptomatic pleural effusion and pulmonary edema. Will give a dose of IV Bumex while the remainder of her workup is pending and will reassess. Care transitioned to Dr. Clinton Meraz at 3:30 PM for final evaluation and management. <Clinton Meraz MD - Last Filed: 10/22/24 17:24> Vital Signs: 10/22/24 14:39 10/22/24 15:17 10/22/24 15:31 Temperature 98.3 F Temperature Source Oral Pulse Rate 70 70 Pulse Rate [Right] 75 Respiratory Rate 20 13 Blood Pressure 201/131 H 219/84 H Blood Pressure [Right Arm] 195/80 H Blood Pressure Mean [Right Arm] 118 02 Sat by Pulse Oximetry 96 96 95 Oxygen Delivery Method Room Air 10/22/24 17:16 Temperature Temperature Source Pulse Rate 70 Pulse Rate [Right] Respiratory Rate Blood Pressure 231/92 H Blood Pressure [Right Arm] Blood Pressure Mean [Right Arm] 02 Sat by Pulse Oximetry 95 Oxygen Delivery Method Lab Data Lab Results 10/22/24 16:08: Sodium 136, Potassium 3.8, Chloride 95 L, Carbon Dioxide 33 H, Anion Gap 11.8, BUN 21 H, Creatinine 1.10 H, Estimated Creat Clear 50, Estimated GFR 48 L, Est GFR ( Amer) 58 L, Glucose 229 H, Calcium 9.4, Total Bilirubin 0.6, AST 55 H, ALT 36, Alkaline Phosphatase 51, Troponin I 0.02, N T-Pro-B Natriuret Pep 5950 H, Total Protein 7.6 D, Albumin 4.4, Globulin 3.2, Albumin/Globulin Ratio 1.4 10/22/24 16:45: WBC 7.6, RBC 4.57, Hgb 13.4, Hct 40.7, MCV 89.1, MCH 29.3, MCHC 32.9, RDW 13.2, Plt Count 157, MPV 10.8 H, Neut % (Auto) 76.6, Lymph % (Auto) 18.0, Colbert % (Auto) 4.0, Eos % (Auto) 0.9, Baso % (Auto) 0.1, Neut # (Auto) 5.8, Lymph # (Auto) 1.4, Colbert # (Auto) 0.3, Eos # (Auto) 0.1, Baso # (Auto) 0.0 Orders (Tests/Meds): ED MEDICATIONS Discontinued Medications Generic Name Dose Route Start Last Admin Trade Name Freq PRN Reason Stop Dose Admin Bumetanide 1 mg 10/22/24 15:16 10/22/24 15:32 Bumetanide 1mg/4ml Vial IV 10/22/24 15:17 1 mg ONCE ONE Administration Ceftriaxone Sodium 2 gm/ 100 mls @ 200 mls/hr 10/22/24 16:45 10/22/24 17:00 Sodium Chloride IV 10/22/24 17:14 200 mls/hr ONCE ONE Administration ORDERS Category Date Time Status CXR --portable [XR chest portable] Stat Exams 10/22/24 14:54 Completed POCUS Point of Care (ER Only) Stat Exams 10/22/24 15:00 Completed BNP [NT Pro Brain Natriuretic Pep.] Stat Lab 10/22/24 16:08 Completed CBC w/Auto Diff [Complete Blood Count Auto Diff] Stat Lab 10/22/24 16:45 Completed CMP [Comprehensive Metabolic Panel] Stat Lab 10/22/24 16:08 Completed HIV Combo Stat Lab 10/22/24 16:08 Received Hep C Ab with Reflex to RNA Stat Lab 10/22/24 16:08 Received Trop I [Troponin I] Stat Lab 10/22/24 16:08 Completed Troponin I Q3H Lab 10/22/24 18:00 Ordered Troponin I Q3H Lab 10/22/24 21:00 Ordered Medical Decision Narrative: 79-year-old with above history and physical was critically ill just a few days ago with influenza and third-degree heart block. Patient appears stable but her lungs sound very coarse and wet throughout. Bedside ultrasound did not demonstrate significant pulmonary edema but clinically I am concerned about this. There was question of consolidation versus effusion in the right lower lung base chest x-ray was performed I personally interpreted which is consistent with this which appears to be a pleural effusion. She is on Bumex she is actually 8 kg below where she was in the hospital recently but clinically appears to have symptomatic pleural effusion and pulmonary edema. Will give a dose of IV Bumex while the remainder of her workup is pending and will reassess. Care transitioned to Dr. Clinton Meraz at 3:30 PM for final evaluation and management. Mariya: I assumed primary responsibility for this patient after signout from previous physician. On my evaluation, patient no acute distress. Breath sounds with crackles and decreased more or less throughout. Speaking full sentences. Patient's chest x-ray independently interpreted and consistent with fluid overloaded state as well as hazy opacity in the right lower lung consistent with pneumonia. Chemistry with stable CKD, troponin negative, but BNP elevated nearly 6000. Patient given IV Bumex and IV ceftriaxone. Conversation had with patient regarding need for admission, she is agreeable to admission at this time for CHF exacerbation and need for diuresis and fluid management. Hospitalist contacted and case was discussed. To be admitted. Procedures <Romy Ramires MD - Last Filed: 10/22/24 15:23> Miscellaneous Procedure Procedure Performed: Limited cardiac ultrasound Indication: Dyspnea Identified structures: The heart was visualized in the parasternal long axis, parastenal short axis, apical four chamber and subxyphiod views. The IVC was visualized in the short axis and long axis at its entry into the right atrium. Findings: Normal LVEF no severe right heart strain or pericardial effusion Impression: Unremarkable limited ultrasound of the heart Images worsened to permanent archive The study was technically adequate CPT: 14835-76 This study was performed by pa, and I personally interpreted all images/videos. Based on my clinical judgement, these images were adequate and did not necessitate further imaging. Limited lung ultrasound A focused ultrasound exam of the pleural spaces was performed to evaluate for pneumothorax, pulmonary edema, pleural effusion and/or consolidation. The ultrasound was performed with the following indications, as noted in the H&P: Dyspnea Identified structures: Right and left thoracic cavities were examined. Findings: Scant B-lines that are focally located in the right base also with consolidation versus effusion in the right base of the lung Impression: Scant B-lines and consolidation versus dense effusion in the right lung base Images were to permanent archive The study was technically adequate CPT 38357-02 This study was performed by pa, and I personally interpreted all images/videos. Based on my clinical judgement, these images were adequate and did necessitate further imaging. Critical Care <Romy Ramires MD - Last Filed: 10/22/24 15:23> Critical Care Time Critical Care Time: No <Clinton Meraz MD - Last Filed: 10/22/24 17:24> Critical Care Time Critical Care Time: Yes (cardiac) Attestation: On 10/22/24, the high probability of a clinically significant, sudden or life threatening deterioration of the following system(s) required my full and direct attention, intervention and personal management. The time I documented below is in addition to time spent performing reported procedures but includes the following listed in this critical care notation. Total Time Total Critical Care Time: 35
--- NOTE | 2024-10-22 15:21 | ECG_ITS ---
APPROVED REPORT Exam: Resting ECG HR:69 bpm ECG Measurements Heart Rate 69 AXES MO 181 P 84 QRSd 163 QRS 264 QT 478 T 93 QTc 498 Conclusion ELECTRONIC VENTRICULAR PACEMAKER ABNORMAL RHYTHM ECG UNCONFIRMED REPORT Electronically signed by : LAUREN ANGLIN, 10/23/2024 06:51:26
[2024-10-22] MEDS: BUMETANIDE 1MG/4ML VIAL 1 MG IV (15:32)
[2024-10-22 16:38] LABS: Albumin Level 4.4 g/dl (3.5-5.0); Chloride 95 mmol/L (98-107); Potassium 3.8 mmoL/L (3.5-5.1); Sodium 136 mmol/L (136-145)
[2024-10-22 16:41] LABS: Alanine Aminotransferase 36 U/L (12-78); Albumin/Globulin Ratio 1.4 (1.1-1.8); Alkaline Phosphatase 51 U/L (38-126); Anion Gap 11.8 mEq/L (5-15); Aspartate Amino Transferase 55 U/L (14-36); Bilirubin,Total 0.6 mg/dl (0.2-1.3); Blood Urea Nitrogen 21 mg/dl (7-17); Carbon Dioxide 33 mmol/L (22.0-30.0); Creatinine Clearance Estimated 50 mL/min (50-200); Estimated Glomerular Filt Rate 48 ml/min (>60); GFR (African American) 58 ML/MIN (>60); Globulin 3.2 g/dL (1.3-3.2); Glucose 229 mg/dl (74-100); Total Protein,Serum 7.6 g/dl (6.3-8.2)
[2024-10-22 16:42] LABS: Calcium 9.4 mg/dl (8.4-10.2)
[2024-10-22 16:51] LABS: NT Pro Brain Natriuretic Pep. 5950 pg/mL (0-450)
[2024-10-22 16:53] LABS: Troponin I 0.02 ng/ml (0.00-0.034)
[2024-10-22 16:53] LABS: Basophils % 0.1 % (0.1-2.0); Eosinophils # 0.1 K/mm3 (0.0-0.4); Eosinophils % 0.9 % (0.1-12.0); Hematocrit 40.7 % (37.0-47.0); Hemoglobin 13.4 g/dL (12.2-16.2); Lymphocytes # 1.4 K/mm3 (0.7-4.5); Mean Corpuscular HGB Conc 32.9 g/dL (31.8-35.4); Mean Corpuscular Hemoglobin 29.3 pg (27.0-31.2); Mean Corpuscular Volume 89.1 fl (81-99); Mean Platelet Volume 10.8 fl (7.4-10.4); Monocytes # 0.3 K/mm3 (0.1-1.0); Neutrophils # 5.8 K/mm3 (1.8-7.8); Neutrophils % 76.6 % (37.0-80.0); Platelet Count 157 K/mm3 (142-424); Red Blood Count 4.57 M/mm3 (4.20-5.40); Red Cell Distribution Width 13.2 % (11.5-17.5); White Blood Count 7.6 K/mm3 (4.8-10.8)
[2024-10-22] MEDS: CEFTRIAXONE SODIUM 2 GM in 0.9 % SODIUM CHLORIDE 100 ML IV (17:00)
[2024-10-22 17:39] LABS: HIV Combo NEGATIVE (Negative)
--- NOTE | 2024-10-22 17:48 | PC.NURSE ---
DR VENTURA SPEAKING WITH HOSPITALIST FOR ADMISSION
--- NOTE | 2024-10-22 18:11 | PC.NURSE ---
INJECTION MOLDING ENGINEER NOTIFIED OF ADMISSION
[2024-10-22 18:40] LABS: Troponin I 0.02 ng/ml (0.00-0.034)
--- NOTE | 2024-10-22 18:41 | PC.NURSE ---
report cooper to Cherri
[2024-10-22] MEDS: NIFEdipine 10MG CAPSULE 10 MG PO (19:18)
[2024-10-22] MEDS: IRBESARTAN 150MG TAB 150 MG PO (19:18)
[2024-10-22] MEDS: LEVALBUTEROL 1.25MG/3ML NEB 1.25 MG IH (20:12)
[2024-10-22] MEDS: MELATONIN 5MG TABLET 5 MG PO (20:37)
[2024-10-22] MEDS: guaiFENesin 600 MG TAB.ER.12H PO (20:37)
[2024-10-22] MEDS: ACETAMINOPHEN 325MG TAB 650 MG PO (20:38)
[2024-10-22 21:57] LABS: Troponin I 0.02 ng/ml (0.00-0.034)
[2024-10-22 23:22] LABS: POC Glucose,Bedside 129 (70-110)
[2024-10-23] VITALS (9 sets, daily range): BP systolic 151–154; BP diastolic 66–89; PULSE 70–72; RESP 16–19; TEMP 36.5–36.7; O2SAT 94–96; BMI 28.7
--- NOTE | 2024-10-23 05:28 | P.HP_ITS ---
<Statement entered by Presley Dietz MD - 10/27/24 22:28> I personally evaluated the patient and agree with the plan as outlined by the [employer]. History of Present Illness *Admission Date: 11/22/24 *Reason for visit:: Pneumonia with dyspnea *History of present illness: This 79-year-old female who recently was in third-degree heart block has had a pacer placed. She was found at that time to have influenza A. She was at a follow-up with her providers office and was in hypertensive crisis having dyspnea and was told to come to the emergency room. While here chest x-ray showed pneumonia with new CHF exacerbation. Also noting right pleural effusion. Patient has completed her Tamiflu and she was treated with 1 mg of p.o. Bumex daily. She denied ongoing fever or chills. Patient is noted for having diabetes and hyperlipidemia. In the emergency room patient received another dose of Bumex blood pressure was still around 219/84 at the highest. Her GFR is 48. Before coming to the floor breath sounds noted is crackles and decreased throughout and her BNP was 6000. Dr. Dietz was called by the ER physician has excepted the patient's admission.. And patient has been admitted to room 218 [facility] Disclaimer: The information contained in this section may have been updated after the patient was seen, as this information can be updated by other users. 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 occupational exposures/hazards: No caffeine: Yes Have you lived/traveled outside [place] in past 30 days?: No Contact w/someone who lives/traveled outside US past 30 days?: No Exposure to someone with infectious disease in past 14 days?: No Do you have a fever (greater than 100.4 F or 38 C)?: No Have you tested positive for COVID-19: No Exposed to someone with COVID-19 in past 14 days?: No Do you have a sore throat?: No Do you have a cough?: No Do you have any weakness?: No Are you experiencing any nausea/vomitting?: No Do you have any diarrhea?: No Are you experiencing any unusual bleeding?: No Do you have any muscle aches/pain?: No Do you have any abdominal pain?: No Are you experiencing loss of taste or smell?: No Other Medical History Have you received the Flu Vaccine for this season: No Have you received the Pneumonia Vaccine: No Review of Systems Review of Systems Review of systems:: pertinent systems reviewed and negative unless documented below Constitutional Constitutional: Reports as per HPI Comments: Patient noted no fever or chills Eyes Eyes: Reports as per HPI ENT Ears, Nose, Mouth, and Throat: Reports as per HPI *Cardiovascular Cardiovascular: Reports dyspnea and Reports dyspnea on exertion *Respiratory Respiratory: Reports chest congestion, Reports dyspnea and Reports dyspnea on exertion *Gastrointestinal Gastrointestinal: Reports as per HPI *Genitourinary Genitourinary: Reports as per HPI *Musculoskeletal Musculoskeletal: Reports as per HPI Integumentary/Breasts Skin/Breast: Reports as per HPI *Neurologic Neurologic: Reports as per HPI Psychiatric Psychiatric: Reports as per HPI Endocrine Endocrine: Reports as per HPI Hematologic/Lymphatic Hematologic/Lymphatic: Reports as per HPI Allergic/Immunologic Allergic/Immunologic: Reports as per HPI Meds Home Medications and Allergies Home Medications ?Medication ?Instructions ?Recorded ?Confirmed ?Type empagliflozin 25 mg tablet 25 mg PO DAILY 10/15/24 10/22/24 History (Jardiance) insulin glargine 100 unit/mL (3 30 unit SQ DAILY 10/15/24 10/22/24 History mL) subcutaneous pen (Lantus Solostar U-100 Insulin) insulin lispro 100 unit/mL 0 unit SQ ACHS 10/15/24 10/22/24 History subcutaneous pen (Humalog KwikPen (U-100) Insulin) rivaroxaban 15 mg tablet (Xarelto) 15 mg PO QPMWITHMEAL 10/15/24 10/22/24 History bumetanide 1 mg tablet 1 mg PO DAILY #30 tabs 10/16/24 10/22/24 Rx New Prescriptions to Start Prescriptions: Allergies Allergy/AdvReac Type Severity Reaction Status Date / Time Lebsflc-FOB-XlI Reductase Allergy Verified 10/22/24 13:47 Inhibitor (Ghuyfos-Dze-Myr Reductase Inhibitor) Exam Data for Last 24 hours Vital signs and Labs for Last 24 Hours: Temp Pulse Resp BP Pulse Ox O2 Del Method 97.9 F 70 16 154/89 H 95 Room Air 10/23/24 04:00 10/23/24 04:00 10/23/24 04:00 10/23/24 04:00 10/23/24 04:00 10/23/24 05:00 Laboratory Results - last 24 hr 10/22/24 16:08: Sodium 136, Potassium 3.8, Chloride 95 L, Carbon Dioxide 33 H, Anion Gap 11.8, BUN 21 H, Creatinine 1.10 H, Estimated Creat Clear 50, Estimated GFR 48 L, Est GFR ( Amer) 58 L, Glucose 229 H, Calcium 9.4, Total Bilirubin 0.6, AST 55 H, ALT 36, Alkaline Phosphatase 51, Troponin I 0.02, NT-Pro-B Natriuret Pep 5950 H, Total Protein 7.6 D, Albumin 4.4, Globulin 3.2, Albumin/Globulin Ratio 1.4, HIV Ag/Ab Combo Qual Negative 10/22/24 16:45: WBC 7.6, RBC 4.57, Hgb 13.4, Hct 40.7, MCV 89.1, MCH 29.3, MCHC 32.9, RDW 13.2, Plt Count 157, MPV 10.8 H, Neut % (Auto) 76.6, Lymph % (Auto) 18.0, [place] % (Auto) 4.0, Eos % (Auto) 0.9, Baso % (Auto) 0.1, Neut # (Auto) 5.8, Lymph # (Auto) 1.4, [place] # (Auto) 0.3, Eos # (Auto) 0.1, Baso # (Auto) 0.0 10/22/24 18:04: Troponin I 0.02 10/22/24 20:28: POC Glucose 129 H 10/22/24 21:12: Troponin I 0.02 I & O for Last 24 hours: Intake & Output 10/20/24 10/21/24 10/22/24 10/23/24 05:59 05:59 05:59 05:59 Output Total 0 / 0 Balance 0 / 0 Weight 178 lb 9.6 oz Radiology Reports for the Last 24 Hours: Chest x-ray right basilar pneumonia with small pleural infiltrate on the right Constitutional Constitutional: mild distress and obese *Routine HEENT Exam Head: Present normocephalic and atraumatic Eye: Present EOMI ENT: Present mucous membranes moist *Routine Neck Exam Neck: Present supple and full ROM Routine Chest/Breast/Axilla Exam Comments: No signs of injury no signs of tenderness *Routine Respiratory Exam Respiratory: Present decreased breath sounds, rales, wheezes, normal respiratory effort, able to speak in complete sentences and symmetric chest movement *Routine Cardiovascular Exam Cardiovascular: Present RRR, Normal S1 and Normal S2 *Routine Abdominal Exam Abdominal: Present soft and normoactive bowel sounds *Routine Rectal Exam Rectal:: deferred *Routine Genitalia Exam Genitalia:: deferred *Routine Extremities Exam Comments: Patient is able to walk without difficulty no signs of injury to either arms or legs no significant edema found Routine Back/Spine/Pelvis Exam Back/Spine: Present full ROM Comments: Patient is able to walk without difficulty *Routine Skin Exam Skin: Present intact, dry and warm *Routine Neurological Exam Neurological: Present alert, oriented X3, CN II-XII intact, normal reflexes, normal tone, vision grossly intact, hearing grossly intact and normal speech Comments: No neurological deficits noted H&P: Result Impressions 1. Recent third-degree heart block with pacer placed and recovering from influenza A 2. Hypertensive emergency with blood pressure greater than 220 at physicians office for follow-up for pacemaker today 3. Dyspnea shortness of air Imaging and Cardiology Chest x-ray: Additional comments: . Apparent pneumonia and pleural effusion of the right lower lung Assessment and Plan *Assessment and plan (1) Right lower lobe pneumonia: Status: Acute Qualifiers: Pneumonia type: due to unspecified organism Qualified Code(s): J18.9 - Pneumonia, unspecified organism Category: Medical Code(s): J18.9 - Pneumonia, unspecified organism (2) CHF exacerbation: Status: Acute Qualifiers: Heart failure type: combined systolic and diastolic Qualified Code(s): I50.43 - Acute on chronic combined systolic (congestive) and diastolic (congestive) heart failure Category: Medical Code(s): I50.9 - Heart failure, unspecified (3) Pleural effusion on right: Status: Acute Category: Medical Code(s): J90 - Pleural effusion, not elsewhere classified (4) Acute dyspnea: Status: Acute Category: Medical Code(s): R06.00 - Dyspnea, unspecified (5) Influenza A: Status: Acute Category: Medical Code(s): J10.1 - Influenza due to other identified influenza virus with other respiratory manifestations (6) Acute on chronic heart failure with preserved ejection fraction (HFpEF): Status: Acute Category: Medical Code(s): I50.33 - Acute on chronic diastolic (congestive) heart failure Plan 1. Patient has been placed on the floor she has received an extra dose of Bumex presently on antibiotics for the pneumonia. And receiving nebulizers as needed. 2. For the hypertension patient has improved systolic basically in the 150s when up walking in the room with no signs of distress. 3. Continue to evaluate labs may be repeat x-ray as needed as patient is improved sure that oxygen saturations improved to where she does not feel dyspneic when walking. And then be able to release home possibly with oral antibiotics here in the future
[2024-10-23 06:07] LABS: Basophils % 0.2 % (0.1-2.0); Eosinophils # 0.1 K/mm3 (0.0-0.4); Eosinophils % 1.1 % (0.1-12.0); Hematocrit 38.1 % (37.0-47.0); Hemoglobin 12.6 g/dL (12.2-16.2); Lymphocytes # 1.8 K/mm3 (0.7-4.5); Lymphocytes % 31.3 % (10-50); Mean Corpuscular HGB Conc 33.1 g/dL (31.8-35.4); Mean Corpuscular Volume 87.8 fl (81-99); Mean Platelet Volume 10.8 fl (7.4-10.4); Monocytes # 0.3 K/mm3 (0.1-1.0); Monocytes % 5.4 % (1.7-9.3); Neutrophils # 3.5 K/mm3 (1.8-7.8); Neutrophils % 61.5 % (37.0-80.0); Platelet Count 159 K/mm3 (142-424); Red Blood Count 4.34 M/mm3 (4.20-5.40); Red Cell Distribution Width 13.5 % (11.5-17.5); White Blood Count 5.7 K/mm3 (4.8-10.8)
[2024-10-23 06:12] LABS: Albumin Level 3.5 g/dl (3.5-5.0); Chloride 96 mmol/L (98-107)
[2024-10-23 06:13] LABS: Potassium 3.3 mmoL/L (3.5-5.1); Sodium 133 mmol/L (136-145)
[2024-10-23 06:15] LABS: Alanine Aminotransferase 27 U/L (12-78); Alkaline Phosphatase 50 U/L (38-126); Anion Gap 10.3 mEq/L (5-15); Aspartate Amino Transferase 40 U/L (14-36); Bilirubin,Total 0.7 mg/dl (0.2-1.3); Blood Urea Nitrogen 16 mg/dl (7-17); Carbon Dioxide 30 mmol/L (22.0-30.0); Creatinine Clearance Estimated 56 mL/min (50-200); Estimated Glomerular Filt Rate 53 ml/min (>60); GFR (African American) 64 ML/MIN (>60)
[2024-10-23] MEDS: LEVALBUTEROL 1.25MG/3ML NEB 1.25 MG IH ×2 (06:15→09:58)
[2024-10-23 06:16] LABS: Albumin/Globulin Ratio 1.2 (1.1-1.8); Calcium 8.5 mg/dl (8.4-10.2); Globulin 2.9 g/dL (1.3-3.2); Glucose 97 mg/dl (74-100); Magnesium 1.9 mg/dl (1.6-2.3); Total Protein,Serum 6.4 g/dl (6.3-8.2)
[2024-10-23 06:18] LABS: HCV Ab Non Reactive (Non Reactive)
[2024-10-23 06:45] LABS: POC Glucose,Bedside 99 (70-110)
[2024-10-23] MEDS: guaiFENesin 600 MG TAB.ER.12H PO (08:38)
[2024-10-23] MEDS: IRBESARTAN 150MG TAB 150 MG PO (08:38)
[2024-10-23] MEDS: AZITHROMYCIN 500 MG in 0.9 % SODIUM CHLORIDE 250 ML 250 MG IV (08:38)
[2024-10-23] MEDS: ENOXAPARIN 40MG/0.4ML SYRINGE 40 MG SUBCUT (08:38)
--- NOTE | 2024-10-23 09:09 | HMH.PHAINT1 ---
Pharmacy Intervention Comments: Home medication list verified using list from outpatient pharmacy
[2024-10-23] MEDS: BUMETANIDE 1MG/4ML VIAL 1 MG IV (09:52)
[2024-10-23] MEDS: MAGNESIUM SULFATE IN WATER 2 GM/50 ML PIGGYBACK IV (11:45)
[2024-10-23] MEDS: POTASSIUM CHLORIDE 20MEQ TAB 40 MEQ PO (11:45)
--- NOTE | 2024-10-23 12:42 | P.DS_ITS ---
General Admission date:: 10/22/24 HPI HPI HPI: This 79-year-old female who recently was in third-degree heart block has had a pacer placed. She was found at that time to have influenza A. She was at a follow-up with her providers office and was in hypertensive crisis having dyspnea and was told to come to the emergency room. While here chest x-ray showed pneumonia with new CHF exacerbation. Also noting right pleural effusion. Patient has completed her Tamiflu and she was treated with 1 mg of p.o. Bumex daily. She denied ongoing fever or chills. Patient is noted for having diabetes and hyperlipidemia. In the emergency room patient received another dose of Bumex blood pressure was still around 219/84 at the highest. Her GFR is 48. Before coming to the floor breath sounds noted is crackles and decreased throughout and her BNP was 6000. Dr. Dietz was called by the ER physician has excepted the patient's admission.. And patient has been admitted to room 218 Hospital Course Hospital Course Hospital Course: Laverne Saleh is a 79 year old female who was admitted for HFpEF exacerbation and community acquired-pneumonia. #HFpEF exacerbation - Recent PPM placed in setting of third degree heart block. - SOB since, CXR showing pulmonary edema, BNP 6000. - ECHO Sep 2024 showed normal biventicular function. - Likely exacerbated by pneumonia as below. - Clinically improved Bumex diuresis. Remained on room air. - Advised to contiue Bumex 1mg daily, follow-up with cardiology within 1 week. #Right lobar suspected hospital acquired pneumonia - Recently hospitalist for pacemaker placement. - CXR shows right lobar pneumonia with small pleural effusion. - CLinically improved with antibiotics. - Discharged with Levofloxacin for 4 more days. Exam Data for Last 24 hours Vital signs and Labs for Last 24 Hours: Temp Pulse Resp BP Pulse Ox O2 Del Method 97.7 F 72 18 153/81 H 96 Room Air 10/23/24 08:00 10/23/24 09:57 10/23/24 08:00 10/23/24 08:00 10/23/24 08:00 10/23/24 11:00 Laboratory Results - last 24 hr 10/22/24 16:08: Sodium 136, Potassium 3.8, Chloride 95 L, Carbon Dioxide 33 H, Anion Gap 11.8, BUN 21 H, Creatinine 1.10 H, Estimated Creat Clear 50, Estimated GFR 48 L, Est GFR ( Amer) 58 L, Glucose 229 H, Calcium 9.4, Total Bilirubin 0.6, AST 55 H, ALT 36, Alkaline Phosphatase 51, Troponin I 0.02, NT-Pro-B Natriuret Pep 5950 H, Total Protein 7.6 D, Albumin 4.4, Globulin 3.2, Albumin/Globulin Ratio 1.4, Hepatitis C Antibody Non reactive, HIV Ag/Ab Combo Qual Negative 10/22/24 16:45: WBC 7.6, RBC 4.57, Hgb 13.4, Hct 40.7, MCV 89.1, MCH 29.3, MCHC 32.9, RDW 13.2, Plt Count 157, MPV 10.8 H, Neut % (Auto) 76.6, Lymph % (Auto) 18.0, [place] % (Auto) 4.0, Eos % (Auto) 0.9, Baso % (Auto) 0.1, Neut # (Auto) 5.8, Lymph # (Auto) 1.4, [place] # (Auto) 0.3, Eos # (Auto) 0.1, Baso # (Auto) 0.0 10/22/24 18:04: Troponin I 0.02 10/22/24 20:28: POC Glucose 129 H 10/22/24 21:12: Troponin I 0.02 10/23/24 05:44: WBC 5.7, RBC 4.34, Hgb 12.6, Hct 38.1, MCV 87.8, MCH 29.0, MCHC 33.1, RDW 13.5, Plt Count 159, MPV 10.8 H, Neut % (Auto) 61.5, Lymph % (Auto) 31.3, [place] % (Auto) 5.4, Eos % (Auto) 1.1, Baso % (Auto) 0.2, Neut # (Auto) 3.5, Lymph # (Auto) 1.8, [place] # (Auto) 0.3, Eos # (Auto) 0.1, Baso # (Auto) 0.0, Sodium 133 L, Potassium 3.3 L, Chloride 96 L, Carbon Dioxide 30, Anion Gap 10.3, BUN 16, Creatinine 1.00, Estimated Creat Clear 56, Estimated GFR 53 L, Est GFR ( Amer) 64, Glucose 97 D, Calcium 8.5, Magnesium 1.9, Total Bilirubin 0.7, AST 40 H D, ALT 27, Alkaline Phosphatase 50, Total Protein 6.4, Albumin 3.5 D, Globulin 2.9, Albumin/Globulin Ratio 1.2 10/23/24 06:31: POC Glucose 99 I & O for Last 24 hours: Intake & Output 10/20/24 10/21/24 10/22/24 10/23/24 23:59 23:59 23:59 23:59 Intake Total 250 / 250 Output Total 0 / 0 0 / 0 Balance 0 / 0 250 / 250 Weight 78.925 kg 81 kg Constitutional Constitutional: no acute distress, obese and cooperative *Routine HEENT Exam Head: Present normocephalic and atraumatic Eye: Present EOMI and PERRL ENT: Present mucous membranes moist *Routine Neck Exam Neck: Present supple Routine Chest/Breast/Axilla Exam Chest wall: Present tenderness (Around pacer pocket) *Routine Respiratory Exam Respiratory: Present CTA bilaterally; Absent accessory muscle use, rhonchi, wheezes or crackles *Routine Cardiovascular Exam Cardiovascular: Present RRR, Normal S1 and Normal S2; Absent murmur, gallop or rubs *Routine Abdominal Exam Abdominal: Present soft; Absent tenderness *Routine Rectal Exam Patient deferred: visual exam *Routine Exam Patient deferred: external exam *Routine Extremities Exam Extremities: Present edema (Trace in ankles) and pulses intact; Absent cyanosis *Routine Skin Exam Skin: Present intact; Absent erythema or wounds *Routine Neurological Exam Neurological: Present alert, oriented X3 and moving all extremities; Absent altered mental status Routine Psychiatric Exam Psychiatric: Present cooperative Results Data Completed and Pending Labs on day of discharge: Labs from last 24 hours 10/23/24 10/23/24 10/22/24 06:31 05:44 21:12 WBC 5.7 RBC 4.34 Hgb 12.6 Hct 38.1 MCV 87.8 MCH 29.0 MCHC 33.1 RDW 13.5 Plt Count 159 MPV 10.8 H Neut % (Auto) 61.5 Lymph % (Auto) 31.3 [place] % (Auto) 5.4 Eos % (Auto) 1.1 Baso % (Auto) 0.2 Neut # (Auto) 3.5 Lymph # (Auto) 1.8 [place] # (Auto) 0.3 Eos # (Auto) 0.1 Baso # (Auto) 0.0 Sodium 133 L Potassium 3.3 L Chloride 96 L Carbon Dioxide 30 Anion Gap 10.3 BUN 16 Creatinine 1.00 Estimated Creat Clear 56 Estimated GFR 53 L Est GFR ( Amer) 64 Glucose 97 D POC Glucose 99 Calcium 8.5 Magnesium 1.9 Total Bilirubin 0.7 AST 40 H D ALT 27 Alkaline Phosphatase 50 Troponin I 0.02 NT-Pro-B Natriuret Pep Total Protein 6.4 Albumin 3.5 D Globulin 2.9 Albumin/Globulin Ratio 1.2 Hepatitis C Antibody HIV Ag/Ab Combo Qual 10/22/24 10/22/24 10/22/24 20:28 18:04 16:45 WBC 7.6 RBC 4.57 Hgb 13.4 Hct 40.7 MCV 89.1 MCH 29.3 MCHC 32.9 RDW 13.2 Plt Count 157 MPV 10.8 H Neut % (Auto) 76.6 Lymph % (Auto) 18.0 [place] % (Auto) 4.0 Eos % (Auto) 0.9 Baso % (Auto) 0.1 Neut # (Auto) 5.8 Lymph # (Auto) 1.4 [place] # (Auto) 0.3 Eos # (Auto) 0.1 Baso # (Auto) 0.0 Sodium Potassium Chloride Carbon Dioxide Anion Gap BUN Creatinine Estimated Creat Clear Estimated GFR Est GFR ( Amer) Glucose POC Glucose 129 H Calcium Magnesium Total Bilirubin AST ALT Alkaline Phosphatase Troponin I 0.02 NT-Pro-B Natriuret Pep Total Protein Albumin Globulin Albumin/Globulin Ratio Hepatitis C Antibody HIV Ag/Ab Combo Qual 10/22/24 16:08 WBC RBC Hgb Hct MCV MCH MCHC RDW Plt Count MPV Neut % (Auto) Lymph % (Auto) [place] % (Auto) Eos % (Auto) Baso % (Auto) Neut # (Auto) Lymph # (Auto) [place] # (Auto) Eos # (Auto) Baso # (Auto) Sodium 136 Potassium 3.8 Chloride 95 L Carbon Dioxide 33 H Anion Gap 11.8 BUN 21 H Creatinine 1.10 H Estimated Creat Clear 50 Estimated GFR 48 L Est GFR ( Amer) 58 L Glucose 229 H POC Glucose Calcium 9.4 Magnesium Total Bilirubin 0.6 AST 55 H ALT 36 Alkaline Phosphatase 51 Troponin I 0.02 NT-Pro-B Natriuret Pep 5950 H Total Protein 7.6 D Albumin 4.4 Globulin 3.2 Albumin/Globulin Ratio 1.4 Hepatitis C Antibody Non reactive HIV Ag/Ab Combo Qual Negative DS: Diagnosis Discharge Diagnosis (1) Right lower lobe pneumonia: Status: Acute Code(s): J18.9 - Pneumonia, unspecified organism Qualifiers: Pneumonia type: due to unspecified organism Qualified Code(s): J18.9 - Pneumonia, unspecified organism (2) CHF exacerbation: Status: Acute Code(s): I50.9 - Heart failure, unspecified Qualifiers: Heart failure type: combined systolic and diastolic Qualified Code(s): I50.43 - Acute on chronic combined systolic (congestive) and diastolic (congestive) heart failure (3) Pleural effusion on right: Status: Acute Code(s): J90 - Pleural effusion, not elsewhere classified (4) Acute dyspnea: Status: Acute Code(s): R06.00 - Dyspnea, unspecified (5) Influenza A: Status: Acute Code(s): J10.1 - Influenza due to other identified influenza virus with other respiratory manifestations (6) Acute on chronic heart failure with preserved ejection fraction (HFpEF): Status: Acute Code(s): I50.33 - Acute on chronic diastolic (congestive) heart failure Meds Home Medications and Allergies Home Medications ?Medication ?Instructions ?Recorded ?Confirmed ?Type empagliflozin 25 mg tablet 25 mg PO DAILY 10/15/24 10/22/24 History (Jardiance) insulin glargine 100 unit/mL (3 30 unit SQ DAILY 10/15/24 10/22/24 History mL) subcutaneous pen (Lantus Solostar U-100 Insulin) insulin lispro 100 unit/mL 0 unit SQ ACHS 10/15/24 10/22/24 History subcutaneous pen (Humalog KwikPen (U-100) Insulin) rivaroxaban 15 mg tablet (Xarelto) 15 mg PO QPMWITHMEAL 10/15/24 10/22/24 History bumetanide 1 mg tablet 1 mg PO DAILY #30 tabs 10/16/24 10/22/24 Rx irbesartan 150 mg tablet 150 mg PO DAILY 30 days #30 tabs 10/23/24 Rx levofloxacin 750 mg tablet 750 mg PO DAILY 4 days #4 tabs 10/23/24 Rx New Prescriptions to Start Prescriptions: irbesartan Presley Dietz levofloxacin Presley Dietz Allergies Allergy/AdvReac Type Severity Reaction Status Date / Time Hmagwcc-SBG-HrF Reductase Allergy Verified 10/22/24 13:47 Inhibitor (Kzesctk-Cag-Ugh Reductase Inhibitor) Discharge Plan Disposition Patient Disposition: Home, Self-Care Condition: Fair Follow up Plan Follow up with: Wanda Jackson [Primary Care Provider] - 10/28/24 1:30 pm Marvin Watts PA [Physician Diagnostic Sales Specialist] - 11/09/24 1:45 pm Prescriptions/Medication Reconciliation: New irbesartan 150 mg Tablet 150 mg PO DAILY 30 Days Qty: 30 0RF levofloxacin 750 mg tablet 750 mg PO DAILY 4 Days Qty: 4 0RF Continued insulin lispro [Humalog KwikPen Insulin] 100 unit/mL insulin pen 0 unit SQ ACHS Patient Comments: Inject 1 sliding scale dose 3 times a day by subcutaneous route as needed, for SLIDING SCALE WITH MEALS - max 20 units daily Rx Instructions: PER SLIDING SCALE insulin glargine [Lantus Solostar U-100 Insulin] 100 unit/mL (3 mL) insulin pen 30 unit SQ DAILY Patient Comments: INJECT 30 UNITS SUBCUTANEOUSLY every morning and 10 units in the evening Xarelto 15 mg tablet 15 mg PO QPMWITHMEAL Patient Comments: TAKE ONE TABLET BY MOUTH EVERY EVENING WITH A MEAL Jardiance 25 mg tablet 25 mg PO DAILY Patient Comments: TAKE ONE TABLET BY MOUTH EVERY MORNING FOR DIABETES bumetanide 1 mg tablet 1 mg PO DAILY Qty: 30 0RF Problem Reconciliation Problems Reviewed?: Yes Patient Discharge Instructions Patient Instructions: Heart-Healthy Diet, Carbohydrate-Counting Diet Print Language: Swiss Providers Primary Care Provider: Wanda Jackson Admit Provider: Presley Dietz Attending Provider: Presley Dietz
--- NOTE | 2024-10-27 11:05 | CARE MANAGER ---
Attempted call x 2 to discuss recent discharge. Unable to reach, but left a VM.
--- NOTE | 2024-10-27 12:26 | CARE MANAGER ---
Unable to reach patient to discuss recent discharge. Call attempted x 2 and VM left.
== END 2024-10-23 15:29 | disposition home or self-care (01) ==
LOC: ER 17:24 → 2ND 19:45
PROVIDERS: Student in an Organized Health Care Education/Training Program; Admitting Provider Student in an Organized Health Care Education/Training Program; Emergency Provider Emergency Medicine; PCP Nurse Practitioner Family; Visit Provider Student in an Organized Health Care Education/Training Program
DX: I50.33 Acute on chronic diastolic (congestive) heart failure (principal); J18.9 Pneumonia, unspecified organism; Y95 Nosocomial condition; E78.5 Hyperlipidemia, unspecified; I10 Essential (primary) hypertension; Z95.0 Presence of cardiac pacemaker; Z79.899 Other long term (current) drug therapy; Z79.01 Long term (current) use of anticoagulants
CPT/HCPCS: 36415; 71045; 80053; 82962; 83735; 83880; 84484; 85025; 86803; 87389; 93005; 94640; 99291; G0378; J0456; J0696; J1650; J1939; J3475; J7050; J7614